=== PATIENT | male | born 1955 | race Caucasian/White ===

== ENCOUNTER → 2024-07-29 | Outpatient (CLI) | payer MEDICARE, BC, SELFPAY ==
--- NOTE | 2024-07-29 06:33 | ECHOCS_ITS ---
Reason For Study Reason For Study: CORONARY ARTERY DISEASE Procedure This was a 2D Doppler, Color Flow transthoracic echocardiogram. Contrast injection was performed. The study was technically difficult. Exam performed in department. Left Ventricle Normal LV size. Mild concentric left ventricular hypertrophy. The left ventricular ejection fraction is 55 %. Stage 1 diastolic dysfunction. Right Ventricle Normal right ventricle. Atria There is mild biatrial dilatation. Mitral Valve Mild (1+) mitral valve insufficiency. Tricuspid Valve Trivial tricuspid valve insufficiency. Normal pulmonary artery pressure. Aortic Valve Mild diffuse aortic valve thickening. Pulmonic Valve The pulmonic valve is not well visualized. Great Vessels Normal-sized aortic root. Pericardium/Pleural No pericardial effusion. Medication 22 gauge I.V. with prn adaptor inserted into right arm. Diluted definity 2ml given slow IV push to enhance endocardial definition. MMode/2D Measurements & Calculations LVIDd: 4.6 cm IVSd: 1.2 cm LVOT diam: 2.0 cm LVIDs: 3.3 cm LVPWd: 1.1 cm RVDd: 4.3 cm FS: 29.0 % LVOT area: 3.1 cm2 LA dimension: 4.5 cm asc Aorta Diam: 3.6 cm LAV(MOD- bp): 60.3 ml LAV(MOD- bp) Indexed: 28.0 ml/m2 LAV(MOD- sp2): 60.7 ml LAV(MOD- sp4): 55.4 ml SV(MOD- sp4): 71.6 ml LVAd ap4: 37.0 cm2 LVAd ap2: 37.0 cm2 LVLd ap4: 8.5 cm LVLd ap2: 9.3 cm SI(MOD- sp4): 33.3 ml/m2 EDV(MOD-sp4): 129.2 ml EDV(MOD-sp2): 118.1 ml EDV(sp4-el): 137.4 ml EDV(sp2-el): 125.2 ml LVAs ap4: 23.9 cm2 LVAs ap2: 21.6 cm2 LVLs ap4: 8.0 cm LVLs ap2: 8.1 cm ESV(MOD-sp4): 57.6 ml ESV(MOD-sp2): 46.1 ml ESV(sp4-el): 60.4 ml ESV(sp2-el): 48.7 ml EF(MOD-sp4): 55.4 % EF(MOD-sp2): 61.0 % EF(sp4-el): 56.0 % SV(MOD-sp2): 72.0 ml SV(sp4-el): 77.0 ml Ao sinus diam: 3.4 cm SI(MOD-sp2): 33.4 ml/m2 Ao ST Junction: 2.8 cm LA dimension(2D): 4.2 cm LA A4 area: 20.4 cm2 RA A4 area: 17.5 cm2 TAPSE: 1.5 cm Time Measurements MV dec time: 0.22 sec Doppler Measurements & Calculations MV E max sotero: 87.4 cm/sec Ao V2 max: 99.3 cm/sec LV V1 max: 86.0 cm/sec Ao max P.9 mmHg LV V1 max P.0 mmHg Ao V2 mean: 69.5 cm/sec LV V1 mean P.6 mmHg Ao mean P.3 mmHg LV V1 mean: 59.3 cm/sec Ao V2 VTI: 24.4 cm LV V1 VTI: 21.4 cm AV (velocity ratio): 0.88 MELI(I,D): 2.7 cm2 MELI(V,D): 2.7 cm2 SV(LVOT): 66.5 ml PA V2 max: 70.5 cm/sec TR max sotero: 260.5 cm/sec TR max P.1 mmHg ECHO/Echo Complete W/ Contrast Interpretation Summary Mild concentric left ventricular hypertrophy. The left ventricular ejection fraction is 55 %. Stage 1 diastolic dysfunction. There is mild biatrial dilatation. Mild (1+) mitral valve insufficiency. Ordering Physician: Nya Tran Referring Physician: MD Marco A Richar Performed By: Gracie Brown [facility]
--- NOTE | 2024-07-29 12:27 | STRESSREP ---
Stress Test Report Date: 07/29/2024 Procedure: Pharmacologic stress nuclear imaging study Indications: Atrial fibrillation Consent: Per the patient Procedure: The patient underwent pharmacologic (Regadenoson 0.4mg ) evaluation with a peak heart rate of 76 beats per minute (50%predicted maximal heart rate) and a peak blood pressure of 154/66 mmHg. The baseline ECG demonstrated atrial fibrillation. The peak pharmacologic ECG demonstrated no ischemic changes. There was no complaint of chest discomfort during pharmacologic infusion or recovery. The patient was injected with 15.0 millicuries of technetium 99m Cardiolite and subsequently rest SPECT Cardiolite nuclear imaging was obtained in the horizontal long, vertical long, and short axis views. The patient underwent pharmacologic (Regadenoson) evaluation. The patient was injected with 44.8 millicuries of technetium 99m Cardiolite and subsequently stress SPECT Cardiolite nuclear imaging was obtained in the horizontal long, vertical long, and short axis views. A gated Cardiolite study at peak stress was obtained. The examination was stopped secondary to completion of protocol. Rest and stress SPECT Cardiolite nuclear imaging status post realignment, normalization, and attenuation correction demonstrate no fixed or reversible perfusion defects. There is end systolic thickening and brightening. The gated Cardiolite study demonstrates myocardial thickening and inward wall motion. The reported LVEF is 65%. Impression: 1. Pharmacologic (Regadenoson) evaluation 2. Peak pharmacologic ECG with no ischemic changes. 3. Baseline atrial fibrillation. 5. Rest and stress SPECT Cardiolite nuclear imaging demonstrate relative uniform tracer uptake and myocardial perfusion appearing within normal limits. 6. The gated Cardiolite study reports an LVEF of 65%. This note was generated with [employer] software. It may contain incorrect words, spelling, and punctuation that were not noted in checking the note before signing.
== END | disposition home or self-care (01) ==
PROVIDERS: PCP Family Medicine; Referring Provider Internal Medicine Cardiovascular Disease; Visit Provider Internal Medicine Cardiovascular Disease
DX: I25.119 Atherosclerotic heart disease of native coronary artery with unspecified angina pectoris (principal); I48.91 Unspecified atrial fibrillation; I10 Essential (primary) hypertension; R06.83 Snoring
CPT/HCPCS: 78452; 93017; 93306; A9500; Q9957; A4216; C8929; J2785

== ENCOUNTER 2025-04-29 20:00 | Outpatient (CLI) | payer MEDICARE, BC, SELFPAY ==
--- OUTSIDE RECORDS SUMMARY | 2025-04-29 20:27 | XMS RPT_ITS | CCD ---
Author Organization [facility] Care Team Providers Care Senior Integration Architect Name Role Phone Kerri Strickland MD Primary Care Provider PRISCILA MISTRY Attending Unava ilable KERRI STRICKLAND Primary Care Unavailable Kerri Strickland MD Primary Care Provider Kerri Striclkand MD Primary Care Provider Kerri Strickland MD Primary Care Provider [address] MACHINE OPERATOR.Adina LOCKHART Unavailable Jovany RO[address] MACHINE OPERATOR.Hugo LOCKHART Unavailable BRAYDEN OJSEPH Attending Unavailable BRAYDEN JOSEPH Admitting Unavailable KERRI STRICKLAND Primary Care Unavailable [address] MACHINE OPERATOR.Adina LOCKHART Unavailable Unavail able [address] MACHINE OPERATOR.Adina LOCKHART Unavailable KERRI STRICKLAND Referring Unavailable ELDERKERRI PEREIRA Primary Care Unavailable SOPHIA REBOLLEDO Attending Unavailable DIEGO, KERRI Crespo Primary Care Unavailable BRAYDEN JOSEPH Referring Unavailable ELDERBROCK, KERRI Crespo Referring Unavailable ELDERBROCK, KERRI Cherie Primary Care Unavailable ELDERBROCKKERRI Attending Unavailable ELDERBROCK, KERRI Crespo Primary Care Unavailable ELDERBROCK, KERRI Crespo Referring Unavailable ELDERBROCK, KERRI Crespo Primary Care Unavailable BRAYDEN JOSEPH Attending Unavailable KERRI STRICKLAND Referring Unavailable ELDERBROCK, KERRI Crespo Primary Care Unavailable KYLER MELO Referring Unavailable ELDERBROCK, KERRI D Primary Care Unavailable ELDERBROCK, KERRI Cherie Primary Care Unavailable ELDERBROCK, KERRI Crespo Referring Unavailable ELDERBROCK, KERRI Cherie Primary Care Unavailable ELDERBROCK, KERRI Cherie Primary Care Unavailable BRAYDEN JOSEPH Referring Unavailable ELDERBROCK, KERRI Crespo Attending Unavailable ELDERBROCK, KERRI Cherie Primary Care Unavailable ELDERBROELLI, KERRI Crespo Primary Care Unavailable BRAYDEN JOSEPH Referring Unavailable BRAYDEN JOSEPH Attending Unavailable KERRI STRICKLAND Attending Unavailable KERRI STRICKLAND Primary Care Unavailable Marc, Nya Attending Unavailable Kerri Strickland Referring Unavailable Kerri Strickland Primary Care Unavailable Marc, Nya Attending Unavailable Marc, Nya Referring Unavailable Kerri Strickland Primary Care Unavailable Marc, Nya Consulting Unavailable Marc, Nya Attending Unavailable Marc, Nya Referring Unavailable Kerri Strickland Primary Care Unavailable Sen Guy Attending Unavailable Kerri Strickland Referring Unavailable Hugo Manzo NP Primary Care Unavailable Allergies Allergy Classification Reported Allergen(s) Allergy Type Date of Onset Reaction(s) Facility (1 source) HAY FEVER AND ALLERGY RELIEF; Translations: [HAY FEVER AND ALLERGY RELIEF] Propensity to adverse reactions to drug (disorder) 2 [facility] Medications Current Medications Medication Drug Class(es) Dates Sig (Normalized) Sig (Original) apixaban 5 mg oral tablet (6 sources) Factor Xa Inhibitor Start: 07-27-2024 take 1 tablet by mouth twice daily apixaban (ELIQUIS) 5 mg tab(s) Take 5 mg by mouth two times a day. 07/27/2024 Active atorvastatin 80 mg oral tablet (20 sources) HMG-CoA Reductase Inhibitor Start: 08-02-2022 End: 08-16-2024 take 1 tablet by mouth once daily atorvastatin (LIPITOR) 80 mg tablet Indications: Hyperlipidemia, unspecified hyperlipidemia type Take 1 tablet by mouth once daily. 90 tablet 3 08/16/2024 Active Start: 04-18-2021 take 1 tablet by andrea th once daily atorvastatin (LIPITOR) 80 mg tablet Take 1 tablet by mouth once daily. 90 tablet 3 04/18/2021 Active Comment on above: Take 1 tablet by andrea th once daily. hydroCHLOROthiazide 12.5 mg / lisinopril 20 mg oral tablet (20 sources) Thiazide Diuretic, Angiotensin Converting Enzyme Inhibitor Start: 08-02-19 End: 08-27-19 25 take 1 tablet by mouth once daily in the morning lisinopril-hydro CHLOROthiazide (ZESTORETIC) 20-12.5 mg per tablet Indications: Type 2 diabetes mellitus without complication, without long-term current use of insulin (HCC) , HTN (hypertension), benign Take 1 tablet by mouth every morning. 90 tablet 3 08/16/2024 Active Start: 01-25-2022 take 1 tablet by andrea th once daily in the morning lisinopril-hydroCHLOROthiazide (PRINZIDE,ZESTORETIC) 20-12.5 mg per tablet Take 1 tablet by mouth every morning. 90 tablet 3 01/25/2022 Active Comment on above: Take 1 tablet by andrea th every morning. 24 hr isosorbide mononitrate 30 mg extended release oral tablet (20 sources) Nitrate Vasodilator Start: 3 End: take 1 tablet by mouth once daily isosorbide mononitrate ER (IMDUR) 30 mg 24 hr tablet Indications: HTN (hypertension), benign Take 1 tablet by mouth once daily. 90 tablet 3 09/06/2024 Active Start: 04-18-2021 take 1 tablet by andrea th once daily isosorbide mononitrate ER (IMDUR) 30 mg 24 hr tablet Take 1 tablet by mouth once daily. 90 tablet 3 04/18/2021 Active Comment on above: Take 1 tablet by andrea th once daily. loratadine 10 mg oral tablet (20 sources) Start: 08-02-2022 End: 07-31-2023 take 1 tablet by mouth once daily loratadine (CLARITIN) 10 mg tablet Take 1 tablet by mouth once daily. 90 tablet 3 07/31/2023 Active Start: 10-19-2021 take 1 tablet by andrea th once daily loratadine (CLARITIN) 10 mg tablet Take 1 tablet by mouth once daily. 90 tablet 3 10/19/2021 Active Comment on above: Take 1 tablet by andrea th once daily. meloxicam 15 mg oral tablet (20 sources) Nonsteroidal Anti-inflammatory Drug Start: 08-02-19 End: 06-11-20 take 1 tablet by mouth once daily at mealtime meloxicam (MOBIC) 15 mg tablet Indications: Foot pain, right Take 1 tablet by mouth once daily. With food. 90 tablet 3 06/11/2024 Active Comment on above: Take 1 tablet by andrea th once daily. With food. 24 hr metFORMIN hydrochloride 500 mg extended release oral tablet (20 sources) Biguanide Start: 08-02-19 End: 08-17-19 take 3 tablets by mouth once daily at breakfast metFORMIN ER (GLUCOPHAGE XR) 500 mg 24 hr tablet Indications: Type 2 diabetes mellitus without complication, without long-term current use of insulin (HCC) Take 3 tablets by mouth daily with breakfast. 270 tablet 3 08/16/2024 Active Start: 04-29-2022 take 2 tablets by mo uth once daily at breakfast metFORMIN ER (GLUCOPHAGE XR) 500 mg 24 hr tablet Take 2 tablets by mouth daily with breakfast. 180 tablet 4 04/29/2022 Active Start: 04-18-2021 take 2 tablets by mo uth once daily at breakfast metFORMIN ER (GLUCOPHAGE XR) 500 mg 24 hr tablet Take 2 tablets by mouth daily with breakfast. 180 tablet 3 04/18/2021 Active Comment on above: Take 2 tablets by mo uth daily with breakfast. Take 3 tablets by mo uth daily with breakfast. metoprolol tartrate 25 mg oral tablet (20 sources) beta-Adrenergic Sherman Start: 08-02-2022 End: 06-11-2025 take 1 tablet by mouth twice daily metoprolol tartrate, short acting, (LOPRESSOR) 25 mg tablet Indications: HTN (hypertension), benign Take 1 tablet by mouth two times a day. 180 tablet 3 06/11/2024 06/11/2025 Active Start: 04-29-2022 take 1 tablet by andrea twice daily metoprolol tartrate, short acting, (LOPRESSOR) 25 mg tablet Indications: HTN (hypertension), benign Take 1 tablet by mouth twice daily. 180 tablet 4 04/29/2022 Active Start: 04-18-2021 take 1 tablet by andrea th twice daily metoprolol tartrate, short acting, (LOPRESSOR) 25 mg tablet Indications: HTN (hypertension), benign Take 1 tablet by mouth twice daily. 180 tablet 3 04/18/2021 Active Comment on above: Take 1 tablet by andrea th twice daily. Take 1 tablet by andrea th two times a day. multivitamin tablet (16 sources) Start: 05-07-20 take 1 tablet by mouth once daily multivitamin tablet Take 1 tablet by mouth once daily. 05/07/2024 Active tadalafil 10 mg oral tablet (20 sources) Phosphodiesterase 5 Inhibitor Start: 02-13-20 take 1 tablet by mouth once daily as needed Tadalafil (CIALIS) 10 mg tablet Indications: Erectile dysfunction, unspecified erectile dysfunction type Take 1 tablet by mouth once daily as needed. Take 1-2 hours before sexual activity. 6 tablet 5 02/13/2024 Active Completed/Discontinued Medications Medication Drug Class(es) Dates Sig (Normalized) Sig (Original) aspirin 81 mg chewable tablet (20 sources) Platelet Aggregation Inhibitor, Nonsteroidal Anti-inflammatory Drug Start: 05-26-2018 End: 08-20-2024 take 1 tablet by mouth once daily aspirin 81 mg chewable tablet Take 1 tablet by mouth once daily. 05/26/2018 08/20/2024 Discontinued (Discontinued by another Health Care Provider) Comment on above: Take 1 tablet by andrea once daily. colchicine 0.6 mg oral tablet (12 sources) Start: 07-09-2023 End: 06-18-2024 colchicine 0.6 mg tablet TAKE 2 TABLETS BY MOUTH ONCE NOW AND THEN 1 TABLET ONCE IN 1 HOUR... (REFER TO PRESCRIPTION NOTES). 07/09/2023 06/18/2024 Discontinued docosahexanoic acid/epa (FISH OIL ORAL) (11 sources) End: 02-03-2023 docosahexanoic acid/epa (FISH OIL ORAL) Take by mouth once daily. 02/03/2023 Discontinued End: 02-03-2023 docosahexanoic acid/epa (FIS H OIL ORAL) Take by mouth once daily. 0 02/03/2023 Discontinued docosahexanoic a talon/epa (FISH OIL ORAL) Take by mouth once daily. 0 Active Comment on above: Take by mouth once d aily. hydroCHLOROthiazide 12.5 mg oral capsule (3 sources) Thiazide Diuretic Start : 10-19 End: 01-25 take 1 capsule by mouth once daily hydroCHLOROthiazide (HYDRODIURIL, ESIDRIX) 12.5 mg capsule Take 1 capsule by mouth once daily. 90 capsule 11 10/19/2021 01/25/2022 Discontinued Comment on above: Take 1 capsule by mo [facility] once daily. lisinopril 20 mg oral tablet (3 sources) Angiotensin Converting Enzyme Inhibitor Start : 07-24 End: 01-25 take 1 tablet by mouth once daily lisinopril (PRINIVIL) 20 mg tablet Indications: HTN (hypertension), benign Take 1 tablet by mouth once daily. 90 tablet 3 07/24/2021 01/25/2022 Discontinued Comment on above: Take 1 tablet by andrea th once daily. polyethylene glycol 3350 709045 mg / potassium chloride 2970 mg / sodium bicarbonate 6740 mg / sodium chloride 5860 mg / sodium sulfate 76650 mg powder for oral solution (1 source) Osmotic Laxative Start : 08-20 End: 08-20 peg 3350-Electrolytes (GOLYTELY) 236-22.74-6.74 -5.86 gram suspension Take 4,000 mL by mouth one time only for 1 dose. 1 Each 0 08/20/2022 08/20/2022 Comment on above: Take 4,000 mL by andrea th one time only for 1 dose. triamcinolone acetonide 0.25 mg/ml topical cream (11 sources) Corticosteroid Start : 09-19 End: 02-03 triamcinolone (KENALOG) 0.025 % cream Indications: Sore on scalp Apply to affected area twice daily. 30 g 1 09/20/2019 02/03/2023 Discontinued Comment on above: Apply to affected ar ea twice daily. Vitamin B Complex (20 sources) Start : 05-26 End: 06-18 take 1 tablet by mouth once daily vitamin b complex (B COMPLETE) tab Take 1 tablet by mouth once daily. 05/26/2018 06/18/2024 Discontinued Start: 05-26-2018 take 1 tablet by andrea th once daily vitamin b complex (B COMPLETE) tab Take 1 tablet by mouth once daily. 05/26/2018 Active Start: 05-26-2018 take 1 tablet by andrea th once daily vitamin b complex (B COMPLETE) tab Take 1 tablet by mouth once daily. 0 05/26/2018 Active Comment on above: Take 1 tablet by andrea th once daily. Problems Active Problems Problem Classification Problem Date Documented Da te Episodic/Chronic Cancer of prostate (6 sources) History of malignant neoplasm of prostate; Translations: [Personal history of malignant neoplasm of prostate] Onset: 08-31-2024 08-31-2024 Episodic Cardiac dysrhythmias (18 sources) Atrial fibrillation; Translations: [Unspecified atrial fibrillation] Onset: 06-18-2024 06-21-2024 Chronic Cardiac dysrhythmias (1 source) Bradycardia, unspecified; Translations: [Bradycardia, unspecified] Onset: 04-18-2025 Episodic Cataract (20 sources) Bilateral pseudophakia; Translations: [Presence of intraocular lens] Onset: 08-25-2017 08-25-2017 Chronic Coronary atherosclerosis and other heart disease (17 sources) Coronary arteriosclerosis; Translations: [Atherosclerotic heart disease of [place] coronary artery with unspecified angina pectoris] Onset: 06-21-2024 06-21-2024 Chronic Diabetes mellitus without complication (20 sources) Type 2 diabetes mellitus without complication; Translations: [Type 2 diabetes mellitus without complications] Onset: 05-07-2016 Chronic Disorders of lipid metabolism (20 sources) Hyperlipidemia; Translations: [Hyperlipidemia, unspecified] Onset: 05-07-2016 Chronic Essential hypertension (20 sources) Benign hypertension; Translations: [Essential (primary) hypertension] Onset: 05-07-2016 Chronic Gout and other crystal arthropathies (3 sources) Gouty arthritis of toe; Translations: [Gout, unspecified] Onset: 03-05-2025 02-13-2024 Chronic Hyperplasia of prostate (20 sources) Benign prostatic hyperplasia; Translations: [Benign prostatic hyperplasia without lower urinary tract symptoms] Onset: 06-05-2016 06-05-2016 Chronic Immunizations and screening for infectious disease (1 source) Vaccination needed; Translations: [Encounter for immunization] 02-03-2023 Episodic Joint disorders and dislocations; trauma-related (8 sources) Derangement of left knee; Translations: [Unspecified internal derangement of left knee] Onset: 05-31-2024 05-07-2024 Chronic Joint disorders and dislocations; trauma-related (2 sources) Other tear of medial meniscus, current injury, left knee, subsequent encounter; Translations: [Tear of medial meniscus of knee] Onset: 09-15-2024 10-25-2024 Episodic Open wounds of extremities (2 sources) Laceration without foreign body of left hand, initial encounter; Translations: [Laceration without foreign body of left hand, initial encounter] Onset: 04-04-2022 Episodic Osteoarthritis (2 sources) Arthritis of left knee; Translations: [Unilateral primary osteoarthritis, left knee] 08-20-2024 Chronic Other aftercare (1 source) Removal of sutures done; Translations: [Encounter for removal of sutures] Episodic Other connective tissue disease (4 sources) Pain in right foot; Translations: [Pain in right foot] Episodic Other connective tissue disease (1 source) Plantar fasciitis; Translations: [Plantar fascial fibromatosis] Episodic Other connective tissue disease (1 source) Pain in right foot; Translations: [Foot pain, right] Onset: 03-05-2025 Episodic Other eye disorders (20 sources) Bilateral vitreous floaters; Translations: [Other vitreous opacities, bilateral] Onset: 08-25-2017 08-25-2017 Chronic Other male genital disorders (2 sources) Male erectile dysfunction, unspecified; Translations: [Impotence of organic origin] 02-13-2024 Chronic Other nutritional; endocrine; and metabolic disorders (6 sources) Body mass index 30+ - obesity; Translations: [Body mass index (BMI) 34.0-34.9, adult] Onset: 08-31-2024 08-31-2024 Chronic Other skin disorders (1 source) Dystrophia unguium; Translations: [Nail dystrophy] Episodic Residual codes; unclassified (1 source) Hypersomnia, unspecified; Translations: [Hypersomnia, unspecified] Onset: 04-18-2025 Chronic Residual codes; unclassified (1 source) Tobacco user; Translations: [Tobacco use] 02-13-2024 Episodic Screening and history of mental health and substance abuse codes (8 sources) Patient encounter status; Translations: [Encounter for screening for depression] Onset: 08-31-2024 02-13-2024 Episodic Unclassified (1 source) Chronic atrial fibrillation, unspecified; Translations: [Chronic atrial fibrillation (HCC)] Onset: 03-05-2025 Unclassified (1 source) Consult Onset: 08-26-2024 Past or Other Problems Problem Classification Problem Date Documented Da te Episodic/Chronic Cancer of prostate (20 sources) Malignant tumor of prostate; Translations: [Malignant neoplasm of prostate] Onset: 05-07-2016 Resolved: 02-03-2023 05-07-2016 Chronic Other aftercare (1 source) senior care (current) use of insulin; Translations: [senior care (current) use of insulin] Onset: 08-12-2024 Episodic Other lower respiratory disease (2 sources) Snoring; Translations: [Snoring] Onset: 08-12-2024 Episodic Other male genital disorders (20 sources) Disorder of male genital organ; Translations: [Disorder of male genital organs, unspecified] Onset: 06-05-2016 06-05-2016 Episodic Other non-traumatic joint disorders (8 sources) Pain in left knee; Translations: [Pain in joint, lower leg] Onset: 05-31-2024 03-22-2024 Episodic Residual codes; unclassified (1 source) Tobacco use; Translations: [Tobacco use] Onset: 08-12-2024 Episodic Results Test Name Value Interpretation Reference Range Facility ALBUMIN/CREATININE RATIO, UR INEon 03-05-2025 Albumin DL <= 20 mg/L (U) [Mass/Vol] 22.3 mg/L Normal [facility] Comment on above: Order Comment: Speci men Type: URINE SPECIMENOrdering Facility: [facility] Address: [address] [place] [address] Performed By: #### U ACR ####[facility] LABCLIA [id number] [place] [address] [place] Albumin/Creatinine (U) [Mass ratio] 22 mg/g Normal <30 [facility] Comment on above: Order Comment: Speci men Type: URINE SPECIMENOrdering Facility: [facility] Address: [address] [place] [address] Result Comment: Adul t Male and Female Nephrotic Criteria: <30 mg/g is considered normal to mildly increased 30-300 mg/g is considered moderately increased >300 mg/g is considered severely increased KDIGO. (2013). KDIGO 2012 Clinical Practice Guideline for the Evaluation and Management of Chronic Kidney Disease. Official Journal of the International Society of Nephrology, 3(1), 1-150. Performed By: #### U ACR ####[facility]CLIA [id number] [place] [address] [place] Creatinine (U) [Mass/Vol] 101.4 mg/dL Normal 20.0-300.0 [facility] Comment on above: Order Comment: Speci men Type: URINE SPECIMENOrdering Facility: [facility] Address: [address] [place] [address] Performed By: #### U ACR ####[facility] LABCLIA [id number] [place] [address] [place] CBC panel Auto (Bld)on 03-05 Erythrocyte distribution width (RBC) [Ratio] 13.5 % Normal 11.5-15.0 [facility] Comment on above: Order Comment: Speci men Type: BLOOD SPECIMENOrdering Facility: [facility] Address: [address] [place] [address] Performed By: #### 5 8410-2 ####[facility] LABIA [id number] [place] [address] [place] Hematocrit (Bld) [Volume fraction] 43.3 % Normal 39.0-51.0 [facility] Comment on above: Order Comment: Speci men Type: BLOOD SPECIMENOrdering Facility: [facility] Address: [address] [place] [address] Performed By: #### 5 8410-2 ####[facility] LABIA [id number] [address] [place] Hemoglobin (Bld) [Mass/Vol] 14.0 g/dL Normal 13.0-17.0 [facility] Comment on above: Order Comment: Speci men Type: BLOOD SPECIMENOrdering Facility: [facility] Address: [address] [place] [address] Performed By: #### 5 8410-2 ####[facility] LABIA [id number] [place] [id number] [place] MCH (RBC) [Entitic mass] 30.7 pg Normal 26.0-34.0 [facility] Comment on above: Order Comment: Speci men Type: BLOOD SPECIMENOrdering Facility: [facility] Address: [address] [place] [address] Performed By: #### 5 8410-2 ####[facility] LABIA [id number] [address] [address] [place] MCHC (RBC) [Mass/Vol] 32.3 g/dL Normal 30.5-36.0 [facility] Comment on above: Order Comment: Speci men Type: BLOOD SPECIMENOrdering Facility: [facility] Address: [address] [place] [address] Performed By: #### 5 8410-2 ####[facility] LABCLIA [id number] [place] [address] [place] MCV (RBC) [Entitic vol] 95.0 fL Normal 80.0-100.0 [facility] Comment on above: Order Comment: Speci men Type: BLOOD SPECIMENOrdering Facility: [facility] Address: [address] [place] [address] Performed By: #### 5 8410-2 ####[facility] LABCLIA [id number] [place] [address] [place] Nucleated RBC (Bld) [#/Vol] 10*3/uL Normal <0.01 [facility] Comment on above: Order Comment: Speci men Type: BLOOD SPECIMENOrdering Facility: [facility] Address: [address] [place] [address] Performed By: #### 5 8410-2 ####[facility] LABCLIA [id number] [place] [address] [place] Platelet mean volume (Bld) [Entitic vol] 13.5 fL High 9.0-12.7 [facility] Comment on above: Order Comment: Speci men Type: BLOOD SPECIMENOrdering Facility: [facility] Address: [address] [place] [address] Performed By: #### 5 8410-2 ####[facility] LABCLIA [id number] [place] [id number] [place] Platelets (Bld) [#/Vol] 160 10*3/uL Normal 150-400 [facility] Comment on above: Order Comment: Speci men Type: BLOOD SPECIMENOrdering Facility: [facility] Address: [address] [place] [address] Performed By: #### 5 8410-2 ####[facility] LABIA [id number] [place] [address] [place] RBC (Bld) [#/Vol] 4.56 10*6/uL Normal 4.20-6.00 [facility] Comment on above: Order Comment: Speci men Type: BLOOD SPECIMENOrdering Facility: [facility] Address: [address] [place] [address] Performed By: #### 5 8410-2 ####[facility] LABIA [id number] [place] [address] [place] WBC (Bld) [#/Vol] 8.78 10*3/uL Normal 3.70-11.00 [facility] Comment on above: Order Comment: Speci men Type: BLOOD SPECIMENOrdering Facility: [facility] Address: [address] [place] [address] Performed By: #### 5 8410-2 ####[facility] LABIA [id number] [place] [address] [place] CNOVon 03-05-2025 CNOV Office Visit (FAMPWS ) JONATHAN DUNCAN ([id number]) 1955 M Date Time Provider Department 03/05/25 11:00 AM KERRI STRICKLAND FAMPWS During your visit today, we recorded the following information about you: Pulse Blood pressure Weight 61/minute 148/80 102 kg Kerri Strickland MD 03/05/2025 11:33 AM Signed Chief Complaint Follow up HPI Jonathan Duncan is a 69 year old male who presents here today for 6 month follow up. No bowel, Gi, or urinary issues. Denies nocturia. Follows with urology, Hemant Hunter for BPH. ED: Uses Cialis as needed. Lipid: Trying to watch his diet, by reducing portion sizes, watching what he eats, and eating more fruits. Denies any formal exercise but tries to stay busy. Taking Lipitor 80 mg daily. Tolerating well. HTN: Taking Lopressor 25 mg 1 pill BID, Imdur 30 mg daily, Lisinopril-HCTZ 20-12.5 mg daily. Denies checking his BP at home. Denies any chest pain, sob, or dizziness DM: Denies checking his sugars at home, states he can tell when sugars become too low or high. Taking Metformin 500 mg 3 pills once daily. Denies any low sugars or neuropathy sx. A-fib: taking Eliquis 5 mg 1 tab po bid. Follows with [facility]. Arthritis: Uses Mobic 15 mg once daily for left knee arthritis. Follows with Sameera Wakefield. Hx of gout, has had 3 attacks in the last 6 months in toe.. Past medical history, appointments, medications, allergies reviewed. Previous Medical History PAST MEDICAL HISTORY Diagnosis Date Diabetes mellitus type 2, controlled, without complications (HCC) Hyperlipidemia Hypertension Prostate cancer (HCC) Snoring Previous Surgical History PAST SURGICAL HISTORY Procedure Laterality Date ARTHRS KNE SURG W/MENISCECTOMY MED/LAT W/SHVG Left 09/15/2024 Left knee arthroscopic medial menisectomy, medial distal femoral chondroplasty COLONOSCOPY 09/27/2022 repeat in 5 years, history of polyps. COLONOSCOPY FLX DX W/COLLJ SPEC WHEN PFRMD 05/15/2017 Colonoscopy EYE SURGERY HX PAST SURGICAL HISTORY OF 2014 Prostate cancer removed PAST SURGICAL HISTORY OF Right 2006 Cataract surgery PAST SURGICAL HISTORY OF 2004 Colonoscopy PAST SURGICAL HISTORY OF 2006 Hemorrhoidectomy PAST SURGICAL HISTORY OF 2011 Toe surgery, due to almost cutting toe off with chainshaw PAST SURGICAL HISTORY OF 2009 Colonoscopy Family History FAMILY HISTORY Problem Relation Age of Onset Heart Mother Heart Father Age of 69, massive [place] Diabetes Father Heart Sister Heart Brother Diabetes Paternal Aunt Colon Cancer Paternal Uncle Patient Allergies ALLERGIES No Known Allergies Current Medications Current Outpatient Medications on File Prior to Visit Medication Sig isosorbide mononitrate ER (IMDUR) 30 mg 24 hr tablet Take 1 tablet by mouth once daily. apixaban (ELIQUIS) 5 mg tab(s) Take 5 mg by mouth two times a day. metFORMIN ER (GLUCOPHAGE XR) 500 mg 24 hr tablet Take 3 tablets by mouth daily with breakfast. atorvastatin (LIPITOR) 80 mg tablet Take 1 tablet by mouth once daily. lisinopril-hydroCHLORO thiazide (ZESTORETIC) 20-12.5 mg per tablet Take 1 tablet by mouth every morning. meloxicam (MOBIC) 15 mg tablet Take 1 tablet by mouth once daily. With food. metoprolol tartrate, short acting, (LOPRESSOR) 25 mg tablet Take 1 tablet by mouth two times a day. multivitamin tablet Take 1 tablet by mouth once daily. Tadalafil (CIALIS) 10 mg tablet Take 1 tablet by mouth once daily as needed. Take 1-2 hours before sexual activity. loratadine (CLARITIN) 10 mg tablet Take 1 tablet by mouth once daily. Lancets lancets Test blood sugar(s) 1 times daily. Dx: Type 1 DM - Controlled E10.9 Insulin: No blood sugar diagnostic (BLOOD GLUCOSE TEST) test strip Test blood sugar(s) 1 times daily. Dx: Type 1 DM - Controlled E10.9 Insulin: No No current facility-administered medications on file prior to visit. Social History SOCIAL HISTORY[1] EXAM: There were no vitals taken for this visit. General Appearance: Well appearing, alert, in no acute distress, well-hydrated, well nourished.. Lungs: Lungs clear to auscultation. No wheezing, rhonchi, rales.. Heart: RRR without murmur, gallop, or rubs. No ectopy. Health Maintenance List RSV Vaccine(1 - Risk 60-74 years 1-dose series) Never done Diabetic Foot Exam due on 04/18/2022 Medicare Annual Wellness Visit due on 02/12/2025 HbA1C due on 02/20/2025 Urine Albumin:Creatinine Ratio due on 02/12/2025 Depression Screening due on 02/12/2025 Anxiety Screening due on 02/12/2025 Influenza Vaccine(1) due on 02/14/2025 Dilated Retinal Exam due on 08/19/2025 LDL Cholesterol due on 08/20/2025 Annual PCP Team Chronic Disease Visit due on 08/20/2025 DTaP,Tdap,Td Vaccine(2 - Td or Tdap) due on 09/26/2025 Colorectal Cancer Screening due on 09/28/2027 Abdominal Aortic Aneurysm Screening Completed Advanc (more content not included)... Normal [facility] Comprehensive metabolic 2000 panelon 03-05-2025 Albumin [Mass/Vol] 3.9 g/dL Normal 3.9-4.9 [facility] Comment on above: Order Comment: Speci men Type: BLOOD SPECIMENOrdering Facility: [facility] Address: [address] [place] [address] Performed By: #### 3 084-1, 78812-9, 65558-4 ####[facility] LABIA [id number] [place] [address] [place] ALP [Catalytic activity/Vol] 115 U/L High 38-113 [facility] Comment on above: Order Comment: Speci men Type: BLOOD SPECIMENOrdering Facility: [facility] Address: [address] [place] [address] Performed By: #### 3 084-1, 34188-5, 39984-0 ####[facility] LABIA [id number] [place] [address] [place] ALT [Catalytic activity/Vol] 24 U/L Normal 10-54 [facility] Comment on above: Order Comment: Speci men Type: BLOOD SPECIMENOrdering Facility: [facility] Address: [address] [place] [address] Performed By: #### 3 084-1, 08859-4, 68199-5 ####[facility] LABIA [id number] [address] [address] [place] Anion gap [Moles/Vol] 11 mmol/L Normal 8-15 [facility] Comment on above: Order Comment: Speci men Type: BLOOD SPECIMENOrdering Facility: [facility] Address: [address] [place] [address] Performed By: #### 3 084-1, 68548-6, 30659-5 ####[facility] LABCLIA [id number] [address] [address] [place] AST [Catalytic activity/Vol] 25 U/L Normal 14-40 [facility] Comment on above: Order Comment: Speci men Type: BLOOD SPECIMENOrdering Facility: [facility] Address: [address] [place] [address] Performed By: #### 3 084-1, 10942-1, 19892-7 ####[facility] LABCLIA [id number] [address] [address] [place] Bilirubin [Mass/Vol] 0.5 mg/dL Normal 0.2-1.3 [facility] Comment on above: Order Comment: Speci men Type: BLOOD SPECIMENOrdering Facility: [facility] Address: [address] [place] [address] Performed By: #### 3 084-1, 69392-5, 97922-6 ####[facility] LABIA [id number] [address] [address] [place] Calcium [Mass/Vol] 9.4 mg/dL Normal 8.5-10.2 [facility] Comment on above: Order Comment: Speci men Type: BLOOD SPECIMENOrdering Facility: [facility] Address: [address] [place], [place] [address] Performed By: #### 3 084-1, 66837-0, 18463-1 ####[facility] LABIA [id number] [address] [address] [place] Chloride [Moles/Vol] 102 mmol/L Normal 98-107 [facility] Comment on above: Order Comment: Speci men Type: BLOOD SPECIMENOrdering Facility: [facility] Address: [address] [place], [place] [address] Performed By: #### 3 084-1, 59725-0, 61842-6 ####[facility] LABCLIA [id number] [place] [address] [place] CO2 [Moles/Vol] 26 mmol/L Normal 22-30 [facility] Comment on above: Order Comment: Speci men Type: BLOOD SPECIMENOrdering Facility: [facility] Address: [address] [place] [address] Performed By: #### 3 084-1, 08968-3, 08038-0 ####[facility] LABCLIA [id number] [place] [address] [place] Creatinine [Mass/Vol] 0.79 mg/dL Normal 0.73-1.22 [facility] Comment on above: Order Comment: Speci men Type: BLOOD SPECIMENOrdering Facility: [facility] Address: [address] [place] [address] Performed By: #### 3 084-1, 13857-5, ####[facility] [id number] [place] [address] [place] eGFRcr SerPlBld CKD-EPI 2020 95 mL/min/1.73m??? Normal >=60 [facility] Comment on above: Order Comment: Speci men Type: BLOOD SPECIMENOrdering Facility: [facility] Address: [address] [place] [address] Result Comment: Zainab mated Glomerular Filtration Rate (eGFR) is calculated using the 2020 CKD-EPI creatinine equation. This equation utilizes serum creatinine, sex, and age as parameters. The creatinine assay has traceable calibration to isotope dilution-mass spectrometry. Refer to KDIGO guidelines for clinical interpretation. In patients with unstable renal function, e.g. those with acute kidney injury, the eGFR may not accurately reflect actual GFR. Performed By: #### 3 084-1, 14081-4, 58228-8 ####[facility] LABCLIA [id number] [place] [id number] [place] Glucose [Mass/Vol] 131 mg/dL High 74-99 [facility] Comment on above: Order Comment: Speci men Type: BLOOD SPECIMENOrdering Facility: [facility] Address: [address] [place] [address] Result Comment: The [place] Diabetes Association (ADA) provides guidance for cutoff values for fasting glucose and random glucose. The ADA defines fasting as no caloric intake for at least 8 hours. Fasting plasma glucose results between 100 to 125 mg/dL indicate increased risk for diabetes (prediabetes). Fasting plasma glucose results greater than or equal to 126 mg/dL meet the criteria for diagnosis of diabetes. In the absence of unequivocal hyperglycemia, results should be confirmed by repeat testing. In a patient with classic symptoms of hyperglycemia or hyperglycemic crisis, random plasma glucose results greater than or equal to 200 mg/dL meet the criteria for diagnosis of diabetes. Reference: Standards of Medical Care in Diabetes 2016, [place] Diabetes Association. Diabetes Care. 2016.39(Suppl 1). Performed By: #### 3 084-1, 73378-6, 02789-6 ####[facility] LABCLIA [id number] [place] [address] [place] Potassium [Moles/Vol] 4.1 mmol/L Normal 3.7-5.1 [facility] Comment on above: Order Comment: Prestoni men Type: BLOOD SPECIMENOrdering Facility: [facility] Address: [address] [place] [address] Performed By: #### 3 084-1, 16274-9, 42391-7 ####[facility] LABCLIA [id number] [place] [address] [place] Protein [Mass/Vol] 6.6 g/dL Normal 6.3-8.0 [facility] Comment on above: Order Comment: Speci men Type: BLOOD SPECIMENOrdering Facility: [facility] Address: [address] [place] [address] Performed By: #### 3 084-1, 59852-8, 08272-2 ####[facility] LABCLIA [id number] [facility] [address] [address] [place] Sodium [Moles/Vol] 139 mmol/L Normal 136-144 [facility] Comment on above: Order Comment: Tiffanie men Type: BLOOD SPECIMENOrdering Facility: [facility] Address: [address] [place] [address] Performed By: #### 3 084-1, 80201-4, 14698-6 ####[facility] LABCLIA [id number] [place] [address] [place] Urea nitrogen [Mass/Vol] 16 mg/dL Normal 9-24 [facility] Comment on above: Order Comment: Tiffanie men Type: BLOOD SPECIMENOrdering Facility: [facility] Address: [address] [place] [address] Performed By: #### 3 084-1, 73133-7, ####[facility] LABCLIA [id number] [place] [address] [place] HbA1c (Bld)on 03-05-2025 Average glucose Estimated from glycated hemoglobin (Bld) [Mass/Vol] 154 mg/dL Normal [facility] Comment on above: Order Comment: Tiffanie men Type: BLOOD SPECIMENOrdering Facility: [facility] Address: [address] [place] [address] Result Comment: eAG: (Estimated average glucose) is a calculated value from HgbA1c and is reimbursement representative of the average blood glucose level in the last 2-3 month period. Performed By: #### 5 5454-3 ####[facility] LABIA [id number] [place] [address] [place] HbA1c (Bld) [Mass fraction] 7.0 % High 4.3-5.6 [facility] Comment on above: Order Comment: Tiffanie ismael Type: BLOOD SPECIMENOrdering Facility: [facility] Address: [address] [place] [address] Result Comment: Amer [place] Diabetes Association guidelines indicate that patients with HgbA1c in the range 5.7-6.4% are at increased risk for development of diabetes, and intervention by lifestyle modification may be beneficial. HgbA1c greater or equal to 6.5% is considered diagnostic of diabetes. Performed By: #### 5 5454-3 ####[facility] LABCLIA [id number] [place] [address] [place] [facility] [place] Lipid 1996 panelon 5 Cholesterol [Mass/Vol] 107 mg/dL Normal <200 [facility] Comment on above: Order Comment: Prestoni men Type: BLOOD SPECIMENOrdering Facility: [facility] Address: [address] [place] [address] Result Comment: <200 mg/dL, Desirable 200-239 mg/dL, Borderline high >239 mg/dL, High Performed By: #### 3 084-1, 06412-6, 69201-9 ####[facility] LABCLIA [id number] [address] [place] Cholesterol in HDL [Mass/Vol] 29 mg/dL Low >39 [facility] Comment on above: Order Comment: Tiffanie guevara Type: BLOOD SPECIMENOrdering Facility: [facility] Address: [address] [place] [address] Result Comment: 40-5 9 mg/dL, Acceptable >59 mg/dL, High: Negative risk factor for coronary heart disease <40 mg/dL, Low: Positive risk factor for coronary heart disease Performed By: #### 3 084-1, 76784-4, 79456-9 ####[facility] LABCLIA [id number] [place] [address] [facility] [place] Cholesterol in LDL [Mass/Vol] 65 mg/dL Normal <100 [facility] Comment on above: Order Comment: Tiffanie [facility] Type: BLOOD SPECIMENOrdering Facility: [facility] Address: [address] [place] [address] Result Comment: <100 mg/dL, Optimal 100-129 mg/dL, Near optimal/above optimal 130-159 mg/dL, Borderline high 160-189 mg/dL, High >189 mg/dL, Very high Secondary prevention optimal LDL Cholesterol levels are recommended to be <70 mg/dL LDL cholesterol is calculated using the Edouard-NIH equation. Performed By: #### 3 084-1, 68202-4, 32271-8 ####[facility] LABCLIA [id number] [address] [address] [place] Cholesterol in LDL/Cholesterol in HDL [Mass ratio] 2.24 {ratio} Normal <2.54 [facility] Comment on above: Order Comment: Speci men Type: BLOOD SPECIMENOrdering Facility: [facility] Address: [address] [place] [address] Result Comment: Refe rence: 1. National Cholesterol Education Program ATP III Guideline At-A-Glance Quick Desk Reference: National Heart, Lung, and Blood [place]. National Institutes of Health. 2001: NIH Publication No. 01-3305. 2. An International Atherosclerosis Society position paper: global recommendations for the management of dyslipidemia: executive summary, Atherosclerosis. 2014: 232(2):410-413. Performed By: #### 3 084-1, 35225-7, 30306-0 ####[facility] LABIA [id number] [place] [address] [place] Cholesterol in VLDL [Mass/Vol] 9 mg/dL Normal <30 [facility] Comment on above: Order Comment: Tiffanie guevara Type: BLOOD SPECIMENOrdering Facility: [facility] Address: [address] [place] [address] Performed By: #### 3 084-1, 79126-5, 24185-2 ####[facility] LABIA [id number] [address] [address] [place] Cholesterol non HDL [Mass/Vol] 78 mg/dL Normal <130 [facility] Comment on above: Order Comment: Prestoni men Type: BLOOD SPECIMENOrdering Facility: [facility] Address: [address] [place] [address] Result Comment: <130 mg/dL, Optimal 130-159 mg/dL, Near optimal/above optimal 160-189 mg/dL, Borderline high 190-219 mg/dL, High >219 mg/dL, Very high Secondary prevention optimal non HDL Cholesterol levels are recommended to be <100 mg/dL Performed By: #### 3 084-1, 23748-4, 89158-0 ####[facility] LABCLIA [id number] [address] [place] [address] [place] Cholesterol.total/Ch olesterol in HDL [Mass ratio] 3.69 {ratio} Normal <5.10 [facility] Comment on above: Order Comment: Speci men Type: BLOOD SPECIMENOrdering Facility: [facility] Address: [address] [place] [address] Performed By: #### 3 084-1, 04374-9, 36428-4 ####[facility] LABIA [id number] [address] OF [facility] FASTING TIME 12 hrs Normal [facility] Comment on above: Order Comment: Speci men Type: BLOOD SPECIMENOrdering Facility: [facility] Address: [address] [place] [address] Performed By: #### 3 084-1, 30828-0, 15503-2 ####[facility] LABIA [id number] [address] [place] Triglyceride [Mass/Vol] 58 mg/dL Normal <150 [facility] Comment on above: Order Comment: Speci men Type: BLOOD SPECIMENOrdering Facility: [facility] Address: [address] [place] [address] Result Comment: <150 mg/dL, Normal 150-199 mg/dL, Borderline high 200-499 mg/dL, High >499 mg/dL, Very high Performed By: #### 3 084-1, 63488-9, 27386-5 ####[facility] LABCLIA [id number] [address] [address] [place] Urate SerPl-mCncon 5 Urate [Mass/Vol] 6.0 mg/dL Normal 4.0-8.1 [facility] Comment on above: Order Comment: Speci men Type: BLOOD SPECIMENOrdering Facility: [facility] Address: [address] [place] [address] Performed By: #### 3 084-1, 16726-3, 10871-2 ####[facility] LABCLIA [id number] TALA YODER [id number] [place] [address] OF [facility] CNOVon 10-25-2024 CNOV Office Visit (ORTHWS ) JONATHAN DUNCAN ([id number]) 1955 M Date Time Provider Department 10/25/24 12:45 PM BRAYDEN JOSEPH During your visit today, we recorded the following information about you: Brayden Joseph MD 10/25/2024 10:29 PM Signed Brayden Joseph MD Department of Orthopaedics Orthopaedics [address] [facility] [address] Dept: [phone] Dept October 25, 2024 CHIEF COMPLAINT: Post Op of the Left Knee (5 weeks 5 days post op Left knee arthroscopic medial menisectomy, medial distal femoral chondroplasty). HPI Patient here for post op visit left knee arthroscopy. Patient states he is continuing to have pain with weight bearing. States he had a sharp pain in his knee when he stepping up on the curb walking into the building and almost fell to the ground. Taking Mobic for the pain and only helps take the edge off. Patient works at [employer] and would like to return to work on November 15. ASSESSMENT: S83.242D Other tear of medial meniscus of left knee as current injury, subsequent encounter (primary encounter diagnosis) M17.12 Primary osteoarthritis of left knee PLAN: He's doing very well. He mentioned tweaking the knee in the parking lot. We'll have to just see if that settles down. Exam: Healed incisions. No effusion. Full ROM. Supporting Information Below: Medications: Current Outpatient Medications Medication Sig isosorbide mononitrate ER (IMDUR) 30 mg 24 hr tablet Take 1 tablet by mouth once daily. apixaban (ELIQUIS) 5 mg tab(s) Take 5 mg by mouth two times a day. metFORMIN ER (GLUCOPHAGE XR) 500 mg 24 hr tablet Take 3 tablets by mouth daily with breakfast. atorvastatin (LIPITOR) 80 mg tablet Take 1 tablet by mouth once daily. lisinopril-hydroCHLORO thiazide (ZESTORETIC) 20-12.5 mg per tablet Take 1 tablet by mouth every morning. meloxicam (MOBIC) 15 mg tablet Take 1 tablet by mouth once daily. With food. metoprolol tartrate, short acting, (LOPRESSOR) 25 mg tablet Take 1 tablet by mouth two times a day. multivitamin tablet Take 1 tablet by mouth once daily. Tadalafil (CIALIS) 10 mg tablet Take 1 tablet by mouth once daily as needed. Take 1-2 hours before sexual activity. loratadine (CLARITIN) 10 mg tablet Take 1 tablet by mouth once daily. Lancets lancets Test blood sugar(s) 1 times daily. Dx: Type 1 DM - Controlled E10.9 Insulin: No blood sugar diagnostic (BLOOD GLUCOSE TEST) test strip Test blood sugar(s) 1 times daily. Dx: Type 1 DM - Controlled E10.9 Insulin: No No current facility-administered medications for this visit. Allergies: Patient has no known allergies. Recording using StrongView software for draft documentation of the visit was discussed with the patient/authorized reimbursement representative; all questions welcomed and answered. Patient/authorized reimbursement representative agreed to proceed Brayden Joseph MD Referring Provider: BRAYDEN JOSEPH [[id number]] Allergies As of Date: 10/25/2024 (No Known Allergies) Date Reviewed: 10/25/2024 Reviewed by: Tracy Mata MA - Fully Assessed Reason for Visit: Post Op [174] Cmt: 5 weeks 5 days post op Left knee arthroscopic medial menisectomy, medial distal femoral chondroplasty Primary Visit Diagnosis:Other tear of medial meniscus of left knee as current injury, subsequent encounter [F56.129E] Other Visit Diagnosis:Primary osteoarthritis of left knee [M17.12] Prescriptions as of 10/25/2024 - isosorbide mononitrate ER (IMDUR) 30 mg 24 hr tablet Take 1 tablet by mouth once daily. - apixaban (ELIQUIS) 5 mg tab(s) Take 5 mg by mouth two times a day. - metFORMIN ER (GLUCOPHAGE XR) 500 mg 24 hr tablet Take 3 tablets by mouth daily with breakfast. - atorvastatin (LIPITOR) 80 mg tablet Take 1 tablet by mouth once daily. - lisinopril-hydroCHLORO thiazide (ZESTORETIC) 20-12.5 mg per tablet Take 1 tablet by mouth every morning. - meloxicam (MOBIC) 15 mg tablet Take 1 tablet by mouth once daily. With food. - metoprolol tartrate, short acting, (LOPRESSOR) 25 mg tablet Take 1 tablet by mouth two times a day. - multivitamin tablet Take 1 tablet by mouth once daily. - Tadalafil (CIALIS) 10 mg tablet Take 1 tablet by mouth once daily as needed. Take 1-2 hours before sexual activity. - loratadine (CLARITIN) 10 mg tablet Take 1 tablet by mouth once daily. - Lancets lancets Test blood sugar(s) 1 times daily. Dx: Type 1 DM - Controlled E10.9 Insulin: No - blood sugar diagnostic (BLOOD GLUCOSE TEST) test strip Test blood sugar(s) 1 times daily. Dx: Type 1 DM - Controlled E10.9 Insulin: No Meds Comments as of 02/13/2024: Takes OTC Fish Oil daily. Takes Iron daily. Glucosamine Chondroitin Problem List As Of Date 10/25/2024 Noted Resolved Type 2 diabetes mellitus without complication, *05/07/2016 HTN (hypertension), benign [I10] 05/07/2016 Prostate cancer (HCC) [C61] (more content not included)... Normal [facility] CNOVon 09-27-2024 CNOV Office Visit (MARANDA ) JONATHAN DUNCAN ([id number]) 1955 M Date Time Provider Department 09/27/24 2:30 PM SOPHIA REBOLLEDO During your visit today, we recorded the following information about you: Tracy MataALLEN 09/27/2024 2:59 PM Signed Patient presents with: Left Knee - Post Op: 1 week 5 days post op Left knee arthroscopic medial menisectomy, medial distal femoral chondroplasty AMB ROOMING INTAKE FLOWSHEET DATA Risk Screening Do you have concerns about personal safety or safety in the home?: No Pain Pain Level: 3 Pain Location: Knee-Left Description: Sharp Duration Amount of Time: (Post op) Duration Units: Weeks Frequency: Intermittent Intervention/Comfort measure: Medication Comments: Pain is from surgery, getting less as days go by Patient states he has been having pain at the medial incision site. No redness at incision sites. Patient has been taking Bradley as needed for the pain and is asking for a refill. Sophia Rebolledo PA-C 09/27/2024 2:59 PM Signed Sophia Rebolledo PA-C Department of Orthopaedics Orthopaedics [address] [place] [address] Dept: [phone] Dept September 27, 2024 CHIEF COMPLAINT: Post Op of the Left Knee (1 week 5 days post op Left knee arthroscopic medial menisectomy, medial distal femoral chondroplasty). ASSESSMENT: M23.92 Internal derangement of left knee (primary encounter diagnosis) SUMMARY/PLAN: Patient presents 1 week and 5 days status post left knee arthroscopy with medial meniscectomy. He is doing well but notes some 3 out of 10 aching pain when he is weightbearing. Pain is mostly medial. He did not resume his meloxicam following surgery. We discussed getting back on the meloxicam, I did get him into an Jordon wrap for support and to help with pain and discomfort. He notes that his knee already feels better with the Jordon wrap. Will see him back next month as planned. Exam: Incision sites are all well-healed, there is some mild appropriate edema of the knee, no joint effusion, no ecchymosis is noted. Flexion of the knee to 110 degrees with a slight extension lag. Imaging: Deferred today. Mr. Jonathan Duncan was advised as to contrast therapies and/or to take analgesics/anti-inflam matories as needed and all contraindications were reviewed. Supporting Information Below: Medications: Current Outpatient Medications Medication Sig isosorbide mononitrate ER (IMDUR) 30 mg 24 hr tablet Take 1 tablet by mouth once daily. apixaban (ELIQUIS) 5 mg tab(s) Take 5 mg by mouth two times a day. metFORMIN ER (GLUCOPHAGE XR) 500 mg 24 hr tablet Take 3 tablets by mouth daily with breakfast. atorvastatin (LIPITOR) 80 mg tablet Take 1 tablet by mouth once daily. lisinopril-hydroCHLORO thiazide (ZESTORETIC) 20-12.5 mg per tablet Take 1 tablet by mouth every morning. meloxicam (MOBIC) 15 mg tablet Take 1 tablet by mouth once daily. With food. metoprolol tartrate, short acting, (LOPRESSOR) 25 mg tablet Take 1 tablet by mouth two times a day. multivitamin tablet Take 1 tablet by mouth once daily. Tadalafil (CIALIS) 10 mg tablet Take 1 tablet by mouth once daily as needed. Take 1-2 hours before sexual activity. loratadine (CLARITIN) 10 mg tablet Take 1 tablet by mouth once daily. Lancets lancets Test blood sugar(s) 1 times daily. Dx: Type 1 DM - Controlled E10.9 Insulin: No blood sugar diagnostic (BLOOD GLUCOSE TEST) test strip Test blood sugar(s) 1 times daily. Dx: Type 1 DM - Controlled E10.9 Insulin: No No current facility-administered medications for this visit. Allergies: Patient has no known allergies. This note was partially generated using [employer] voice recognition system, and there may be some incorrect words, spellings, and punctuation that were not noted in checking the note before saving. Sophia Rebolledo PA-C Referring Provider: BRAYDEN JOSEPH [[id number]] Allergies As of Date: 09/27/2024 (No Known Allergies) Date Reviewed: 09/27/2024 Reviewed by: Tracy Mata MA - Fully Assessed Reason for Visit: Post Op [174] Cmt: 1 week 5 days post op Left knee arthroscopic medial menisectomy, medial distal femoral chondroplasty Primary Visit Diagnosis:Internal derangement of left knee [M23.92] Prescriptions as of 09/27/2024 - isosorbide mononitrate ER (IMDUR) 30 mg 24 hr tablet Take 1 tablet by mouth once daily. - apixaban (ELIQUIS) 5 mg tab(s) Take 5 mg by mouth two times a day. - metFORMIN ER (GLUCOPHAGE XR) 500 mg 24 hr tablet Take 3 tablets by mouth daily with breakfast. - atorvastatin (LIPITOR) 80 mg tablet Take 1 tablet by mouth once daily. - lisinopril-hydroCHLORO thiazide (ZESTORETIC) 20-12.5 mg per tablet Take 1 tablet by mouth every morning. - meloxicam (MOBIC) 15 mg tablet Take 1 tablet by mouth once daily. With food. - metoprolol tartrate, short acting, (LOPRESSOR) 25 mg tablet (more content not included)... Normal [facility] ANES POSTPROC EVALon 025 ANES POSTPROC EVAL HNO ID: [id number] Author: OZZIE DEAL DO Service: Anesthesiology Author Type: Anesthesiologist Type: Anesthesia Postprocedure Evaluation Filed: 09/15/2024 13:55 Note Text: POST ANESTHESIA EVALUATION NOTE : 1955 Procedure Summary Date: 09/15/24 Room / Location: [place] [address] / [facility] Anesthesia Start: 731 Anesthesia Stop: 857 Procedure: ARTHROSCOPY KNEE MENISCECTOMY MEDIAL OR LATERAL (Left: Knee) Diagnosis: Derangement of knee, left Left knee pain, unspecified chronicity (Derangement of knee, left [M23.92]) (Left knee pain, unspecified chronicity [M25.562]) Surgeons: Brayden Joseph MD Responsible Provider: Ozzie Deal DO Anesthesia Type: general ASA Status: 3 Anesthesia Type: general Airway Type: LMA Last Vitals Vitals Value Taken Time BP 172/76 09/15/24 0957 Temp 36.3 ?C (97.3 ?F) 09/15/24 0858 Pulse 60 09/15/24 0957 Resp 18 09/15/24 0957 SpO2 97 % 09/15/24 0957 Post Anesthesia Patient Status Patient Evaluation: PACU. PACU/ICU Patient Condition: stable. Anticipated Disposition: phase 2 then home. Neurological Status: aware and responsive. Pulmonary Status: breathing comfortably on room air Airway Control: returned to baseline unsupported. Cardiovascular Status: stable. Pain Management: clinically adequate - multimodal analgesia pain management approach Postoperative Hydration: acceptable. Intraoperative Events: no significant anesthesia events Post Operative Nausea/Vomiting Status: no significant post operative nausea or vomiting Recommendation: continue current plan of care and further care per PACU/ICU/floor team. Anesthesia Observations No notable events were associated with this procedure. Documented by Leticia Szymanski APRN.BEAD WRAPPER 09/15/2024 8:58 AM EDT SIGNATURE: Ozzie Deal DO PATIENT NAME: Jonathan Duncan DATE: September 15, 2024 TIME: 1:55 PM CSN: [id number] [facility] ANES PRE-OPon 09-15-2024 ANES PRE-OP HNO ID: [id number] Author: OZZIE DEAL DO Service: Anesthesiology Author Type: Anesthesiologist Type: Anesthesia Preprocedure Evaluation Filed: 09/15/2024 07:08 Note Text: ANESTHESIOLOGY DAY OF SURGERY NOTE : 1955 Procedure Information Date/Time: 09/15/24729 Procedure: ARTHROSCOPY KNEE MENISCECTOMY MEDIAL OR LATERAL (Left: Knee) [facility]: [facility] Surgeons: Brayden Joseph MD Estimated body mass index is 34.21 kg/m? as calculated from the following: Height as of 08/26/24: 172.7 cm (5' 8). Weight as of 08/26/24: 102.1 kg (225 lb). 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 Tracheostomy tube not present Mallampati: II. TM distance: >3 FB. Neck ROM: full ROM without neurological symptoms. Mouth opening: adequate. Short neck: no. Thick neck: no DENTAL Dental findings: edentulous. II - ANESTHESIA PLAN ASA Score: 3 Anesthetic Plan: general Airway type: LMA NPO Status: adequate Beta Sherman Monitoring Plan Monitoring plan: standard ASA. Post Procedure Analgesic Plan Postoperative analgesic plan: parenteral or oral opioids, multimodal analgesia and per surgical service. Informed Consent Anesthetic risks, benefits, alternatives, personnel and consent discussed: yes. Patient / Responsible Libertarian agrees to proceed: yes Patient / Surrogate agrees to blood products: Yes DNR status not reviewed with patient and/or family prior to surgery. Significant changes in the patient condition since the History and Physical, not otherwise documented in primary service progress note: no. Potential Anesthesia issues that may suggest increased risk of complications or contraindication to planned procedure: none. Discussed the possibility of lip / dental damage: yes Vitals Value Taken Time BP 174/82 09/15/24 0646 Pulse 60 09/15/2445 Resp 20 09/15/2445 Temp 36.2 ?C (97.2 ?F) 09/15/24644 SpO2 98 % 09/15/24644 Facility-Administered Medications as of 09/15/2024 Medication Dose Route Frequency lidocaine (PF) 10 mg/mL (1 %) 1-2 mg injection (XYLOCAINE) 0.1-0.2 mL INTRADERMAL PRN lactated ringers iv infusion 5-30 mL/hr INTRAVENOUS CONTINUOUS NaCl 0.9% iv flush bag 20 mL INTRAVENOUS PRN ceFAZolin iv piggyback 2 g in D5W (iso-osmotic) 100 mL (ANCEF) 2 g INTRAVENOUS Pre-Op Once [COMPLETED] acetaminophen 1,000 mg tab(s) (TYLENOL) 1,000 mg ORAL Pre-Op Once [COMPLETED] promethazine 12.5 mg tab(s) (PHENERGAN) 12.5 mg ORAL Pre-Op Once lactated ringers iv infusion 30 mL/hr INTRAVENOUS CONTINUOUS Outpatient Medications as of 09/15/2024 Medication Sig metFORMIN ER (GLUCOPHAGE XR) 500 mg 24 hr tablet Take 3 tablets by mouth daily with breakfast. atorvastatin (LIPITOR) 80 mg tablet Take 1 tablet by mouth once daily. lisinopril-hydroCHLORO thiazide (ZESTORETIC) 20-12.5 mg per tablet Take 1 tablet by mouth every morning. metoprolol tartrate, short acting, (LOPRESSOR) 25 mg tablet Take 1 tablet by mouth two times a day. multivitamin tablet Take 1 tablet by mouth once daily. loratadine (CLARITIN) 10 mg tablet Take 1 tablet by mouth once daily. apixaban (ELIQUIS) 5 mg tab(s) Take 5 mg by mouth two times a day. meloxicam (MOBIC) 15 mg tablet Take 1 tablet by mouth once daily. With food. Tadalafil (CIALIS) 10 mg tablet Take 1 tablet by mouth once daily as needed. Take 1-2 hours before sexual activity. Lancets lancets Test blood sugar(s) 1 times daily. Dx: Type 1 DM - Controlled E10.9 Insulin: No blood sugar diagnostic (BLOOD GLUCOSE TEST) test strip Test blood sugar(s) 1 times daily. Dx: Type 1 DM - Controlled E10.9 Insulin: No I have interviewed and examined the patient. I have reviewed the medical record and/or the pre-anesthesia evaluation, pertinent labs, and test results. This contains updated information obtained within 48 hours of Surgery/Procedure. SIGNATURE: Ozzie Deal DO PATIENT NAME: Jonathan Duncan DATE: September 15, 2024 TIME: 7:06 AM CSN: [id number] [facility] OPERATIVE NOon 09-15-2024 OPERATIVE NO HNO ID: [id number] Author: BRAYDEN JOSEPH MD Service: Orthopaedic Surgery Author Type: Physician Type: Operative Report Filed: 09/15/2024 09:06 Note Text: OPERATIVE/PROCEDURE REPORT LOG ID: [id number] Surgery/Procedure Date: 09/15/2024 Incision/Procedure Start Time: 8:07 AM Incision Close/Procedure End Time: 8:45 AM Surgeon(s)/Procedurali st(s) and Engagement Specialist(s): Surgeons and Role: * Brayden Joseph MD - Primary Physician Engagement Specialist: Sophia Rebolledo PA-C Procedure(s): left knee, arthroscopic, medial meniscectomy, medial distal femoral chondroplasty. Anesthesia: General with Intraarticular analgesia. OPERATIVE INDICATIONS: This is a pleasant 69 year old year-old gentleman, who had an injury to the knee causing mechanical symptoms, recurrent swelling and pain. Patient attempted conservative management with activity modification, medications, and an MRI reported a meniscus tear medially with some mild OA. I discussed with him multiple options including the risks, benefits, alternatives, and potential complications involving surgery and he wished to pursue surgical intervention. Procedure Details: On 09/15/2024, the patient was clearly identified in the preoperative area and marked accordingly on the left knee by myself. He received 2g of Ancef in the IV within 1 hour incision or tourniquet. Patient was taken to the operative suite and placed in the supine position. Anesthesia assumed care of the head and neck for the remainder of the case and began a general anesthetic. All other bony landmarks were appropriately padded in standard fashion. The well lower extremity was placed in a semi-lithotomy position, again with neurovascular bundles appropriately padded. The surgical lower extremity had a well-padded upper thigh tourniquet placed with Webril padding and set at 250 mmHg, but not yet inflated. After a betadine swab, the patient was provided a intra-articular injection with 20 mL of 0.5% ropivacaine plain and 2 mg of morphine sulfate at the superior lateral knee joint. Patient was then placed in a well-padded arthroscopic leg hall. Patient was sterilely prepped and draped in standard fashion. Appropriate time-out was conducted and all in the room were in agreement, signed consent form was on the chart and images were available for viewing. The lower extremity was then exsanguinated with an Esmarch bandage and the tourniquet was applied at 250 mmHg. Next, the portal incisions were injected with 1% lidocaine with 1:100,000 epinephrine and 0.5% ropivacaine for total of 10 mL. A stab incision was then made with an #11 blade at the inferolateral, parapatellar area and I entered into the joint atraumatically with 1 pass with blunt trocar and camera. A stab incision was made at the superomedial joint for placement of an outflow cannulae. Arthroscopic diagnostic exam was completed that showed Grade I chondrosis on the undersurface of the both medial and lateral patellar facets as well as in the trochlea. I came down in the medial and lateral gutters, which were free of any debris. I entered into the medial joint line and under spinal needle identification, made my standard working portal at the inferomedial, parapatellar tendon location. I entered in with a hooked probe and explored the joint. The medial distal femoralcondyle was showing some mild, Grade II chondrosis. The medial tibial plateau surface appeared with Pristine cartilage. The ACL and PCL were found to be intact and rather espino. The lateral joint line showed Pristine cartilage of the lateral distal femoral condyle. The lateral tibial plateau surface appeared with Pristine cartilage. I next identified a tear of the medial meniscus; characterized as medial, chronic , complex, and posterior from the root to about 2cm towards the mid body. I worked my way with both arthroscopic biter tools as well as the 4.5mm resector shaver and made a stable rim in the meniscus, without any fragments or flaps noted. Again, the entire meniscus was taken to a stable base without any further concerns. I did an appropriate chondroplasty of the medial compartment to smoothen out any areas of fibrillation and smaller flaps which appeared unstable. I then explored the three compartments one last time for any loose debris and suction irrigated. The arthroscopic fluid was suctioned out through the outflow cannula and the arthroscopic portals were closed with 4-0 Biosyn suture in buried fashion. Steri-Strips were applied to all 3 incision sites. Xeroform gauze, sterile 4 x 4 gauze, ABD and a thigh-high HASMUKH hose was applied for final bandage. Tourniquet was taken down. There were no complications during the procedure. The patient was safely awoken and transferred to the Postanesthetic Care Unit in stable condition. Pre-Op/Pre-Procedure Diagnosis: left knee, medial meniscus tear, medial chondrosis. Post-Op/Post-Procedure Diagnosis: (more content not included)... Normal [facility] HISTORY PHYSICALon HISTORY PHYSICAL HNO ID: [id number] Author: ASPEN KLEIN APRN.FOCUSED FACTORY MANAGER Service: ? Author Type: Nurse Practitioner Type: H&P Filed: 08/31/2024 06:55 Note Text: [facility] HISTORY AND PHYSICAL EXAMINATION SERVICE DATE: 08/26/2024 SERVICE TIME: 6:53 AM PRIMARY CARE PHYSICIAN: Kerri Strickland MD Assessment Patient has the following medical conditions which may affect palomo-operative course: Coronary artery disease involving [place] coronary artery of [place] heart with angina pectoris (HCC) Assessment: non-obstructing, established with cardiology recently 2/2 new onset afib, received cardiac optimization below HTN (hypertension), benign Assessment: controlled on rx Last 14 BP Last 14 Encounter BP Readings: Date: BP: 08/26/2024 136/68 08/20/2024 130/86 06/18/2024 150/82 05/07/2024 148/90 03/22/2024 140/82 02/13/2024 122/74 08/11/2023 126/74 02/03/2023 124/78 09/27/2022 133/73 08/20/2022 138/88 08/02/2022 138/88 04/15/2022 124/72 01/25/2022 138/80 10/19/2021 148/84 Hyperlipidemia Assessment: c/w statin New onset a-fib (HCC) Assessment: rate controlled, on rx, started on Eliquis, received cardiac optimization scanned into Verified Identity Pass, received AC instructions as well. Pt recently underwent a normal stress test and echo 55% EF Type 2 diabetes mellitus without complication, without long-term current use of insulin (HCC) Assessment: controlled on oral agent Hemoglobin A1C (%) Date Value 08/20/2024 7.4 04/13/2021 7.2 Benign non-nodular prostatic hyperplasia without lower urinary tract symptoms Assessment: controlled on rx BMI 34.0-34.9,adult Assessment: Body mass index is 34.21 kg/m?. History of prostate cancer Assessment: s/p prostatectomy Former smoker Assessment: vague hx given, denies asthma or COPD ANESTHESIA FINDINGS: Intubation History: No history of difficult intubation Significant Anesthesia Considerations: none Airway History: No history of difficult airway Cummins Activity Status Index: METS: Climb a flight of stairs or walk up a hill (5.50 METs) DASI Score: 5.5 Patient denies any chest pain or undue shortness of breath with the above physical activity. Clinical Frailty Scale: 3. Well, with treated comorbid disease STOP-Bang Score: Snores loudly Has or is being treated for high blood pressure Patient over 50 years old Has a large neck Male patient Denies feeling tired, fatigued, or sleepy during the daytime Has not been observed to stop breathing or choking/gasping during sleep BMI less than or equal to 35 kg/m2 STOP-Bang Score: 5 [id number] Score: Age: 65-74 Sex: male CHF history: No Hypertension history: Yes Stroke/TIA/thromboembo lism history: No Vascular disease history: No Diabetes history: Yes [id number] Score: 3 ARISCAT Score: Age: 51-80 Preoperative SpO2: >=96% Respiratory infection in the last month: No Preoperative anemia: No Surgical incision: peripheral Duration of surgery: <2 hrs Emergency procedure: No ARISCAT Score: 3 I - PHYSICAL EVALUATION AIRWAYTracheostomy tube not present Mallampati: III. TM distance: >3 FB. Neck ROM: full ROM without neurological symptoms. Mouth opening: adequate. Short neck: no. Thick neck: yes Sutherland present: yes Lip Bite Test: I Microretrognathia/Micr onagthia/Recessed Chin: No II - ANESTHESIA PLAN Anesthetic Plan: other Beta Sherman Monitoring Plan Post Procedure Analgesic Plan Prepared for Surgery: optimally prepared for surgery, pending [see comment]. New afib on EKG, scheduled with [facility], TE to surgeon's office CONSULTS: The following consults have been initiated at this time: cardiology. Planned Anesthetic: other The Following Tests/Procedures Have Been Initiated: No orders of the defined types were placed in this encounter. REASON FOR VISIT: Jonathan Duncan is a 69 year old male who is scheduled for Procedure(s): ARTHROSCOPY KNEE MENISCECTOMY MEDIAL OR LATERAL (Left) at the request of Dr. Kerri Strickland for consultation. My final recommendation will be communicated back to the requesting physician by way of shared medical record or letter. Subjective The patient has the following: COVID-19 Immunization Status Upcoming Covid-19 Vaccine () Postponed until 08/20/2025 08/20/2024 Postponed until 08/20/2025 by Jazmyn Lui MA (Declined at this time) 02/13/2024 Postponed until 02/12/2025 by Jazmyn Lui MA (Declined at this time) 06/11/2021 Imm Admin: COVID-19 original vaccine, full dose, monovalent (MODERNA) Only the first 3 history entries have been loaded, but more history exists. CHIEF COMPLAINT: Pre-op exam HPI: Jonathan Duncan is a 69 year old seen for PAC due to scheduled above surgery because of OA left knee. 05/31/2024, Dr. Brayden Joseph HPI Patient here today for left knee pain since March. States he was bent over to put meat in (more content not included)... Normal [facility] CNCOon 08-23-2024 CNCO Letter Text Normal [facility] CNOVon 08-20-2024 CNOV Office Visit (FAMPWS ) JONATHAN DUNCAN ([id number]) 1955 M Date Time Provider Department 08/20/24 9:40 AM KERRI STRICKLAND During your visit today, we recorded the following information about you: Pulse Respiration Blood pressure Weight 64/minute 18/minute 130/86 102.2 kg Kerri Strickland MD 08/20/2024 11:45 AM Signed Chief Complaint Patient presents with: F/U 6 Month HPI Jonathan Duncan is a 69 year old male who presents here today for 6 month follow up. Pt here today for his routine follow up, here with . Labs ordered, not completed but is fasting today. Former Smoker, current chewer. No bowel, Gi, or urinary issues. Denies nocturia. Uses Cialis 10 mg as needed for ED, but not using medication. Follows with Urology, Hemant Hunter for BPH. DM: Taking Metformin 500 mg 3 pills once daily. Denies checking his sugars at home, states he can tell when sugars become too low or high. Reports he gets a headache when sugars become too low. Denies frequent lows, rare. Denies any neuropathy symptoms. Had eye exam completed yesterday. Allergies: Uses Claritin 10 mg daily. HTN: Denies checking his BP at home. Denies any chest pain, sob, or dizziness. Taking Lopressor 25 mg 1 pill BID, Imdur 30 mg daily, Lisinopril-HCTZ 20-12.5 mg daily. Afib - Newly dx afib. Pt reports that he knew something was going on due to having issues with lightheadedness and feeling fatigued, this has improved since starting medication. This was found when pt was having work up done to have knee surgery. Recently started on Eliquis 5 mg 1 tab po bid. Follows with [facility]. Insulation Worker Apprentice suggested doing a thyroid test, but pt states he was coming into Primary Care and would have done. Lipid: Trying to watch his diet, by reducing portion sizes, watching what he eats, and eating more fruits. Denies any formal exercise, but works every day (40 hours/per week) and keeps himself busy. Taking Lipitor 80 mg daily. ASA 81 mg once daily was d/c by Insulation Worker Apprentice. Tolerating well. Arthritis: Uses Mobic 15 mg once daily for left knee arthritis. Was scheduled to have knee surgery for torn meniscus and clean up due to arthritis. Had to postpone surgery due to newly dx afib. Hoping to get this cleared here soon to do procedure. Hx of gout once. No recurrent issues and on on medications. HM - Adv Dir/Living Will scanned into chart. Declines Covid vaccine. Past medical history, appointments, medications, allergies reviewed. Previous Medical History PAST MEDICAL HISTORY Diagnosis Date Diabetes mellitus type 2, controlled, without complications (HCC) Hyperlipidemia Hypertension Prostate cancer (HCC) Snoring Previous Surgical History PAST SURGICAL HISTORY Procedure Laterality Date COLONOSCOPY 09/27/2022 repeat in 5 years, history of polyps. COLONOSCOPY FLX DX W/COLLJ SPEC WHEN PFRMD 05/15/2017 Colonoscopy EYE SURGERY HX PAST SURGICAL HISTORY OF 2013 Prostate cancer removed PAST SURGICAL HISTORY OF Right 2006 Cataract surgery PAST SURGICAL HISTORY OF 2004 Colonoscopy PAST SURGICAL HISTORY OF 2005 Hemorrhoidectomy PAST SURGICAL HISTORY OF 2011 Toe surgery, due to almost cutting toe off with chainshaw PAST SURGICAL HISTORY OF 2009 Colonoscopy Family History FAMILY HISTORY Problem Relation Age of Onset Heart Mother Heart Father Age of 69, massive [place] Diabetes Father Heart Sister Heart Brother Diabetes Paternal Aunt Colon Cancer Paternal Uncle Patient Allergies ALLERGIES No Known Allergies Current Medications Current Outpatient Medications on File Prior to Visit Medication Sig meloxicam (MOBIC) 15 mg tablet Take 1 tablet by mouth once daily. With food. metoprolol tartrate, short acting, (LOPRESSOR) 25 mg tablet Take 1 tablet by mouth two times a day. multivitamin tablet Take 1 tablet by mouth once daily. Tadalafil (CIALIS) 10 mg tablet Take 1 tablet by mouth once daily as needed. Take 1-2 hours before sexual activity. lisinopril-hydroCHLORO thiazide (ZESTORETIC) 20-12.5 mg per tablet Take 1 tablet by mouth every morning. loratadine (CLARITIN) 10 mg tablet Take 1 tablet by mouth once daily. atorvastatin (LIPITOR) 80 mg tablet Take 1 tablet by mouth once daily. isosorbide mononitrate ER (IMDUR) 30 mg 24 hr tablet Take 1 tablet by mouth once daily. metFORMIN ER (GLUCOPHAGE XR) 500 mg 24 hr tablet Take 3 tablets by mouth daily with breakfast. Lancets lancets Test blood sugar(s) 1 times daily. Dx: Type 1 DM - Controlled E10.9 Insulin: No blood sugar diagnostic (BLOOD GLUCOSE TEST) test strip Test blood sugar(s) 1 times daily. Dx: Type 1 DM - Controlled E10.9 Insulin: No aspirin 81 mg chewable tablet Take 1 tablet by mouth once daily. No current facility-administered medications on file prior to visit. Social History Social History Tobacco Use Smoking status: (more content not included)... Normal [facility] Comprehensive metabolic 2000 panelon 08-20-2024 Albumin [Mass/Vol] 4.2 g/dL Normal 3.9-4.9 [facility] Comment on above: Order Comment: Speci men Type: BLOOD SPECIMENOrdering Facility: [facility] Address: [address] [place] [address] Performed By: #### 3 016-3, 53160-9 ####[facility]ATORYCLIA [id number] [address] OF [place]#### [id number] ####[facility]ORATORYCLIA [id number] [place] [id number] [place] [address] STATES OF [facility] ALP [Catalytic activity/Vol] 108 U/L Normal 38-113 [facility] Comment on above: Order Comment: Speci men Type: BLOOD SPECIMENOrdering Facility: [facility] Address: [address] [place] [address] Performed By: #### 3 016-3, 38349-9 ####[facility]ORYCLIA [id number] [address] OF [place]#### [address]-2 ####[facility]ATORYCLIA [id number] [address] OF [facility] [id number] [place] [address] [place] ALT With P-5'-P [Catalytic activity/Vol] 26 U/L Normal 10-54 [facility] Comment on above: Order Comment: Speci men Type: BLOOD SPECIMENOrdering Facility: [facility] Address: [address] [place] [address] Performed By: #### 3 016-3, 58327-8 ####[facility] LABORATORYCLIA [id number] [address] STATES OF [place]#### 67892-5 ####[facility] LABORATORYCLIA [id number] [address] STATES OF [facility] [id number] [place] [address] [place] Anion gap [Moles/Vol] 10 mmol/L Normal 8-15 [facility] Comment on above: Order Comment: Speci men Type: BLOOD SPECIMENOrdering Facility: [facility] Address: [address] [place] [address] Performed By: #### 3 016-3, 00403-3 ####[facility] LABORATORYCLIA [id number] [address] [place]#### 66589-1 ####[facility] LABORATORYCLIA [id number] [address] STATES OF [facility] [id number] [address] STATES [place] AST With P-5'-P [Catalytic activity/Vol] 24 U/L Normal 14-40 [facility] Comment on above: Order Comment: Speci men Type: BLOOD SPECIMENOrdering Facility: [facility] Address: [address] [place] [address] Performed By: #### 3 016-3, 94866-5 ####[facility] LABORATORYCLIA [id number] [address] [place]#### 98600-7 ####[facility] LABORATORYCLIA [id number] [address] [id number] [place] [address] [place] Bilirubin [Mass/Vol] 0.5 mg/dL Normal 0.2-1.3 [facility] Comment on above: Order Comment: Speci men Type: BLOOD SPECIMENOrdering Facility: [facility] Address: [address] [place] [address] Performed By: #### 3 016-3, 72153-5 ####[facility] LABORATORYCLIA [id number] [address] STATES [place]#### 03508-4 ####[facility] LABORATORYCLIA [id number] [address] [id number] [place] [address] [place] Calcium [Mass/Vol] 9.8 mg/dL Normal 8.5-10.2 [facility] Comment on above: Order Comment: Speci men Type: BLOOD SPECIMENOrdering Facility: [facility] Address: [address] [place] [address] Performed By: #### 3 016-3, 56499-1 ####[facility] LABORATORYCLIA [id number] [address] STATES [place]#### 49743-6 ####[facility] LABORATORYCLIA [id number] [address] STATES [facility] [id number] [place] [address] [place] Chloride [Moles/Vol] 100 mmol/L Normal 98-107 [facility] Comment on above: Order Comment: Speci men Type: BLOOD SPECIMENOrdering Facility: [facility] Address: [address] [place] [address] Performed By: #### 3 016-3, ####[facility] LABORATORYCLIA [id number] [address]#### 25454-3 ####[facility] LABORATORYCLIA [id number] [address] [id number] [place] [address] [place] CO2 [Moles/Vol] 27 mmol/L Normal 22-30 [facility] Comment on above: Order Comment: Speci men Type: BLOOD SPECIMENOrdering Facility: [facility] Address: [address] [place] [address] Performed By: #### 3 016-, ####[facility] LABORATORYCLIA [id number] [address]#### 33380-8 ####[facility] LABORATORYCLIA [id number] [address] [id number] [place] [address] [place] Creatinine [Mass/Vol] 0.80 mg/dL Normal 0.73-1.22 [facility] Comment on above: Order Comment: Speci men Type: BLOOD SPECIMENOrdering Facility: [facility] Address: [address] [place] [address] Performed By: #### 3 016-3, 48019-7 ####[facility] LABORATORYCLIA [id number] [address]#### 14677-5 ####[facility] LABORATORYCLIA [id number] [address] [id number] [address] [place] Creatinine and Glomerular filtration rate.predicted panel (S/P/Bld) 95 mL/min/1.73m??? Normal >=60 [facility] Comment on above: Order Comment: Tiffanie guevara Type: BLOOD SPECIMENOrdering Facility: [facility] Address: [address] [place] [address] Result Comment: Zainab mated Glomerular Filtration Rate (eGFR) is calculated using the 2020 CKD-EPI creatinine equation. This equation utilizes serum creatinine, sex, and age as parameters. The creatinine assay has traceable calibration to isotope dilution-mass spectrometry. Refer to KDIGO guidelines for clinical interpretation. In patients with unstable renal function, e.g. those with acute kidney injury, the eGFR may not accurately reflect actual GFR. Performed By: #### 3 016-3, 39640-8 ####[employer] LABORATORYCLIA [id number] [address]#### 80047-3 ####wise.ioST. [facility] LABORATORYCLIA [id number] [address] [id number] [address] OF [facility] Glucose [Mass/Vol] 161 mg/dL High 74-99 [facility] Comment on above: Order Comment: Tiffanie guevara Type: BLOOD SPECIMENOrdering Facility: [facility] Address: [address] [place] [address] Result Comment: The [place] Diabetes Association (ADA) provides guidance for cutoff values for fasting glucose and random glucose. The ADA defines fasting as no caloric intake for at least 8 hours. Fasting plasma glucose results between 100 to 125 mg/dL indicate increased risk for diabetes (prediabetes). Fasting plasma glucose results greater than or equal to 126 mg/dL meet the criteria for diagnosis of diabetes. In the absence of unequivocal hyperglycemia, results should be confirmed by repeat testing. In a patient with classic symptoms of hyperglycemia or hyperglycemic crisis, random plasma glucose results greater than or equal to 200 mg/dL meet the criteria for diagnosis of diabetes. Reference: Standards of Medical Care in Diabetes 2016, [place] Diabetes Association. Diabetes Care. 2016.39(Suppl 1). Performed By: #### 3 016-3, 40301-1 ####[facility] LABORATORYCLIA [id number] [place] [address] [place]#### 63843-9 ####[facility] LABORATORYCLIA [id number] [place], [place] [address] [place] [address] STATES [address] [facility] ULISESVERMONT STATE HOSPITALWHILIA [id number] [place] [address] [place] Potassium [Moles/Vol] 4.3 mmol/L Normal 3.7-5.1 [facility] Comment on above: Order Comment: Speci men Type: BLOOD SPECIMENOrdering Facility: [facility] Address: [address] [place] [address] Performed By: #### 3 016-3, 03843-3 ####[facility] LABORATORYCLIA [id number] [place] [address] [place]#### 72538-4 ####[facility] LABORATORYCLIA [id number] [address] STATES OF [facility] [id number] [place] [address] [place] Protein [Mass/Vol] 6.7 g/dL Normal 6.3-8.0 [facility] Comment on above: Order Comment: Speci men Type: BLOOD SPECIMENOrdering Facility: [facility] Address: [address] [place] [address] Performed By: #### 3 016-3, 85099-0 ####[facility] LABORATORYCLIA [id number] [place] [address] [place]#### 11953-8 ####[facility] LABORATORYCLIA [id number] [address] STATES OF [facility] [id number] [place] [address] [place] Sodium [Moles/Vol] 137 mmol/L Normal 136-144 [facility] Comment on above: Order Comment: Speci men Type: BLOOD SPECIMENOrdering Facility: [facility] Address: [address] [place] [address] Performed By: #### 3 016-3, 88158-0 ####[facility] LABORATORYCLIA [id number] [address] OF [place]#### 63350-2 ####[facility] LABORATORYCLIA [id number] [address] [id number] [place] [address] [place] Urea nitrogen [Mass/Vol] 17 mg/dL Normal 9-24 [facility] Comment on above: Order Comment: Speci men Type: BLOOD SPECIMENOrdering Facility: [facility] Address: [address] [place] [address] Performed By: #### 3 016-3, 41441-4 ####[facility] LABORATORYCLIA [id number] [address] [place]#### 99377-0 ####[facility] LABORATORYCLIA [id number] [address] [id number] [place] [address] [place] HbA1c (Bld)on 08-20-2024 Average glucose Estimated from glycated hemoglobin (Bld) [Mass/Vol] 166 mg/dL Normal [facility] Comment on above: Order Comment: Speci men Type: BLOOD SPECIMENOrdering Facility: [facility] Address: [address] [place] [address] Result Comment: eAG: (Estimated average glucose) is a calculated value from HgbA1c and is reimbursement representative of the average blood glucose level in the last 2-3 month period. Performed By: #### 5 5454-3 ####[facility] LABCLIA [id number] [place] [address] [place] HbA1c (Bld) [Mass fraction] 7.4 % High 4.3-5.6 [facility] Comment on above: Order Comment: Tiffanie guevara Type: BLOOD SPECIMENOrdering Facility: [facility] Address: [address] [place] [address] Result Comment: Amer [place] Diabetes Association guidelines indicate that patients with HgbA1c in the range 5.7-6.4% are at increased risk for development of diabetes, and intervention by lifestyle modification may be beneficial. HgbA1c greater or equal to 6.5% is considered diagnostic of diabetes. Performed By: #### 5 5454-3 ####[facility] LABCLIA [id number] [address] OF [place] Lipid 1996 panelon 5 Cholesterol [Mass/Vol] 117 mg/dL Normal <200 [facility] Comment on above: Order Comment: Tiffanie guevara Type: BLOOD SPECIMENOrdering Facility: [facility] Address: [address] [place] [address] Result Comment: <200 mg/dL, Desirable 200-239 mg/dL, Borderline high >239 mg/dL, High Performed By: #### 3 016-3, 57796-3 ####[facility] LABORATORYCLIA [id number] [address] OF [facility]#### 17145-8 ####[facility] LABORATORYCLIA [id number] [address] STATES OF [facility] [id number] [address] STATES OF [facility] Cholesterol in HDL [Mass/Vol] 33 mg/dL Low >39 [facility] Comment on above: Order Comment: Tiffanie ismael Type: BLOOD SPECIMENOrdering Facility: [facility] Address: [address] [place] [address] Result Comment: 40-5 9 mg/dL, Acceptable >59 mg/dL, High: Negative risk factor for coronary heart disease <40 mg/dL, Low: Positive risk factor for coronary heart disease Performed By: #### 3 016-3, 20048-4 ####[facility] LABORATORYCLIA [id number] [address]#### 09785-6 ####[facility] LABORATORYCLIA [id number] [address]ETNCMOUNTAIN PO[facility] [id number] [address] Cholesterol in LDL [Mass/Vol] 68 mg/dL Normal <100 [facility] Comment on above: Order Comment: Speci men Type: BLOOD SPECIMENOrdering Facility: [facility] Address: [address] [place] [address] Result Comment: <100 mg/dL, Optimal 100-129 mg/dL, Near optimal/above optimal 130-159 mg/dL, Borderline high 160-189 mg/dL, High >189 mg/dL, Very high Secondary prevention optimal LDL Cholesterol levels are recommended to be < 70 mg/dL Performed By: #### 3 016-3, 58908-0 ####[facility] LABORATORYCLIA [id number] [address]#### 45320-2 ####[facility] LABORATORYCLIA [id number] [address] [id number] [address] Cholesterol in LDL/Cholesterol in HDL [Mass ratio] 2.06 {ratio} Normal <2.54 [facility] Comment on above: Order Comment: Speci men Type: BLOOD SPECIMENOrdering Facility: [facility] Address: [address] [place] [address] Result Comment: Refsybil martinezce: 1. National Cholesterol Education Program ATP III Guideline At-A-Glance Quick Desk Reference: National Heart, Lung, and Blood [place]. National Institutes of Health. 2001: NIH Publication No. 01-3305. 2. An International Atherosclerosis Society position paper: global recommendations for the management of dyslipidemia: executive summary, Atherosclerosis. 2014: 232(2):410-413. Performed By: #### 3 016-3, 17238-2 ####[facility] LABORATORYCLIA [id number] [place], [place] [address] [place] [address] [place]#### 76624-6 ####[facility] LABORATORYCLIA [id number] [address] [id number] [address] [place] Cholesterol in VLDL [Mass/Vol] 16 mg/dL Normal <30 [facility] Comment on above: Order Comment: Speci men Type: BLOOD SPECIMENOrdering Facility: [facility] Address: [address] [place] [address] Performed By: #### 3 016-3, 77554-2 ####[facility] LABORATORYCLIA [id number] [address] OF [place]#### 38958-4 ####[facility] LABORATORYCLIA [id number] [address] [id number] [place] [address] [place] Cholesterol non HDL [Mass/Vol] 84 mg/dL Normal <130 [facility] Comment on above: Order Comment: Speci men Type: BLOOD SPECIMENOrdering Facility: [facility] Address: [address] [place] [address] Result Comment: <130 mg/dL, Optimal 130-159 mg/dL, Near optimal/above optimal 160-189 mg/dL, Borderline high 190-219 mg/dL, High >219 mg/dL, Very high Secondary prevention optimal non HDL Cholesterol levels are recommended to be <100 mg/dL Performed By: #### 3 016-3, ####[facility] LABORATORYCLIA [id number] [address] [place]#### 70357-5 ####[facility] LABORATORYCLIA [id number] [address] STATES OF [facility]IDA[facility]IL[facility] [id number] [address] Cholesterol.total/Ch olesterol in HDL [Mass ratio] 3.55 {ratio} Normal <5.10 [facility] Comment on above: Order Comment: Speci men Type: BLOOD SPECIMENOrdering Facility: [facility] Address: [address] [place] [address] Performed By: #### 3 016-3, 82216-4 ####[facility] LABORATORYCLIA [id number] [address]#### 53510-9 ####[facility] LABORATORYCLIA [id number] [address] [id number] [place] [address] FASTING TIME 15 hrs Normal [facility] Comment on above: Order Comment: Speci men Type: BLOOD SPECIMENOrdering Facility: [facility] Address: [address] [place] [address] Performed By: #### 3 016-3, 13030-3 ####[facility] LABORATORYCLIA [id number] [address] OF [facility]#### 19691-7 ####[facility] LABORATORYCLIA [id number] [address] [id number] [address] Triglyceride [Mass/Vol] 79 mg/dL Normal <150 [facility] Comment on above: Order Comment: Speci men Type: BLOOD SPECIMENOrdering Facility: [facility] Address: [address] [place] [address] Result Comment: <150 mg/dL, Normal 150-199 mg/dL, Borderline high 200-499 mg/dL, High >499 mg/dL, Very high Performed By: #### 3 016-3, 14919-1 ####[facility] LABORATORYCLIA [id number] [address]#### 90328-6 ####[facility]ITALCL[facility] [id number] [address] [id number] [address] TSH SerPl-aCncon 08-20-2024 TSH Qn 2.090 m[IU]/L Normal 0.270-4.200 [facility] Comment on above: Order Comment: Speci men Type: BLOOD SPECIMENOrdering Facility: [facility] Address: [address] [place] [address] Performed By: #### 3 016-3, 37494-6 ####[facility] COASTCLIA [id number] [address]#### 01443-2 ####[facility]PITALCLIA [id number] [address] [id number] [address] Dawn 08-05-2024 [facility] Telephone (KOREYWSTR) JONATHAN DUNCAN ([id number]) 1955 M Date Time Provider Department 08/05/24 KERRI STRICKLANDTR During your visit today, we recorded the following information about you: Sarah Modi, LEVI 08/05/2024 3:43 PM Signed Patient 's is calling office back stating that he seen his certified welder and has been cleared for surgery. Phoned office and spoke with nurse. Patient was last seen by on 07/14/24, then ahd ECHO , stress test completed. EKG done on 06/18/24. They did not get a clearance from . They did complete the testing. is needing paperwork saying what type of surgery, when surgery is to get a clearance. FAx number # [phone]. Please review and advise further. PATIENT will be awaiting call back. LEVI Diego Amy M, MA 08/13/2024 4:01 PM Signed Surgical clearance form faxed to Dr. Tran's office. Patient will be contacted to reschedule once cardiology clearance is received. Josie Nicole MA 08/23/2024 11:26 AM Signed Received fax back from Dr. Tran's office. The patient has been cleared for surgery. Copy of their office notes scanned into scanned documents. I called and spoke with the patients spouse. He will be scheduled on 09/15/2024. Surgical request completed. Post op appointments have been scheduled and mailed to the patient. Josie Nicole MA 08/23/2024 11:26 AM Signed Surgery has been scheduled as requested. Allergies As of Date: 08/05/2024 (No Known Allergies) Date Reviewed: 06/21/2024 Reviewed by: Aspen Klein APRN.FOCUSED FACTORY MANAGER - Fully Assessed Reason for Visit: Surgery Cancelled [4163] Cmt: wants to reschedule surgery- patient has been cleared by certified welder Primary Visit Diagnosis:Derangement of knee, left [M23.92] Other Visit Diagnosis:Left knee pain, unspecified chronicity [M25.562] Order(s):SURGICAL REQUEST - ELECTIVE (01/2020) [1212503] Order #: [id number]: 1 Prescriptions as of 08/23/2024 - apixaban (ELIQUIS) 5 mg tab(s) Take 5 mg by mouth two times a day. - metFORMIN ER (GLUCOPHAGE XR) 500 mg 24 hr tablet Take 3 tablets by mouth daily with breakfast. - atorvastatin (LIPITOR) 80 mg tablet Take 1 tablet by mouth once daily. - lisinopril-hydroCHLORO thiazide (ZESTORETIC) 20-12.5 mg per tablet Take 1 tablet by mouth every morning. - lisinopril-hydroCHLORO thiazide (ZESTORETIC) 20-12.5 mg per tablet Take 1 tablet by mouth every morning. - meloxicam (MOBIC) 15 mg tablet Take 1 tablet by mouth once daily. With food. - metoprolol tartrate, short acting, (LOPRESSOR) 25 mg tablet Take 1 tablet by mouth two times a day. - multivitamin tablet Take 1 tablet by mouth once daily. - Tadalafil (CIALIS) 10 mg tablet Take 1 tablet by mouth once daily as needed. Take 1-2 hours before sexual activity. - loratadine (CLARITIN) 10 mg tablet Take 1 tablet by mouth once daily. - isosorbide mononitrate ER (IMDUR) 30 mg 24 hr tablet Take 1 tablet by mouth once daily. - Lancets lancets Test blood sugar(s) 1 times daily. Dx: Type 1 DM - Controlled E10.9 Insulin: No - blood sugar diagnostic (BLOOD GLUCOSE TEST) test strip Test blood sugar(s) 1 times daily. Dx: Type 1 DM - Controlled E10.9 Insulin: No Meds Comments as of 02/13/2024: Takes OTC Fish Oil daily. Takes Iron daily. Glucosamine Chondroitin Problem List As Of Date 08/05/2024 Noted Resolved Type 2 diabetes mellitus without complication, *05/07/2016 HTN (hypertension), benign [I10] 05/07/2016 Prostate cancer (HCC) [C61] 05/07/2016 02/03/2023 Hyperlipidemia [E78.5] 05/07/2016 Benign non-nodular prostatic hyperplasia withou*06/05/2016 Genital disorder, male [N50.9] 06/05/2016 Malignant neoplasm of prostate (HCC) [C61] 06/05/2017 02/03/2023 Type 2 diabetes mellitus without retinopathy (H*08/25/2017 Vitreous floaters of both eyes [H43.393] 08/25/2017 Pseudophakia of both eyes [Z96.1] 08/25/2017 Coronary artery disease involving [place] briceño*06/21/2024 New onset a-fib (HCC) [I48.91] 06/21/2024 Encounter Status:Closed by JOSIE NICOLE on 08/23/24 Normal [facility] Echo Complete W/ Contraston 07-29-2024 Echo Complete W/ Contrast [facility] [address] [facility] [place] [address] Echo Complete W/ Contrast 07/29/24 0825 MR#: [id number] Acct: [id number] Name: JONATHAN DUNCAN Rep #: [id number] : 1955 69 From: Nya Tran MD Attending Dr: Dr. Nya Tran MD Status: REG CLI Ordering Dr: Nya Tran MD Date: 07/29/24 Location: [facility] Sex: M C Admitted: Reason For Study Reason For Study: CORONARY ARTERY DISEASE Procedure This was a 2D Doppler, Color Flow transthoracic echocardiogram. Contrast injection was performed. The study was technically difficult. Exam performed in department. Left Ventricle Normal LV size. Mild concentric left ventricular hypertrophy. The left ventricular ejection fraction is 55 %. Stage 1 diastolic dysfunction. Right Ventricle Normal right ventricle. Atria There is mild biatrial dilatation. Mitral Valve Mild (1+) mitral valve insufficiency. Tricuspid Valve Trivial tricuspid valve insufficiency. Normal pulmonary artery pressure. Aortic Valve Mild diffuse aortic valve thickening. Pulmonic Valve The pulmonic valve is not well visualized. Great Vessels Normal-sized aortic root. Pericardium/Pleural No pericardial effusion. Medication 22 gauge I.V. with prn adaptor inserted into right arm. Diluted definity 2ml given slow IV push to enhance endocardial definition. MMode/2D Measurements Calculations LVIDd: 4.6 cm IVSd: 1.2 cm LVOT diam: 2.0 cm LVIDs: 3.3 cm LVPWd: 1.1 cm RVDd: 4.3 cm FS: 29.0 % LVOT area: 3.1 cm2 LA dimension: 4.5 cm asc Aorta Diam: 3.6 cm LAV(MOD-bp): 60.3 ml LAV(MOD-bp) Indexed: 28.0 ml/m2 LAV(MOD-sp2): 60.7 ml LAV(MOD-sp4): 55.4 ml SV(MOD-sp4): 71.6 ml LVAd ap4: 37.0 cm2 LVAd ap2: 37.0 cm2 LVLd ap4: 8.5 cm LVLd ap2: 9.3 cm SI(MOD-sp4): 33.3 ml/m2 EDV(MOD-sp4): 129.2 ml EDV(MOD-sp2): 118.1 ml EDV(sp4-el): 137.4 ml EDV(sp2-el): 125.2 ml LVAs ap4: 23.9 cm2 LVAs ap2: 21.6 cm2 LVLs ap4: 8.0 cm LVLs ap2: 8.1 cm ESV(MOD-sp4): 57.6 ml ESV(MOD-sp2): 46.1 ml ESV(sp4-el): 60.4 ml ESV(sp2-el): 48.7 ml EF(MOD-sp4): 55.4 % EF(MOD-sp2): 61.0 % EF(sp4-el): 56.0 % SV(MOD-sp2): 72.0 ml SV(sp4-el): 77.0 ml Ao sinus diam: 3.4 cm SI(MOD-sp2): 33.4 ml/m2 Ao ST Junction: 2.8 cm LA dimension(2D): 4.2 cm LA A4 area: 20.4 cm2 RA A4 area: 17.5 cm2 TAPSE: 1.5 cm Time Measurements MV dec time: 0.22 sec Doppler Measurements Calculations MV E max sotero: 87.4 cm/sec Ao V2 max: 99.3 cm/sec LV V1 max: 86.0 cm/sec Ao max P.9 mmHg LV V1 max P.0 mmHg Ao V2 mean: 69.5 cm/sec LV V1 mean P.6 mmHg Ao mean P.3 mmHg LV V1 mean: 59.3 cm/sec Ao V2 VTI: 24.4 cm LV V1 VTI: 21.4 cm AV (velocity ratio): 0.88 MELI(I,D): 2.7 cm2 MELI(V,D): 2.7 cm2 SV(LVOT): 66.5 ml PA V2 max: 70.5 cm/sec TR max sotero: 260.5 cm/sec TR max P.1 mmHg ECHO/Echo Complete W/ Contrast Interpretation Summary Mild concentric left ventricular hypertrophy. The left ventricular ejection fraction is 55 %. Stage 1 diastolic dysfunction. There is mild biatrial dilatation. Mild (1+) mitral valve insufficiency. Ordering Physician: Nya Tran Referring Physician: MD Kerri Strickland Performed By: Gracie Brown [facility] 07/29/24 1406 Date Nya Tran MD CC: Dr. Nya Tran MD; Dr. Kerri Strickland MD Date Dictated: 07/29/24824 Date Transcribed: 07/29/241405 Trolley Coach Driver: Signed Normal [facility] Stress Reporton 07-29-2024 Stress Report [facility] [address] [place] [address] MR#: [id number] Acct: [id number] Name: JONATHAN DUNCAN Rep #: [id number] : 1955 69 From: Nya Tran MD Primary Care: Dr. Kerri Strickland MD Status: REG CLI Referring Dr: Nya Tran MD Sex: M C Stress Test Report Date: 07/29/2024 Procedure: Pharmacologic stress nuclear imaging study Indications: Atrial fibrillation Consent: Per the patient Procedure: The patient underwent pharmacologic (Regadenoson 0.4mg ) evaluation with a peak heart rate of 76 beats per minute (50%predicted maximal heart rate) and a peak blood pressure of 154/66 mmHg. The baseline ECG demonstrated atrial fibrillation. The peak pharmacologic ECG demonstrated no ischemic changes. There was no complaint of chest discomfort during pharmacologic infusion or recovery. The patient was injected with 15.0 millicuries of technetium 99m Cardiolite and subsequently rest SPECT Cardiolite nuclear imaging was obtained in the horizontal long, vertical long, and short axis views. The patient underwent pharmacologic (Regadenoson) evaluation. The patient was injected with 44.8 millicuries of technetium 99m Cardiolite and subsequently stress SPECT Cardiolite nuclear imaging was obtained in the horizontal long, vertical long, and short axis views. A gated Cardiolite study at peak stress was obtained. The examination was stopped secondary to completion of protocol. Rest and stress SPECT Cardiolite nuclear imaging status post realignment, normalization, and attenuation correction demonstrate no fixed or reversible perfusion defects. There is end systolic thickening and brightening. The gated Cardiolite study demonstrates myocardial thickening and inward wall motion. The reported LVEF is 65%. Impression: 1. Pharmacologic (Regadenoson) evaluation 2. Peak pharmacologic ECG with no ischemic changes. 3. Baseline atrial fibrillation. 5. Rest and stress SPECT Cardiolite nuclear imaging demonstrate relative uniform tracer uptake and myocardial perfusion appearing within normal limits. 6. The gated Cardiolite study reports an LVEF of 65%. This note was generated with Ixchelsisation software. It may contain incorrect words, spelling, and punctuation that were not noted in checking the note before signing. 07/29/241228 Date Nya Tran MD CC: Dr. Nya Tran MD; Dr. Kerri Strickland MD Date Dictated: 07/29/241226 Date Transcribed: 07/29/241226 Trolley Coach Driver: PEREZ Signed Normal [facility] 12 Lead EKG performed by [facility] on 07-14-2024 12 Lead EKG performed by [facility] [address] [place] [address] 12 Lead EKG performed by [facility] 07/14/24 0811 MR#: [id number] Acct: [id number] Name: Jonathan Duncan Rep #: [id number] : 1955 69 From: Nya Tran MD Attending Dr: Dr. Nya Tran MD Status: DEP AMB Ordering Dr: Nya Tran MD Date: 07/14/24 [place] [facility] [place] Sex: M UTD Admitted: BMS/12 Lead EKG performed by [facility] ECG Report Interpretation ----Atrial fibrillation -irregular conduction -Old anterior infarct. ABNORMAL Electronically signed on 07/15/2024 at 11:[address] Nya Tran [employer] Software Version 8610 07/15/24 1142 Date Nya Tran MD CC: Dr. Kerri Strickland MD Date Dictated: 07/14/24810 Date Transcribed: 07/14/24810 Trolley Coach Driver: PEREZ Signed Normal [facility] Cardiology Visit Reporton Cardiology Visit Report [facility] [address] [place], [place] [address] OFFICE VISIT Date of Service: 07/14/24 MR#: [id number] Acct: [id number] Name: Jonathan Duncan Rep #: [id number] : 1955 Provider: Dr. Nya Tran MD Age/Sex: 69/M [place] [facility] [place] Status: Signed HPI HPI History of Present Illness Details: This gentleman has past medical history significant for hypertension, diabetes mellitus and dyslipidemia. Also history of arthritis. He was in the process of getting scheduled for knee surgery. As part of his workup, an ECG was done. As it showed atrial fibrillation, the surgery was postponed and he has been referred to us for evaluation of his cardiac risk for the proposed procedure. Patient denies any previous history of heart disease. Denies any palpitations. No chest pains or shortness of breath either at rest or with exertion. No orthopnea. No PND. No ankle edema. No history of CVA or TIA. Denies any bleeding disorders. Intake Vital Signs 07/09/24 15:13 07/14/24 08:12 Height 5 ft 7.5 in 5 ft 7.5 in Weight: 227 lb 225 lb BMI 35.0 34.7 BP 146/92 H Blood Pressure Location Lt brachial Position Sitting Respiration 18 Pulse 61 Pulse Source NIBP Comment 140/80 (standing) Intake Visit Reasons: ABN EKG/Cardiac Clearance Technical Support Specialist Required: No Accompanied by: Is patient in pain?: No Allergies No Known Allergies Allergy (Unverified 07/14/24 10:14) Medications ???Medication ???Instructions ???Recorded ???Confirmed ???Type atorvastatin 80 mg tablet 80 mg PO QHS 07/09/24 07/14/24 His tory isosorbide mononitrate 30 mg 30 mg PO QDAY 07/09/24 07/14/24 Hi story tablet,extended release 24 hr lisinopril 20 1 tab PO QDAY 07/09/24 07/14/24 Hi story mg-hydrochlorothiazide 12.5 mg tablet loratadine 10 mg capsule (Allergy 10 mg PO QDAY 07/09/24 07/14/24 H istory Relief (loratadine)) meloxicam 15 mg tablet 15 mg PO QDAY 07/09/24 07/14/24 Hi story metformin 500 mg tablet,extended 1,500 mg PO QDAY 07/09/24 07/14/24 History release 24hr (osmotic) metoprolol tartrate 25 mg tablet 25 mg PO BID 07/09/24 07/14/24 His tory multivitamin 1 tab PO QDAY 07/09/24 07/14/24 Hi story apixaban 5 mg tablet (Eliquis) 5 mg PO BID #30 tabs 07/14/2406/17 Rx Have you fallen in the past year?: No [facility] Medical History (Updated 07/15/24 @ 10:[address] Nya Tran MD) New onset a-fib Tobacco use Erectile dysfunction Acute gout involving toe of left foot Gout Prostate cancer Snoring Vitreous floaters of both eyes Type 2 diabetes mellitus without complication, with long-term current use of insulin Pseudophakia of both eyes Hyperlipidemia HTN (hypertension), benign Genital disorder, male Surgical History History of toe surgery History of hemorrhoidectomy History of cataract surgery History of colonoscopy Family History Mother Heart disease Father Heart disease Myocardial infarction Diabetes Sister Heart disease Brother Heart disease Aunt Diabetes Uncle Colon cancer Social History leisure activities: exercise sexually active: Yes Smoking Status: Former smoker Smokeless tobacco user: chewing tobacco Electronic Cigarette Use: not used quit status: not considering quitting alcohol intake: current alcohol intake frequency: 0-2 drinks per day Alcohol type: beer substance use type: does not use well-balanced diet: daily or most days frequency: 5-6 times per week duration: 30-45 minutes/day ROS Const Const: Negative for fatigue, weakness, headache(s) or weight gain ENT ENT: Negative for headache(s), dizziness, Nosebleed/epistaxis or balance problems Cardio Chest Pain: Yes (very rare lateral rib pain; not true chest pain per pt; brief) Palpitations: No Edema: None Muscle aches with walking: None Resp Respiratory: Negative for SOB with activity, SOB at rest or SOB orthopnea SOB lying down GI GI: Negative nausea, vomiting or heartburn Musc Musc: Negative for muscle aches/ myalgia, muscle weakness, joint pain or balance problems Neuro Neuro: Positive for lightheadedness (with position changes); Negative for dizziness, near syncope, syncope, headache(s) or weakness Endo Endo: Negative for fatigue Cardiology Exam Const Appearance: comfortable and no acute distress Nutritional Appearance: well nourished Neck Neck: no JVD Carotids: Negative bruit Chest Auscultation: Bilateral: Clear to Auscultation Cardio Rhythm: irregularly irregular Heart sounds: S1 normal and S2 normal Neuro General: patient alert, patient awake and patient oriented x3 (more content not included)... [facility] Telephone ([employer]) JONATHAN DUNCAN ([id number]) 1955 M Date Time Provider Department 06/18/24 ASPEN KLEIN During your visit today, we recorded the following information about you: Breonna Bess LPN 06/18/2024 4:08 PM Signed Faxed EKG, problem list and medlist to [facility] for upcoming appt 07/14/24 at 10:am. Patient aware and agreeable of appt. LEVI Trammell Jillian S, APRN.FOCUSED FACTORY MANAGER 06/19/2024 5:39 PM Signed Notifying surgeon's office pt's surgery will need to be rescheduled til after he has had cardiac optimization, for new onset afib found during [facility] appt. Josie Nicole MA 06/21/2024 8:31 AM Addendum Case message sent to cancel surgery. Post op appointments have been cancelled. I called and spoke with the patients spouse and told her to contact the office back to reschedule once he has cardiology clearance. She verbalized understanding. Breonna Bess LPN 08/06/2024 9:35 AM Signed Received office visit and cardiac testing. Scanned into Press through Onbase scanning. Breonna Bess LPN Allergies As of Date: 06/18/2024 (No Known Allergies) Date Reviewed: 06/18/2024 Reviewed by: Aspen Klein APRN.FOCUSED FACTORY MANAGER - Fully Assessed Reason for Visit: Surgery Cancelled [4163] Prescriptions as of 08/06/2024 - meloxicam (MOBIC) 15 mg tablet Take 1 tablet by mouth once daily. With food. - metoprolol tartrate, short acting, (LOPRESSOR) 25 mg tablet Take 1 tablet by mouth two times a day. - multivitamin tablet Take 1 tablet by mouth once daily. - Tadalafil (CIALIS) 10 mg tablet Take 1 tablet by mouth once daily as needed. Take 1-2 hours before sexual activity. - lisinopril-hydroCHLORO thiazide (ZESTORETIC) 20-12.5 mg per tablet Take 1 tablet by mouth every morning. - loratadine (CLARITIN) 10 mg tablet Take 1 tablet by mouth once daily. - atorvastatin (LIPITOR) 80 mg tablet Take 1 tablet by mouth once daily. - isosorbide mononitrate ER (IMDUR) 30 mg 24 hr tablet Take 1 tablet by mouth once daily. - metFORMIN ER (GLUCOPHAGE XR) 500 mg 24 hr tablet Take 3 tablets by mouth daily with breakfast. - Lancets lancets Test blood sugar(s) 1 times daily. Dx: Type 1 DM - Controlled E10.9 Insulin: No - blood sugar diagnostic (BLOOD GLUCOSE TEST) test strip Test blood sugar(s) 1 times daily. Dx: Type 1 DM - Controlled E10.9 Insulin: No - aspirin 81 mg chewable tablet Take 1 tablet by mouth once daily. Meds Comments as of 02/13/2024: Takes OTC Fish Oil daily. Takes Iron daily. Glucosamine Chondroitin Problem List As Of Date 06/18/2024 Noted Resolved Type 2 diabetes mellitus without complication, *05/07/2016 HTN (hypertension), benign [I10] 05/07/2016 Prostate cancer (HCC) [C61] 05/07/2016 02/03/2023 Hyperlipidemia [E78.5] 05/07/2016 Benign non-nodular prostatic hyperplasia withou*06/05/2016 Genital disorder, male [N50.9] 06/05/2016 Malignant neoplasm of prostate (HCC) [C61] 06/05/2017 02/03/2023 Type 2 diabetes mellitus without retinopathy (H*08/25/2017 Vitreous floaters of both eyes [H43.393] 08/25/2017 Pseudophakia of both eyes [Z96.1] 08/25/2017 Encounter Status:Closed by JOSIE NICOLE on 06/21/24 Normal [facility] UIP21va 06-18-2024 ECG01 Ventricular Rate : 8 4 BPM Atrial Rate : 85 BPM QRS Duration : 94 ms Q-T Interval : 370 ms QTC Calculation(Bazett) : 437 ms Calculated R Rincon : 44 degrees Calculated T Rincon : 19 degrees ATRIAL FIBRILLATION ABNORMAL ECG Confirmed by MD MULLINS GREGORY () on 06/21/2024 4:39:59 PM NAME : JONATHAN DUNCAN PID : [id number] : 1955 Gender : Male Race : ORD : Procedure Date : Jun 18 2024 16:57:49 Edit Date : Jun 21 2024 16:40:03 Diagnosis: ATRIAL FIBRILLATION ABNORMAL ECG Confirmed by MD MULLINS GREGORY () on 06/21/2024 4:39:59 PM Test Reason : Location : 636 : [facility] Overread By : MD MULLINS GREGORY Edited By : MD MULLINS GREGORY Referred By : BRAYDEN JOSEPH Acquired by : Tasha johnston [facility] HISTORY PHYSICALon HISTORY PHYSICAL HNO ID: [id number] Author: ASPEN KLEIN APRN.FOCUSED FACTORY MANAGER Service: ? Author Type: Nurse Practitioner Type: H&P Filed: 06/21/2024 11:53 Note Text: [facility] HISTORY AND PHYSICAL EXAMINATION SERVICE DATE: 06/18/2024 SERVICE TIME: 11:52 AM PRIMARY CARE PHYSICIAN: Kerri Strickland MD Assessment Patient has the following medical conditions which may affect palomo-operative course: HTN (hypertension), benign Assessment: controlled on rx Last 14 BP Last 14 Encounter BP Readings: Date: BP: 06/18/2024 150/82 05/07/2024 148/90 03/22/2024 140/82 02/13/2024 122/74 08/11/2023 126/74 02/03/2023 124/78 09/27/2022 133/73 08/20/2022 138/88 08/02/2022 138/88 04/15/2022 124/72 01/25/2022 138/80 10/19/2021 148/84 07/24/2021 148/82 04/18/2021 160/90 Hyperlipidemia Assessment: c/w statin Type 2 diabetes mellitus without complication, without long-term current use of insulin (HCC) Assessment: controlled on oral agent Hemoglobin A1C (%) Date Value 02/13/2024 7.6 04/13/2021 7.2 Benign non-nodular prostatic hyperplasia without lower urinary tract symptoms Assessment: controlled on rx Coronary artery disease involving [place] coronary artery of [place] heart with angina pectoris (HCC) Assessment: pending cardiac optimization due to abnormal EKG,non-obstructing per 2014 heart cath SUMMARY: Normal LV systolic function with moderate 1-vessel distal coronary disease. New onset a-fib (HCC) Assessment: found on pre-op EKG today, asymptomatic, currently taking daily ASA, cardiac optimization appt made with [facility] for patient. Informed pt to remain on ASA therapy until cardiology appt Cummins Activity Status Index: METS: Climb a flight of stairs or walk up a hill (5.50 METs) DASI Score: 5.5 Patient denies any chest pain or undue shortness of breath with the above physical activity. Clinical Frailty Scale: 3. Well, with treated comorbid disease STOP-Bang Score: Snores loudly Has or is being treated for high blood pressure Patient over 50 years old Has a large neck Male patient Denies feeling tired, fatigued, or sleepy during the daytime Has not been observed to stop breathing or choking/gasping during sleep BMI less than or equal to 35 kg/m2 STOP-Bang Score: 5 [id number] Score: Age: 65-74 Sex: male CHF history: No Hypertension history: Yes Stroke/TIA/thromboembo lism history: No Vascular disease history: No Diabetes history: Yes [id number] Score: 3 ARISCAT Score: Age: 51-80 Preoperative SpO2: >=96% Respiratory infection in the last month: No Preoperative anemia: No Surgical incision: peripheral Duration of surgery: <2 hrs Emergency procedure: No ARISCAT Score: 3 ANESTHESIA FINDINGS: Intubation History: No history of difficult intubation Significant Anesthesia Considerations: none Airway History: No history of difficult airway I - PHYSICAL EVALUATION AIRWAY Patient intubated: No. Tracheostomy tube not present Mallampati: III. TM distance: >3 FB. Neck ROM: full ROM without neurological symptoms. Mouth opening: adequate. Short neck: no. Thick neck: yes Sutherland present: yes Lip Bite Test: I Microretrognathia/Micr onagthia/Recessed Chin: No DENTAL Dental findings: teeth intact. II - ANESTHESIA PLAN Anesthetic Plan: other Beta Sherman Monitoring Plan Post Procedure Analgesic Plan Prepared for Surgery: optimally prepared for surgery, pending [see comment]. New afib on EKG, scheduled with JOE, TE to surgeon's office CONSULTS: The following consults have been initiated at this time: cardiology. Planned Anesthetic: other anesthesia choice The Following Tests/Procedures Have Been Initiated: Orders Placed This Encounter CONSULT TO CARDIOLOGY Standing Status: Future Standing Expiration Date: 06/18/2025 Order Specific Question: Does consulting provider have [facility] Epic access? Answer: Yes ECG COMPLETE Standing Status: Future Standing Expiration Date: 06/18/2025 ECG COMPLETE Order Comments: Ordered by an unspecified provider REASON FOR VISIT: Jonathan Duncan is a 69 year old male who is scheduled for Procedure(s): ARTHROSCOPY KNEE MENISCECTOMY MEDIAL OR LATERAL (Left) at the request of Dr. Brayden Joseph for consultation. My final recommendation will be communicated back to the requesting physician by way of shared medical record or letter. Subjective The patient has the following: COVID-19 Immunization Status Overdue - Covid-19 Vaccine () Overdue since 02/15/2024 02/13/2024 Postponed until 02/12/2025 by Jazmyn Lui MA (Declined at this time) 06/11/2021 Imm Admin: COVID-19 original vaccine, full dose, monovalent (MODERNA) 10/21/2020 Imm Admin: COVID-19 original vaccine, full dose, monovalent (MODERNA) Only the first 3 history entries have been loaded, but more history exists. CHIEF COMPLAINT: Pre-op exam HPI: (more content not included)... Normal [facility] CNPEsther 06-01-2024 CNPN Telephone (MARANDA) JONATHAN DUNCAN ([id number]) 1955 Date Time Provider Department 06/01/24 BRAYDEN JOSEPH During your visit today, we recorded the following information about you: Tracy Mata MA 06/01/2024 1:51 PM Signed Patient scheduled for Left knee arthroscopic medial menisectomy and chondroplasty on 06/30/24. Surgical request completed. Post op appointments scheduled and mailed to the patient. Tracy Mata MA 06/02/2024 3:21 PM Signed Surgery scheduled as requested. Allergies As of Date: 06/01/2024 (No Known Allergies) Date Reviewed: 05/31/2024 Reviewed by: Josie Nicole MA - Fully Assessed Reason for Visit: Schedule Surgery [1330] Primary Visit Diagnosis:Internal derangement of left knee [M23.92] Other Visit Diagnosis:Left knee pain, unspecified chronicity [M25.562] Order(s):SURGICAL REQUEST - ELECTIVE (01/2020) [[id number]] Order #: [id number]: 1 Prescriptions as of 06/02/2024 - multivitamin tablet Take 1 tablet by mouth once daily. - Tadalafil (CIALIS) 10 mg tablet Take 1 tablet by mouth once daily as needed. Take 1-2 hours before sexual activity. - meloxicam (MOBIC) 15 mg tablet Take 1 tablet by mouth once daily. With food. - colchicine 0.6 mg tablet TAKE 2 TABLETS BY MOUTH ONCE NOW AND THEN 1 TABLET ONCE IN 1 HOUR... (REFER TO PRESCRIPTION NOTES). - lisinopril-hydroCHLORO thiazide (ZESTORETIC) 20-12.5 mg per tablet Take 1 tablet by mouth every morning. - metoprolol tartrate, short acting, (LOPRESSOR) 25 mg tablet Take 1 tablet by mouth two times a day. - loratadine (CLARITIN) 10 mg tablet Take 1 tablet by mouth once daily. - atorvastatin (LIPITOR) 80 mg tablet Take 1 tablet by mouth once daily. - isosorbide mononitrate ER (IMDUR) 30 mg 24 hr tablet Take 1 tablet by mouth once daily. - metFORMIN ER (GLUCOPHAGE XR) 500 mg 24 hr tablet Take 3 tablets by mouth daily with breakfast. - Lancets lancets Test blood sugar(s) 1 times daily. Dx: Type 1 DM - Controlled E10.9 Insulin: No - blood sugar diagnostic (BLOOD GLUCOSE TEST) test strip Test blood sugar(s) 1 times daily. Dx: Type 1 DM - Controlled E10.9 Insulin: No - aspirin 81 mg chewable tablet Take 1 tablet by mouth once daily. - vitamin b complex (B COMPLETE) tab Take 1 tablet by mouth once daily. Meds Comments as of 02/13/2024: Takes OTC Fish Oil daily. Takes Iron daily. Glucosamine Chondroitin Problem List As Of Date 06/01/2024 Noted Resolved Type 2 diabetes mellitus without complication, *05/07/2016 HTN (hypertension), benign [I10] 05/07/2016 Prostate cancer (HCC) [C61] 05/07/2016 02/03/2023 Hyperlipidemia [E78.5] 05/07/2016 Benign non-nodular prostatic hyperplasia withou*06/05/2016 Genital disorder, male [N50.9] 06/05/2016 Malignant neoplasm of prostate (HCC) [C61] 06/05/2017 02/03/2023 Type 2 diabetes mellitus without retinopathy (H*08/25/2017 Vitreous floaters of both eyes [H43.393] 08/25/2017 Pseudophakia of both eyes [Z96.1] 08/25/2017 Letter Text Encounter Status:Closed by TRACY MATA on 06/02/24 [facility] CNOVon 05-31-2024 CNOV Office Visit (TAMWS ) JONATHAN DUNCAN ([id number]) 1955 M Date Time Provider Department 05/31/24 12:45 PM BRAYDEN JOSEPH During your visit today, we recorded the following information about you: Brayden Joseph MD 06/22/2024 9:16 AM Signed Brayden Joseph MD Department of Orthopaedics Orthopaedics [address] [place] [id number] Dept: [phone] Dept May 31, 2024 CHIEF COMPLAINT: New and Pain of the Left Knee HPI Patient here today for left knee pain since March. States he was bent over to put meat in the freezer and felt a pop in the left knee. heard the pop in the next room. 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 X-ray completed 03/22/2024, MRI completed 05/18/2024. ASSESSMENT: M25.562 Acute pain of left knee M23.92 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 PLAN: We had a lengthy discussion about his MRI findings and current clinical situation with the knee. The risks, benefits, alternatives and potential complications involving both operative and nonoperative treatment were reviewed. He certainly has asymptomatic meniscus tear on top of some mild arthritic changes in the knee. Arthroscopic intervention is very appropriate in this situation. Due to some of his degenerative changes, he may not get 100% improvement, however the meniscus involvement appears to be a greater component then some of his cartilage loss. We have made the decision to move forward with a major orthopaedic surgery today, and this represents the moderate form of medical decision-making complexity. The patient's diagnosis of Acute pain of left knee 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 represents an acute pathology/diagnosis/in jury that represents a current or possible direct threat to bodily function. We will get him scheduled at his convenience. FOLLOW UP INSTRUCTIONS: As above OBJECTIVE: Mr. Jonathan Duncan is a pleasant 69 year old in no apparent distress. Gen:There were no vitals taken for this visit. nl development, non obese, no deformities ENT: Normocephalic, normal hearing, moist mucosa CV: Pulses:DP/PT= 2+ and symmetric, capillary refill < 2 secs, no peripheral edema/varicosities Skin: no rash, bruising or lesions. Good turgor. Psych: cooperative and appropriate, alert and oriented x 3, good mood and affect. Musculoskeletal: Patient walks with mild antalgia on the left. Mild effusion is present. No patellofemoral crepitance. Tender to palpation along the posterior medial portion of the knee medial joint line. On tender over the distal femoral condyles. Painful Thesally's and Poonam's, without a mechanical component. Neurovascular exam in the extremities intact. IMAGING: IMPRESSION: MEDIAL MENISCAL TEAR. MILD-MODERATE OSTEOARTHRITIS, MOST PRONOUNCED IN THE MEDIAL COMPARTMENT. Trolley Coach Driver: CHANTELL Transcribe Date/Time: May 18 2024 1:05P Dictated by : CHANDA STRATTON DO This examination was interpreted and the report reviewed and electronically signed by: HARJINDER RODRÍGUEZ MD on May 18 2024 1:34PM EST Results-Findings * * *Final Report* * * DATE OF EXAM: May 18 2024 12:55PM WR 0212 - MRI KNEE WO IVCON LT / PROCEDURE REASON: multiple diagnoses * * * * Physician Interpretation * * * * EXAMINATION: MRI LEFT KNEE WITHOUT CONTRAST CLINICAL HISTORY: Worsening left knee pain for last 2 months, worse with weightbearing, twisting and bending. TECHNIQUE: Routine non-contrast MRI of the knee MQ: [id number] COMPARISON: Radiographs 03/22/2024 RESULT: MENISCI: Medial Meniscus: Complex tear in the posterior horn and body with displaced flap in the meniscotibial gutter and reactive edema and marrow signal in the adjacent tibia (12/29). Lateral Meniscus: Degenerative changes without a tear LIGAMENTS: ACL: Intact PCL: Intact MCL: Intact periligamentous edema favored to be reactive to the above-described meniscal tear, though low-grade sprain could appear similar. LCL Complex: Intact CARTILAGE: Medial Femoral Condyle: Moderate sized are a(s) of predominantly high grade (greater than 50% thickness) cartilage loss and or fissuring with smaller area(s) of full thickness cartilage loss and or fissuring Medial Tibial Plateau: Moderate sized area(s) of low grade (less than 50% thickness) partial thickness cartilage loss and or fissuring Lateral Femoral Condyle: Small area(s) of full thickness cartilage loss and or fissuring posteriorly Lateral Tibial Plateau: Normal Patella: Single high grade (greater than 50% thickness) cartilage fissure Trochlea: Small area(s) of full thickness cartilage loss and or fissuring TENDONS: The distal quadriceps and patellar tendons are intact. The popliteus tendon is intact. BONES AND MARROW: No evidence of fracture or bone marrow replacing process. R (more content not included)... Normal [facility] DUNC[facility] ([id number]) 1955 M Date Time Provider Department 05/18/24 KERRI STRICKLAND [facility] During your visit today, we recorded the following information about you: Kerri Strickland MD 05/18/2024 2:05 PM Signed Please notify patient that his knee MRI does show a torn meniscus,so keep the aapt that he has with Dr Joseph., MD Sal May Jacqueline, LPN 05/18/2024 2:20 PM Signed Patient notified. Verbalized understanding. Allergies As of Date: 05/18/2024 (No Known Allergies) Date Reviewed: 05/07/2024 Reviewed by: Joana Curry MA - Fully Assessed Prescriptions as of 05/18/2024 - multivitamin tablet Take 1 tablet by mouth once daily. - Tadalafil (CIALIS) 10 mg tablet Take 1 tablet by mouth once daily as needed. Take 1-2 hours before sexual activity. - meloxicam (MOBIC) 15 mg tablet Take 1 tablet by mouth once daily. With food. - colchicine 0.6 mg tablet TAKE 2 TABLETS BY MOUTH ONCE NOW AND THEN 1 TABLET ONCE IN 1 HOUR... (REFER TO PRESCRIPTION NOTES). - lisinopril-hydroCHLORO thiazide (ZESTORETIC) 20-12.5 mg per tablet Take 1 tablet by mouth every morning. - metoprolol tartrate, short acting, (LOPRESSOR) 25 mg tablet Take 1 tablet by mouth two times a day. - loratadine (CLARITIN) 10 mg tablet Take 1 tablet by mouth once daily. - atorvastatin (LIPITOR) 80 mg tablet Take 1 tablet by mouth once daily. - isosorbide mononitrate ER (IMDUR) 30 mg 24 hr tablet Take 1 tablet by mouth once daily. - metFORMIN ER (GLUCOPHAGE XR) 500 mg 24 hr tablet Take 3 tablets by mouth daily with breakfast. - Lancets lancets Test blood sugar(s) 1 times daily. Dx: Type 1 DM - Controlled E10.9 Insulin: No - blood sugar diagnostic (BLOOD GLUCOSE TEST) test strip Test blood sugar(s) 1 times daily. Dx: Type 1 DM - Controlled E10.9 Insulin: No - aspirin 81 mg chewable tablet Take 1 tablet by mouth once daily. - vitamin b complex (B COMPLETE) tab Take 1 tablet by mouth once daily. Meds Comments as of 02/13/2024: Takes OTC Fish Oil daily. Takes Iron daily. Glucosamine Chondroitin Problem List As Of Date 05/18/2024 Noted Resolved Type 2 diabetes mellitus without complication, *05/07/2016 HTN (hypertension), benign [I10] 05/07/2016 Prostate cancer (HCC) [C61] 05/07/2016 02/03/2023 Hyperlipidemia [E78.5] 05/07/2016 Benign non-nodular prostatic hyperplasia withou*06/05/2016 Genital disorder, male [N50.9] 06/05/2016 Malignant neoplasm of prostate (HCC) [C61] 06/05/2017 02/03/2023 Type 2 diabetes mellitus without retinopathy (H*08/25/2017 Vitreous floaters of both eyes [H43.393] 08/25/2017 Pseudophakia of both eyes [Z96.1] 08/25/2017 Encounter Status:Closed by JILL GOOD on 05/18/24 [facility] MR Knee - left WO contraston 05-18-2024 IMPRESSION: MEDIAL MENISCAL TEAR. MILD-MODERATE OSTEOARTHRITIS, MOST PRONOUNCED IN THE MEDIAL COMPARTMENT. Trolley Coach Driver: CHANTELL Transcribe Date/Time: May 18 2024 1:05P Dictated by : CHANDA STRATTON DO This examination was interpreted and the report reviewed and electronically signed by: HARJINDER RODRÍGUEZ MD on May 18 2024 1:34PM [facility] [[email or web address]] DIVISION OF RADIOLOGY * * *Final Report* * * DATE OF EXAM: May 18 2024 12:55PM [facility] 0212 - MRI KNEE WO IVCON LT / PROCEDURE REASON: multiple diagnoses * * * * Physician Interpretation * * * * EXAMINATION: MRI LEFT KNEE WITHOUT CONTRAST CLINICAL HISTORY: Worsening left knee pain for last 2 months, worse with weightbearing, twisting and bending. TECHNIQUE: Routine non-contrast MRI of the knee MQ: MRK_2B COMPARISON: Radiographs 03/22/2024 RESULT: MENISCI: Medial Meniscus: Complex tear in the posterior horn and body with displaced flap in the meniscotibial gutter and reactive edema and marrow signal in the adjacent tibia (12/29). Lateral Meniscus: Degenerative changes without a tear LIGAMENTS: ACL: Intact PCL: Intact MCL: Intact periligamentous edema favored to be reactive to the above-described meniscal tear, though low-grade sprain could appear similar. LCL Complex: Intact CARTILAGE: Medial Femoral Condyle: Moderate sized are a(s) of predominantly high grade (greater than 50% thickness) cartilage loss and or fissuring with smaller area(s) of full thickness cartilage loss and or fissuring Medial Tibial Plateau: Moderate sized area(s) of low grade (less than 50% thickness) partial thickness cartilage loss and or fissuring Lateral Femoral Condyle: Small area(s) of full thickness cartilage loss and or fissuring posteriorly Lateral Tibial Plateau: Normal Patella: Single high grade (greater than 50% thickness) cartilage fissure Trochlea: Small area(s) of full thickness cartilage loss and or fissuring TENDONS: The distal quadriceps and patellar tendons are intact. The popliteus tendon is intact. BONES AND MARROW: No evidence of fracture or bone marrow replacing process. Reactive subchondral cystic change/edema subjacent to areas of full-thickness cartilage loss. MUSCLES: Muscle bulk and signal intensity are normal. JOINT FLUID AND SYNOVIUM: Moderate joint effusion. Mild synovitis. Small Gotti's cyst with adjacent ill-defined stranding, likely from prior rupture. OTHER: Anterior knee subcutaneous edema. Localizer images: No additional findings. DIVISION OF RADIOLOGY Provider, [facility] - 05/18/2024 * * *Final Report* * * DATE OF EXAM: May 18 2024 12:55PM [facility] 0212 - MRI KNEE WO IVCON LT / PROCEDURE REASON: multiple diagnoses * * * * Physician Interpretation * * * * EXAMINATION: MRI LEFT KNEE WITHOUT CONTRAST CLINICAL HISTORY: Worsening left knee pain for last 2 months, worse with weightbearing, twisting and bending. TECHNIQUE: Routine non-contrast MRI of the knee MQ: MRK_2B COMPARISON: Radiographs 03/22/2024 RESULT: MENISCI: Medial Meniscus: Complex tear in the posterior horn and body with displaced flap in the meniscotibial gutter and reactive edema and marrow signal in the adjacent tibia (12/29). Lateral Meniscus: Degenerative changes without a tear LIGAMENTS: ACL: Intact PCL: Intact MCL: Intact periligamentous edema favored to be reactive to the above-described meniscal tear, though low-grade sprain could appear similar. LCL Complex: Intact CARTILAGE: Medial Femoral Condyle: Moderate sized are a(s) of predominantly high grade (greater than 50% thickness) cartilage loss and or fissuring with smaller area(s) of full thickness cartilage loss and or fissuring Medial Tibial Plateau: Moderate sized area(s) of low grade (less than 50% thickness) partial thickness cartilage loss and or fissuring Lateral Femoral Condyle: Small area(s) of full thickness cartilage loss and or fissuring posteriorly Lateral Tibial Plateau: Normal Patella: Single high grade (greater than 50% thickness) cartilage fissure Trochlea: Small area(s) of full thickness cartilage loss and or fissuring TENDONS: The distal quadriceps and patellar tendons are intact. The popliteus tendon is intact. BONES AND MARROW: No evidence of fracture or bone marrow replacing process. Reactive subchondral cystic change/edema subjacent to areas of full-thickness cartilage loss. MUSCLES: Muscle bulk and signal intensity are normal. JOINT FLUID AND SYNOVIUM: Moderate joint effusion. Mild synovitis. Small Gotti's cyst with adjacent ill-defined stranding, likely from prior rupture. OTHER: Anterior knee subcutaneous edema. Localizer images: No additional findings. IMPRESSION IMPRESSION: MEDIAL MENISCAL TEAR. MILD-MODERATE OSTEOARTHRITIS, MOST PRONOUNCED IN THE MEDIAL COMPARTMENT. Trolley Coach Driver: CHANTELL Transcribe Date/Time: May 18 2024 1:05P Dictated by : CHANDA STRATTON DO This examination was interpreted and the report reviewed and electronically signed by: HARJINDER RODRÍGUEZ MD on May 18 2024 1:34PM EST [facility] Radiology Study observation (narrative) [facility] MR Knee - left WO contrastOr dered By: [facility] Provider on 05-18-2024 [facility] MRI KNEE WO IVCON LTon 05-18 MRI KNEE WO IVCON LT * * *Final Report* * * DATE OF EXAM: May 18 2024 12:55PM [facility] 0212 - MRI KNEE WO IVCON LT / PROCEDURE REASON: multiple diagnoses * * * * Physician Interpretation * * * * EXAMINATION: MRI LEFT KNEE WITHOUT CONTRAST CLINICAL HISTORY: Worsening left knee pain for last 2 months, worse with weightbearing, twisting and bending. TECHNIQUE: Routine non-contrast MRI of the knee MQ: MRK_2B COMPARISON: Radiographs 03/22/2024 RESULT: MENISCI: Medial Meniscus: Complex tear in the posterior horn and body with displaced flap in the meniscotibial gutter and reactive edema and marrow signal in the adjacent tibia (12/29). Lateral Meniscus: Degenerative changes without a tear LIGAMENTS: ACL: Intact PCL: Intact MCL: Intact periligamentous edema favored to be reactive to the above-described meniscal tear, though low-grade sprain could appear similar. LCL Complex: Intact CARTILAGE: Medial Femoral Condyle: Moderate sized are a(s) of predominantly high grade (greater than 50% thickness) cartilage loss and or fissuring with smaller area(s) of full thickness cartilage loss and or fissuring Medial Tibial Plateau: Moderate sized area(s) of low grade (less than 50% thickness) partial thickness cartilage loss and or fissuring Lateral Femoral Condyle: Small area(s) of full thickness cartilage loss and or fissuring posteriorly Lateral Tibial Plateau: Normal Patella: Single high grade (greater than 50% thickness) cartilage fissure Trochlea: Small area(s) of full thickness cartilage loss and or fissuring TENDONS: The distal quadriceps and patellar tendons are intact. The popliteus tendon is intact. BONES AND MARROW: No evidence of fracture or bone marrow replacing process. Reactive subchondral cystic change/edema subjacent to areas of full-thickness cartilage loss. MUSCLES: Muscle bulk and signal intensity are normal. JOINT FLUID AND SYNOVIUM: Moderate joint effusion. Mild synovitis. Small Gotti's cyst with adjacent ill-defined stranding, likely from prior rupture. OTHER: Anterior knee subcutaneous edema. Localizer images: No additional findings. IMPRESSION: MEDIAL MENISCAL TEAR. MILD-MODERATE OSTEOARTHRITIS, MOST PRONOUNCED IN THE MEDIAL COMPARTMENT. 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 Coach Driver: PSCB Transcribe Date/Time: May 18 2024 1:05P Dictated by : CHANDA STRATTON, This examination was interpreted and the report reviewed and electronically signed by: HARJINDER RODRÍGUEZ MD on May 18 2024 1:34PM EST [id number] Normal [facility] CNOVon 05-07-2024 CNOV Office Visit (FAMPWS ) JONATHAN DUNCAN ([id number]) 1955 M Date Time Provider Department 05/07/24 4:20 PM [facility] During your visit today, we recorded the following information about you: Pulse Respiration Blood pressure Weight 84/minute 18/minute 148/90 104.4 kg Kerri Strickland MD 05/07/2024 4:34 PM Signed Chief Complaint Patient presents with: Knee Pain: Left HPI Jonathan Duncan is a 69 year old male who presents here today for left knee pain. Pt here today with c/o continued left knee pain. Pt seen and evaluated in on 03/22/24. Pt reported at that visit of left knee pain and popping x 4 days. This started after his left knee popped when bending over. Pain located on the medial side of his knee, no radiation. Pain described as sharp with bearing weight and aching with twisting. Does improve with using Biofreeze. Pt had XR completed which was negative. Pt advised to continue supportive care for possible medial meniscus tear, use Ibuprofen as needed. Has Rx for Mobic 15 mg daily for his arthritis which hasn't been helping the knee pain. Advised to f/u with PCP or Ortho if pain not improving. Has not tried any heat or ice. Pt feels that the pain is getting worse. Pt does a lot of bending at his job. Has not tried using any braces. The knee will lock up at times and he feels like it could give out. Past medical history, appointments, medications, allergies reviewed. Previous Medical History PAST MEDICAL HISTORY Diagnosis Date Diabetes mellitus type 2, controlled, without complications (HCC) Hyperlipidemia Hypertension Prostate cancer (HCC) Snoring Previous Surgical History PAST SURGICAL HISTORY Procedure Laterality Date COLONOSCOPY 09/27/2022 repeat in 5 years, history of polyps. COLONOSCOPY FLX DX W/COLLJ SPEC WHEN PFRMD 05/15/2017 Colonoscopy EYE SURGERY HX PAST SURGICAL HISTORY OF 2013 Prostate cancer removed PAST SURGICAL HISTORY OF Right 2006 Cataract surgery PAST SURGICAL HISTORY OF 2005 Colonoscopy PAST SURGICAL HISTORY OF 2006 Hemorrhoidectomy PAST SURGICAL HISTORY OF 2011 Toe surgery, due to almost cutting toe off with chainshaw PAST SURGICAL HISTORY OF 2009 Colonoscopy Family History FAMILY HISTORY Problem Relation Age of Onset Heart Mother Heart Father Age of 69, massive [place] Diabetes Father Heart Sister Heart Brother Diabetes Paternal Aunt Colon Cancer Paternal Uncle Patient Allergies ALLERGIES No Known Allergies Current Medications Current Outpatient Medications on File Prior to Visit Medication Sig Tadalafil (CIALIS) 10 mg tablet Take 1 tablet by mouth once daily as needed. Take 1-2 hours before sexual activity. meloxicam (MOBIC) 15 mg tablet Take 1 tablet by mouth once daily. With food. colchicine 0.6 mg tablet TAKE 2 TABLETS BY MOUTH ONCE NOW AND THEN 1 TABLET ONCE IN 1 HOUR... (REFER TO PRESCRIPTION NOTES). lisinopril-hydroCHLORO thiazide (ZESTORETIC) 20-12.5 mg per tablet Take 1 tablet by mouth every morning. metoprolol tartrate, short acting, (LOPRESSOR) 25 mg tablet Take 1 tablet by mouth two times a day. loratadine (CLARITIN) 10 mg tablet Take 1 tablet by mouth once daily. atorvastatin (LIPITOR) 80 mg tablet Take 1 tablet by mouth once daily. isosorbide mononitrate ER (IMDUR) 30 mg 24 hr tablet Take 1 tablet by mouth once daily. metFORMIN ER (GLUCOPHAGE XR) 500 mg 24 hr tablet Take 3 tablets by mouth daily with breakfast. Lancets lancets Test blood sugar(s) 1 times daily. Dx: Type 1 DM - Controlled E10.9 Insulin: No blood sugar diagnostic (BLOOD GLUCOSE TEST) test strip Test blood sugar(s) 1 times daily. Dx: Type 1 DM - Controlled E10.9 Insulin: No aspirin 81 mg chewable tablet Take 1 tablet by mouth once daily. vitamin b complex (B COMPLETE) tab Take 1 tablet by mouth once daily. No current facility-administered medications on file prior to visit. Social History Social History Tobacco Use Smoking status: Former Types: Cigarettes Smokeless tobacco: Current Types: Chew Vaping Use Vaping status: Never Used Substance Use Topics Alcohol use: Yes Comment: 2 beers per day Drug use: No EXAM: BP 148/90 Pulse 84 Resp 18 Wt 104.4 kg (230 lb 2.6 oz) BMI 35.52 kg/m? General Appearance: Well appearing, alert, in no acute distress, well-hydrated, well nourished. and Overweight. Extremities: left knee; moderate to large effusion, localized tenderness over medial joint line, positive Poonam test, on instability detected. Health Maintenance List Shingrix Vaccine(1 of 2) Never done BP Controlled (<130/80) due on 12/30/2020 Diabetic Foot Exam due on 04/18/2022 Advance Directive Discussion due on 06/16/2023 Influenza Vaccine(1) due on 02/15/2024 Covid-19 Vaccine() due on 02/15/2024 HbA1C due on 08/13/2024 Dilated Retinal Exam due on 09/25/2024 (more content not included)... [facility] CNOVon 03-22-2024 CNOV Office Visit (UCTR ) JONATHAN DUNCAN ([id number]) 1955 M Date Time Provider Department 03/22/24 5:15 PM KYLER MELO [facility] During your visit today, we recorded the following information about you: Temperature Pulse Respiration Blood pressure 97.6 degrees 68/minute 16/minute 140/82 Weight 104.9 kg Kyler Melo MD 03/22/2024 7:05 PM Addendum Patient presents with: Knee Pain: left knee pain, popping x 4 days HPI: Left knee pain: Duration: left knee popped loudly when bending over 3 days ago. Location: medial left knee Character: sharp with weight, aches with twist Radiation: No. Aggravating: standing and walking Relieving: biofreeze Pain relievers: Associated: swelling Pertinent negatives: Denies numbness, bruising, giving out, crepitus MEDICATIONS: Tadalafil (CIALIS) 10 mg tablet Take 1 tablet by mouth once daily as needed. Take 1-2 hours before sexual activity. meloxicam (MOBIC) 15 mg tablet Take 1 tablet by mouth once daily. With food. colchicine 0.6 mg tablet TAKE 2 TABLETS BY MOUTH ONCE NOW AND THEN 1 TABLET ONCE IN 1 HOUR... (REFER TO PRESCRIPTION NOTES). lisinopril-hydroCHLORO thiazide (ZESTORETIC) 20-12.5 mg per tablet Take 1 tablet by mouth every morning. metoprolol tartrate, short acting, (LOPRESSOR) 25 mg tablet Take 1 tablet by mouth two times a day. loratadine (CLARITIN) 10 mg tablet Take 1 tablet by mouth once daily. atorvastatin (LIPITOR) 80 mg tablet Take 1 tablet by mouth once daily. isosorbide mononitrate ER (IMDUR) 30 mg 24 hr tablet Take 1 tablet by mouth once daily. metFORMIN ER (GLUCOPHAGE XR) 500 mg 24 hr tablet Take 3 tablets by mouth daily with breakfast. Lancets lancets Test blood sugar(s) 1 times daily. Dx: Type 1 DM - Controlled E10.9 Insulin: No blood sugar diagnostic (BLOOD GLUCOSE TEST) test strip Test blood sugar(s) 1 times daily. Dx: Type 1 DM - Controlled E10.9 Insulin: No aspirin 81 mg chewable tablet Take 1 tablet by mouth once daily. vitamin b complex (B COMPLETE) tab Take 1 tablet by mouth once daily. ALLERGIES: ALLERGIES No Known Allergies VITALS: BP 140/82 Pulse 68 Temp 36.4 ?C (97.6 ?F) Resp 16 Wt 104.9 kg (231 lb 4.2 oz) SpO2 97% BMI 35.69 kg/m? PHYSICAL EXAM: GEN: pleasant, alert, no acute distress KNEE: left compared to right. No erythema, effusion, or deformity. FROM without pain. No crepitus. Medial-anterior proximal tibial joint line tenderness. Stable to varus and valgus strain. Negative anterior drawer test. Negative posterior drawer test. Able to bear weight Latest Ref Rng 02/13/2024 eGFR >=60 mL/min/1.73m? 93 ASSESSMENT/PLAN: 1. Acute pain of left knee - ICD9: 719.46, ICD10: M25.562 - XR KNEE GENERAL 4V AP BOTH/PA BOTH/LAT/MERC LEFT - mild medial compartment narrowing. No fractures or lytic lesions. Radiology interpretation is pending. The patient will be notified if there is a significant finding in the report not discussed at the time of the visit. Continue supportive care for possible medial meniscus tear with biofreeze. Use as needed ibuprofen. Follow up with PCP or orthopedics if not improving. Kylre Melo MD Allergies As of Date: 03/22/2024 (No Known Allergies) Date Reviewed: 03/22/2024 Reviewed by: Janay Davalos MA - Fully Assessed Reason for Visit: Knee Pain [132] Cmt: left knee pain, popping x 4 days Primary Visit Diagnosis:Acute pain of left knee [M25.562] Order(s):XR KNEE GENERAL 4V AP BOTH/PA BOTH/LAT/MERC LEFT [[id number]] Order #: [id number] FUTURE Prescriptions as of 03/22/2024 - Tadalafil (CIALIS) 10 mg tablet Take 1 tablet by mouth once daily as needed. Take 1-2 hours before sexual activity. - meloxicam (MOBIC) 15 mg tablet Take 1 tablet by mouth once daily. With food. - colchicine 0.6 mg tablet TAKE 2 TABLETS BY MOUTH ONCE NOW AND THEN 1 TABLET ONCE IN 1 HOUR... (REFER TO PRESCRIPTION NOTES). - lisinopril-hydroCHLORO thiazide (ZESTORETIC) 20-12.5 mg per tablet Take 1 tablet by mouth every morning. - metoprolol tartrate, short acting, (LOPRESSOR) 25 mg tablet Take 1 tablet by mouth two times a day. - loratadine (CLARITIN) 10 mg tablet Take 1 tablet by mouth once daily. - atorvastatin (LIPITOR) 80 mg tablet Take 1 tablet by mouth once daily. - isosorbide mononitrate ER (IMDUR) 30 mg 24 hr tablet Take 1 tablet by mouth once daily. - metFORMIN ER (GLUCOPHAGE XR) 500 mg 24 hr tablet Take 3 tablets by mouth daily with breakfast. - Lancets lancets Test blood sugar(s) 1 times daily. Dx: Type 1 DM - Controlled E10.9 Insulin: No - blood sugar diagnostic (BLOOD GLUCOSE TEST) test strip Test blood sugar(s) 1 times daily. Dx: Type 1 DM - Controlled E10.9 Insulin: No - aspirin 81 mg chewable tablet Take 1 tablet by mouth once daily. - vitamin b complex (B COMPLETE) tab Take 1 tablet by mouth once daily. Meds Comments as of 02/13/2024: (more content not included)... [facility] XR KNEE 4V AP/PA BOTH+LAT/ME R LTon 03-22-2024 XR KNEE 4V AP/PA BOTH+LAT/PINKY LT * * *Final Report* * * DATE OF EXAM: Mar 22 2024 6:18PM WOX [id number] - XR KNEE 4V AP/PA BOTH+LAT/PINKY LT / PROCEDURE REASON: Acute pain of left knee * * * * Physician Interpretation * * * * LEFT KNEE X-RAY SERIES CLINICAL HISTORY: Acute pain. 4 days ago left knee popped and gave out, pain on medial side TECHNIQUE: Bilateral AP, intercondylar and sunrise views and a left lateral view COMPARISON: None available. RESULT: No fracture or malalignment. Joint spaces and articular surfaces are preserved. No joint effusion. IMPRESSION: Negative left knee. Trolley Coach Driver: PSCB Transcribe Date/Time: Mar 22 2024 6:47P Dictated by : NOBLE MAXWELL MD This examination was interpreted and the report reviewed and electronically signed by: NOBLE MAXWELL MD on Mar 22 2024 6:49PM EST [id number] [facility] XR Knee - left 4 Viewson IMPRESSION: Negative left knee. Trolley Coach Driver: PSCB Transcribe Date/Time: Mar 22 2024 6:47P Dictated by : NOBLE MAXWELL MD This examination was interpreted and the report reviewed and electronically signed by: NOBLE MAXWELL MD on Mar 22 2024 6:49PM EST DIVISION OF RADIOLOGY * * *Final Report* * * DATE OF EXAM: Mar 22 2024 6:18PM WOX [id number] - XR KNEE 4V AP/PA BOTH+LAT/PINKY LT / PROCEDURE REASON: Acute pain of left knee * * * * Physician Interpretation * * * * LEFT KNEE X-RAY SERIES CLINICAL HISTORY: Acute pain. 4 days ago left knee popped and gave out, pain on medial side TECHNIQUE: Bilateral AP, intercondylar and sunrise views and a left lateral view COMPARISON: None available. RESULT: No fracture or malalignment. Joint spaces and articular surfaces are preserved. No joint effusion. DIVISION OF RADIOLOGY Provider, [facility] - 03/22/2024 * * *Final Report* * * DATE OF EXAM: Mar 22 2024 6:18PM WOX [id number] - XR KNEE 4V AP/PA BOTH+LAT/PINKY LT / PROCEDURE REASON: Acute pain of left knee * * * * Physician Interpretation * * * * LEFT KNEE X-RAY SERIES CLINICAL HISTORY: Acute pain. 4 days ago left knee popped and gave out, pain on medial side TECHNIQUE: Bilateral AP, intercondylar and sunrise views and a left lateral view COMPARISON: None available. RESULT: No fracture or malalignment. Joint spaces and articular surfaces are preserved. No joint effusion. IMPRESSION IMPRESSION: Negative left knee. Trolley Coach Driver: PSCB Transcribe Date/Time: Mar 22 2024 6:47P Dictated by : NOBLE MAXWELL MD This examination was interpreted and the report reviewed and electronically signed by: NOBLE MAXWELL MD on Mar 22 2024 6:49PM EST [facility] Radiology Study observation (narrative) [facility] XR Knee - left 4 ViewsOrdere d By: [facility] Provider on 03-22-2024 [facility] XR Foot - right AP and Later al and obliqueon 08-07-2022 IMPRESSION: Calcaneal spurs. Otherwise, unremarkable radiograph Trolley Coach Driver: [facility] Transcribe Date/Time: Aug 07 2022 4:14P Dictated by : KERRI SAM MD This examination was interpreted and the report reviewed and electronically signed by: KERRI SAM MD on Aug 07 2022 4:16PM [facility] [[email or web address]] DIVISION OF RADIOLOGY * * *Final Report* * * DATE OF EXAM: Aug 02 2022 4:09PM WOX [id number] - XR FOOT 3V AP/LAT/OBL RT / PROCEDURE REASON: Foot pain, right * * * * Physician Interpretation * * * * Right foot HISTORY: 67 years old Clinical information: Foot pain, right Right mid and forefoot plantar pain x several months without injury TECHNIQUE: Images: XR FOOT 3V AP/LAT/OBL RT Comparison: None. RESULT: Findings: No evidence of fracture or bony destruction. Joint spaces are maintained. There are calcaneal enthesophytes at the origin of the plantar fascia and insertion of the Achilles tendon. DIVISION OF RADIOLOGY Provider, [facility] - 08/07/2022 * * *Final Report* * * DATE OF EXAM: Aug 02 2022 4:09PM WOX [id number] - XR FOOT 3V AP/LAT/OBL RT / PROCEDURE REASON: Foot pain, right * * * * Physician Interpretation * * * * Right foot HISTORY: 67 years old Clinical information: Foot pain, right Right mid and forefoot plantar pain x several months without injury TECHNIQUE: Images: XR FOOT 3V AP/LAT/OBL RT Comparison: None. RESULT: Findings: No evidence of fracture or bony destruction. Joint spaces are maintained. There are calcaneal enthesophytes at the origin of the plantar fascia and insertion of the Achilles tendon. IMPRESSION IMPRESSION: Calcaneal spurs. Otherwise, unremarkable radiograph Trolley Coach Driver: [employer] Transcribe Date/Time: Aug 07 2022 4:14P Dictated by : KERRI SAM MD This examination was interpreted and the report reviewed and electronically signed by: KERRI SAM MD on Aug 07 2022 4:16PM EST [facility] XR Foot - right AP and Later al and obliqueOrdered By: [facility] Provider on 08-07-2022 [facility] XR Foot - right AP and Later al and obliqueon 08-02-2022 Radiology Study observation (narrative) [facility] Vital Signs Date Time Vital Sign Value Performing Clinician Faci poonam 08-26-2024 12:41-0400 Body height 172.7 cm Pacc 1 Work Phone: [facility] 08-26-2024 12:41-0400 Body mass index (BMI) [Ratio] 34.21 kg/m2 Pacc 1 Work Phone: [facility] 08-26-2024 12:41-0400 Body temperature 98.71 [degF] Pacc 1 Work Phone: [facility] 08-26-2024 12:41-0400 Body weight 102.06 kg Pacc 1 Work Phone: [facility] 08-26-2024 12:41-0400 Diastolic blood pressure 68 mm[Hg] Pacc 1 Work Phone: [facility] 08-26-2024 12:41-0400 Heart rate 76 /min Pacc 1 Work Phone: [facility] 08-26-2024 12:41-0400 Respiratory rate 16 /min Pacc 1 Work Phone: [facility] 08-26-2024 12:41-0400 SaO2% (BldA) [Mass fraction] 97 % Pacc 1 Work Phone: [facility] 08-26-2024 12:41-0400 Systolic blood pressure 136 mm[Hg] Pacc 1 Work Phone: [facility] 08-20-2024 09:39-0500 Diastolic blood pressure 86 mm[Hg] Kerri Strickland MD Work Phone: [facility] 08-20-2024 09:39-0500 Systolic blood pressure 130 mm[Hg] Kerri Strickland MD Work Phone: [facility] 08-20-2024 09:24-0500 Body mass index (BMI) [Ratio] 34.26 kg/m2 Kerri Strickland MD Work Phone: [facility] 08-20-2024 09:24-0500 Body weight 102.2 kg Kerri Strickland MD Work Phone: [facility] 08-20-2024 09:24-0500 Heart rate 64 /min Kerri Strickland MD Work Phone: [facility] 08-20-2024 09:24-0500 Respiratory rate 18 /min Kerri Strickland MD Work Phone: [facility] 06-18-2024 15:32-0500 Diastolic blood pressure 82 mm[Hg] Pacc 1 Work Phone: [facility] 06-18-2024 15:32-0500 Systolic blood pressure 150 mm[Hg] Pacc 1 Work Phone: [facility] 06-18-2024 15:01-0500 Body height 172.7 cm Pacc 1 Work Phone: [facility] 06-18-2024 15:01-0500 Body mass index (BMI) [Ratio] 34.36 kg/m2 Pacc 1 Work Phone: [facility] 06-18-2024 15:01-0500 Body temperature 98.01 [degF] Pacc 1 Work Phone: [facility] 06-18-2024 15:01-0500 Body weight 102.51 kg Pacc 1 Work Phone: [facility] 06-18-2024 15:01-0500 Heart rate 98 /min Pacc 1 Work Phone: [facility] 06-18-2024 15:01-0500 Respiratory rate 16 /min Pacc 1 Work Phone: [facility] 06-18-2024 15:01-0500 SaO2% (BldA) [Mass fraction] 97 % Pacc 1 Work Phone: [facility] 05-07-2024 16:13-0500 Body mass index (BMI) [Ratio] 35.52 kg/m2 Kerri Strickland MD Work Phone: [facility] 05-07-2024 16:13-0500 Body weight 104.4 kg Kerri Strickland MD Work Phone: [facility] 05-07-2024 16:13-0500 Diastolic blood pressure 90 mm[Hg] Kerri Strickland MD Work Phone: [facility] 05-07-2024 16:13-0500 Heart rate 84 /min Kerri Strickland MD Work Phone: [facility] 05-07-2024 16:13-0500 Respiratory rate 18 /min Kerri Strickland MD Work Phone: [facility] 05-07-2024 16:13-0500 Systolic blood pressure 148 mm[Hg] Kerri Strickland MD Work Phone: [facility] 03-22-2024 17:26-0400 Body mass index (BMI) [Ratio] 35.69 kg/m2 Kyler Melo MD Work Phone: [facility] 03-22-2024 17:26-0400 Body temperature 97.59 [degF] Kyler Melo MD Work Phone: [facility] 03-22-2024 17:26-0400 Body weight 104.9 kg Kyler Melo MD Work Phone: [facility] 03-22-2024 17:26-0400 Diastolic blood pressure 82 mm[Hg] Kyler Melo MD Work Phone: [facility] 03-22-2024 17:26-0400 Heart rate 68 /min Kyler Melo MD Work Phone: [facility] 03-22-2024 17:26-0400 Respiratory rate 16 /min Kyler Melo MD Work Phone: [facility] 03-22-2024 17:26-0400 SaO2% (BldA) [Mass fraction] 97 % Kyler Melo MD Work Phone: [facility] 03-22-2024 17:26-0400 Systolic blood pressure 140 mm[Hg] Kyler Melo MD Work Phone: [facility] 02-13-2024 09:54-0400 Body height 171.5 cm Kerri Strickland MD Work Phone: [facility] 02-13-2024 09:54-0400 Body mass index (BMI) [Ratio] 35.18 kg/m2 Kerri Strickland MD Work Phone: [facility] 02-13-2024 09:54-0400 Body weight 103.4 kg Kerri Strickland MD Work Phone: [facility] 02-13-2024 09:54-0400 Diastolic blood pressure 74 mm[Hg] Kerri Strickland MD Work Phone: [facility] 02-13-2024 09:54-0400 Heart rate 58 /min Kerri Strickland MD Work Phone: [facility] 02-13-2024 09:54-0400 Respiratory rate 18 /min Kerri Strickland MD Work Phone: [facility] 02-13-2024 09:54-0400 Systolic blood pressure 122 mm[Hg] Kerri Strickland MD Work Phone: [facility] 02-03-2023 18:23-0400 Body weight 100.15 kg Kerri Strickland MD Work Phone: [facility] 02-03-2023 18:23-0400 Diastolic blood pressure 78 mm[Hg] Kerri Strickland MD Work Phone: [facility] 02-03-2023 18:23-0400 Heart rate 78 /min Kerri Strickland MD Work Phone: [facility] 02-03-2023 18:23-0400 Respiratory rate 16 /min Kerri Strickland MD Work Phone: [facility] 02-03-2023 18:23-0400 Systolic blood pressure 124 mm[Hg] Kerri Strickland MD Work Phone: [facility] 04-15-2022 14:51-0400 Diastolic blood pressure 72 mm[Hg] Adina [address] MACHINE OPERATOR.FOCUSED FACTORY MANAGER Work Phone: [facility] 04-15-2022 14:51-0400 Heart rate 87 /min Adina T[address] MACHINE OPERATOR.FOCUSED FACTORY MANAGER Work Phone: [facility] 04-15-2022 14:51-0400 Respiratory rate 16 /min Adina T[address] MACHINE OPERATOR.FOCUSED FACTORY MANAGER Work Phone: [facility] 04-15-2022 14:51-0400 SaO2% (BldA) [Mass fraction] 97 % Adina T[address]hof [address] MACHINE OPERATOR.FOCUSED FACTORY MANAGER Work Phone: [facility] 04-15-2022 14:51-0400 Systolic blood pressure 124 mm[Hg] Adina Tannhof [address] MACHINE OPERATOR.FOCUSED FACTORY MANAGER Work Phone: [facility] 01-25-2022 15:28-0400 Body weight 97.98 kg Kerri Strickland MD Work Phone: [facility] 01-25-2022 15:28-0400 Diastolic blood pressure 80 mm[Hg] Kerri Strickland MD Work Phone: [facility] 01-25-2022 15:28-0400 Heart rate 70 /min Kerri Strickland MD Work Phone: [facility] 01-25-2022 15:28-0400 Respiratory rate 14 /min Kerri Strickland MD Work Phone: [facility] 01-25-2022 15:28-0400 Systolic blood pressure 138 mm[Hg] Kerri Strickland MD Work Phone: [facility] 10-19-2021 15:14-0400 Diastolic blood pressure 84 mm[Hg] Kerri Strickland MD Work Phone: [facility] 10-19-2021 15:140400 Systolic blood pressure 148 mm[Hg] Kerri Strickland MD Work Phone: [facility] 10-19-2021 [id number] Body weight 99.97 kg Kerri Strickland MD Work Phone: [facility] 10-19-2021 [id number] Heart rate 68 /min Kerri Strickland MD Work Phone: [facility] 10-19-2021 [id number] Respiratory rate 16 /min Kerri Strickland MD Work Phone: [facility] Encounters Encounter Date Encounter Type Care Provider Facility Start: 04-18-2025 End: 04-18-2025 ambulatory Sen Guy Facility:[facility] Start: 03-05-2025 End: 03-05-2025 ambulatory KERRI STRICKLAND Facility:[facility] Start: 10-25-2024 End: 10-25-2024 Patient encounter procedure Brayden Joseph MD Work Phone: Orthopaedics Comment on above: Other tear of medial meniscus of left knee as current injury, subsequent encounter (Primary Dx); Primary osteoarthritis of left knee Start: 10-25-2024 End: 10-25-2024 ambulatory KERRI STRICKLAND Facility:[facility] Start: 09-27-2024 End: 09-27-2024 ambulatory SOPHIA REBOLLEDO Facility:[facility] Start: 09-27-2024 End: 09-27-2024 Patient encounter procedure Sophia Rebolledo PA-C Work Phone: Orthopaedics Comment on above: Internal derangement of left knee (Primary Dx) Start: 09-15-2024 End: 09-15-2024 ambulatory BRAYDEN JOSEPH Facility:[facility] Start: 09-06-2024 End: 09-06-2024 Refill Kerri Strickland MD Work Phone: [place] Comment on above: Refill Request Start: 08-26-2024 End: 08-26-2024 Admission to [facility] Pacc [place] 1 Work Phone: Pre Anesthesia Start: 08-26-2024 End: 08-26-2024 Anesthesia consultation [place] [id number] Work Phone: Pre Anesthesia Comment on above: Pre-operative examin ation (Primary Dx); Coronary artery disease involving [place] coronary artery of [place] heart with angina pectoris (HCC); HTN (hypertension), benign; Hyperlipidemia, unspecified hyperlipidemia type; New onset a-fib (HCC); Type 2 diabetes mellitus without complication, without long-term current use of insulin (HCC); Benign non-nodular prostatic hyperplasia without lower urinary tract symptoms; BMI 34.0-34.9,adult; History of prostate cancer; Former smoker Start: 08-26-2024 End: 08-26-2024 Preprocedural examination done [place] [id number] Work Phone: [facility] Start: 08-26-2024 End: 08-26-2024 ambulatory KERRI STRICKLAND Facility:[facility] Start: 08-21-2024 End: 10-21-2024 Follow-up encounter Kerri Strickland MD Work Phone: [facility] Start: 08-20-2024 End: 08-20-2024 ambulatory KERRI STRICKLAND Facility:[facility] Start: 08-20-2024 End: 08-20-2024 Patient encounter procedure Kerri Strickland MD Work Phone: 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; Arthritis of left knee; Erectile dysfunction, unspecified erectile dysfunction type Start: 08-16-2024 End: 08-16-2024 Refill Kerri Strickland MD Work Phone: [address] [place] [address] Comment on above: Refill Request Start: 08-12-2024 Encounter for preprocedural cardiovascular examination Nya Marc [facility] Start: 08-05-2024 End: 08-23-2024 Telephone encounter Kerri Strickland MD Work Phone: Endocrinology Comment on above: Surgery Cancelled (w ants to reschedule surgery- patient has been cleared by certified welder ) Start: 07-29-2024 ambulatory Nya Marc Facility:[facility] Start: 07-29-2024 End: 07-29-2024 ambulatory Nya Marc Facility:[facility] Start: 07-14-2024 End: 07-14-2024 ambulatory Nya Marc Facility:[facility] Start: 06-18-2024 End: 06-18-2024 [place]mission to [place] [id number] Work Phone: Pre Anesthesia Start: 06-18-2024 End: 06-18-2024 Anesthesia consultation [place] [id number] Work Phone: Pre Anesthesia Comment on above: Pre-operative examin ation (Primary Dx); Atrial fibrillation, unspecified type (HCC); HTN (hypertension), benign; Hyperlipidemia, unspecified hyperlipidemia type; Type 2 diabetes mellitus without complication, without long-term current use of insulin (HCC); Benign non-nodular prostatic hyperplasia without lower urinary tract symptoms; Coronary artery disease involving [place] coronary artery of [place] heart with angina pectoris (HCC); New onset a-fib (HCC) Start: 06-18-2024 End: 06-18-2024 Preprocedural examination done [place] [id number] Work Phone: [facility] Work Phone: Start: 06-18-2024 End: 06-18-2024 ambulatory KERRI STRICKLAND Facility:[facility] Start: 06-18-2024 Encounter for other preprocedural examination KERRI STRICKLAND [facility] Start: 06-18-2024 End: 06-21-2024 Telephone encounter Aspen Klein APRN.CNP Work Phone: Pre Anesthesia Comment on above: Surgery Cancelled Start: 06-11-2024 End: 06-11-2024 Refill Kerri Strickland MD Work Phone: [facility] Comment on above: Refill Request Start: 06-01-2024 End: 06-02-2024 Telephone encounter Brayden Joseph MD Work Phone: Orthopaedics Comment on above: Schedule Surgery Start: 05-31-2024 End: 05-31-2024 ambulatory KERRI GARNICAEL PASO Facility:[facility] Start: 05-31-2024 End: 05-31-2024 Patient encounter procedure Brayden Joseph MD Work Phone: Orthopaedics Comment on above: Acute pain of left k nee; 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 Start: 05-18-2024 End: 05-18-2024 Telephone encounter Kerri Strickland MD Work Phone: [facility] [place] Start: 05-18-2024 End: 05-18-2024 [facility] Start: 05-18-2024 End: 05-18-2024 Subsequent hospital visit by physician Mri Radio [facility] (I-Stat/1.5t) Work Phone: Radiology Comment on above: Acute pain of left k nee [M25.562] Start: 05-07-2024 End: 05-07-2024 ambulatory KERRI Crespo [facility] Facility:[facility] Start: 05-07-2024 End: 05-07-2024 Patient encounter procedure Kerri Strickland MD Work Phone: [facility] Comment on above: Acute pain of left k nee (Primary Dx); 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 Start: 03-22-2024 End: 03-22-2024 Subsequent hospital visit by physician Xr [facility] [place] Work Phone: Radiology Comment on above: Acute pain of left k nee [M25.562] Start: 03-22-2024 End: 03-22-2024 Office outpatient visit 15 minutes Kyler Melo MD Work Phone: [facility] Comment on above: Acute pain of left k nee (Primary Dx) Start: 03-22-2024 End: 10-07-2024 ambulatory Kerri Strickland MD Work Phone: [facility] [place] Comment on above: Knee Injury Start: 02-13-2024 End: 02-13-2024 Patient encounter procedure Kerri Strickland MD Work Phone: [facility] [place] Comment on above: Encounter for Medica re annual wellness exam (Primary Dx); HTN (hypertension), benign; Hyperlipidemia, unspecified hyperlipidemia type; Type 2 diabetes mellitus without complication, without long-term current use of insulin (HCC); Benign non-nodular prostatic hyperplasia without lower urinary tract symptoms; Acute gout involving toe of left foot, unspecified cause; Erectile dysfunction, unspecified erectile dysfunction type; Tobacco use current; Screening for depression; Encounter for screening examination for other mental health and behavioral disorders Start: 11-21-2023 Refill Kerri prabhakar MD Work Phone: [facility] Comment on above: Refill Request Start: 07-31-2023 Refill Kerri prabhakar MD Work Phone: [facility] [place] Comment on above: Refill Request Start: 02-03-2023 End: 02-03-2023 Patient encounter procedure Kerri Strickland MD Work Phone: [facility] [place] Comment on above: HTN (hypertension), benign (Primary Dx); Need for vaccination; Type 2 diabetes mellitus without complication, without long-term current use of insulin (HCC) Start: 08-20-2022 End: 08-21-2022 Patient encounter procedure Bobby Egan Work Phone: Podiatry Comment on above: Plantar fasciitis (P rimary Dx); Foot pain, right; Nail dystrophy Start: 08-08-2022 Telephone encounter Kerri winston MD Work Phone: [facility] [place] Comment on above: Results Start: 08-02-2022 End: 08-02-2022 Subsequent hospital visit by physician David [facility] [place] Work Phone: Radiology Comment on above: Foot pain, right [M7 9.671] Start: 05-02-2022 Refill Kerri prabhakar MD Work Phone: [facility] [place] Comment on above: Refill Request Start: 04-15-2022 End: 04-15-2022 Patient encounter procedure Adina Pennington ROAD MACHINE OPERATOR.FOCUSED FACTORY MANAGER Work Phone: [facility] [place] Comment on above: Visit for suture rem oval (Primary Dx) Start: 04-04-2022 End: 04-04-2022 Emergency department patient visit PRISCILA GAGNON [facility] Start: 02-08-2022 Telephone encounter Kerri winston MD Work Phone: [facility] [place] Comment on above: Results Start: 01-25-2022 End: 01-25-2022 Patient encounter procedure Kerri Strickland MD Work Phone: [facility] [place] Comment on above: HTN (hypertension), benign (Primary Dx); Hyperlipidemia, unspecified hyperlipidemia type; Type 2 diabetes mellitus without complication, without long-term current use of insulin (HCC); Malignant neoplasm of prostate (HCC) Start: 10-22-2021 Telephone encounter Hugo Alondra [address] MACHINE OPERATOR.FOCUSED FACTORY MANAGER Work Phone: [facility] [place] Comment on above: Results Start: 10-19-2021 End: 10-19-2021 Patient encounter procedure Kerri Strickland MD Work Phone: [facility] [place] Comment on above: Type 2 diabetes gissell itus without complication, without long- term current use of insulin (HCC) (Primary Dx); HTN (hypertension), benign; Hyperlipidemia, unspecified hyperlipidemia type Procedures Date Procedure Procedure Detail Performing Clinician Start: 06-18-2024 Ecg routine ecg w/le ast 12 lds i&r only [facility] Provider Start: 05-18-2024 Mri any jt lower ext rem w/o contrast matrl Kerri Strickland MD Work Phone: Start: 03-22-2024 Radiologic exam knee complete 4/more views Kyler Melo MD Work Phone: Start: 02-13-2024 Adult depression scr eening assessment Kerri Strickland MD Work Phone: Start: 09-27-2022 Colonoscopy Kerri pereira MD Work Phone: Start: 08-02-2022 Radex foot complete minimum 3 views Kerri Strickland MD Work Phone: Start: 04-18-2021 Adult depression scr eening assessment Kerri Strickland MD Work Phone: Start: 05-15-2017 Colonoscopy Kerri pereira MD Work Phone: Plan of Treatment Date Care Activity Detail Author Start: 2029 RSV Vaccine (1 - 1-d ose 75+ series) RSV Vaccine (1 - 1-dose 75+ series) [facility] Start: 09-28-2027 Colonoscopy COLONOSCOPY [facility] Start: 09-28-2027 COLORECTAL CANCER SCREENING COLORECTAL CANCER SCREENING [facility] Start: 09-28-2027 Screening for malign ant neoplasm of colon [facility] Start: 09-26-2025 Urine microalbumin profile [facility] Start: 08-20-2025 Annual PCP Team Communication Equipment Repairer clyde Disease Visit Annual PCP Team Chronic Disease Visit [facility] Start: 08-20-2025 Covid-19 Vaccine ( season) Covid-19 Vaccine () [facility] Comment on above: Postponed from 02/14 (Declined at this time) Start: 08-20-2025 Hepatitis B surface antibody level LDL Cholesterol [facility] Start: 08-19-2025 Glaucoma screening Dilated Retinal E xam [facility] Start: 05-07-2025 Annual PCP Team Communication Equipment Repairer clyde Disease Visit Annual PCP Team Chronic Disease Visit [facility] Start: 03-04-2025 End: 03-04-2025 Patient encounter procedure 03/04/2025 9:40 AM EDT Office Visit [facility] [place] [address] [place] [id number] Kerri Strickland MD [address] [place] [id number] 6 mo f/u [facility] [place] Comment on above: 6 mo f/u Start: 02-20-2025 End: 05-22-2025 CBC W Auto Differential panel - Blood COMPLETE BLOOD COUNT AND DIFFERENTIAL Lab Routine HTN (hypertension), benign Expected: 02/20/2025 (Approximate), Expires: 05/22/2025 [facility] Comment on above: Expected: 02/20/2025 (Approximate), Expires: 05/22/2025 Start: 02-20-2025 End: 05-22-2025 Comprehensive metabolic 2000 panel - Serum or Plasma COMPREHENSIVE METABOLIC PANEL Lab Routine Type 2 diabetes mellitus without complication, without long-term current use of insulin (HCC) HTN (hypertension), benign Hyperlipidemia, unspecified hyperlipidemia type Expected: 02/20/2025 (Approximate), Expires: 05/22/2025 [facility] Comment on above: Expected: 02/20/2025 (Approximate), Expires: 05/22/2025 Start: 02-20-2025 End: 05-22-2025 Hemoglobin A1c in Blood HEMOGLOBIN A1C Lab Routine Type 2 diabetes mellitus without complication, without long-term current use of insulin (HCC) Expected: 02/20/2025 (Approximate), Expires: 05/22/2025 [facility] Comment on above: Expected: 02/20/2025 (Approximate), Expires: 05/22/2025 Start: 02-20-2025 Hemoglobin A1c measurement HbA1C [facility] Start: 02-20-2025 End: 05-22-2025 Lipid 1996 panel - Serum or Plasma LIPID PANEL BASIC Lab Routine Type 2 diabetes mellitus without complication, without long-term current use of insulin (HCC) HTN (hypertension), benign Hyperlipidemia, unspecified hyperlipidemia type Expected: 02/20/2025 (Approximate), Expires: 05/22/2025 [facility] Comment on above: Expected: 02/20/2025 (Approximate), Expires: 05/22/2025 Start: 02-20-2025 End: 05-22-2025 Microalbumin/Creatinine [Mass Ratio] in Urine ALBUMIN/CREATININE RATIO, URINE Lab Routine Type 2 diabetes mellitus without complication, without long-term current use of insulin (HCC) Expected: 02/20/2025 (Approximate), Expires: 05/22/2025 [facility] Comment on above: Expected: 02/20/2025 (Approximate), Expires: 05/22/2025 Start: 02-12-2025 Annual PCP Team Communication Equipment Repairer clyde Disease Visit Annual PCP Team Chronic Disease Visit [facility] Start: 02-12-2025 Anxiety Screening Anxiety Screening [facility] Start: 02-12-2025 BP Controlled (<130/80) BP Controlle d (<130/80) [facility] Start: 02-12-2025 Covid-19 Vaccine () Covid-19 Vaccine () [facility] Comment on above: Postponed from 02/14 (Declined at this time) Start: 02-12-2025 Depression Screening Depression Scre ening [facility] Start: 02-12-2025 Hepatitis B screening Urine Al bumin:Creatinine Ratio [facility] Start: 02-12-2025 Hepatitis B surface antibody level LDL Cholesterol [facility] Start: 10-25-2024 End: 10-25-2024 Patient encounter procedure 10/25/2024 12:45 PM EDT Office Visit Orthopaedics [address] [place] [address] Brayden Joseph MD [address] [place] [address] Post op left knee arthroscopic medial menisectomy Orthopaedics Comment on above: Post op left knee ar throscopic medial menisectomy Start: 09-27-2024 End: 09-27-2024 Patient encounter procedure 09/27/2024 2:30 PM EDT Office Visit Orthopaedics [address] [place] [address] Sophia Rebolledo PA-C [address] [place] [address] Post op left knee arthroscopic medial menisectomy Orthopaedics Comment on above: Post op left knee ar throscopic medial menisectomy Start: 09-25-2024 Glaucoma screening Dilated Retinal E xam [facility] Start: 09-15-2024 End: 09-15-2024 Admission to same day surgery center 09/15/2024 7:30 AM EDT - 09/15/2024 8:56 AM EDT [facility] [address] [place] [address] Brayden Joseph MD [address] [place] [address] ARTHROSCOPY KNEE MENISCECTOMY MEDIAL OR LATERAL [facility] Comment on above: ARTHROSCOPY KNEE MEN ISCECTOMY MEDIAL OR LATERAL Start: 09-15-2024 End: 09-15-2024 Arthrs kne surg w/meniscectomy med/lat w/shvg ARTHROSCOPY KNEE MENISCECTOMY MEDIAL OR LATERAL Derangement of knee, left Left knee pain, unspecified chronicity 09/15/2024 7:30 AM EDT ME OR Start: 09-15-2024 Subsequent hospital visit by physician 09/15/2024 7:30 AM EDT Hospital Encounter [facility] [address] [place] [id number] Brayden Joseph MD [address] [place] [address] Derangement of knee, left [M23.92], Left knee pain, unspecified chronicity [M25.562] [facility] Comment on above: Derangement of knee, left [M23.92], Left knee pain, unspecified chronicity [M25.562] Start: 08-20-2024 End: 11-19-2024 Thyrotropin [Units/volume] in Serum or Plasma [facility] Work Phone: Comment on above: Expected: 08/20/2024 , Expires: 11/19/2024 Start: 08-20-2024 End: 08-20-2024 Patient encounter procedure 08/20/2024 9:40 AM EST Office Visit [facility] [address] [place], [place] [id number] Kerri Strickland MD [address] [place] [address] 6 mo f/u [facility] Comment on above: 6 mo f/u Start: 08-13-2024 End: 11-12-2024 Comprehensive metabolic 2000 panel - Serum or Plasma COMPREHENSIVE METABOLIC PANEL Lab Routine HTN (hypertension), benign Hyperlipidemia, unspecified hyperlipidemia type Type 2 diabetes mellitus without complication, without long-term current use of insulin (HCC) Expected: 08/13/2024 (Approximate), Expires: 11/12/2024 [facility] Work Phone: Comment on above: Expected: 08/13/2024 (Approximate), Expires: 11/12/2024 Start: 08-13-2024 End: 11-12-2024 Hemoglobin A1c in Blood HEMOGLOBIN A1C Lab Routine Type 2 diabetes mellitus without complication, without long-term current use of insulin (HCC) Expected: 08/13/2024 (Approximate), Expires: 11/12/2024 [facility] Comment on above: Expected: 08/13/2024 (Approximate), Expires: 11/12/2024 Start: 08-13-2024 Hemoglobin A1c measurement HbA1C [facility] Start: 08-13-2024 End: 11-12-2024 Lipid 1996 panel - Serum or Plasma LIPID PANEL BASIC Lab Routine HTN (hypertension), benign Hyperlipidemia, unspecified hyperlipidemia type Type 2 diabetes mellitus without complication, without long-term current use of insulin (HCC) Expected: 08/13/2024 (Approximate), Expires: 11/12/2024 [facility] Comment on above: Expected: 08/13/2024 (Approximate), Expires: 11/12/2024 Start: 08-11-2024 Annual PCP Team Communication Equipment Repairer clyde Disease Visit Annual PCP Team Chronic Disease Visit [facility] Start: 08-11-2024 BP Controlled (<130/80) BP Controlle d (<130/80) [facility] Start: 08-09-2024 End: 08-09-2024 Patient encounter procedure 08/09/2024 2:45 PM EST Office Visit Orthopaedics [address] [place] [address] Brayden Joseph MD [address] [place] [address] Post op Left knee arthroscopy Orthopaedics Comment on above: Post op Left knee ar throscopy Start: 07-12-2024 End: 07-12-2024 Patient encounter procedure 07/12/2024 2:30 PM EST Office Visit Orthopaedics [address] [place] [id number] Sophia Rebolledo PA-C [address] [place] [address] Post op Left knee arthroscopy Orthopaedics Comment on above: Post op Left knee ar throscopy Start: 07-03-2024 Shingrix Vaccine (2 of 2) Shingrix Vaccine (2 of 2) [facility] Start: 06-30-2024 End: 06-30-2024 Admission to same day surgery center 06/30/2024 11:21 AM EST - 06/30/2024 12:56 PM EST Surgery [facility] [address] [place] [address] Brayden Joseph MD [address] [facility] [place] [address] ARTHROSCOPY KNEE MENISCECTOMY MEDIAL OR LATERAL [facility] Comment on above: ARTHROSCOPY KNEE MEN ISCECTOMY MEDIAL OR LATERAL Start: 06-30-2024 End: 06-30-2024 Arthrs kne surg w/meniscectomy med/lat w/shvg ARTHROSCOPY KNEE MENISCECTOMY MEDIAL OR LATERAL Internal derangement of left knee Left knee pain, unspecified chronicity 06/30/2024 11:21 AM EST ME OR Start: 06-30-2024 Subsequent hospital visit by physician 06/30/2024 11:21 AM EST Hospital Encounter [facility] [address] [place] [address] Brayden Joseph MD [address] [place] [address] Internal derangement of left knee [M23.92], Left knee pain, unspecified chronicity [M25.562] [facility] Comment on above: Internal derangement of left knee [M23.92], Left knee pain, unspecified chronicity [M25.562] Start: 06-18-2024 End: 06-18-2024 Anesthesia consultation 06/18/2024 3:20 PM EST PAT Pre Anesthesia [address] [facility] [place] [address] 1, [facility] [place] [address] [place] [address] ARTHROSCOPY KNEE MENISCECTOMY MEDIAL OR LATERAL [5519] - Knee - Left Pre Anesthesia Comment on above: ARTHROSCOPY KNEE MEN ISCECTOMY MEDIAL OR LATERAL [5519] - Knee - Left Start: 06-16-2024 Advance Directive Discussion Advance Directive Discussion [facility] Start: 06-04-2024 PROSTATE CANCER SCREENING DISCUSSION PROSTATE CANCER SCREENING DISCUSSION [facility] Start: 05-31-2024 End: 05-31-2024 Patient encounter procedure 05/31/2024 12:45 PM EST Office Visit Orthopaedics [address] [place] [address] Brayden Joseph MD [address] [place] [address] Acute pain of left knee [M25.562]; 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 [M23.92] Orthopaedics Comment on above: Acute pain of left k nee [M25.562]; 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 [M23.92] Start: 05-18-2024 End: 05-18-2024 Patient encounter procedure 05/18/2024 12:00 PM EST Appointment Radiology [address] [place] [address] Acute pain of left knee [M25.562]; 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 [M23.92] Radiology Comment on above: Acute pain of left k nee [M25.562]; 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 [M23.92] Start: 02-23-2024 Hepatitis B surface antibody level LDL Cholesterol [facility] Start: 02-15-2024 Covid-19 Vaccine ( season) Covid-19 Vaccine ( season) [facility] Start: 02-15-2024 Influenza vaccination [facility] Start: 02-10-2024 End: 02-10-2024 Patient encounter procedure 02/10/2024 10:40 AM EDT Office Visit [facility] [place] [address] [place] [address] Kerri Strickland MD [address] [place] [address] 6 month follow up [facility] [place] Comment on above: 6 month follow up Start: 02-04-2024 ANNUAL PCP TEAM SALES PERSON CLYDE DISEASE VISIT ANNUAL PCP TEAM CHRONIC DISEASE VISIT [facility] Start: 02-04-2024 BP CONTROLLED (<130/80) BP CONTROLLE D (<130/80) [facility] Start: 01-31-2024 Hemoglobin A1c measurement HbA1C [facility] Start: 08-31-2023 Glaucoma screening Dilated Retinal E xam [facility] Start: 08-31-2023 Hepatitis C antibody , confirmatory test DILATED RETINAL EXAM [facility] Start: 08-23-2023 Hemoglobin A1c measurement HbA1C [facility] Start: 08-03-2023 Hepatitis B screening URINE AL BUMIN:CREATININE RATIO [facility] Start: 08-03-2023 Hepatitis B surface antibody level LDL CHOLESTEROL [facility] Start: 08-02-2023 ANNUAL PCP TEAM SALES PERSON CLYDE DISEASE VISIT ANNUAL PCP TEAM CHRONIC DISEASE VISIT [facility] Start: 06-16-2023 Advance Directive Discussion Advance Directive Discussion [facility] Start: 06-16-2023 Behavioral Health Screening Behavioral Health Screening [facility] Start: 06-16-2023 Depression Assessment Depression Ass essment [facility] Start: 04-19-2023 ANNUAL PCP TEAM SALES PERSON CLYDE DISEASE VISIT ANNUAL PCP TEAM CHRONIC DISEASE VISIT [facility] Start: 04-15-2023 ANNUAL PCP TEAM SALES PERSON CLYDE DISEASE VISIT ANNUAL PCP TEAM CHRONIC DISEASE VISIT [facility] Start: 04-15-2023 BP CONTROLLED (<130/80) BP CONTROLLE D (<130/80) [facility] Start: 02-14-2023 Covid-19 Vaccine ( season) Covid-19 Vaccine ( season) [facility] Start: 02-14-2023 Influenza vaccination [facility] Start: 02-03-2023 End: 04-05-2023 CBC panel - Blood by Automated count CBC Lab Routine HTN (hypertension), benign Type 2 diabetes mellitus without complication, without long-term current use of insulin (HCC) Expected: 02/03/2023 (Approximate), Expires: 04/05/2023 [facility] Work Phone: Comment on above: Expected: 02/03/2023 (Approximate), Expires: 04/05/2023 Start: 02-03-2023 End: 04-05-2023 Comprehensive metabolic 2000 panel - Serum or Plasma COMP METABOLIC PANEL Lab Routine HTN (hypertension), benign Type 2 diabetes mellitus without complication, without long-term current use of insulin (HCC) Expected: 02/03/2023 (Approximate), Expires: 04/05/2023 [facility] Work Phone: Comment on above: Expected: 02/03/2023 (Approximate), Expires: 04/05/2023 Start: 02-03-2023 End: 04-05-2023 Hemoglobin A1c in Blood HGB A1C Lab Routine Type 2 diabetes mellitus without complication, without long-term current use of insulin (HCC) Expected: 02/03/2023 (Approximate), Expires: 04/05/2023 [facility] Work Phone: Comment on above: Expected: 02/03/2023 (Approximate), Expires: 04/05/2023 Start: 02-03-2023 End: 04-05-2023 Lipid 1996 panel - Serum or Plasma LIPID PANEL BASIC Lab Routine Type 2 diabetes mellitus without complication, without long-term current use of insulin (HCC) Expected: 02/03/2023 (Approximate), Expires: 04/05/2023 [facility] Work Phone: Comment on above: Expected: 02/03/2023 (Approximate), Expires: 04/05/2023 Start: 01-31-2023 Hemoglobin A1c/Hemoglobin.total in Blood HBA1C [facility] Start: 01-25-2023 ANNUAL PCP TEAM SALES PERSON CLYDE DISEASE VISIT ANNUAL PCP TEAM CHRONIC DISEASE VISIT [facility] Start: 10-19-2022 ANNUAL PCP TEAM SALES PERSON CLYDE DISEASE VISIT ANNUAL PCP TEAM CHRONIC DISEASE VISIT [facility] Start: 10-19-2022 Hepatitis B surface antibody level LDL CHOLESTEROL [facility] Start: 07-28-2022 Hemoglobin A1c/Hemoglobin.total in Blood HBA1C [facility] Start: 05-15-2022 Colonoscopy COLONOSCOPY [facility] Start: 05-15-2022 COLORECTAL CANCER SCREENING COLORECTAL CANCER SCREENING [facility] Start: 04-21-2022 Hemoglobin A1c/Hemoglobin.total in Blood HBA1C [facility] Start: 04-18-2022 3 comp foot exam completed DIABETIC FOOT EXAM [facility] Start: 04-18-2022 Adult depression screening assessment DEPRESSION SCREENING [facility] Start: 04-18-2022 Diabetic foot examination Diabetic Foot Exam [facility] Start: 04-13-2022 Hepatitis B screening URINE AL BUMIN:CREATININE RATIO [facility] Start: 04-13-2022 Hepatitis B surface antibody level LDL CHOLESTEROL [facility] Start: 02-14-2022 Influenza vaccination INFLUENZA (#1) [facility] Start: 01-25-2022 End: 03-27-2022 Basic metabolic 2000 panel - Serum or Plasma [facility] Work Phone: Comment on above: Expected: 01/25/2022 , Expires: 03/27/2022 Start: 01-25-2022 End: 03-27-2022 Hemoglobin A1c in Blood [facility] Work Phone: Comment on above: Expected: 01/25/2022 , Expires: 03/27/2022 Start: 01-22-2022 End: 03-24-2022 Comprehensive metabolic 2000 panel - Serum or Plasma COMP METABOLIC PANEL Lab Routine Type 2 diabetes mellitus without complication, without long-term current use of insulin (HCC) Expected: 01/22/2022 (Approximate), Expires: 03/24/2022 [facility] Work Phone: Comment on above: Expected: 01/22/2022 (Approximate), Expires: 03/24/2022 Start: 01-22-2022 End: 03-24-2022 Hemoglobin A1c/Hemoglobin.total in Blood HGB A1C Lab Routine Type 2 diabetes mellitus without complication, without long-term current use of insulin (HCC) Expected: 01/22/2022 (Approximate), Expires: 03/24/2022 [facility] Work Phone: Comment on above: Expected: 01/22/2022 (Approximate), Expires: 03/24/2022 Start: 10-19-2021 End: 12-19-2021 CBC panel - Blood by Automated count [facility] Work Phone: Comment on above: Expected: 10/19/2021 , Expires: 12/19/2021 Start: 10-19-2021 End: 12-19-2021 Comprehensive metabolic 2000 panel - Serum or Plasma [facility] Work Phone: Comment on above: Expected: 10/19/2021 (Approximate), Expires: 12/19/2021 Start: 10-19-2021 End: 12-19-2021 Hemoglobin A1c/Hemoglobin.total in Blood [facility] Work Phone: Comment on above: Expected: 10/19/2021 (Approximate), Expires: 12/19/2021 Start: 10-19-2021 End: 12-19-2021 LIPID PANEL, NONFASTING [facility] Work Phone: Comment on above: Expected: 10/19/2021 (Approximate), Expires: 12/19/2021 Start: 10-12-2021 Hemoglobin A1c/Hemoglobin.total in Blood HBA1C [facility] Start: 10-10-2021 COVID-19 VACCINE (4 - Booster for Moderna series) COVID-19 VACCINE (4 - Booster for Moderna series) [facility] Start: 08-19-2021 Hepatitis C antibody , confirmatory test DILATED RETINAL EXAM [facility] Start: 08-06-2021 COVID-19 VACCINE (4 - Booster for Moderna series) COVID-19 VACCINE (4 - Booster for Moderna series) [facility] Start: 08-06-2021 COVID-19 VACCINE (4 - Moderna series) COVID-19 VACCINE (4 - Moderna series) [facility] Start: 06-16-2021 DEPRESSION ASSESSMENT DEPRESSION ASS ESSMENT [facility] Start: 12-30-2020 BP CONTROLLED (<130/80) BP CONTROLLE D (<130/80) [facility] Start: 06-02-2020 PNEUMOCOCCAL: 65+ (2 - PPSV23 if available, else PCV20) PNEUMOCOCCAL: 65+ (2 - PPSV23 if available, else PCV20) [facility] Start: 06-02-2020 PNEUMOCOCCAL: 65+ (2 - PPSV23 or PCV20) PNEUMOCOCCAL: 65+ (2 - PPSV23 or PCV20) [facility] Start: 07-28-2019 PNEUMOCOCCAL: 65+ (2 - PPSV23 if available, else PCV20) PNEUMOCOCCAL: 65+ (2 - PPSV23 if available, else PCV20) [facility] Start: 2019 PNEUMOVAX AGE 65 AND OVER WITH 5YR LOOKBACK (#1) PNEUMOVAX AGE 65 AND OVER WITH 5YR LOOKBACK (#1) [facility] Start: 2014 RSV Vaccine (1 - 1-d ose 60+ series) RSV Vaccine (1 - 1-dose 60+ series) [facility] Start: 2014 RSV Vaccine (1 - Ris k 60-74 years 1-dose series) RSV Vaccine (1 - Risk 60-74 years 1-dose series) [facility] Start: 2004 SHINGRIX VACCINE (1 of 2) SHINGRIX VACCINE (1 of 2) [facility] Start: 1999 COLOGUARD (FIT-DNA) COLOGUARD (FIT-D NA) [facility] Start: [address] COLONOGRAPHY [facility] Start: 1999 FECAL OCCULT BLOOD FECAL OCCULT BLOO D [facility] Start: 1999 Screening for malign ant neoplasm of colon [facility] Start: 1999 SIGMOIDOSCOPY SIGMOIDOSCOPY [facility] End: 06-18-2025 ECG COMPLETE ECG COMPLETE ECG Routine Pre-operative examination 1 Occurrences starting 06/18/2024 until 06/18/2025 [facility] Work Phone: Comment on above: 1 Occurrences starti ng 06/18/2024 until 06/18/2025 ECG COMPLETE ECG COMPLETE ECG 06/18/2024 4:57 PM EST [facility] End: 06-06-2025 MR Knee - left WO contrast MRI KNEE WO IVCON LEFT Radiology Routine Acute pain of left knee 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 1 Occurrences starting 05/07/2024 until 06/06/2025 [facility] Work Phone: Comment on above: 1 Occurrences starti ng 05/07/2024 until 06/06/2025 [facility] Immunizations Immunization Date Immunization Notes Care Provider Terence chauhan 07-17-2024 zoster vaccine recombinant Kerri Strickland MD Work Phone: [facility] 05-08-2024 influenza (HD-IIV4) vaccine, age 65+ yr, high dose, quadrivalent, PF (FLUZONE HIGH-DOSE) Kerri Strickland MD Work Phone: [facility] 02-03-2023 pneumococcal polysaccharide vaccine, 23 valent Kerri Strickland MD Work Phone: [facility] 04-19-2022 influenza, high-dose , quadrivalent vaccine (FLUZONE HIGH DOSE QUADRIVALENT) Kerri Strickland MD Work Phone: [facility] 04-19-2022 influenza virus vacc ine, unspecified formulation Kerri Strickland MD Work Phone: [facility] 04-18-2021 influenza, high-dose , quadrivalent vaccine (FLUZONE HIGH DOSE QUADRIVALENT) Kerri Strickland MD Work Phone: [facility] 09-23-2020 COVID-19 vaccine, fu ll dose (MODERNA) Kerri Strickland MD Work Phone: [facility] 06-02-2019 influenza, high dose seasonal, preservative-free Kerri Strickland MD Work Phone: [facility] 06-02-2019 pneumococcal conjuga te vaccine, 13 valent Kerri Strickland MD Work Phone: [facility] 05-26-2018 influenza, injectabl e, quadrivalent, contains preservative Kerri Strickland MD Work Phone: [facility] 04-04-2016 influenza, injectabl e, quadrivalent, contains preservative Kerri Strickland MD Work Phone: [facility] Payers Date Payer Category Payer Unknown [id number] 2024 Self-pay 2022 Worker's Compensation [id number] 2019 Medicare MEDICARE MEDICAR E A AND B [id number] 2019-Present [phone] [place] [address] Medicare [id number] 2019 Medicare [id number] 2019 Medicare [id number] 2016 [employer] Blue [employer] BLUE CARD PPO OOS [id number] 2016 Unknown [employer] BLUE CARD PPO OOS [id number] 2016-Present [phone] [address] [place] [address] PPO [id number] 2016 Unknown [id number] 2016 Unknown [id number] 1955 Unknown [id number] Unknown [id number] Unknown [id number] Unknown [id number] Unknown [id number] Social History Date Type Detail Facility Start: 04-04-2016 End: 09-27-2022 Tobacco smoking status NHIS Ex-smoker [facility] History of tobacco use Chews Tobacco [facility] Work Phone: Start: 10-19-2021 End: 10-25-2024 Alcohol intake Current drinker of alcohol (finding) [facility] Start: 1955 Sex Assigned At Not on file [facility] Start: 10-09-2021 End: 04-19-2022 Exposure to SARS-CoV-2 (event) Not sure [facility] History of tobacco use Current smoker [facility] Start: 04-04-2016 End: 09-27-2022 Tobacco use and exposure User of smokeless tobacco [facility] History of tobacco use Cigarette Smoker [facility] Start: 02-03-2023 End: 02-13-2024 History of Social function [facility] Work Phone: Start: 02-03-2023 End: 02-13-2024 Tobacco use panel [facility] Work Phone: Adult Depression Screening Assessment 0 [facility] Work Phone: Start: 09-27-2022 Alcohol Comment 2 beers per day [facility] How often to you hav e a drink containing alcohol? 4 or more times a week [facility] How many standard drinks containing alcohol do you have on a typical day? 1 or 2 [facility] How often do you hav e 6 or more drinks on 1 occasion? Never [facility] Medical Equipment Procedure Code Equipment Code Equipment Origin al Text Equipment Identifier Dates Test blood sugar(s) 1 times daily. Dx: Type 1 DM - Controlled E10.9 Insulin: No [id number], [id number] Start: 02-03-2023 Comment on above: Test blood sugar(s) 1 times daily. Dx: Type 1 DM - Controlled E10.9 Insulin: No Clinical Notes 06-05-2017 to 03-05-2025 Brayden Joseph MD - 10/25/2024 12:49 PM Sophia Lemons PA-C - 09/27/2024 2:58 PM Tracy Serrato MA - 09/27/2024 2:20 PM EDTTelephone Yanira - Cami Espinosa - 09/06/2024 2:36 PM EDT Note Date & Type Note Facility 03-05-2025 Note HNO ID: [id number] Author: KERRI STRICKLAND MD Service: ? Author Type: Physician Type: Progress Notes Filed: 03/05/2025 11:33 Note Text: Chief Complaint Follow up HPI Jonathan Duncan is a 69 year old male who presents here today for 6 month follow up. No bowel, Gi, or urinary issues. Denies nocturia. Follows with urology, Hemant Hunter for BPH. ED: Uses Cialis as needed. Lipid: Trying to watch his diet, by reducing portion sizes, watching what he eats, and eating more fruits. Denies any formal exercise but tries to stay busy. Taking Lipitor 80 mg daily. Tolerating well. HTN: Taking Lopressor 25 mg 1 pill BID, Imdur 30 mg daily, Lisinopril-HCTZ 20-12.5 mg daily. Denies checking his BP at home. Denies any chest pain, sob, or dizziness DM: Denies checking his sugars at home, states he can tell when sugars become too low or high. Taking Metformin 500 mg 3 pills once daily. Denies any low sugars or neuropathy sx. A-fib: taking Eliquis 5 mg 1 tab po bid. Follows with [facility]. Arthritis: Uses Mobic 15 mg once daily for left knee arthritis. Follows with Sameera [facility]. Hx of gout, has had 3 attacks in the last 6 months in toe.. Past medical history, appointments, medications, allergies reviewed. Previous Medical History PAST MEDICAL HISTORY Diagnosis Date Diabetes mellitus type 2, controlled, without complications (HCC) Hyperlipidemia Hypertension Prostate cancer (HCC) Snoring Previous Surgical History PAST SURGICAL HISTORY Procedure Laterality Date ARTHRS KNE SURG W/MENISCECTOMY MED/LAT W/SHVG Left 09/15/2024 Left knee arthroscopic medial menisectomy, medial distal femoral chondroplasty COLONOSCOPY 09/27/2022 repeat in 5 years, history of polyps. COLONOSCOPY FLX DX W/COLLJ SPEC WHEN PFRMD 05/15/2017 Colonoscopy EYE SURGERY HX PAST SURGICAL HISTORY OF 2013 Prostate cancer removed PAST SURGICAL HISTORY OF Right 2006 Cataract surgery PAST SURGICAL HISTORY OF 2004 Colonoscopy PAST SURGICAL HISTORY OF 2005 Hemorrhoidectomy PAST SURGICAL HISTORY OF 2011 Toe surgery, due to almost cutting toe off with chainshaw PAST SURGICAL HISTORY OF 2009 Colonoscopy Family History FAMILY HISTORY Problem Relation Age of Onset Heart Mother Heart Father Age of 69, massive [place] Diabetes Father Heart Sister Heart Brother Diabetes Paternal Aunt Colon Cancer Paternal Uncle Patient Allergies ALLERGIES No Known Allergies Current Medications Current Outpatient Medications on File Prior to Visit Medication Sig isosorbide mononitrate ER (IMDUR) 30 mg 24 hr tablet Take 1 tablet by mouth once daily. apixaban (ELIQUIS) 5 mg tab(s) Take 5 mg by mouth two times a day. metFORMIN ER (GLUCOPHAGE XR) 500 mg 24 hr tablet Take 3 tablets by mouth daily with breakfast. atorvastatin (LIPITOR) 80 mg tablet Take 1 tablet by mouth once daily. lisinopril-hydroCHLOROthiazide (ZESTORETIC) 20-12.5 mg per tablet Take 1 tablet by mouth every morning. meloxicam (MOBIC) 15 mg tablet Take 1 tablet by mouth once daily. With food. metoprolol tartrate, short acting, (LOPRESSOR) 25 mg tablet Take 1 tablet by mouth two times a day. multivitamin tablet Take 1 tablet by mouth once daily. Tadalafil (CIALIS) 10 mg tablet Take 1 tablet by mouth once daily as needed. Take 1-2 hours before sexual activity. loratadine (CLARITIN) 10 mg tablet Take 1 tablet by mouth once daily. Lancets lancets Test blood sugar(s) 1 times daily. Dx: Type 1 DM - Controlled E10.9 Insulin: No blood sugar diagnostic (BLOOD GLUCOSE TEST) test strip Test blood sugar(s) 1 times daily. Dx: Type 1 DM - Controlled E10.9 Insulin: No No current facility-administered medications on file prior to visit. Social History SOCIAL HISTORY[1] EXAM: There were no vitals taken for this visit. General Appearance: Well appearing, alert, in no acute distress, well-hydrated, well nourished.. Lungs: Lungs clear to auscultation. No wheezing, rhonchi, rales.. Heart: RRR without murmur, gallop, or rubs. No ectopy. Health Maintenance List RSV Vaccine(1 - Risk 60-74 years 1-dose series) Never done Diabetic Foot Exam due on 04/18/2022 Medicare Annual Wellness Visit due on 02/12/2025 HbA1C due on 02/20/2025 Urine Albumin:Creatinine Ratio due on 02/12/2025 Depression Screening due on 02/12/2025 Anxiety Screening due on 02/12/2025 Influenza Vaccine(1) due on 02/14/2025 Dilated Retinal Exam due on 08/19/2025 LDL Cholesterol due on 08/20/2025 Annual PCP Team Chronic Disease Visit due on 08/20/2025 DTaP,Tdap,Td Vaccine(2 - Td or Tdap) due on 09/26/2025 Colorectal Cancer Screening due on 09/28/2027 Abdominal Aortic Aneurysm Screening Completed Advance Directive Discussion Completed Hepatitis C Screening Completed Shingrix Vaccine Completed Pneumococcal Vaccine: 50+ Completed Data reviewed Labs ordered Recording using StrongView software for draft documentation of the visit was discuss (more content not included)... [facility] 10-25-2024 Note HNO ID: [id number] Author: BRAYDEN JOSEPH MD Service: ? Author Type: Physician Type: Progress Notes Filed: 10/25/2024 22:29 Note Text: Brayden Joseph MD Department of Orthopaedics Orthopaedics [address] [facility] [address] Dept: [phone] Dept October 25, 2024 CHIEF COMPLAINT: Post Op of the Left Knee (5 weeks 5 days post op Left knee arthroscopic medial menisectomy, medial distal femoral chondroplasty). HPI Patient here for post op visit left knee arthroscopy. Patient states he is continuing to have pain with weight bearing. States he had a sharp pain in his knee when he stepping up on the curb walking into the building and almost fell to the ground. Taking Mobic for the pain and only helps take the edge off. Patient works at [employer] and would like to return to work on November 15. ASSESSMENT: S83.242D Other tear of medial meniscus of left knee as current injury, subsequent encounter (primary encounter diagnosis) M17.12 Primary osteoarthritis of left knee PLAN: He's doing very well. He mentioned tweaking the knee in the parking lot. We'll have to just see if that settles down. Exam: Healed incisions. No effusion. Full ROM. Supporting Information Below: Medications: Current Outpatient Medications Medication Sig isosorbide mononitrate ER (IMDUR) 30 mg 24 hr tablet Take 1 tablet by mouth once daily. apixaban (ELIQUIS) 5 mg tab(s) Take 5 mg by mouth two times a day. metFORMIN ER (GLUCOPHAGE XR) 500 mg 24 hr tablet Take 3 tablets by mouth daily with breakfast. atorvastatin (LIPITOR) 80 mg tablet Take 1 tablet by mouth once daily. lisinopril-hydroCHLOROthiazide (ZESTORETIC) 20-12.5 mg per tablet Take 1 tablet by mouth every morning. meloxicam (MOBIC) 15 mg tablet Take 1 tablet by mouth once daily. With food. metoprolol tartrate, short acting, (LOPRESSOR) 25 mg tablet Take 1 tablet by mouth two times a day. multivitamin tablet Take 1 tablet by mouth once daily. Tadalafil (CIALIS) 10 mg tablet Take 1 tablet by mouth once daily as needed. Take 1-2 hours before sexual activity. loratadine (CLARITIN) 10 mg tablet Take 1 tablet by mouth once daily. Lancets lancets Test blood sugar(s) 1 times daily. Dx: Type 1 DM - Controlled E10.9 Insulin: No blood sugar diagnostic (BLOOD GLUCOSE TEST) test strip Test blood sugar(s) 1 times daily. Dx: Type 1 DM - Controlled E10.9 Insulin: No No current facility-administered medications for this visit. Allergies: Patient has no known allergies. Recording using StrongView software for draft documentation of the visit was discussed with the patient/authorized reimbursement representative; all questions welcomed and answered. Patient/authorized reimbursement representative agreed to proceed Brayden Joseph MD [facility] 10-25-2024 History of Presen t illness Narrative Brayden Joseph MD Department of Orthopaedics Orthopaedics [facility] [address] [facility] [address] Dept: [phone] Dept October 25, 2024 CHIEF COMPLAINT: Post Op of the Left Knee (5 weeks 5 days post op Left knee arthroscopic medial menisectomy, medial distal femoral chondroplasty). HPI Patient here for post op visit left knee arthroscopy. Patient states he is continuing to have pain with weight bearing. States he had a sharp pain in his knee when he stepping up on the curb walking into the building and almost fell to the ground. Taking Mobic for the pain and only helps take the edge off. Patient works at [employer] and would like to return to work on November 15. ASSESSMENT: S83.242D Other tear of medial meniscus of left knee as current injury, subsequent encounter (primary encounter diagnosis) M17.12 Primary osteoarthritis of left knee PLAN: He's doing very well. He mentioned tweaking the knee in the parking lot. We'll have to just see if that settles down. Exam: Healed incisions. No effusion. Full ROM. Supporting Information Below: Medications: Current Outpatient Medications Medication Sig isosorbide mononitrate ER (IMDUR) 30 mg 24 hr tablet Take 1 tablet by mouth once daily. apixaban (ELIQUIS) 5 mg tab(s) Take 5 mg by mouth two times a day. metFORMIN ER (GLUCOPHAGE XR) 500 mg 24 hr tablet Take 3 tablets by mouth daily with breakfast. atorvastatin (LIPITOR) 80 mg tablet Take 1 tablet by mouth once daily. lisinopril-hydroCHLOROthiazide (ZESTORETIC) 20-12.5 mg per tablet Take 1 tablet by mouth every morning. meloxicam (MOBIC) 15 mg tablet Take 1 tablet by mouth once daily. With food. metoprolol tartrate, short acting, (LOPRESSOR) 25 mg tablet Take 1 tablet by mouth two times a day. multivitamin tablet Take 1 tablet by mouth once daily. Tadalafil (CIALIS) 10 mg tablet Take 1 tablet by mouth once daily as needed. Take 1-2 hours before sexual activity. loratadine (CLARITIN) 10 mg tablet Take 1 tablet by mouth once daily. Lancets lancets Test blood sugar(s) 1 times daily. Dx: Type 1 DM - Controlled E10.9 Insulin: No blood sugar diagnostic (BLOOD GLUCOSE TEST) test strip Test blood sugar(s) 1 times daily. Dx: Type 1 DM - Controlled E10.9 Insulin: No No current facility-administered medications for this visit. Allergies: Patient has no known allergies. Recording using StrongView software for draft documentation of the visit was discussed with the patient/authorized reimbursement representative; all questions welcomed and answered. Patient/authorized reimbursement representative agreed to proceed Brayden Joseph MD documented in this encounter [facility] 09-27-2024 Note HNO ID: [id number] Author: SOPHIA REBOLLEDO PA-C Service: ? Author Type: Physician Engagement Specialist Type: Progress Notes Filed: 09/27/2024 14:59 Note Text: Sophia Rebolledo PA-C Department of Orthopaedics Orthopaedics [address] [place] [address] Dept: [phone] Dept September 27, 2024 CHIEF COMPLAINT: Post Op of the Left Knee (1 week 5 days post op Left knee arthroscopic medial menisectomy, medial distal femoral chondroplasty). ASSESSMENT: M23.92 Internal derangement of left knee (primary encounter diagnosis) SUMMARY/PLAN: Patient presents 1 week and 5 days status post left knee arthroscopy with medial meniscectomy. He is doing well but notes some 3 out of 10 aching pain when he is weightbearing. Pain is mostly medial. He did not resume his meloxicam following surgery. We discussed getting back on the meloxicam, I did get him into an Jordon wrap for support and to help with pain and discomfort. He notes that his knee already feels better with the Jordon wrap. Will see him back next month as planned. Exam: Incision sites are all well-healed, there is some mild appropriate edema of the knee, no joint effusion, no ecchymosis is noted. Flexion of the knee to 110 degrees with a slight extension lag. Imaging: Deferred today. Mr. Jonathan Duncan was advised as to contrast therapies and/or to take analgesics/anti-inflammatories as needed and all contraindications were reviewed. Supporting Information Below: Medications: Current Outpatient Medications Medication Sig isosorbide mononitrate ER (IMDUR) 30 mg 24 hr tablet Take 1 tablet by mouth once daily. apixaban (ELIQUIS) 5 mg tab(s) Take 5 mg by mouth two times a day. metFORMIN ER (GLUCOPHAGE XR) 500 mg 24 hr tablet Take 3 tablets by mouth daily with breakfast. atorvastatin (LIPITOR) 80 mg tablet Take 1 tablet by mouth once daily. lisinopril-hydroCHLOROthiazide (ZESTORETIC) 20-12.5 mg per tablet Take 1 tablet by mouth every morning. meloxicam (MOBIC) 15 mg tablet Take 1 tablet by mouth once daily. With food. metoprolol tartrate, short acting, (LOPRESSOR) 25 mg tablet Take 1 tablet by mouth two times a day. multivitamin tablet Take 1 tablet by mouth once daily. Tadalafil (CIALIS) 10 mg tablet Take 1 tablet by mouth once daily as needed. Take 1-2 hours before sexual activity. loratadine (CLARITIN) 10 mg tablet Take 1 tablet by mouth once daily. Lancets lancets Test blood sugar(s) 1 times daily. Dx: Type 1 DM - Controlled E10.9 Insulin: No blood sugar diagnostic (BLOOD GLUCOSE TEST) test strip Test blood sugar(s) 1 times daily. Dx: Type 1 DM - Controlled E10.9 Insulin: No No current facility-administered medications for this visit. Allergies: Patient has no known allergies. This note was partially generated using [employer] voice recognition system, and there may be some incorrect words, spellings, and punctuation that were not noted in checking the note before saving. Sophia Rebolledo PA-C [facility] 09-27-2024 History of Presen t illness Narrative Sophia Rebolledo PA-C Department of Orthopaedics Orthopaedics [address] [facility] [address] Dept: [phone] Dept September 27, 2024 CHIEF COMPLAINT: Post Op of the Left Knee (1 week 5 days post op Left knee arthroscopic medial menisectomy, medial distal femoral chondroplasty). ASSESSMENT: M23.92 Internal derangement of left knee (primary encounter diagnosis) SUMMARY/PLAN: Patient presents 1 week and 5 days status post left knee arthroscopy with medial meniscectomy. He is doing well but notes some 3 out of 10 aching pain when he is weightbearing. Pain is mostly medial. He did not resume his meloxicam following surgery. We discussed getting back on the meloxicam, I did get him into an Jordon wrap for support and to help with pain and discomfort. He notes that his knee already feels better with the Jordon wrap. Will see him back next month as planned. Exam: Incision sites are all well-healed, there is some mild appropriate edema of the knee, no joint effusion, no ecchymosis is noted. Flexion of the knee to 110 degrees with a slight extension lag. Imaging: Deferred today. Mr. Jonathan Duncan was advised as to contrast therapies and/or to take analgesics/anti-inflammatories as needed and all contraindications were reviewed. Supporting Information Below: Medications: Current Outpatient Medications Medication Sig isosorbide mononitrate ER (IMDUR) 30 mg 24 hr tablet Take 1 tablet by mouth once daily. apixaban (ELIQUIS) 5 mg tab(s) Take 5 mg by mouth two times a day. metFORMIN ER (GLUCOPHAGE XR) 500 mg 24 hr tablet Take 3 tablets by mouth daily with breakfast. atorvastatin (LIPITOR) 80 mg tablet Take 1 tablet by mouth once daily. lisinopril-hydroCHLOROthiazide (ZESTORETIC) 20-12.5 mg per tablet Take 1 tablet by mouth every morning. meloxicam (MOBIC) 15 mg tablet Take 1 tablet by mouth once daily. With food. metoprolol tartrate, short acting, (LOPRESSOR) 25 mg tablet Take 1 tablet by mouth two times a day. multivitamin tablet Take 1 tablet by mouth once daily. Tadalafil (CIALIS) 10 mg tablet Take 1 tablet by mouth once daily as needed. Take 1-2 hours before sexual activity. loratadine (CLARITIN) 10 mg tablet Take 1 tablet by mouth once daily. Lancets lancets Test blood sugar(s) 1 times daily. Dx: Type 1 DM - Controlled E10.9 Insulin: No blood sugar diagnostic (BLOOD GLUCOSE TEST) test strip Test blood sugar(s) 1 times daily. Dx: Type 1 DM - Controlled E10.9 Insulin: No No current facility-administered medications for this visit. Allergies: Patient has no known allergies. This note was partially generated using [employer] voice recognition system, and there may be some incorrect words, spellings, and punctuation that were not noted in checking the note before saving. Sophia Rebolledo PA-C Patient presents with: Left Knee - Post Op: 1 week 5 days post op Left knee arthroscopic medial menisectomy, medial distal femoral chondroplasty AMB ROOMING INTAKE FLOWSHEET DATA Risk Screening Do you have concerns about personal safety or safety in the home?: No Pain Pain Level: 3 Pain Location: Knee-Left Description: Sharp Duration Amount of Time: (Post op) Duration Units: Weeks Frequency: Intermittent Intervention/Comfort measure: Medication Comments: Pain is from surgery, getting less as days go by Patient states he has been having pain at the medial incision site. No redness at incision sites. Patient has been taking Bradley as needed for the pain and is asking for a refill. documented in this encounter [facility] 09-27-2024 Note HNO ID: [id number] Author: TRACY MATA MA Service: ? Author Type: Academic Support Assistant Type: Progress Notes Filed: 09/27/2024 14:59 Note Text: Patient presents with: Left Knee - Post Op: 1 week 5 days post op Left knee arthroscopic medial menisectomy, medial distal femoral chondroplasty AMB ROOMING INTAKE FLOWSHEET DATA Risk Screening Do you have concerns about personal safety or safety in the home?: No Pain Pain Level: 3 Pain Location: Knee-Left Description: Sharp Duration Amount of Time: (Post op) Duration Units: Weeks Frequency: Intermittent Intervention/Comfort measure: Medication Comments: Pain is from surgery, getting less as days go by Patient states he has been having pain at the medial incision site. No redness at incision sites. Patient has been taking Bradley as needed for the pain and is asking for a refill. 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 BEAD WRAPPER: Leticia Szymanski APRN.BEAD WRAPPER Performed by: BEAD WRAPPER Indications and Patient Condition Indications for airway management: anesthesia Preoxygenated: yes anesthesia circuit Patient position: sniffing Method: asleep Cricoid Pressure: No Final Airway Details Final airway type: supraglottic airway Number of attempts at approach: 1 Final Supraglottic Airway: i-gel Size 5 Seal Adequate: yes Failed airway: no Unrecognized esophageal intubation: no Airway not difficult SIGNATURE: Leticia Szymanski APRN.BEAD WRAPPER PATIENT NAME: Jonathan Duncan DATE: September 15, 2024 TIME: 8:04 AM CSN: [id number] [facility] 09-06-2024 Telephone encounter Note Prescription Refill Information The patient has been identified by name and date of : Yes Caregiver verified no other encounters exist for this prescription request: Yes Caregiver confirmed with patient/requestor that no other refills are due, in the near future, with this provider at this time: Yes The last office visit in the department: 08/20/24 Does the patient have a future office visit with this provider/department: Yes Requested Prescriptions Pending Prescriptions Disp Refills isosorbide mononitrate ER (IMDUR) 30 mg 24 hr tablet 90 tablet 3 Sig: Take 1 tablet by mouth once daily. Cami Espinosa September 06, 2024 2:37 PM [facility] 09-06-2024 Miscellaneous Notes Prescription Refill Information The patient has been identified by name and date of : Yes Caregiver verified no other encounters exist for this prescription request: Yes Caregiver confirmed with patient/requestor that no other refills are due, in the near future, with this provider at this time: Yes The last office visit in the department: 08/20/24 Does the patient have a future office visit with this provider/department: Yes Requested Prescriptions Pending Prescriptions Disp Refills isosorbide mononitrate ER (IMDUR) 30 mg 24 hr tablet 90 tablet 3 Sig: Take 1 tablet by mouth once daily. Cami September 06, 2024 2:37 PM documented in this encounter [facility] 08-26-2024 Instructions Aspen Klein APRN.RICHY - 08/26/2024 1:02 PM EDT Images from the original note were not included. [facility] PATIENT PREOPERATIVE INSTRUCTIONS Kerri Strickland MD has scheduled you for your procedure at this surgery center: [facility]: [phone] -- [address] [facility] [address]. Please read below carefully for your personalized instructions. Dietary Restrictions: - No solid food after midnight. - You may have 12 ounces of clear liquids (water, clear juices such as apple juice or gatorade, carbonated beverages, clear tea, black coffee, jello) until 2 hours before scheduled arrival at facility. No red/purple coloring and no creamer/sugar Medications: Unless instructed differently below, stay on all of your medications until your surgery. If you start any new medications after today's visit, please contact your surgeon. Pre-Surgery Med Instructions Medication Instructions apixaban (ELIQUIS) 5 mg tab(s) Stop 3 days before surgery metFORMIN ER (GLUCOPHAGE XR) 500 mg 24 hr tablet Do not take the day of surgery atorvastatin (LIPITOR) 80 mg tablet Take the day of surgery with a small sip of water lisinopril-hydroCHLOROthiazide (ZESTORETIC) 20-12.5 mg per tablet Take the day of surgery with a small sip of water meloxicam (MOBIC) 15 mg tablet Stop 7 days before surgery metoprolol tartrate, short acting, (LOPRESSOR) 25 mg tablet Take the day of surgery with a small sip of water multivitamin tablet Stop 7 days before surgery Tadalafil (CIALIS) 10 mg tablet Stop 2 days before surgery loratadine (CLARITIN) 10 mg tablet Take the day of surgery with a small sip of water isosorbide mononitrate ER (IMDUR) 30 mg 24 hr tablet Take the day of surgery with a small sip of water Lancets lancets blood sugar diagnostic (BLOOD GLUCOSE TEST) test strip If you take any medications for erectile dysfunction-Cialis (Tadalafil), Levitra, Staxyn (Vardenafil) Viagra (Sildenenafil please do not take these for 48 hours before surgery. If you start any new medications after today's visit, please contact the surgeon's office. If you are currently using a [id number] injectable or oral medication for diabetes or weight loss such as Dulaglutide (Trulicity), Exenatide (Byetta, Bydureon), Liraglutide (Victoza, Saxenda), Semaglutide (Ozempic, Wegovy, Rybelsus), or Tirzepatide (Mounjaro), the medicine should be stopped at least 7 days before surgery. These medicines can cause food to remain in your stomach for a very long time and increase the risks from surgery and anesthesia. Not stopping the medication for a long enough time may result in your surgery being rescheduled. Blood Thinning Medications: - Stop NSAIDS (Ibuprofen, Advil, Aleve, Motrin, Celebrex, Mobic, etc.) 7 days before surgery, as directed by your surgeon. - Stop Aspirin 7 days before surgery, as directed by your surgeon. - Stop ALL herbal and dietary supplements 7 days before surgery. - You may take Tylenol (Acetaminophen) or any of your pain medications that do not contain aspirin or NSAIDS as needed. Important Reminders: - Candy, mints, and tobacco products are NOT permitted the morning of surgery. - Hearing aids, dentures and glasses may be worn the morning of surgery. - NO jewelry, body piercings, makeup, hairpins or contacts are to be worn the day of surgery. If you develop symptoms such as a fever, cold, or flu, or have other changes to your health within TWO DAYS of scheduled surgery or the morning of surgery, please contact the surgery center above. Personal Belongings: -Please have photo ID and insurance cards. -If you do not have a copy of advance directives on file with us, please bring a copy with you on the day of surgery. - Leave ALL valuables and money at home or with family members. - Please bring high-quality footwear, such as sneakers, to the hospital for ambulating post-surgery. For Outpatient Procedures: - YOU MUST HAVE A RESPONSIBLE HVAC FIELD SERVICE TECHNICIAN TAKE YOU HOME. A RENT AND MISCELLANEOUS REMITTANCE CLERK OR CHIEF UNIT FORESTER CANNOT BE MADE A RESPONSIBLE HVAC FIELD SERVICE TECHNICIAN. - We recommend that a responsible person stays with you overnight to take care of you. - You cannot stay in a hotel alone after outpatient surgery. You will not be permitted to have your surgery, if you do not have someone to take care of you. Arrival Time for Surgery: - The Surgery Center or hospital where you are having surgery will call the afternoon before surgery (or Friday for Friday surgery) with a scheduled arrival time. - If you have not heard by 4 pm, please contact the surgery center above. Please be aware that emergency situations arise, which may delay or change your surgical time. If this happens, we will notify you as soon as possible and regret any inconvenience. If you already have an Advance Directive, please fax a copy to [phone] or email to for it to be added to your chart. If you do not have an Advance Directive, you can find the appropriate form and more information at [email or web address]. We recommend that you complete the Advance Directive form found on the website and bring it with you the day of your surgery. It can be witnessed and scanned into your chart that day. Aspen Klein APRN.CNP documented in this encounter [facility] 08-26-2024 History and physical note Images from the original note were not included. [facility] HISTORY AND PHYSICAL EXAMINATION SERVICE DATE: 08/26/2024 SERVICE TIME: 6:53 AM PRIMARY CARE PHYSICIAN: Kerri Strickland MD Assessment Patient has the following medical conditions which may affect palomo-operative course: Coronary artery disease involving [place] coronary artery of [place] heart with angina pectoris (HCC) Assessment: non-obstructing, established with cardiology recently 2/2 new onset afib, received cardiac optimization below HTN (hypertension), benign Assessment: controlled on rx Last 14 BP Last 14 Encounter BP Readings: Date: BP: 08/26/2024 136/68 08/20/2024 130/86 06/18/2024 150/82 05/07/2024 148/90 03/22/2024 140/82 02/13/2024 122/74 08/11/2023 126/74 02/03/2023 124/78 09/27/2022 133/73 08/20/2022 138/88 08/02/2022 138/88 04/15/2022 124/72 01/25/2022 138/80 10/19/2021 148/84 Hyperlipidemia Assessment: c/w statin New onset a-fib (HCC) Assessment: rate controlled, on rx, started on Eliquis, received cardiac optimization scanned into Verified Identity Pass, received AC instructions as well. Pt recently underwent a normal stress test and echo 55% EF Type 2 diabetes mellitus without complication, without long-term current use of insulin (HCC) Assessment: controlled on oral agent\ Hemoglobin A1C (%) Date Value 08/20/2024 7.4 04/13/2021 7.2 Benign non-nodular prostatic hyperplasia without lower urinary tract symptoms Assessment: controlled on rx BMI 34.0-34.9,adult Assessment: Body mass index is 34.21 kg/m . History of prostate cancer Assessment: s/p prostatectomy Former smoker Assessment: vague hx given, denies asthma or COPD ANESTHESIA FINDINGS: Intubation History: No history of difficult intubation Significant Anesthesia Considerations: none Airway History: No history of difficult airway Cummins Activity Status Index: METS: Climb a flight of stairs or walk up a hill (5.50 METs) DASI Score: 5.5 Patient denies any chest pain or undue shortness of breath with the above physical activity. Clinical Frailty Scale: 3. Well, with treated comorbid disease STOP-Bang Score: Snores loudly Has or is being treated for high blood pressure Patient over 50 years old Has a large neck Male patient Denies feeling tired, fatigued, or sleepy during the daytime Has not been observed to stop breathing or choking/gasping during sleep BMI less than or equal to 35 kg/m^2 STOP-Bang Score: 5 [id number] Score: Age: 65-74 Sex: male CHF history: No Hypertension history: Yes Stroke/TIA/thromboembolism history: No Vascular disease history: No Diabetes history: Yes [id number] Score: 3 ARISCAT Score: Age: 51-80 Preoperative SpO2: >=96% Respiratory infection in the last month: No Preoperative anemia: No Surgical incision: peripheral Duration of surgery: <2 hrs Emergency procedure: No ARISCAT Score: 3 I - PHYSICAL EVALUATION AIRWAYTracheostomy tube not present Mallampati: III. TM distance: >3 FB. Neck ROM: full ROM without neurological symptoms. Mouth opening: adequate. Short neck: no. Thick neck: yes Sutherland present: yes Lip Bite Test: I Microretrognathia/Micronagthia/R ecessed Chin: No II - ANESTHESIA PLAN Anesthetic Plan: other Beta Sherman Monitoring Plan Post Procedure Analgesic Plan Prepared for Surgery: optimally prepared for surgery, pending [see comment]. New afib on EKG, scheduled with [facility], TE to surgeon's office CONSULTS: The following consults have been initiated at this time: cardiology. Planned Anesthetic: other The Following Tests/Procedures Have Been Initiated: No orders of the defined types were placed in this encounter. REASON FOR VISIT: Jonathan Duncan is a 69 year old male who is scheduled for Procedure(s): ARTHROSCOPY KNEE MENISCECTOMY MEDIAL OR LATERAL (Left) at the request of Dr. Kerri Strickland for consultation. My final recommendation will be communicated back to the requesting physician by way of shared medical record or letter. Subjective The patient has the following: COVID-19 Immunization Status Upcoming Covid-19 Vaccine () Postponed until 08/20/2025 08/20/2024 Postponed until 08/20/2025 by Jazmyn Lui MA (Declined at this time) 02/13/2024 Postponed until 02/12/2025 by Jazmyn Lui MA (Declined at this time) 06/11/2021 Imm Admin: COVID-19 original vaccine, full dose, monovalent (MODERNA) Only the first 3 history entries have been loaded, but more history exists. CHIEF COMPLAINT: Pre-op exam HPI: Jonathan Duncan is a 69 year old seen for PAC due to scheduled above surgery because of OA left knee. 05/31/2024, Dr. Brayden Joseph HPI Patient here today for left knee pain since March. States he was bent over to put meat in the freezer and felt a pop in the left knee. heard the pop in the next room. 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 X-ray completed 03/22/2024, MRI completed 05/18/2024. REVIEW OF SYSTEMS: General: No weight loss, malaise or fevers. Neurological: No history of TIA's, stroke, MAIL SORTING SUPERVISOR tumor, impaired sensorium, hemiplegia, paraplegia or quadraplegia. No neurological symptoms or problems. Respiratory: +former smoker Negative for: asthma, COPD, current cough, pneumonia within 6 weeks, tobacco use and URI < 2 weeks. Cardiovascular: Positive for: anticoagulation therapy (Eliquis), atrial fibrillation (new dx), CAD, hyperlipidemia, hypertension and murmur/valvular heart disease Patient's last office visit The following tests and/or procedures were not performed: cardiac stents. Negative for: abdominal aortic aneurysm, AICD/PPM, angina, arrhythmia, chest pain, CHF, congenital heart defect, DVT/PE, recent [place], PTCA, PVD, open heart surgery and valve surgery. GI: No history of GI symptoms or problems. No history of esophageal varices, recent ascites, or ETOH greater than 2 drinks per day. : No history of dysuria, frequency or incontinence, stones or chronic kidney disease. No difficulty urinating, nocturia > 1 time per night or hematuria. Endocrine: Positive for: diabetes mellitus. Patient's diabetes mellitus is controlled by oral agents. Negative for: hypothyroidism. Hematology: Positive for: bruises/bleeds easily and chronic anti-coagulation/platelet meds. Patient is on anti-coagulation/platelet medication(s): DOAC. Negative for: anemia, thrombocytopenia and transfusion of at least 4 units within 72 hours prior to surgery. Oncology: +prostate CA s/p prostatectomy Psych: No history of psychiatric symptoms or problems. Musculoskeletal: See HPI. Positive for: joint pain (right knee). Skin: Negative for lesions, rash and itching. Implanted Devices: No implanted devices. PAST MEDICAL HISTORY Diagnosis Date Diabetes mellitus type 2, controlled, without complications (HCC) Hyperlipidemia Hypertension Prostate cancer (HCC) Snoring PAST SURGICAL HISTORY Procedure Laterality Date COLONOSCOPY 09/27/2022 repeat in 5 years, history of polyps. COLONOSCOPY FLX DX W/COLLJ SPEC WHEN PFRMD 05/15/2017 Colonoscopy EYE SURGERY HX PAST SURGICAL HISTORY OF 2013 Prostate cancer removed PAST SURGICAL HISTORY OF Right 2006 Cataract surgery PAST SURGICAL HISTORY OF 2004 Colonoscopy PAST SURGICAL HISTORY OF 2006 Hemorrhoidectomy PAST SURGICAL HISTORY OF 2011 Toe surgery, due to almost cutting toe off with chainshaw PAST SURGICAL HISTORY OF 2009 Colonoscopy FAMILY HISTORY Problem Relation Age of Onset Heart Mother Heart Father Age of 69, massive [place] Diabetes Father Heart Sister Heart Brother Diabetes Paternal Aunt Colon Cancer Paternal Uncle Social History Tobacco Use Smoking status: Former Types: Cigarettes Smokeless tobacco: Current Types: Chew Vaping Use Vaping status: Never Used Substance Use Topics Alcohol use: Yes Comment: 2 beers per day Drug use: No Prior to Admission medications as of 08/26/24 1306 Medication Sig Last Dose Taking apixaban (ELIQUIS) 5 mg tab(s) Take 5 mg by mouth two times a day. Yes metFORMIN ER (GLUCOPHAGE XR) 500 mg 24 hr tablet Take 3 tablets by mouth daily with breakfast. Yes atorvastatin (LIPITOR) 80 mg tablet Take 1 tablet by mouth once daily. Yes lisinopril-hydroCHLOROthiazide (ZESTORETIC) 20-12.5 mg per tablet Take 1 tablet by mouth every morning. Yes meloxicam (MOBIC) 15 mg tablet Take 1 tablet by mouth once daily. With food. Yes metoprolol tartrate, short acting, (LOPRESSOR) 25 mg tablet Take 1 tablet by mouth two times a day. Yes multivitamin tablet Take 1 tablet by mouth once daily. Yes Tadalafil (CIALIS) 10 mg tablet Take 1 tablet by mouth once daily as needed. Take 1-2 hours before sexual activity. Yes loratadine (CLARITIN) 10 mg tablet Take 1 tablet by mouth once daily. Yes isosorbide mononitrate ER (IMDUR) 30 mg 24 hr tablet Take 1 tablet by mouth once daily. Yes Lancets lancets Test blood sugar(s) 1 times daily. Dx: Type 1 DM - Controlled E10.9 Insulin: No Yes blood sugar diagnostic (BLOOD GLUCOSE TEST) test strip Test blood sugar(s) 1 times daily. Dx: Type 1 DM - Controlled E10.9 Insulin: No Yes Medication Comments documented by Jazmyn Lui MA on 02/13/2024 at 0943. Takes OTC Fish Oil daily. Takes Iron daily. Glucosamine Chondroitin ALLERGIES No Known Allergies Objective PHYSICAL EXAM: General: alert and oriented (x3), healthy appearance and obese. Pertinent negatives noted - not distressed. Skin: normal color, no rash or lesions. HEENT: EOM intact and pupils equal round. Pertinent negatives noted - no carotid bruit. Cardiovascular: regular rate and rhythm, normal S1 and S2, no rub, murmurs, or gallop. Respiratory: normal breath sounds, no wheezes or crackles. No chest wall deformity or tenderness. Abdomen: soft. Pertinent negatives noted - not tender. Extremities: no deformity, no edema or tenderness, no joint swelling or clubbing. Neurological: normal cognition and motor skills. Gait normal. No weakness or sensory deficit. PAIN ASSESSMENT: VITALS: BP 136/68 Pulse 76 Temp (Src) 98.7 (Temporal) Resp 16 Ht 5' 8 (1.73m) Wt 225 lb (102.1kg) SpO2 97% BMI 34.22 kg/(m^2). Diagnostic tests reviewed for today's visit: Lab Value Units Date High Low HB No results within date range. HCT No results within date range. WBC No results within date range. PLT No results within date range. NA 137 mmol/L 08/20/2024 144 136 K 4.3 mmol/L 08/20/2024 5.1 3.7 GLUC 161 mg/dL 08/20/2024 99 74 BUN 17 mg/dL 08/20/2024 24 9 CREAT 0.80 mg/dL 08/20/2024 1.22 0.73 PTSEC No results within date range. INR No results within date range. APTT No results within date range. ALT 26 U/L 08/20/2024 54 10 AST 24 U/L 08/20/2024 40 14 TBILI 0.5 mg/dL 08/20/2024 1.3 0.2 TSH 2.090 mIU/L 08/20/2024 4.200 0.270 Lab Value Units Date High Low HCGQT No results within date range. UHCG No results within date range. HCG, BODY* No results within date range. Lab Value Units Date High Low ABORHD No results within date range. ABSCREEN No results within date range. Hemoglobin A1C (%) Date Value 08/20/2024 7.4 02/13/2024 7.6 08/02/2023 7.5 02/22/2023 7.6 08/03/2022 7.0 04/13/2021 7.2 12/31/2019 6.7 06/02/2019 6.3 11/24/2018 6.3 05/26/2018 6.2 Recent Results (from the past 8760 hours) ECG COMPLETE Collection Time: 06/18/24 4:57 PM Result Value Ventricular Rate 84 Atrial Rate 85 QRS Duration 94 QT Interval 370 QTC Calculation (Bazett) 437 Calculated R Rincon 44 Calculated T Rincon 19 Impression ATRIAL FIBRILLATION ABNORMAL ECG Confirmed by MD MULLINS GREGORY () on 06/21/2024 4:39:59 PM No results found for this or any previous visit (from the past 99183 hours). Instructions Given to Patient: Instructions located in the after visit summary. Patient given verbal and written preop instructions and voices comprehension and compliance. SIGNATURE: Aspen Klein APRN.FOCUSED FACTORY MANAGER PATIENT NAME: Jonathan Duncan DATE: August 26, 2024 TIME: 12:59 PM PAGER/CONTACT #: [facility] 08-26-2024 History and physical note Images from the original note were not included. [facility] HISTORY AND PHYSICAL EXAMINATION SERVICE DATE: 08/26/2024 SERVICE TIME: 6:53 AM PRIMARY CARE PHYSICIAN: Kerri Strickland MD Assessment Patient has the following medical conditions which may affect palomo-operative course: Coronary artery disease involving [place] coronary artery of [place] heart with angina pectoris (HCC) Assessment: non-obstructing, established with cardiology recently 2/2 new onset afib, received cardiac optimization below HTN (hypertension), benign Assessment: controlled on rx Last 14 BP Last 14 Encounter BP Readings: Date: BP: 08/26/2024 136/68 08/20/2024 130/86 06/18/2024 150/82 05/07/2024 148/90 03/22/2024 140/82 02/13/2024 122/74 08/11/2023 126/74 02/03/2023 124/78 09/27/2022 133/73 08/20/2022 138/88 08/02/2022 138/88 04/15/2022 124/72 01/25/2022 138/80 10/19/2021 148/84 Hyperlipidemia Assessment: c/w statin New onset a-fib (HCC) Assessment: rate controlled, on rx, started on Eliquis, received cardiac optimization scanned into Verified Identity Pass, received AC instructions as well. Pt recently underwent a normal stress test and echo 55% EF Type 2 diabetes mellitus without complication, without long-term current use of insulin (HCC) Assessment: controlled on oral agent\ Hemoglobin A1C (%) Date Value 08/20/2024 7.4 04/13/2021 7.2 Benign non-nodular prostatic hyperplasia without lower urinary tract symptoms Assessment: controlled on rx BMI 34.0-34.9,adult Assessment: Body mass index is 34.21 kg/m . History of prostate cancer Assessment: s/p prostatectomy Former smoker Assessment: vague hx given, denies asthma or COPD ANESTHESIA FINDINGS: Intubation History: No history of difficult intubation Significant Anesthesia Considerations: none Airway History: No history of difficult airway Cummins Activity Status Index: METS: Climb a flight of stairs or walk up a hill (5.50 METs) DASI Score: 5.5 Patient denies any chest pain or undue shortness of breath with the above physical activity. Clinical Frailty Scale: 3. Well, with treated comorbid disease STOP-Bang Score: Snores loudly Has or is being treated for high blood pressure Patient over 50 years old Has a large neck Male patient Denies feeling tired, fatigued, or sleepy during the daytime Has not been observed to stop breathing or choking/gasping during sleep BMI less than or equal to 35 kg/m^2 STOP-Bang Score: 5 [id number] Score: Age: 65-74 Sex: male CHF history: No Hypertension history: Yes Stroke/TIA/thromboembolism history: No Vascular disease history: No Diabetes history: Yes [id number] Score: 3 ARISCAT Score: Age: 51-80 Preoperative SpO2: >=96% Respiratory infection in the last month: No Preoperative anemia: No Surgical incision: peripheral Duration of surgery: <2 hrs Emergency procedure: No ARISCAT Score: 3 I - PHYSICAL EVALUATION AIRWAYTracheostomy tube not present Mallampati: III. TM distance: >3 FB. Neck ROM: full ROM without neurological symptoms. Mouth opening: adequate. Short neck: no. Thick neck: yes Sutherland present: yes Lip Bite Test: I Microretrognathia/Micronagthia/R ecessed Chin: No II - ANESTHESIA PLAN Anesthetic Plan: other Beta Sherman Monitoring Plan Post Procedure Analgesic Plan Prepared for Surgery: optimally prepared for surgery, pending [see comment]. New afib on EKG, scheduled with SHIKHA DIAZ to surgeon's office CONSULTS: The following consults have been initiated at this time: cardiology. Planned Anesthetic: other The Following Tests/Procedures Have Been Initiated: No orders of the defined types were placed in this encounter. REASON FOR VISIT: Jonathan Duncan is a 69 year old male who is scheduled for Procedure(s): ARTHROSCOPY KNEE MENISCECTOMY MEDIAL OR LATERAL (Left) at the request of Dr. Kerri Strickland for consultation. My final recommendation will be communicated back to the requesting physician by way of shared medical record or letter. Subjective The patient has the following: COVID-19 Immunization Status Upcoming Covid-19 Vaccine () Postponed until 08/20/2025 08/20/2024 Postponed until 08/20/2025 by Jazmyn Lui MA (Declined at this time) 02/13/2024 Postponed until 02/12/2025 by Jazmyn Lui MA (Declined at this time) 06/11/2021 Imm Admin: COVID-19 original vaccine, full dose, monovalent (MODERNA) Only the first 3 history entries have been loaded, but more history exists. CHIEF COMPLAINT: Pre-op exam HPI: Jonathan Duncan is a 69 year old seen for PAC due to scheduled above surgery because of OA left knee. 05/31/2024, Dr. Brayden Joseph HPI Patient here today for left knee pain since March. States he was bent over to put meat in the freezer and felt a pop in the left knee. heard the pop in the next room. 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 X-ray completed 03/22/2024, MRI completed 05/18/2024. REVIEW OF SYSTEMS: General: No weight loss, malaise or fevers. Neurological: No history of TIA's, stroke, MAIL SORTING SUPERVISOR tumor, impaired sensorium, hemiplegia, paraplegia or quadraplegia. No neurological symptoms or problems. Respiratory: +former smoker Negative for: asthma, COPD, current cough, pneumonia within 6 weeks, tobacco use and URI < 2 weeks. Cardiovascular: Positive for: anticoagulation therapy (Eliquis), atrial fibrillation (new dx), CAD, hyperlipidemia, hypertension and murmur/valvular heart disease Patient's last office visit The following tests and/or procedures were not performed: cardiac stents. Negative for: abdominal aortic aneurysm, AICD/PPM, angina, arrhythmia, chest pain, CHF, congenital heart defect, DVT/PE, recent [place], PTCA, PVD, open heart surgery and valve surgery. GI: No history of GI symptoms or problems. No history of esophageal varices, recent ascites, or ETOH greater than 2 drinks per day. : No history of dysuria, frequency or incontinence, stones or chronic kidney disease. No difficulty urinating, nocturia > 1 time per night or hematuria. Endocrine: Positive for: diabetes mellitus. Patient's diabetes mellitus is controlled by oral agents. Negative for: hypothyroidism. Hematology: Positive for: bruises/bleeds easily and chronic anti-coagulation/platelet meds. Patient is on anti-coagulation/platelet medication(s): DOAC. Negative for: anemia, thrombocytopenia and transfusion of at least 4 units within 72 hours prior to surgery. Oncology: +prostate CA s/p prostatectomy Psych: No history of psychiatric symptoms or problems. Musculoskeletal: See HPI. Positive for: joint pain (right knee). Skin: Negative for lesions, rash and itching. Implanted Devices: No implanted devices. PAST MEDICAL HISTORY Diagnosis Date Diabetes mellitus type 2, controlled, without complications (HCC) Hyperlipidemia Hypertension Prostate cancer (HCC) Snoring PAST SURGICAL HISTORY Procedure Laterality Date COLONOSCOPY 09/27/2022 repeat in 5 years, history of polyps. COLONOSCOPY FLX DX W/COLLJ SPEC WHEN PFRMD 05/15/2017 Colonoscopy EYE SURGERY HX PAST SURGICAL HISTORY OF 2013 Prostate cancer removed PAST SURGICAL HISTORY OF Right 2006 Cataract surgery PAST SURGICAL HISTORY OF 2004 Colonoscopy PAST SURGICAL HISTORY OF 2005 Hemorrhoidectomy PAST SURGICAL HISTORY OF 2011 Toe surgery, due to almost cutting toe off with chainshaw PAST SURGICAL HISTORY OF 2009 Colonoscopy FAMILY HISTORY Problem Relation Age of Onset Heart Mother Heart Father Age of 69, massive [place] Diabetes Father Heart Sister Heart Brother Diabetes Paternal Aunt Colon Cancer Paternal Uncle Social History Tobacco Use Smoking status: Former Types: Cigarettes Smokeless tobacco: Current Types: Chew Vaping Use Vaping status: Never Used Substance Use Topics Alcohol use: Yes Comment: 2 beers per day Drug use: No Prior to Admission medications as of 08/26/24 1306 Medication Sig Last Dose Taking apixaban (ELIQUIS) 5 mg tab(s) Take 5 mg by mouth two times a day. Yes metFORMIN ER (GLUCOPHAGE XR) 500 mg 24 hr tablet Take 3 tablets by mouth daily with breakfast. Yes atorvastatin (LIPITOR) 80 mg tablet Take 1 tablet by mouth once daily. Yes lisinopril-hydroCHLOROthiazide (ZESTORETIC) 20-12.5 mg per tablet Take 1 tablet by mouth every morning. Yes meloxicam (MOBIC) 15 mg tablet Take 1 tablet by mouth once daily. With food. Yes metoprolol tartrate, short acting, (LOPRESSOR) 25 mg tablet Take 1 tablet by mouth two times a day. Yes multivitamin tablet Take 1 tablet by mouth once daily. Yes Tadalafil (CIALIS) 10 mg tablet Take 1 tablet by mouth once daily as needed. Take 1-2 hours before sexual activity. Yes loratadine (CLARITIN) 10 mg tablet Take 1 tablet by mouth once daily. Yes isosorbide mononitrate ER (IMDUR) 30 mg 24 hr tablet Take 1 tablet by mouth once daily. Yes Lancets lancets Test blood sugar(s) 1 times daily. Dx: Type 1 DM - Controlled E10.9 Insulin: No Yes blood sugar diagnostic (BLOOD GLUCOSE TEST) test strip Test blood sugar(s) 1 times daily. Dx: Type 1 DM - Controlled E10.9 Insulin: No Yes Medication Comments documented by Jazmyn Lui MA on 02/13/2024 at 0943. Takes OTC Fish Oil daily. Takes Iron daily. Glucosamine Chondroitin ALLERGIES No Known Allergies Objective PHYSICAL EXAM: General: alert and oriented (x3), healthy appearance and obese. Pertinent negatives noted - not distressed. Skin: normal color, no rash or lesions. HEENT: EOM intact and pupils equal round. Pertinent negatives noted - no carotid bruit. Cardiovascular: regular rate and rhythm, normal S1 and S2, no rub, murmurs, or gallop. Respiratory: normal breath sounds, no wheezes or crackles. No chest wall deformity or tenderness. Abdomen: soft. Pertinent negatives noted - not tender. Extremities: no deformity, no edema or tenderness, no joint swelling or clubbing. Neurological: normal cognition and motor skills. Gait normal. No weakness or sensory deficit. PAIN ASSESSMENT: VITALS: BP 136/68 Pulse 76 Temp (Src) 98.7 (Temporal) Resp 16 Ht 5' 8 (1.73m) Wt 225 lb (102.1kg) SpO2 97% BMI 34.22 kg/(m^2). Diagnostic tests reviewed for today's visit: Lab Value Units Date High Low HB No results within date range. HCT No results within date range. WBC No results within date range. PLT No results within date range. NA 137 mmol/L 08/20/2024 144 136 K 4.3 mmol/L 08/20/2024 5.1 3.7 GLUC 161 mg/dL 08/20/2024 99 74 BUN 17 mg/dL 08/20/2024 24 9 CREAT 0.80 mg/dL 08/20/2024 1.22 0.73 PTSEC No results within date range. INR No results within date range. APTT No results within date range. ALT 26 U/L 08/20/2024 54 10 AST 24 U/L 08/20/2024 40 14 TBILI 0.5 mg/dL 08/20/2024 1.3 0.2 TSH 2.090 mIU/L 08/20/2024 4.200 0.270 Lab Value Units Date High Low HCGQT No results within date range. UHCG No results within date range. HCG, BODY* No results within date range. Lab Value Units Date High Low ABORHD No results within date range. ABSCREEN No results within date range. Hemoglobin A1C (%) Date Value 08/20/2024 7.4 02/13/2024 7.6 08/02/2023 7.5 02/22/2023 7.6 08/03/2022 7.0 04/13/2021 7.2 12/31/2019 6.7 06/02/2019 6.3 11/24/2018 6.3 05/26/2018 6.2 Recent Results (from the past 8760 hours) ECG COMPLETE Collection Time: 06/18/24 4:57 PM Result Value Ventricular Rate 84 Atrial Rate 85 QRS Duration 94 QT Interval 370 QTC Calculation (Bazett) 437 Calculated R Rincon 44 Calculated T Rincon 19 Impression ATRIAL FIBRILLATION ABNORMAL ECG Confirmed by MD MULLINS GREGORY () on 06/21/2024 4:39:59 PM No results found for this or any previous visit (from the past 77918 hours). Instructions Given to Patient: Instructions located in the after visit summary. Patient given verbal and written preop instructions and voices comprehension and compliance. SIGNATURE: Aspen Klein APRN.CNP PATIENT NAME: Jonathan Duncan DATE: August 26, 2024 TIME: 12:59 PM PAGER/CONTACT #: documented in this encounter [facility] 08-23-2024 Telephone encounter Note Surgery has been scheduled as requested. [facility] 08-23-2024 Miscellaneous Notes Surgery has been scheduled as requested. Received fax back from Dr. Tran's office. The patient has been cleared for surgery. Copy of their office notes scanned into scanned documents. I called and spoke with the patients spouse. He will be scheduled on 09/15/2024. Surgical request completed. Post op appointments have been scheduled and mailed to the patient. Surgical clearance form faxed to Dr. Tran's office. Patient will be contacted to reschedule once cardiology clearance is received. Patient 's is calling office back stating that he seen his certified welder and has been cleared for surgery. Phoned office and spoke with nurse. Patient was last seen by on 07/14/24, then ahd ECHO , stress test completed. EKG done on 06/18/24. They did not get a clearance from . They did complete the testing. is needing paperwork saying what type of surgery, when surgery is to get a clearance. FAx number # [phone]. Please review and advise further. PATIENT will be awaiting call back. Sarah Modi LPN documented in this encounter [facility] 08-23-2024 Telephone encounter Note Received fax back from Dr. Tran's office. The patient has been cleared for surgery. Copy of their office notes scanned into scanned documents. I called and spoke with the patients spouse. He will be scheduled on 09/15/2024. Surgical request completed. Post op appointments have been scheduled and mailed to the patient. [facility] 08-20-2024 History of Presen t illness Narrative Chief Complaint Patient presents with: F/U 6 Month HPI Jonathan Duncan is a 69 year old male who presents here today for 6 month follow up. Pt here today for his routine follow up, here with . Labs ordered, not completed but is fasting today. Former Smoker, current chewer. No bowel, Gi, or urinary issues. Denies nocturia. Uses Cialis 10 mg as needed for ED, but not using medication. Follows with Urology, Hemant Hunter for BPH. DM: Taking Metformin 500 mg 3 pills once daily. Denies checking his sugars at home, states he can tell when sugars become too low or high. Reports he gets a headache when sugars become too low. Denies frequent lows, rare. Denies any neuropathy symptoms. Had eye exam completed yesterday. Allergies: Uses Claritin 10 mg daily. HTN: Denies checking his BP at home. Denies any chest pain, sob, or dizziness. Taking Lopressor 25 mg 1 pill BID, Imdur 30 mg daily, Lisinopril-HCTZ 20-12.5 mg daily. Afib - Newly dx afib. Pt reports that he knew something was going on due to having issues with lightheadedness and feeling fatigued, this has improved since starting medication. This was found when pt was having work up done to have knee surgery. Recently started on Eliquis 5 mg 1 tab po bid. Follows with [facility]. Insulation Worker Apprentice suggested doing a thyroid test, but pt states he was coming into Primary Care and would have done. Lipid: Trying to watch his diet, by reducing portion sizes, watching what he eats, and eating more fruits. Denies any formal exercise, but works every day (40 hours/per week) and keeps himself busy. Taking Lipitor 80 mg daily. ASA 81 mg once daily was d/c by Insulation Worker Apprentice. Tolerating well. Arthritis: Uses Mobic 15 mg once daily for left knee arthritis. Was scheduled to have knee surgery for torn meniscus and clean up due to arthritis. Had to postpone surgery due to newly dx afib. Hoping to get this cleared here soon to do procedure. Hx of gout once. No recurrent issues and on on medications. HM - Adv Dir/Living Will scanned into chart. Declines Covid vaccine. Past medical history, appointments, medications, allergies reviewed. Previous Medical History PAST MEDICAL HISTORY Diagnosis Date Diabetes mellitus type 2, controlled, without complications (HCC) Hyperlipidemia Hypertension Prostate cancer (HCC) Snoring Previous Surgical History PAST SURGICAL HISTORY Procedure Laterality Date COLONOSCOPY 09/27/2022 repeat in 5 years, history of polyps. COLONOSCOPY FLX DX W/COLLJ SPEC WHEN PFRMD 05/15/2017 Colonoscopy EYE SURGERY HX PAST SURGICAL HISTORY OF 2014 Prostate cancer removed PAST SURGICAL HISTORY OF Right 2006 Cataract surgery PAST SURGICAL HISTORY OF 2004 Colonoscopy PAST SURGICAL HISTORY OF 2005 Hemorrhoidectomy PAST SURGICAL HISTORY OF 2011 Toe surgery, due to almost cutting toe off with chainshaw PAST SURGICAL HISTORY OF 2009 Colonoscopy Family History FAMILY HISTORY Problem Relation Age of Onset Heart Mother Heart Father Age of 69, massive [place] Diabetes Father Heart Sister Heart Brother Diabetes Paternal Aunt Colon Cancer Paternal Uncle Patient Allergies ALLERGIES No Known Allergies Current Medications Current Outpatient Medications on File Prior to Visit Medication Sig meloxicam (MOBIC) 15 mg tablet Take 1 tablet by mouth once daily. With food. metoprolol tartrate, short acting, (LOPRESSOR) 25 mg tablet Take 1 tablet by mouth two times a day. multivitamin tablet Take 1 tablet by mouth once daily. Tadalafil (CIALIS) 10 mg tablet Take 1 tablet by mouth once daily as needed. Take 1-2 hours before sexual activity. lisinopril-hydroCHLOROthiazide (ZESTORETIC) 20-12.5 mg per tablet Take 1 tablet by mouth every morning. loratadine (CLARITIN) 10 mg tablet Take 1 tablet by mouth once daily. atorvastatin (LIPITOR) 80 mg tablet Take 1 tablet by mouth once daily. isosorbide mononitrate ER (IMDUR) 30 mg 24 hr tablet Take 1 tablet by mouth once daily. metFORMIN ER (GLUCOPHAGE XR) 500 mg 24 hr tablet Take 3 tablets by mouth daily with breakfast. Lancets lancets Test blood sugar(s) 1 times daily. Dx: Type 1 DM - Controlled E10.9 Insulin: No blood sugar diagnostic (BLOOD GLUCOSE TEST) test strip Test blood sugar(s) 1 times daily. Dx: Type 1 DM - Controlled E10.9 Insulin: No aspirin 81 mg chewable tablet Take 1 tablet by mouth once daily. No current facility-administered medications on file prior to visit. Social History Social History Tobacco Use Smoking status: Former Types: Cigarettes Smokeless tobacco: Current Types: Chew Vaping Use Vaping status: Never Used Substance Use Topics Alcohol use: Yes Comment: 2 beers per day Drug use: No EXAM: BP 130/86 Pulse 64 Resp 18 Wt 102.2 kg (225 lb 5 oz) BMI 34.26 kg/m General Appearance: Well appearing, alert, in no acute distress, well-hydrated, well nourished. and Obese. Lungs: Lungs clear to auscultation. No wheezing, rhonchi, rales.. Heart: RRR without murmur, gallop, or rubs. No ectopy. Extremities: No swelling in b/l lower legs. Edema only in L knee Health Maintenance List BP Controlled (<130/80) due on 12/30/2020 Diabetic Foot Exam due on 04/18/2022 Covid-19 Vaccine() due on 02/15/2024 Advance Directive Discussion due on 06/16/2024 HbA1C due on 08/13/2024 Urine Albumin:Creatinine Ratio due on 02/12/2025 LDL Cholesterol due on 02/12/2025 Depression Screening due on 02/12/2025 Anxiety Screening due on 02/12/2025 Annual PCP Team Chronic Disease Visit due on 05/07/2025 Dilated Retinal Exam due on 08/19/2025 DTaP,Tdap,Td Vaccine(2 - Td or Tdap) due on 09/26/2025 Colorectal Cancer Screening due on 09/28/2027 RSV Vaccine(1 - 1-dose 75+ series) due on 2029 Abdominal Aortic Aneurysm Screening Completed Influenza Vaccine Completed Hepatitis C Screening Completed Shingrix Vaccine Completed Pneumococcal Vaccine: 50+ Completed Data reviewed Epic - outside records ASSESSMENT/PLAN: 1. Type 2 diabetes mellitus without complication, without long-term current use of insulin (HCC) - ICD9: 250.00, ICD10: E11.9 (primary diagnosis) - check labs today - Continue current medications - Counseled on healthy diet and regular exercise 2. HTN (hypertension), benign - ICD9: 401.1, ICD10: I10 - Controlled - Continue current medications - Recommend home blood pressure monitoring, to bring results to next visit - Encouraged sodium restriction, DASH or Mediterranean diet - Recommend regular aerobic exercise 3. New onset a-fib (HCC) - ICD9: 427.31, ICD10: I48.91 - Continue current medication regimen. - Follow up with Cardiology 4. Hyperlipidemia, unspecified hyperlipidemia type - ICD9: 272.4, ICD10: E78.5 - check labs today - Continue current medications - Counseled on healthy diet and regular exercise 5. Gout, unspecified cause, unspecified chronicity, unspecified site - ICD9: 274.9, ICD10: M10.9 - Stable 6. Benign non-nodular prostatic hyperplasia without lower urinary tract symptoms - ICD9: 600.90, ICD10: N40.0 - Stable - Continue current medication regimen. 7. 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 - ICD9: 717.9, ICD10: M23.92 - cont f/u with Specialist - Continue current medication regimen. 8. Arthritis of left knee - ICD9: 716.96, ICD10: M17.12 - Continue current medication regimen. - Follow with Ortho 9. Erectile dysfunction, unspecified erectile dysfunction type - ICD9: 607.84, ICD10: N52.9 - Stable Use medication prn Will get labs today; notify of results 6 mo f/u with labs prior to visit. I agree with the Chief Complaint, ROS, and Past Histories independently gathered by the clinical academic support assistant and the remaining scribed note accurately describes my personal service to the patient. Medical Decision Making: Problems: Moderate: 2+ stable chronic illnesses Data: Unique test(s) ordered: 3+ Risk: Moderate: Drug management Medical Decision Making Level: 4 - Moderate Kerri Strickland MD The documentation for this note was completed by Jazmyn Lui MA acting as scribe for Kerri Strickland MD. August 20, 2024 9:45 AM. Jazmyn Lui MA documented in this encounter [facility] 08-20-2024 Note HNO ID: [id number] Author: KERRI STRICKLAND MD Service: ? Author Type: Physician Type: Progress Notes Filed: 08/20/2024 11:45 Note Text: Chief Complaint Patient presents with: F/U 6 Month HPI Jonathan Duncan is a 69 year old male who presents here today for 6 month follow up. Pt here today for his routine follow up, here with . Labs ordered, not completed but is fasting today. Former Smoker, current chewer. No bowel, Gi, or urinary issues. Denies nocturia. Uses Cialis 10 mg as needed for ED, but not using medication. Follows with Urology, Hemant Hunter for BPH. DM: Taking Metformin 500 mg 3 pills once daily. Denies checking his sugars at home, states he can tell when sugars become too low or high. Reports he gets a headache when sugars become too low. Denies frequent lows, rare. Denies any neuropathy symptoms. Had eye exam completed yesterday. Allergies: Uses Claritin 10 mg daily. HTN: Denies checking his BP at home. Denies any chest pain, sob, or dizziness. Taking Lopressor 25 mg 1 pill BID, Imdur 30 mg daily, Lisinopril-HCTZ 20-12.5 mg daily. Afib - Newly dx afib. Pt reports that he knew something was going on due to having issues with lightheadedness and feeling fatigued, this has improved since starting medication. This was found when pt was having work up done to have knee surgery. Recently started on Eliquis 5 mg 1 tab po bid. Follows with [facility]. Insulation Worker Apprentice suggested doing a thyroid test, but pt states he was coming into Primary Care and would have done. Lipid: Trying to watch his diet, by reducing portion sizes, watching what he eats, and eating more fruits. Denies any formal exercise, but works every day (40 hours/per week) and keeps himself busy. Taking Lipitor 80 mg daily. ASA 81 mg once daily was d/c by Insulation Worker Apprentice. Tolerating well. Arthritis: Uses Mobic 15 mg once daily for left knee arthritis. Was scheduled to have knee surgery for torn meniscus and clean up due to arthritis. Had to postpone surgery due to newly dx afib. Hoping to get this cleared here soon to do procedure. Hx of gout once. No recurrent issues and on on medications. HM - Adv Dir/Living Will scanned into chart. Declines Covid vaccine. Past medical history, appointments, medications, allergies reviewed. Previous Medical History PAST MEDICAL HISTORY Diagnosis Date Diabetes mellitus type 2, controlled, without complications (HCC) Hyperlipidemia Hypertension Prostate cancer (HCC) Snoring Previous Surgical History PAST SURGICAL HISTORY Procedure Laterality Date COLONOSCOPY 09/27/2022 repeat in 5 years, history of polyps. COLONOSCOPY FLX DX W/COLLJ SPEC WHEN PFRMD 05/15/2017 Colonoscopy EYE SURGERY HX PAST SURGICAL HISTORY OF 2014 Prostate cancer removed PAST SURGICAL HISTORY OF Right 2006 Cataract surgery PAST SURGICAL HISTORY OF 2004 Colonoscopy PAST SURGICAL HISTORY OF 2005 Hemorrhoidectomy PAST SURGICAL HISTORY OF 2011 Toe surgery, due to almost cutting toe off with chainshaw PAST SURGICAL HISTORY OF 2009 Colonoscopy Family History FAMILY HISTORY Problem Relation Age of Onset Heart Mother Heart Father Age of 69, massive [place] Diabetes Father Heart Sister Heart Brother Diabetes Paternal Aunt Colon Cancer Paternal Uncle Patient Allergies ALLERGIES No Known Allergies Current Medications Current Outpatient Medications on File Prior to Visit Medication Sig meloxicam (MOBIC) 15 mg tablet Take 1 tablet by mouth once daily. With food. metoprolol tartrate, short acting, (LOPRESSOR) 25 mg tablet Take 1 tablet by mouth two times a day. multivitamin tablet Take 1 tablet by mouth once daily. Tadalafil (CIALIS) 10 mg tablet Take 1 tablet by mouth once daily as needed. Take 1-2 hours before sexual activity. lisinopril-hydroCHLOROthiazide (ZESTORETIC) 20-12.5 mg per tablet Take 1 tablet by mouth every morning. loratadine (CLARITIN) 10 mg tablet Take 1 tablet by mouth once daily. atorvastatin (LIPITOR) 80 mg tablet Take 1 tablet by mouth once daily. isosorbide mononitrate ER (IMDUR) 30 mg 24 hr tablet Take 1 tablet by mouth once daily. metFORMIN ER (GLUCOPHAGE XR) 500 mg 24 hr tablet Take 3 tablets by mouth daily with breakfast. Lancets lancets Test blood sugar(s) 1 times daily. Dx: Type 1 DM - Controlled E10.9 Insulin: No blood sugar diagnostic (BLOOD GLUCOSE TEST) test strip Test blood sugar(s) 1 times daily. Dx: Type 1 DM - Controlled E10.9 Insulin: No aspirin 81 mg chewable tablet Take 1 tablet by mouth once daily. No current facility-administered medications on file prior to visit. Social History Social History Tobacco Use Smoking status: Former Types: Cigarettes Smokeless tobacco: Current Types: Chew Vaping Use Vaping status: Never Used Substance Use Topics Alcohol use: Yes Comment: 2 beers per day Drug use: No EXAM: BP 130/86 Pulse 64 Resp 18 Wt 102.2 kg (225 lb 5 oz) BMI 34. (more content not included)... [facility] 08-16-2024 Telephone encounter Note Prescription Refill Information The patient has been identified by name and date of : Yes Caregiver verified no other encounters exist for this prescription request: Yes Caregiver confirmed with patient/requestor that no other refills are due, in the near future, with this provider at this time: Yes The last office visit in the department: Does the patient have a future office visit with this provider/department: Yes Patient only has 6 pills left of Lisinopril and requesting a start term go to [facility] Requested Prescriptions Pending Prescriptions Disp Refills metFORMIN ER (GLUCOPHAGE XR) 500 mg 24 hr tablet 270 tablet 3 Sig: Take 3 tablets by mouth daily with breakfast. atorvastatin (LIPITOR) 80 mg tablet 90 tablet 3 Sig: Take 1 tablet by mouth once daily. lisinopril-hydroCHLOROthiazide (ZESTORETIC) 20-12.5 mg per tablet 90 tablet 3 Sig: Take 1 tablet by mouth every morning. Mariam Gastelum August 16, 2024 10:00 AM [facility] 08-16-2024 Miscellaneous Notes Prescription Refill Information The patient has been identified by name and date of : Yes Caregiver verified no other encounters exist for this prescription request: Yes Caregiver confirmed with patient/requestor that no other refills are due, in the near future, with this provider at this time: Yes The last office visit in the department: Does the patient have a future office visit with this provider/department: Yes Patient only has 6 pills left of Lisinopril and requesting a start term go to [facility] Requested Prescriptions Pending Prescriptions Disp Refills metFORMIN ER (GLUCOPHAGE XR) 500 mg 24 hr tablet 270 tablet 3 Sig: Take 3 tablets by mouth daily with breakfast. atorvastatin (LIPITOR) 80 mg tablet 90 tablet 3 Sig: Take 1 tablet by mouth once daily. lisinopril-hydroCHLOROthiazide (ZESTORETIC) 20-12.5 mg per tablet 90 tablet 3 Sig: Take 1 tablet by mouth every morning. Mariam Gastelum August 16, 2024 10:00 AM documented in this encounter [facility] 08-13-2024 Telephone encounter Note Surgical clearance form faxed to Dr. Tran's office. Patient will be contacted to reschedule once cardiology clearance is received. [facility] 08-05-2024 Telephone encounter Note Patient 's is calling office back stating that he seen his certified welder and has been cleared for surgery. Phoned office and spoke with nurse. Patient was last seen by on 07/14/24, then ahd ECHO , stress test completed. EKG done on 06/18/24. They did not get a clearance from . They did complete the testing. is needing paperwork saying what type of surgery, when surgery is to get a clearance. FAx number # [phone]. Please review and advise further. PATIENT will be awaiting call back. Sarah Modi LPN [facility] 06-21-2024 Telephone encounter Note Case message sent to cancel surgery. Post op appointments have been cancelled. I called and spoke with the patients spouse and told her to contact the office back to reschedule once he has cardiology clearance. She verbalized understanding. [facility] 06-21-2024 Miscellaneous Notes Case message sent to cancel surgery. Post op appointments have been cancelled. I called and spoke with the patients spouse and told her to contact the office back to reschedule once he has cardiology clearance. She verbalized understanding. Notifying surgeon's office pt's surgery will need to be rescheduled til after he has had cardiac optimization, for new onset afib found during [facility] appt. Faxed EKG, problem list and medlist to [facility] for upcoming appt 07/14/24 at 10:am. Patient aware and agreeable of appt. Breonna Bess LPN documented in this encounter [facility] 06-19-2024 Telephone encounter Note Notifying surgeon's office pt's surgery will need to be rescheduled til after he has had cardiac optimization, for new onset afib found during [facility] appt. [facility] 06-18-2024 Telephone encounter Note Faxed EKG, problem list and medlist to [facility] for upcoming appt 07/14/24 at 10:am. Patient aware and agreeable of appt. Breonna Bess LPN [facility] 06-18-2024 Instructions Aspen Klein APRN.FOCUSED FACTORY MANAGER - 06/18/2024 3:14 PM EST Images from the original note were not included. [facility] PATIENT PREOPERATIVE INSTRUCTIONS Brayden Joseph MD has scheduled you for your procedure at this surgery center: [facility]: [phone] -- [address] [address]. Please read below carefully for your personalized instructions. Dietary Restrictions: - No solid food after midnight. - You may have 12 ounces of clear liquids (water, clear juices such as apple juice or gatorade, carbonated beverages, clear tea, black coffee, jello) until 2 hours before scheduled arrival at facility. Medications: Unless instructed differently below, stay on all of your medications until your surgery. If you start any new medications after today's visit, please contact your surgeon. Pre-Surgery Med Instructions Medication Instructions meloxicam (MOBIC) 15 mg tablet Stop 7 days before surgery metoprolol tartrate, short acting, (LOPRESSOR) 25 mg tablet Take the day of surgery with a small sip of water multivitamin tablet Stop 7 days before surgery Tadalafil (CIALIS) 10 mg tablet Stop 2 days before surgery lisinopril-hydroCHLOROthiazide (ZESTORETIC) 20-12.5 mg per tablet Take the day of surgery with a small sip of water loratadine (CLARITIN) 10 mg tablet Take the day of surgery with a small sip of water atorvastatin (LIPITOR) 80 mg tablet Take the day of surgery with a small sip of water isosorbide mononitrate ER (IMDUR) 30 mg 24 hr tablet Take the day of surgery with a small sip of water metFORMIN ER (GLUCOPHAGE XR) 500 mg 24 hr tablet Do not take the day of surgery Lancets lancets blood sugar diagnostic (BLOOD GLUCOSE TEST) test strip aspirin 81 mg chewable tablet Stop 7 days before surgery If you take any medications for erectile dysfunction-Cialis (Tadalafil), Levitra, Staxyn (Vardenafil) Viagra (Sildenenafil please do not take these for 48 hours before surgery. If you start any new medications after today's visit, please contact the surgeon's office. If you are currently using a [id number]-xyb-grxx injectable or oral medication for diabetes or weight loss such as Dulaglutide (Trulicity), Exenatide (Byetta, Bydureon), Liraglutide (Victoza, Saxenda), Semaglutide (Ozempic, Wegovy, Rybelsus), or Tirzepatide (Mounjaro), the medicine should be stopped at least 7 days before surgery. These medicines can cause food to remain in your stomach for a very long time and increase the risks from surgery and anesthesia. Not stopping the medication for a long enough time may result in your surgery being rescheduled. Blood Thinning Medications: - Stop NSAIDS (Ibuprofen, Advil, Aleve, Motrin, Celebrex, Mobic, etc.) 7 days before surgery, as directed by your surgeon. - Stop Aspirin 7 days before surgery, as directed by your surgeon. - Stop ALL herbal and dietary supplements 7 days before surgery. - You may take Tylenol (Acetaminophen) or any of your pain medications that do not contain aspirin or NSAIDS as needed. Important Reminders: - Candy, mints, and tobacco products are NOT permitted the morning of surgery. - Hearing aids, dentures and glasses may be worn the morning of surgery. - NO jewelry, body piercings, makeup, hairpins or contacts are to be worn the day of surgery. If you develop symptoms such as a fever, cold, or flu, or have other changes to your health within TWO DAYS of scheduled surgery or the morning of surgery, please contact the surgery center above. Personal Belongings: -Please have photo ID and insurance cards. -If you do not have a copy of advance directives on file with us, please bring a copy with you on the day of surgery. - Leave ALL valuables and money at home or with family members. - Please bring high-quality footwear, such as sneakers, to the hospital for ambulating post-surgery. For Outpatient Procedures: - YOU MUST HAVE A RESPONSIBLE HVAC FIELD SERVICE TECHNICIAN TAKE YOU HOME. A RENT AND MISCELLANEOUS REMITTANCE CLERK OR CHIEF UNIT FORESTER CANNOT BE MADE A RESPONSIBLE HVAC FIELD SERVICE TECHNICIAN. - We recommend that a responsible person stays with you overnight to take care of you. - You cannot stay in a hotel alone after outpatient surgery. You will not be permitted to have your surgery, if you do not have someone to take care of you. Arrival Time for Surgery: - The Surgery Center or hospital where you are having surgery will call the afternoon before surgery (or Friday for Friday surgery) with a scheduled arrival time. - If you have not heard by 4 pm, please contact the surgery center above. Please be aware that emergency situations arise, which may delay or change your surgical time. If this happens, we will notify you as soon as possible and regret any inconvenience. If you already have an Advance Directive, please fax a copy to [phone] or email to for it to be added to your chart. If you do not have an Advance Directive, you can find the appropriate form and more information at [email or web address]. We recommend that you complete the Advance Directive form found on the website and bring it with you the day of your surgery. It can be witnessed and scanned into your chart that day. Aspen Klein APRN.RICHY documented in this encounter [facility] 06-18-2024 History and physical note Images from the original note were not included. [facility] HISTORY AND PHYSICAL EXAMINATION SERVICE DATE: 06/18/2024 SERVICE TIME: 11:52 AM PRIMARY CARE PHYSICIAN: Kerri Strickland MD Assessment Patient has the following medical conditions which may affect palomo-operative course: HTN (hypertension), benign Assessment: controlled on rx Last 14 BP Last 14 Encounter BP Readings: Date: BP: 06/18/2024 150/82 05/07/2024 148/90 03/22/2024 140/82 02/13/2024 122/74 08/11/2023 126/74 02/03/2023 124/78 09/27/2022 133/73 08/20/2022 138/88 08/02/2022 138/88 04/15/2022 124/72 01/25/2022 138/80 10/19/2021 148/84 07/24/2021 148/82 04/18/2021 160/90 Hyperlipidemia Assessment: c/w statin Type 2 diabetes mellitus without complication, without long-term current use of insulin (HCC) Assessment: controlled on oral agent\ Hemoglobin A1C (%) Date Value 02/13/2024 7.6 04/13/2021 7.2 Benign non-nodular prostatic hyperplasia without lower urinary tract symptoms Assessment: controlled on rx Coronary artery disease involving [place] coronary artery of [place] heart with angina pectoris (HCC) Assessment: pending cardiac optimization due to abnormal EKG,non-obstructing per 2014 heart cath SUMMARY: Normal LV systolic function with moderate 1-vessel distal coronary disease. New onset a-fib (HCC) Assessment: found on pre-op EKG today, asymptomatic, currently taking daily ASA, cardiac optimization appt made with [facility] for patient. Informed pt to remain on ASA therapy until cardiology appt [place] Activity Status Index: METS: Climb a flight of stairs or walk up a hill (5.50 METs) DASI Score: 5.5 Patient denies any chest pain or undue shortness of breath with the above physical activity. Clinical Frailty Scale: 3. Well, with treated comorbid disease STOP-Bang Score: Snores loudly Has or is being treated for high blood pressure Patient over 50 years old Has a large neck Male patient Denies feeling tired, fatigued, or sleepy during the daytime Has not been observed to stop breathing or choking/gasping during sleep BMI less than or equal to 35 kg/m^2 STOP-Bang Score: 5 [id number] Score: Age: 65-74 Sex: male CHF history: No Hypertension history: Yes Stroke/TIA/thromboembolism history: No Vascular disease history: No Diabetes history: Yes [id number] Score: 3 ARISCAT Score: Age: 51-80 Preoperative SpO2: >=96% Respiratory infection in the last month: No Preoperative anemia: No Surgical incision: peripheral Duration of surgery: <2 hrs Emergency procedure: No ARISCAT Score: 3 ANESTHESIA FINDINGS: Intubation History: No history of difficult intubation Significant Anesthesia Considerations: none Airway History: No history of difficult airway I - PHYSICAL EVALUATION AIRWAY Patient intubated: No. Tracheostomy tube not present Mallampati: III. TM distance: >3 FB. Neck ROM: full ROM without neurological symptoms. Mouth opening: adequate. Short neck: no. Thick neck: yes [place] present: yes Lip Bite Test: I Microretrognathia/Micronagthia/R ecessed Chin: No DENTAL Dental findings: teeth intact. II - ANESTHESIA PLAN Anesthetic Plan: other Beta Sherman Monitoring Plan Post Procedure Analgesic Plan Prepared for Surgery: optimally prepared for surgery, pending [see comment]. New afib on EKG, scheduled with JOE TE to surgeon's office CONSULTS: The following consults have been initiated at this time: cardiology. Planned Anesthetic: other anesthesia choice The Following Tests/Procedures Have Been Initiated: Orders Placed This Encounter CONSULT TO CARDIOLOGY Standing Status: Future Standing Expiration Date: 06/18/2025 Order Specific Question: Does consulting provider have [facility] Epic access? Answer: Yes ECG COMPLETE Standing Status: Future Standing Expiration Date: 06/18/2025 ECG COMPLETE Order Comments: Ordered by an unspecified provider REASON FOR VISIT: Jonathan Duncan is a 69 year old male who is scheduled for Procedure(s): ARTHROSCOPY KNEE MENISCECTOMY MEDIAL OR LATERAL (Left) at the request of Dr. Brayden Joseph for consultation. My final recommendation will be communicated back to the requesting physician by way of shared medical record or letter. Subjective The patient has the following: COVID-19 Immunization Status Overdue - Covid-19 Vaccine () Overdue since 02/15/2024 02/13/2024 Postponed until 02/12/2025 by Jazmyn Lui MA (Declined at this time) 06/11/2021 Imm Admin: COVID-19 original vaccine, full dose, monovalent (MODERNA) 10/21/2020 Imm Admin: COVID-19 original vaccine, full dose, monovalent (MODERNA) Only the first 3 history entries have been loaded, but more history exists. CHIEF COMPLAINT: Pre-op exam HPI: Jonathan Duncan is a 69 year old seen for PAC due to scheduled above surgery because of OA left knee. 05/31/2024, Dr. Brayden Joseph HPI Patient here today for left knee pain since March. States he was bent over to put meat in the freezer and felt a pop in the left knee. heard the pop in the next room. 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 X-ray completed 03/22/2024, MRI completed 05/18/2024. REVIEW OF SYSTEMS: General: No weight loss, malaise or fevers. Neurological: No history of TIA's, stroke, MAIL S[employer]ING SUPERVISOR tumor, impaired sensorium, hemiplegia, paraplegia or quadraplegia. No neurological symptoms or problems. Respiratory: +former smoker Positive for: current cough (x3 weeks). Negative for: asthma, COPD, pneumonia within 6 weeks, tobacco use, URI < 2 weeks and obstructive sleep apnea. Cardiovascular: Positive for: anticoagulation therapy (ASA), CAD, hyperlipidemia, hypertension and murmur/valvular heart disease Patient's last office visit The following tests and/or procedures were not performed: cardiac stents. Negative for: abdominal aortic aneurysm, AICD/PPM, angina, arrhythmia, atrial fibrillation, chest pain, CHF, congenital heart defect, DVT/PE, recent [place], PTCA, PVD, open heart surgery and valve surgery. GI: No history of GI symptoms or problems. No history of esophageal varices, recent ascites, or ETOH greater than 2 drinks per day. : No history of dysuria, frequency or incontinence, stones or chronic kidney disease. No difficulty urinating, nocturia > 1 time per night or hematuria. Endocrine: Positive for: diabetes mellitus. Patient's diabetes mellitus is controlled by oral agents. Negative for: hypothyroidism. Hematology: Positive for: chronic anti-coagulation/platelet meds. Patient is on anti-coagulation/platelet medication(s): Aspirin. Negative for: anemia, bruises/bleeds easily, thrombocytopenia and transfusion of at least 4 units within 72 hours prior to surgery. Oncology: +prostate CA s/p prostatectomy Psych: No history of psychiatric symptoms or problems. Musculoskeletal: See HPI. Positive for: joint pain (right knee). Skin: Negative for lesions, rash and itching. Implanted Devices: No implanted devices. PAST MEDICAL HISTORY Diagnosis Date Diabetes mellitus type 2, controlled, without complications (HCC) Hyperlipidemia Hypertension Prostate cancer (HCC) Snoring PAST SURGICAL HISTORY Procedure Laterality Date COLONOSCOPY 09/27/2022 repeat in 5 years, history of polyps. COLONOSCOPY FLX DX W/COLLJ SPEC WHEN PFRMD 05/15/2017 Colonoscopy EYE SURGERY HX PAST SURGICAL HISTORY OF 2013 Prostate cancer removed PAST SURGICAL HISTORY OF Right 2006 Cataract surgery PAST SURGICAL HISTORY OF 2005 Colonoscopy PAST SURGICAL HISTORY OF 2006 Hemorrhoidectomy PAST SURGICAL HISTORY OF 2011 Toe surgery, due to almost cutting toe off with chainshaw PAST SURGICAL HISTORY OF 2009 Colonoscopy FAMILY HISTORY Problem Relation Age of Onset Heart Mother Heart Father Age of 69, massive [place] Diabetes Father Heart Sister Heart Brother Diabetes Paternal Aunt Colon Cancer Paternal Uncle Social History Tobacco Use Smoking status: Former Types: Cigarettes Smokeless tobacco: Current Types: Chew Vaping Use Vaping status: Never Used Substance Use Topics Alcohol use: Yes Comment: 2 beers per day Drug use: No Prior to Admission medications as of 06/21/24 1144 Medication Sig Last Dose Taking meloxicam (MOBIC) 15 mg tablet Take 1 tablet by mouth once daily. With food. Taking Yes metoprolol tartrate, short acting, (LOPRESSOR) 25 mg tablet Take 1 tablet by mouth two times a day. Taking Yes multivitamin tablet Take 1 tablet by mouth once daily. Taking Yes Tadalafil (CIALIS) 10 mg tablet Take 1 tablet by mouth once daily as needed. Take 1-2 hours before sexual activity. Taking Yes lisinopril-hydroCHLOROthiazide (ZESTORETIC) 20-12.5 mg per tablet Take 1 tablet by mouth every morning. Taking Yes loratadine (CLARITIN) 10 mg tablet Take 1 tablet by mouth once daily. Taking Yes atorvastatin (LIPITOR) 80 mg tablet Take 1 tablet by mouth once daily. Taking Yes isosorbide mononitrate ER (IMDUR) 30 mg 24 hr tablet Take 1 tablet by mouth once daily. Taking Yes metFORMIN ER (GLUCOPHAGE XR) 500 mg 24 hr tablet Take 3 tablets by mouth daily with breakfast. Taking Yes Lancets lancets Test blood sugar(s) 1 times daily. Dx: Type 1 DM - Controlled E10.9 Insulin: No Taking Yes blood sugar diagnostic (BLOOD GLUCOSE TEST) test strip Test blood sugar(s) 1 times daily. Dx: Type 1 DM - Controlled E10.9 Insulin: No Taking Yes aspirin 81 mg chewable tablet Take 1 tablet by mouth once daily. Taking Yes Medication Comments documented by Jazmyn Lui MA on 02/13/2024 at 0943. Takes OTC Fish Oil daily. Takes Iron daily. Glucosamine Chondroitin ALLERGIES No Known Allergies Objective PHYSICAL EXAM: General: alert and oriented (x3), healthy appearance and obese. Pertinent negatives noted - not distressed. Skin: normal color, no rash or lesions. HEENT: EOM intact and pupils equal round. Pertinent negatives noted - no carotid bruit. Cardiovascular: Pulse characterized as irregular. Respiratory: normal breath sounds, no wheezes or crackles. No chest wall deformity or tenderness. Abdomen: soft. Pertinent negatives noted - not tender. Extremities: no deformity, no edema or tenderness, no joint swelling or clubbing. Neurological: normal cognition and motor skills. Gait normal. No weakness or sensory deficit. PAIN ASSESSMENT: Pain Pain Level: 6 Pain Location: Knee-Left Description: Sore Duration Units: Months Frequency: Intermittent Intervention/Comfort measure: Medication VITALS: BP 150/82 Pulse 98 Temp (Src) 98 (Temporal) Resp 16 Ht 5' 8 (1.73m) Wt 226 lb (102.5kg) SpO2 97% BMI 34.37 kg/(m^2). Diagnostic tests reviewed for today's visit: Lab Value Units Date High Low HB No results within date range. HCT No results within date range. WBC No results within date range. PLT No results within date range. NA 139 mmol/L 02/13/2024 144 136 K 4.2 mmol/L 02/13/2024 5.1 3.7 GLUC 148 mg/dL 02/13/2024 99 74 BUN 19 mg/dL 02/13/2024 24 9 CREAT 0.87 mg/dL 02/13/2024 1.22 0.73 PTSEC No results within date range. INR No results within date range. APTT No results within date range. ALT 34 U/L 02/13/2024 54 10 AST 29 U/L 02/13/2024 40 14 TBILI 0.6 mg/dL 02/13/2024 1.3 0.2 TSH No results within date range. Lab Value Units Date High Low HCGQT No results within date range. UHCG No results within date range. HCG, BODY* No results within date range. Lab Value Units Date High Low ABORHD No results within date range. ABSCREEN No results within date range. Hemoglobin A1C (%) Date Value 02/13/2024 7.6 08/02/2023 7.5 02/22/2023 7.6 08/03/2022 7.0 01/25/2022 7.0 04/13/2021 7.2 12/31/2019 6.7 06/02/2019 6.3 11/24/2018 6.3 05/26/2018 6.2 Recent Results (from the past 8760 hour(s)) ECG COMPLETE Collection Time: 06/18/24 4:57 PM Result Value Ventricular Rate 84 Atrial Rate 85 QRS Duration 94 QT Interval 370 QTC Calculation (Bazett) 437 Calculated R Rincon 44 Calculated T Rincon 19 Impression ATRIAL FIBRILLATION ABNORMAL ECG No results found for this or any previous visit (from the past 71944 hour(s)). Instructions Given to Patient: Instructions located in the after visit summary. Patient given verbal and written preop instructions and voices comprehension and compliance. SIGNATURE: Aspen Klein APRN.CNP PATIENT NAME: Jonathan Duncan DATE: June 18, 2024 TIME: 3:12 PM PAGER/CONTACT #: [facility] 06-18-2024 History and physical note Images from the original note were not included. [facility] HISTORY AND PHYSICAL EXAMINATION SERVICE DATE: 06/18/2024 SERVICE TIME: 11:52 AM PRIMARY CARE PHYSICIAN: Kerri Strickland MD Assessment Patient has the following medical conditions which may affect palomo-operative course: HTN (hypertension), benign Assessment: controlled on rx Last 14 BP Last 14 Encounter BP Readings: Date: BP: 06/18/2024 150/82 05/07/2024 148/90 03/22/2024 140/82 02/13/2024 122/74 08/11/2023 126/74 02/03/2023 124/78 09/27/2022 133/73 08/20/2022 138/88 08/02/2022 138/88 04/15/2022 124/72 01/25/2022 138/80 10/19/2021 148/84 07/24/2021 148/82 04/18/2021 160/90 Hyperlipidemia Assessment: c/w statin Type 2 diabetes mellitus without complication, without long-term current use of insulin (HCC) Assessment: controlled on oral agent\ Hemoglobin A1C (%) Date Value 02/13/2024 7.6 04/13/2021 7.2 Benign non-nodular prostatic hyperplasia without lower urinary tract symptoms Assessment: controlled on rx Coronary artery disease involving [place] coronary artery of [place] heart with angina pectoris (HCC) Assessment: pending cardiac optimization due to abnormal EKG,non-obstructing per 2014 heart cath SUMMARY: Normal LV systolic function with moderate 1-vessel distal coronary disease. New onset a-fib (HCC) Assessment: found on pre-op EKG today, asymptomatic, currently taking daily ASA, cardiac optimization appt made with [facility] for patient. Informed pt to remain on ASA therapy until cardiology appt [place] Activity Status Index: METS: Climb a flight of stairs or walk up a hill (5.50 METs) DASI Score: 5.5 Patient denies any chest pain or undue shortness of breath with the above physical activity. Clinical Frailty Scale: 3. Well, with treated comorbid disease STOP-Bang Score: Snores loudly Has or is being treated for high blood pressure Patient over 50 years old Has a large neck Male patient Denies feeling tired, fatigued, or sleepy during the daytime Has not been observed to stop breathing or choking/gasping during sleep BMI less than or equal to 35 kg/m^2 STOP-Bang Score: 5 [id number] Score: Age: 65-74 Sex: male CHF history: No Hypertension history: Yes Stroke/TIA/thromboembolism history: No Vascular disease history: No Diabetes history: Yes [id number] Score: 3 ARISCAT Score: Age: 51-80 Preoperative SpO2: >=96% Respiratory infection in the last month: No Preoperative anemia: No Surgical incision: peripheral Duration of surgery: <2 hrs Emergency procedure: No ARISCAT Score: 3 ANESTHESIA FINDINGS: Intubation History: No history of difficult intubation Significant Anesthesia Considerations: none Airway History: No history of difficult airway I - PHYSICAL EVALUATION AIRWAY Patient intubated: No. Tracheostomy tube not present Mallampati: III. TM distance: >3 FB. Neck ROM: full ROM without neurological symptoms. Mouth opening: adequate. Short neck: no. Thick neck: yes [place] present: yes Lip Bite Test: I Microretrognathia/Micronagthia/R ecessed Chin: No DENTAL Dental findings: teeth intact. II - ANESTHESIA PLAN Anesthetic Plan: other Beta Sherman Monitoring Plan Post Procedure Analgesic Plan Prepared for Surgery: optimally prepared for surgery, pending [see comment]. New afib on EKG, scheduled with [facility], TE to surgeon's office CONSULTS: The following consults have been initiated at this time: cardiology. Planned Anesthetic: other anesthesia choice The Following Tests/Procedures Have Been Initiated: Orders Placed This Encounter CONSULT TO CARDIOLOGY Standing Status: Future Standing Expiration Date: 06/18/2025 Order Specific Question: Does consulting provider have [facility] Epic access? Answer: Yes ECG COMPLETE Standing Status: Future Standing Expiration Date: 06/18/2025 ECG COMPLETE Order Comments: Ordered by an unspecified provider REASON FOR VISIT: Jonathan Duncan is a 69 year old male who is scheduled for Procedure(s): ARTHROSCOPY KNEE MENISCECTOMY MEDIAL OR LATERAL (Left) at the request of Dr. Brayden Joseph for consultation. My final recommendation will be communicated back to the requesting physician by way of shared medical record or letter. Subjective The patient has the following: COVID-19 Immunization Status Overdue - Covid-19 Vaccine ( season) Overdue since 02/15/2024 02/13/2024 Postponed until 02/12/2025 by Jazmyn Lui MA (Declined at this time) 06/11/2021 Imm Admin: COVID-19 original vaccine, full dose, monovalent (MODERNA) 10/21/2020 Imm Admin: COVID-19 original vaccine, full dose, monovalent (MODERNA) Only the first 3 history entries have been loaded, but more history exists. CHIEF COMPLAINT: Pre-op exam HPI: Jonathan Duncan is a 69 year old seen for PAC due to scheduled above surgery because of OA left knee. 05/31/2024, Dr. Brayden Joseph HPI Patient here today for left knee pain since March. States he was bent over to put meat in the freezer and felt a pop in the left knee. heard the pop in the next room. 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 X-ray completed 03/22/2024, MRI completed 05/18/2024. REVIEW OF SYSTEMS: General: No weight loss, malaise or fevers. Neurological: No history of TIA's, stroke, [employer]IL S[employer] SU[employer] tumor, impaired sensorium, hemiplegia, paraplegia or quadraplegia. No neurological symptoms or problems. Respiratory: +former smoker Positive for: current cough (x3 weeks). Negative for: asthma, COPD, pneumonia within 6 weeks, tobacco use, URI < 2 weeks and obstructive sleep apnea. Cardiovascular: Positive for: anticoagulation therapy (ASA), CAD, hyperlipidemia, hypertension and murmur/valvular heart disease Patient's last office visit The following tests and/or procedures were not performed: cardiac stents. Negative for: abdominal aortic aneurysm, AICD/PPM, angina, arrhythmia, atrial fibrillation, chest pain, CHF, congenital heart defect, DVT/PE, recent [place], PTCA, PVD, open heart surgery and valve surgery. GI: No history of GI symptoms or problems. No history of esophageal varices, recent ascites, or ETOH greater than 2 drinks per day. : No history of dysuria, frequency or incontinence, stones or chronic kidney disease. No difficulty urinating, nocturia > 1 time per night or hematuria. Endocrine: Positive for: diabetes mellitus. Patient's diabetes mellitus is controlled by oral agents. Negative for: hypothyroidism. Hematology: Positive for: chronic anti-coagulation/platelet meds. Patient is on anti-coagulation/platelet medication(s): Aspirin. Negative for: anemia, bruises/bleeds easily, thrombocytopenia and transfusion of at least 4 units within 72 hours prior to surgery. Oncology: +prostate CA s/p prostatectomy Psych: No history of psychiatric symptoms or problems. Musculoskeletal: See HPI. Positive for: joint pain (right knee). Skin: Negative for lesions, rash and itching. Implanted Devices: No implanted devices. PAST MEDICAL HISTORY Diagnosis Date Diabetes mellitus type 2, controlled, without complications (HCC) Hyperlipidemia Hypertension Prostate cancer (HCC) Snoring PAST SURGICAL HISTORY Procedure Laterality Date COLONOSCOPY 09/27/2022 repeat in 5 years, history of polyps. COLONOSCOPY FLX DX W/COLLJ SPEC WHEN PFRMD 05/15/2017 Colonoscopy EYE SURGERY HX PAST SURGICAL HISTORY OF 2013 Prostate cancer removed PAST SURGICAL HISTORY OF Right 2006 Cataract surgery PAST SURGICAL HISTORY OF 2004 Colonoscopy PAST SURGICAL HISTORY OF 2005 Hemorrhoidectomy PAST SURGICAL HISTORY OF 2011 Toe surgery, due to almost cutting toe off with chainshaw PAST SURGICAL HISTORY OF 2009 Colonoscopy FAMILY HISTORY Problem Relation Age of Onset Heart Mother Heart Father Age of 69, massive [place] Diabetes Father Heart Sister Heart Brother Diabetes Paternal Aunt Colon Cancer Paternal Uncle Social History Tobacco Use Smoking status: Former Types: Cigarettes Smokeless tobacco: Current Types: Chew Vaping Use Vaping status: Never Used Substance Use Topics Alcohol use: Yes Comment: 2 beers per day Drug use: No Prior to Admission medications as of 06/21/24 1144 Medication Sig Last Dose Taking meloxicam (MOBIC) 15 mg tablet Take 1 tablet by mouth once daily. With food. Taking Yes metoprolol tartrate, short acting, (LOPRESSOR) 25 mg tablet Take 1 tablet by mouth two times a day. Taking Yes multivitamin tablet Take 1 tablet by mouth once daily. Taking Yes Tadalafil (CIALIS) 10 mg tablet Take 1 tablet by mouth once daily as needed. Take 1-2 hours before sexual activity. Taking Yes lisinopril-hydroCHLOROthiazide (ZESTORETIC) 20-12.5 mg per tablet Take 1 tablet by mouth every morning. Taking Yes loratadine (CLARITIN) 10 mg tablet Take 1 tablet by mouth once daily. Taking Yes atorvastatin (LIPITOR) 80 mg tablet Take 1 tablet by mouth once daily. Taking Yes isosorbide mononitrate ER (IMDUR) 30 mg 24 hr tablet Take 1 tablet by mouth once daily. Taking Yes metFORMIN ER (GLUCOPHAGE XR) 500 mg 24 hr tablet Take 3 tablets by mouth daily with breakfast. Taking Yes Lancets lancets Test blood sugar(s) 1 times daily. Dx: Type 1 DM - Controlled E10.9 Insulin: No Taking Yes blood sugar diagnostic (BLOOD GLUCOSE TEST) test strip Test blood sugar(s) 1 times daily. Dx: Type 1 DM - Controlled E10.9 Insulin: No Taking Yes aspirin 81 mg chewable tablet Take 1 tablet by mouth once daily. Taking Yes Medication Comments documented by Jazmyn Lui MA on 02/13/2024 at 0943. Takes OTC Fish Oil daily. Takes Iron daily. Glucosamine Chondroitin ALLERGIES No Known Allergies Objective PHYSICAL EXAM: General: alert and oriented (x3), healthy appearance and obese. Pertinent negatives noted - not distressed. Skin: normal color, no rash or lesions. HEENT: EOM intact and pupils equal round. Pertinent negatives noted - no carotid bruit. Cardiovascular: Pulse characterized as irregular. Respiratory: normal breath sounds, no wheezes or crackles. No chest wall deformity or tenderness. Abdomen: soft. Pertinent negatives noted - not tender. Extremities: no deformity, no edema or tenderness, no joint swelling or clubbing. Neurological: normal cognition and motor skills. Gait normal. No weakness or sensory deficit. PAIN ASSESSMENT: Pain Pain Level: 6 Pain Location: Knee-Left Description: Sore Duration Units: Months Frequency: Intermittent Intervention/Comfort measure: Medication VITALS: BP 150/82 Pulse 98 Temp (Src) 98 (Temporal) Resp 16 Ht 5' 8 (1.73m) Wt 226 lb (102.5kg) SpO2 97% BMI 34.37 kg/(m^2). Diagnostic tests reviewed for today's visit: Lab Value Units Date High Low HB No results within date range. HCT No results within date range. WBC No results within date range. PLT No results within date range. NA 139 mmol/L 02/13/2024 144 136 K 4.2 mmol/L 02/13/2024 5.1 3.7 GLUC 148 mg/dL 02/13/2024 99 74 BUN 19 mg/dL 02/13/2024 24 9 CREAT 0.87 mg/dL 02/13/2024 1.22 0.73 PTSEC No results within date range. INR No results within date range. APTT No results within date range. ALT 34 U/L 02/13/2024 54 10 AST 29 U/L 02/13/2024 40 14 TBILI 0.6 mg/dL 02/13/2024 1.3 0.2 TSH No results within date range. Lab Value Units Date High Low HCGQT No results within date range. UHCG No results within date range. HCG, BODY* No results within date range. Lab Value Units Date High Low ABORHD No results within date range. ABSCREEN No results within date range. Hemoglobin A1C (%) Date Value 02/13/2024 7.6 08/02/2023 7.5 02/22/2023 7.6 08/03/2022 7.0 01/25/2022 7.0 04/13/2021 7.2 12/31/2019 6.7 06/02/2019 6.3 11/24/2018 6.3 05/26/2018 6.2 Recent Results (from the past 8760 hour(s)) ECG COMPLETE Collection Time: 06/18/24 4:57 PM Result Value Ventricular Rate 84 Atrial Rate 85 QRS Duration 94 QT Interval 370 QTC Calculation (Bazett) 437 Calculated R Rincon 44 Calculated T Rincon 19 Impression ATRIAL FIBRILLATION ABNORMAL ECG No results found for this or any previous visit (from the past 32094 hour(s)). Instructions Given to Patient: Instructions located in the after visit summary. Patient given verbal and written preop instructions and voices comprehension and compliance. SIGNATURE: Aspen Klein APRN.CNP PATIENT NAME: Jonathan Duncan DATE: June 18, 2024 TIME: 3:12 PM PAGER/CONTACT #: documented in this encounter [facility] 06-11-2024 Telephone encounter Note OK to refill as ordered Kerri Strickland MD [facility] 06-11-2024 Miscellaneous Notes OK to refill as ordered Kerri Strickland MD Prescription Refill Information The patient has been identified by name and date of : Yes Caregiver verified no other encounters exist for this prescription request: Yes Caregiver confirmed with patient/requestor that no other refills are due, in the near future, with this provider at this time: Yes The last office visit in the department: 05/07/2024 Does the patient have a future office visit with this provider/department: Yes Requested Prescriptions Pending Prescriptions Disp Refills meloxicam (MOBIC) 15 mg tablet 90 tablet 2 Sig: Take 1 tablet by mouth once daily. With food. metoprolol tartrate, short acting, (LOPRESSOR) 25 mg tablet 180 tablet 3 Sig: Take 1 tablet by mouth two times a day. [facility] 11, 2024 2:56 PM documented in this encounter [facility] 06-11-2024 Telephone encounter Note Prescription Refill Information The patient has been identified by name and date of : Yes Caregiver verified no other encounters exist for this prescription request: Yes Caregiver confirmed with patient/requestor that no other refills are due, in the near future, with this provider at this time: Yes The last office visit in the department: 05/07/2024 Does the patient have a future office visit with this provider/department: Yes Requested Prescriptions Pending Prescriptions Disp Refills meloxicam (MOBIC) 15 mg tablet 90 tablet 2 Sig: Take 1 tablet by mouth once daily. With food. metoprolol tartrate, short acting, (LOPRESSOR) 25 mg tablet 180 tablet 3 Sig: Take 1 tablet by mouth two times a day. [facility] June 11, 2024 2:56 PM [facility] 06-02-2024 Telephone encounter Note Surgery scheduled as requested. [facility] 06-02-2024 Miscellaneous Notes Surgery scheduled as requested. Patient scheduled for Left knee arthroscopic medial menisectomy and chondroplasty on 06/30/24. Surgical request completed. Post op appointments scheduled and mailed to the patient. documented in this encounter [facility] 06-01-2024 Telephone encounter Note Patient scheduled for Left knee arthroscopic medial menisectomy and chondroplasty on 06/30/24. Surgical request completed. Post op appointments scheduled and mailed to the patient. [facility] 05-31-2024 Note HNO ID: [id number] Author: BRAYDEN JOSEPH MD Service: ? Author Type: Physician Type: Progress Notes Filed: 06/22/2024 09:16 Note Text: Brayden Joseph MD Department of Orthopaedics Orthopaedics [address] [facility] [address] Dept: [phone] Dept May 31, 2024 CHIEF COMPLAINT: New and Pain of the Left Knee HPI Patient here today for left knee pain since March. States he was bent over to put meat in the freezer and felt a pop in the left knee. heard the pop in the next room. 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 X-ray completed 03/22/2024, MRI completed 05/18/2024. ASSESSMENT: M25.562 Acute pain of left knee M23.92 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 PLAN: We had a lengthy discussion about his MRI findings and current clinical situation with the knee. The risks, benefits, alternatives and potential complications involving both operative and nonoperative treatment were reviewed. He certainly has asymptomatic meniscus tear on top of some mild arthritic changes in the knee. Arthroscopic intervention is very appropriate in this situation. Due to some of his degenerative changes, he may not get 100% improvement, however the meniscus involvement appears to be a greater component then some of his cartilage loss. We have made the decision to move forward with a major orthopaedic surgery today, and this represents the moderate form of medical decision-making complexity. The patient's diagnosis of Acute pain of left knee 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 represents an acute pathology/diagnosis/injury that represents a current or possible direct threat to bodily function. We will get him scheduled at his convenience. FOLLOW UP INSTRUCTIONS: As above OBJECTIVE: Mr. Jonathan Duncan is a pleasant 69 year old in no apparent distress. Gen:There were no vitals taken for this visit. nl development, non obese, no deformities ENT: Normocephalic, normal hearing, moist mucosa CV: Pulses:DP/PT= 2+ and symmetric, capillary refill < 2 secs, no peripheral edema/varicosities Skin: no rash, bruising or lesions. Good turgor. Psych: cooperative and appropriate, alert and oriented x 3, good mood and affect. Musculoskeletal: Patient walks with mild antalgia on the left. Mild effusion is present. No patellofemoral crepitance. Tender to palpation along the posterior medial portion of the knee medial joint line. On tender over the distal femoral condyles. Painful Thesally's and Poonam's, without a mechanical component. Neurovascular exam in the extremities intact. IMAGING: IMPRESSION: MEDIAL MENISCAL TEAR. MILD-MODERATE OSTEOARTHRITIS, MOST PRONOUNCED IN THE MEDIAL COMPARTMENT. Trolley Coach Driver: CHANTELL Transcribe Date/Time: May 18 2024 1:05P Dictated by : CHANDA STRATTON DO This examination was interpreted and the report reviewed and electronically signed by: HARJINDER RODRÍGUEZ MD on May 18 2024 1:34PM EST Results-Findings * * *Final Report* * * DATE OF EXAM: May 18 2024 12:55PM [facility] 0212 - MRI KNEE WO IVCON LT / PROCEDURE REASON: multiple diagnoses * * * * Physician Interpretation * * * * EXAMINATION: MRI LEFT KNEE WITHOUT CONTRAST CLINICAL HISTORY: Worsening left knee pain for last 2 months, worse with weightbearing, twisting and bending. TECHNIQUE: Routine non-contrast MRI of the knee MQ: MRK_2B COMPARISON: Radiographs 03/22/2024 RESULT: MENISCI: Medial Meniscus: Complex tear in the posterior horn and body with displaced flap in the meniscotibial gutter and reactive edema and marrow signal in the adjacent tibia (12/29). Lateral Meniscus: Degenerative changes without a tear LIGAMENTS: ACL: Intact PCL: Intact MCL: Intact periligamentous edema favored to be reactive to the above-described meniscal tear, though low-grade sprain could appear similar. LCL Complex: Intact CARTILAGE: Medial Femoral Condyle: Moderate sized are a(s) of predominantly high grade (greater than 50% thickness) cartilage loss and or fissuring with smaller area(s) of full thickness cartilage loss and or fissuring Medial Tibial Plateau: Moderate sized area(s) of low grade (less than 50% thickness) partial thickness cartilage loss and or fissuring Lateral Femoral Condyle: Small area(s) of full thickness cartilage loss and or fissuring posteriorly Lateral Tibial Plateau: Normal Patella: Single high grade (greater than 50% thickness) cartilage fissure Trochlea: Small area(s) of full thickness cartilage loss and or fissuring TENDONS: The distal quadriceps and patellar tendons are intact. The popliteus tendon is intact. BONES AND MARROW: No evidence of fracture or bone marrow replacing process. Reactive subchondral cystic change/edema subjacent to areas of full-thickness cartilage loss. MUSCLES: Muscle bulk and signal intensity are normal. JOINT FLUID AND SYNOVIUM: Moderate joint (more content not included)... [facility] 05-31-2024 History of Presen t illness Narrative Brayden Joseph MD Department of Orthopaedics Orthopaedics [address] [facility] [address] Dept: [phone] Dept May 31, 2024 CHIEF COMPLAINT: New and Pain of the Left Knee HPI Patient here today for left knee pain since March. States he was bent over to put meat in the freezer and felt a pop in the left knee. heard the pop in the next room. 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 X-ray completed 03/22/2024, MRI completed 05/18/2024. ASSESSMENT: M25.562 Acute pain of left knee M23.92 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 PLAN: We had a lengthy discussion about his MRI findings and current clinical situation with the knee. The risks, benefits, alternatives and potential complications involving both operative and nonoperative treatment were reviewed. He certainly has asymptomatic meniscus tear on top of some mild arthritic changes in the knee. Arthroscopic intervention is very appropriate in this situation. Due to some of his degenerative changes, he may not get 100% improvement, however the meniscus involvement appears to be a greater component then some of his cartilage loss. We have made the decision to move forward with a major orthopaedic surgery today, and this represents the moderate form of medical decision-making complexity. The patient's diagnosis of Acute pain of left knee 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 represents an acute pathology/diagnosis/injury that represents a current or possible direct threat to bodily function. We will get him scheduled at his convenience. FOLLOW UP INSTRUCTIONS: As above OBJECTIVE: Mr. Jonathan Duncan is a pleasant 69 year old in no apparent distress. Gen:There were no vitals taken for this visit. nl development, non obese, no deformities ENT: Normocephalic, normal hearing, moist mucosa CV: Pulses:DP/PT= 2+ and symmetric, capillary refill < 2 secs, no peripheral edema/varicosities Skin: no rash, bruising or lesions. Good turgor. Psych: cooperative and appropriate, alert and oriented x 3, good mood and affect. Musculoskeletal: Patient walks with mild antalgia on the left. Mild effusion is present. No patellofemoral crepitance. Tender to palpation along the posterior medial portion of the knee medial joint line. On tender over the distal femoral condyles. Painful Thesally's and Poonam's, without a mechanical component. Neurovascular exam in the extremities intact. IMAGING: IMPRESSION: MEDIAL MENISCAL TEAR. MILD-MODERATE OSTEOARTHRITIS, MOST PRONOUNCED IN THE MEDIAL COMPARTMENT. Trolley Coach Driver: CHANTELL Transcribe Date/Time: May 18 2024 1:05P Dictated by : CHANDA STRATTON DO This examination was interpreted and the report reviewed and electronically signed by: HARJINDER RODRÍGUEZ MD on May 18 2024 1:34PM EST Results-Findings * * *Final Report* * * DATE OF EXAM: May 18 2024 12:55PM [facility] 0212 - MRI KNEE WO IVCON LT / PROCEDURE REASON: multiple diagnoses * * * * Physician Interpretation * * * * EXAMINATION: MRI LEFT KNEE WITHOUT CONTRAST CLINICAL HISTORY: Worsening left knee pain for last 2 months, worse with weightbearing, twisting and bending. TECHNIQUE: Routine non-contrast MRI of the knee MQ: MRK_2B COMPARISON: Radiographs 03/22/2024 RESULT: MENISCI: Medial Meniscus: Complex tear in the posterior horn and body with displaced flap in the meniscotibial gutter and reactive edema and marrow signal in the adjacent tibia (12/29). Lateral Meniscus: Degenerative changes without a tear LIGAMENTS: ACL: Intact PCL: Intact MCL: Intact periligamentous edema favored to be reactive to the above-described meniscal tear, though low-grade sprain could appear similar. LCL Complex: Intact CARTILAGE: Medial Femoral Condyle: Moderate sized are a(s) of predominantly high grade (greater than 50% thickness) cartilage loss and or fissuring with smaller area(s) of full thickness cartilage loss and or fissuring Medial Tibial Plateau: Moderate sized area(s) of low grade (less than 50% thickness) partial thickness cartilage loss and or fissuring Lateral Femoral Condyle: Small area(s) of full thickness cartilage loss and or fissuring posteriorly Lateral Tibial Plateau: Normal Patella: Single high grade (greater than 50% thickness) cartilage fissure Trochlea: Small area(s) of full thickness cartilage loss and or fissuring TENDONS: The distal quadriceps and patellar tendons are intact. The popliteus tendon is intact. BONES AND MARROW: No evidence of fracture or bone marrow replacing process. Reactive subchondral cystic change/edema subjacent to areas of full-thickness cartilage loss. MUSCLES: Muscle bulk and signal intensity are normal. JOINT FLUID AND SYNOVIUM: Moderate joint effusion. Mild synovitis. Small Gotti's cyst with adjacent ill-defined stranding, likely from prior rupture. OTHER: Anterior knee subcutaneous edema. Localizer images: No additional findings. Supporting Subjective Information Below: Past Medical History: PAST MEDICAL HISTORY Diagnosis Date Diabetes mellitus type 2, controlled, without complications (HCC) Hyperlipidemia Hypertension Prostate cancer (HCC) Snoring Past Surgical History: PAST SURGICAL HISTORY Procedure Laterality Date COLONOSCOPY 09/27/2022 repeat in 5 years, history of polyps. COLONOSCOPY FLX DX W/COLLJ SPEC WHEN PFRMD 05/15/2017 Colonoscopy EYE SURGERY HX PAST SURGICAL HISTORY OF 2013 Prostate cancer removed PAST SURGICAL HISTORY OF Right 2006 Cataract surgery PAST SURGICAL HISTORY OF 2004 Colonoscopy PAST SURGICAL HISTORY OF 2006 Hemorrhoidectomy PAST SURGICAL HISTORY OF 2012 Toe surgery, due to almost cutting toe off with chainshaw PAST SURGICAL HISTORY OF 2009 Colonoscopy Family History: FAMILY HISTORY Problem Relation Age of Onset Heart Mother Heart Father Age of 69, massive [place] Diabetes Father Heart Sister Heart Brother Diabetes Paternal Aunt Colon Cancer Paternal Uncle Social History: Social History Tobacco Use Smoking status: Former Types: Cigarettes Smokeless tobacco: Current Types: Chew Vaping Use Vaping status: Never Used Substance Use Topics Alcohol use: Yes Comment: 2 beers per day Drug use: No Medications: Current Outpatient Medications Medication Sig multivitamin tablet Take 1 tablet by mouth once daily. Tadalafil (CIALIS) 10 mg tablet Take 1 tablet by mouth once daily as needed. Take 1-2 hours before sexual activity. meloxicam (MOBIC) 15 mg tablet Take 1 tablet by mouth once daily. With food. lisinopril-hydroCHLOROthiazide (ZESTORETIC) 20-12.5 mg per tablet Take 1 tablet by mouth every morning. metoprolol tartrate, short acting, (LOPRESSOR) 25 mg tablet Take 1 tablet by mouth two times a day. loratadine (CLARITIN) 10 mg tablet Take 1 tablet by mouth once daily. atorvastatin (LIPITOR) 80 mg tablet Take 1 tablet by mouth once daily. isosorbide mononitrate ER (IMDUR) 30 mg 24 hr tablet Take 1 tablet by mouth once daily. metFORMIN ER (GLUCOPHAGE XR) 500 mg 24 hr tablet Take 3 tablets by mouth daily with breakfast. aspirin 81 mg chewable tablet Take 1 tablet by mouth once daily. colchicine 0.6 mg tablet TAKE 2 TABLETS BY MOUTH ONCE NOW AND THEN 1 TABLET ONCE IN 1 HOUR... (REFER TO PRESCRIPTION NOTES). Lancets lancets Test blood sugar(s) 1 times daily. Dx: Type 1 DM - Controlled E10.9 Insulin: No blood sugar diagnostic (BLOOD GLUCOSE TEST) test strip Test blood sugar(s) 1 times daily. Dx: Type 1 DM - Controlled E10.9 Insulin: No vitamin b complex (B COMPLETE) tab Take 1 tablet by mouth once daily. (Patient not taking: Reported on 05/31/2024) No current facility-administered medications for this visit. Allergies: Patient has no known allergies. ROS: General (negative for fatigue, malaise, weight loss/gain) HEENT (negative for headache, earache, recent vision changes, sinus pain, sore throat) Respiratory (no recent shortness of breath, hemoptysis) CV (negative for chest tightness, palpitations) Musculoskeletal (see HPI) Psych (no depression, anxiety) REFERRING PHYSICIAN: Consultation requested by Dr. Strickland for an opinion regarding left knee pain. My final recommendations will be communicated back to the requesting physician by way of shared Medical record or letter to requesting physician via US mail. Kerri Strickland [address] [facility] [id number] Kerri Strickland MD [address] [facility] [address] Brayden Joseph MD documented in this encounter [facility] 05-18-2024 Telephone encounter Note Patient notified. Verbalized understanding. [facility] 05-18-2024 Miscellaneous Notes Patient notified. Verbalized understanding. Please notify patient that his knee MRI does show a torn meniscus,so keep the aapt that he has with Dr Joseph.Kerri MD documented in this encounter [facility] 05-18-2024 Telephone encounter Note Please notify patient that his knee MRI does show a torn meniscus,so keep the aapt that he has with Dr Joseph.Kerri MD [facility] 05-18-2024 History of Presen t illness Narrative Radiology Service Progress Note PATIENT NAME: Jonathan Duncan DATE OF SERVICE: May 18, 2024 TIME: 12:30 PM PATIENT IDENTITY VERIFICATION COMPLETED USING TWO (2) IDENTIFIERS: Name and Date of confirmed by patient verbally. FALL SCREENING: Has the patient had 2 falls in the last year or 1 fall with injury or currently using an Ambulatory Assistive Device (Walker, Cane, Wheelchair, Crutches, etc.)? No PATIENT GENDER DATA: Male PATIENT RELEVANT IMPLANT DATA REVIEWED: Yes PATIENT PRESENTS WITH AN IMPLANTABLE OR ATTACHED DEXIGRAPH OPERATOR: No RADIOLOGY DEPARTMENT: MR; Exam(s) Completed: Lower MSK: Knee, left PERIPHERAL IV DATA: Not applicable SIGNED BY: RT Damari(R) May 18, 2024 12:30 PM documented in this encounter [facility] 05-18-2024 Note HNO ID: [id number] Author: SANAM FERGUSON RT(R) Service: ? Author Type: Technologist Type: Progress Notes Filed: 05/18/2024 12:31 Note Text: Radiology Service Progress Note PATIENT NAME: Jonathan Duncan DATE OF SERVICE: May 18, 2024 TIME: 12:30 PM PATIENT IDENTITY VERIFICATION COMPLETED USING TWO (2) IDENTIFIERS: Name and Date of confirmed by patient verbally. FALL SCREENING: Has the patient had 2 falls in the last year or 1 fall with injury or currently using an Ambulatory Assistive Device (Walker, Cane, Wheelchair, Crutches, etc.)? No PATIENT GENDER DATA: Male PATIENT RELEVANT IMPLANT DATA REVIEWED: Yes PATIENT PRESENTS WITH AN IMPLANTABLE OR ATTACHED DEXIGRAPH OPERATOR: No RADIOLOGY DEPARTMENT: MR; Exam(s) Completed: Lower MSK: Knee, left PERIPHERAL IV DATA: Not applicable SIGNED BY: RT Damari(R) May 18, 2024 12:30 PM [facility] 05-07-2024 History of Presen t illness Narrative Chief Complaint Patient presents with: Knee Pain: Left HPI Jonathan Duncan is a 69 year old male who presents here today for left knee pain. Pt here today with c/o continued left knee pain. Pt seen and evaluated in on 03/22/24. Pt reported at that visit of left knee pain and popping x 4 days. This started after his left knee popped when bending over. Pain located on the medial side of his knee, no radiation. Pain described as sharp with bearing weight and aching with twisting. Does improve with using Biofreeze. Pt had XR completed which was negative. Pt advised to continue supportive care for possible medial meniscus tear, use Ibuprofen as needed. Has Rx for Mobic 15 mg daily for his arthritis which hasn't been helping the knee pain. Advised to f/u with PCP or Ortho if pain not improving. Has not tried any heat or ice. Pt feels that the pain is getting worse. Pt does a lot of bending at his job. Has not tried using any braces. The knee will lock up at times and he feels like it could give out. Past medical history, appointments, medications, allergies reviewed. Previous Medical History PAST MEDICAL HISTORY Diagnosis Date Diabetes mellitus type 2, controlled, without complications (HCC) Hyperlipidemia Hypertension Prostate cancer (HCC) Snoring Previous Surgical History PAST SURGICAL HISTORY Procedure Laterality Date COLONOSCOPY 09/27/2022 repeat in 5 years, history of polyps. COLONOSCOPY FLX DX W/COLLJ SPEC WHEN PFRMD 05/15/2017 Colonoscopy EYE SURGERY HX PAST SURGICAL HISTORY OF 2013 Prostate cancer removed PAST SURGICAL HISTORY OF Right 2006 Cataract surgery PAST SURGICAL HISTORY OF 2004 Colonoscopy PAST SURGICAL HISTORY OF 2005 Hemorrhoidectomy PAST SURGICAL HISTORY OF 2011 Toe surgery, due to almost cutting toe off with chainshaw PAST SURGICAL HISTORY OF 2009 Colonoscopy Family History FAMILY HISTORY Problem Relation Age of Onset Heart Mother Heart Father Age of 69, massive [place] Diabetes Father Heart Sister Heart Brother Diabetes Paternal Aunt Colon Cancer Paternal Uncle Patient Allergies ALLERGIES No Known Allergies Current Medications Current Outpatient Medications on File Prior to Visit Medication Sig Tadalafil (CIALIS) 10 mg tablet Take 1 tablet by mouth once daily as needed. Take 1-2 hours before sexual activity. meloxicam (MOBIC) 15 mg tablet Take 1 tablet by mouth once daily. With food. colchicine 0.6 mg tablet TAKE 2 TABLETS BY MOUTH ONCE NOW AND THEN 1 TABLET ONCE IN 1 HOUR... (REFER TO PRESCRIPTION NOTES). lisinopril-hydroCHLOROthiazide (ZESTORETIC) 20-12.5 mg per tablet Take 1 tablet by mouth every morning. metoprolol tartrate, short acting, (LOPRESSOR) 25 mg tablet Take 1 tablet by mouth two times a day. loratadine (CLARITIN) 10 mg tablet Take 1 tablet by mouth once daily. atorvastatin (LIPITOR) 80 mg tablet Take 1 tablet by mouth once daily. isosorbide mononitrate ER (IMDUR) 30 mg 24 hr tablet Take 1 tablet by mouth once daily. metFORMIN ER (GLUCOPHAGE XR) 500 mg 24 hr tablet Take 3 tablets by mouth daily with breakfast. Lancets lancets Test blood sugar(s) 1 times daily. Dx: Type 1 DM - Controlled E10.9 Insulin: No blood sugar diagnostic (BLOOD GLUCOSE TEST) test strip Test blood sugar(s) 1 times daily. Dx: Type 1 DM - Controlled E10.9 Insulin: No aspirin 81 mg chewable tablet Take 1 tablet by mouth once daily. vitamin b complex (B COMPLETE) tab Take 1 tablet by mouth once daily. No current facility-administered medications on file prior to visit. Social History Social History Tobacco Use Smoking status: Former Types: Cigarettes Smokeless tobacco: Current Types: Chew Vaping Use Vaping status: Never Used Substance Use Topics Alcohol use: Yes Comment: 2 beers per day Drug use: No EXAM: BP 148/90 Pulse 84 Resp 18 Wt 104.4 kg (230 lb 2.6 oz) BMI 35.52 kg/m General Appearance: Well appearing, alert, in no acute distress, well-hydrated, well nourished. and Overweight. Extremities: left knee; moderate to large effusion, localized tenderness over medial joint line, positive Poonam test, on instability detected. Health Maintenance List Shingrix Vaccine(1 of 2) Never done BP Controlled (<130/80) due on 12/30/2020 Diabetic Foot Exam due on 04/18/2022 Advance Directive Discussion due on 06/16/2023 Influenza Vaccine(1) due on 02/15/2024 Covid-19 Vaccine( season) due on 02/15/2024 HbA1C due on 08/13/2024 Dilated Retinal Exam due on 09/25/2024 Urine Albumin:Creatinine Ratio due on 02/12/2025 LDL Cholesterol due on 02/12/2025 Annual PCP Team Chronic Disease Visit due on 02/12/2025 Depression Screening due on 02/12/2025 Anxiety Screening due on 02/12/2025 DTaP,Tdap,Td Vaccine(2 - Td or Tdap) due on 09/26/2025 Colorectal Cancer Screening due on 09/28/2027 RSV Vaccine(1 - 1-dose 75+ series) due on 2029 Abdominal Aortic Aneurysm Screening Completed Hepatitis C Screening Completed Pneumococcal Vaccine: 65+ Completed Data reviewed none ASSESSMENT/PLAN: 1. Acute pain of left knee - ICD9: 719.46, ICD10: M25.562 With ongoing pain and effusion internal derangement suspected; likely meniscal tear. Consult Ortho Get MRI left knee May try ice and continue with Mobic Follow up as needed. I agree with the Chief Complaint, ROS, and Past Histories independently gathered by the clinical academic support assistant and the remaining scribed note accurately describes my personal service to the patient. Medical Decision Making: Problems: Low: Acute, uncomplicated illness or injury Data: Unique test(s) ordered: 1 Risk: Low: Low risk from testing/treatment Medical Decision Making Level: 3 - Low Kerri Strickland MD The documentation for this note was completed by Joana Curry MA acting as scribe for Kerri Strickland MD. May 07, 2024 4:18 PM. Joana Curry MA documented in this encounter [facility] 05-07-2024 Note HNO ID: [id number] Author: KERRI STRICKLAND MD Service: ? Author Type: Physician Type: Progress Notes Filed: 05/07/2024 16:34 Note Text: Chief Complaint Patient presents with: Knee Pain: Left HPI Jonathan Duncan is a 69 year old male who presents here today for left knee pain. Pt here today with c/o continued left knee pain. Pt seen and evaluated in on 03/22/24. Pt reported at that visit of left knee pain and popping x 4 days. This started after his left knee popped when bending over. Pain located on the medial side of his knee, no radiation. Pain described as sharp with bearing weight and aching with twisting. Does improve with using Biofreeze. Pt had XR completed which was negative. Pt advised to continue supportive care for possible medial meniscus tear, use Ibuprofen as needed. Has Rx for Mobic 15 mg daily for his arthritis which hasn't been helping the knee pain. Advised to f/u with PCP or Ortho if pain not improving. Has not tried any heat or ice. Pt feels that the pain is getting worse. Pt does a lot of bending at his job. Has not tried using any braces. The knee will lock up at times and he feels like it could give out. Past medical history, appointments, medications, allergies reviewed. Previous Medical History PAST MEDICAL HISTORY Diagnosis Date Diabetes mellitus type 2, controlled, without complications (HCC) Hyperlipidemia Hypertension Prostate cancer (HCC) Snoring Previous Surgical History PAST SURGICAL HISTORY Procedure Laterality Date COLONOSCOPY 09/27/2022 repeat in 5 years, history of polyps. COLONOSCOPY FLX DX W/COLLJ SPEC WHEN PFRMD 05/15/2017 Colonoscopy EYE SURGERY HX PAST SURGICAL HISTORY OF 2014 Prostate cancer removed PAST SURGICAL HISTORY OF Right 2006 Cataract surgery PAST SURGICAL HISTORY OF 2004 Colonoscopy PAST SURGICAL HISTORY OF 2006 Hemorrhoidectomy PAST SURGICAL HISTORY OF 2011 Toe surgery, due to almost cutting toe off with chainshaw PAST SURGICAL HISTORY OF 2009 Colonoscopy Family History FAMILY HISTORY Problem Relation Age of Onset Heart Mother Heart Father Age of 69, massive [place] Diabetes Father Heart Sister Heart Brother Diabetes Paternal Aunt Colon Cancer Paternal Uncle Patient Allergies ALLERGIES No Known Allergies Current Medications Current Outpatient Medications on File Prior to Visit Medication Sig Tadalafil (CIALIS) 10 mg tablet Take 1 tablet by mouth once daily as needed. Take 1-2 hours before sexual activity. meloxicam (MOBIC) 15 mg tablet Take 1 tablet by mouth once daily. With food. colchicine 0.6 mg tablet TAKE 2 TABLETS BY MOUTH ONCE NOW AND THEN 1 TABLET ONCE IN 1 HOUR... (REFER TO PRESCRIPTION NOTES). lisinopril-hydroCHLOROthiazide (ZESTORETIC) 20-12.5 mg per tablet Take 1 tablet by mouth every morning. metoprolol tartrate, short acting, (LOPRESSOR) 25 mg tablet Take 1 tablet by mouth two times a day. loratadine (CLARITIN) 10 mg tablet Take 1 tablet by mouth once daily. atorvastatin (LIPITOR) 80 mg tablet Take 1 tablet by mouth once daily. isosorbide mononitrate ER (IMDUR) 30 mg 24 hr tablet Take 1 tablet by mouth once daily. metFORMIN ER (GLUCOPHAGE XR) 500 mg 24 hr tablet Take 3 tablets by mouth daily with breakfast. Lancets lancets Test blood sugar(s) 1 times daily. Dx: Type 1 DM - Controlled E10.9 Insulin: No blood sugar diagnostic (BLOOD GLUCOSE TEST) test strip Test blood sugar(s) 1 times daily. Dx: Type 1 DM - Controlled E10.9 Insulin: No aspirin 81 mg chewable tablet Take 1 tablet by mouth once daily. vitamin b complex (B COMPLETE) tab Take 1 tablet by mouth once daily. No current facility-administered medications on file prior to visit. Social History Social History Tobacco Use Smoking status: Former Types: Cigarettes Smokeless tobacco: Current Types: Chew Vaping Use Vaping status: Never Used Substance Use Topics Alcohol use: Yes Comment: 2 beers per day Drug use: No EXAM: BP 148/90 Pulse 84 Resp 18 Wt 104.4 kg (230 lb 2.6 oz) BMI 35.52 kg/m? General Appearance: Well appearing, alert, in no acute distress, well-hydrated, well nourished. and Overweight. Extremities: left knee; moderate to large effusion, localized tenderness over medial joint line, positive Poonam test, on instability detected. Health Maintenance List Shingrix Vaccine(1 of 2) Never done BP Controlled (<130/80) due on 12/30/2020 Diabetic Foot Exam due on 04/18/2022 Advance Directive Discussion due on 06/16/2023 Influenza Vaccine(1) due on 02/15/2024 Covid-19 Vaccine( season) due on 02/15/2024 HbA1C due on 08/13/2024 Dilated Retinal Exam due on 09/25/2024 Urine Albumin:Creatinine Ratio due on 02/12/2025 LDL Cholesterol due on 02/12/2025 Annual PCP Team Chronic Disease Visit due on 02/12/2025 Depression Screening due on 02/12/2025 Anxiety Screening due on 02/12/2025 DTaP,Tdap,Td Vaccine(2 - Td or Tdap) due on (more content not included)... [facility] 03-22-2024 History of Presen t illness Narrative Radiology Service Progress Note PATIENT NAME: Jonathan Duncan DATE OF SERVICE: March 22, 2024 TIME: 6:04 PM PATIENT IDENTITY VERIFICATION COMPLETED USING TWO (2) IDENTIFIERS: Name and Date of confirmed by patient verbally. FALL SCREENING: Has the patient had 2 falls in the last year or 1 fall with injury or currently using an Ambulatory Assistive Device (Walker, Cane, Wheelchair, Crutches, etc.)? No PATIENT GENDER DATA: Male PATIENT RELEVANT IMPLANT DATA REVIEWED: Not Applicable PATIENT PRESENTS WITH AN IMPLANTABLE OR ATTACHED DEXIGRAPH OPERATOR: No RADIOLOGY DEPARTMENT: General X-ray: Exam(s) Completed: Lower Extremity X-Ray(s): Knee, AP / Lat / Tunne / Merchant Left and Wt. Bearing PERIPHERAL IV DATA: Not applicable SIGNED BY: RT Cuauhtemoc(Mago) March 22, 2024 6:04 PM documented in this encounter [facility] 03-22-2024 Note HNO ID: [id number] Author: SEBASTIÁN LITTLE RT(R) Service: Radiology Author Type: Technologist Type: Progress Notes Filed: 03/22/2024 18:18 Note Text: Radiology Service Progress Note PATIENT NAME: Jonathan Duncan DATE OF SERVICE: March 22, 2024 TIME: 6:04 PM PATIENT IDENTITY VERIFICATION COMPLETED USING TWO (2) IDENTIFIERS: Name and Date of confirmed by patient verbally. FALL SCREENING: Has the patient had 2 falls in the last year or 1 fall with injury or currently using an Ambulatory Assistive Device (Walker, Cane, Wheelchair, Crutches, etc.)? No PATIENT GENDER DATA: Male PATIENT RELEVANT IMPLANT DATA REVIEWED: Not Applicable PATIENT PRESENTS WITH AN IMPLANTABLE OR ATTACHED DEXIGRAPH OPERATOR: No RADIOLOGY DEPARTMENT: General X-ray: Exam(s) Completed: Lower Extremity X-Ray(s): Knee, AP / Lat / Tunne / Merchant Left and Wt. Bearing PERIPHERAL IV DATA: Not applicable SIGNED BY: RT Cuauhtemoc(Mago) March 22, 2024 6:04 PM [facility] 03-22-2024 Note HNO ID: [id number] Author: KYLER MELO MD Service: ? Author Type: Physician Type: Progress Notes Filed: 03/22/2024 19:05 Note Text: Patient presents with: Knee Pain: left knee pain, popping x 4 days HPI: Left knee pain: Duration: left knee popped loudly when bending over 3 days ago. Location: medial left knee Character: sharp with weight, aches with twist Radiation: No. Aggravating: standing and walking Relieving: biofreeze Pain relievers: Associated: swelling Pertinent negatives: Denies numbness, bruising, giving out, crepitus MEDICATIONS: Tadalafil (CIALIS) 10 mg tablet Take 1 tablet by mouth once daily as needed. Take 1-2 hours before sexual activity. meloxicam (MOBIC) 15 mg tablet Take 1 tablet by mouth once daily. With food. colchicine 0.6 mg tablet TAKE 2 TABLETS BY MOUTH ONCE NOW AND THEN 1 TABLET ONCE IN 1 HOUR... (REFER TO PRESCRIPTION NOTES). lisinopril-hydroCHLOROthiazide (ZESTORETIC) 20-12.5 mg per tablet Take 1 tablet by mouth every morning. metoprolol tartrate, short acting, (LOPRESSOR) 25 mg tablet Take 1 tablet by mouth two times a day. loratadine (CLARITIN) 10 mg tablet Take 1 tablet by mouth once daily. atorvastatin (LIPITOR) 80 mg tablet Take 1 tablet by mouth once daily. isosorbide mononitrate ER (IMDUR) 30 mg 24 hr tablet Take 1 tablet by mouth once daily. metFORMIN ER (GLUCOPHAGE XR) 500 mg 24 hr tablet Take 3 tablets by mouth daily with breakfast. Lancets lancets Test blood sugar(s) 1 times daily. Dx: Type 1 DM - Controlled E10.9 Insulin: No blood sugar diagnostic (BLOOD GLUCOSE TEST) test strip Test blood sugar(s) 1 times daily. Dx: Type 1 DM - Controlled E10.9 Insulin: No aspirin 81 mg chewable tablet Take 1 tablet by mouth once daily. vitamin b complex (B COMPLETE) tab Take 1 tablet by mouth once daily. ALLERGIES: ALLERGIES No Known Allergies VITALS: BP 140/82 Pulse 68 Temp 36.4 ?C (97.6 ?F) Resp 16 Wt 104.9 kg (231 lb 4.2 oz) SpO2 97% BMI 35.69 kg/m? PHYSICAL EXAM: GEN: pleasant, alert, no acute distress KNEE: left compared to right. No erythema, effusion, or deformity. FROM without pain. No crepitus. Medial-anterior proximal tibial joint line tenderness. Stable to varus and valgus strain. Negative anterior drawer test. Negative posterior drawer test. Able to bear weight Latest Ref Rng 02/13/2024 eGFR >=60 mL/min/1.73m? 93 ASSESSMENT/PLAN: 1. Acute pain of left knee - ICD9: 719.46, ICD10: M25.562 - XR KNEE GENERAL 4V AP BOTH/PA BOTH/LAT/MERC LEFT - mild medial compartment narrowing. No fractures or lytic lesions. Radiology interpretation is pending. The patient will be notified if there is a significant finding in the report not discussed at the time of the visit. Continue supportive care for possible medial meniscus tear with biofreeze. Use as needed ibuprofen. Follow up with PCP or orthopedics if not improving. Kyler Melo MD [facility] 03-22-2024 History of Presen t illness Narrative Patient presents with: Knee Pain: left knee pain, popping x 4 days HPI: Left knee pain: Duration: left knee popped loudly when bending over 3 days ago. Location: medial left knee Character: sharp with weight, aches with twist Radiation: No. Aggravating: standing and walking Relieving: biofreeze Pain relievers: Associated: swelling Pertinent negatives: Denies numbness, bruising, giving out, crepitus MEDICATIONS: Tadalafil (CIALIS) 10 mg tablet Take 1 tablet by mouth once daily as needed. Take 1-2 hours before sexual activity. meloxicam (MOBIC) 15 mg tablet Take 1 tablet by mouth once daily. With food. colchicine 0.6 mg tablet TAKE 2 TABLETS BY MOUTH ONCE NOW AND THEN 1 TABLET ONCE IN 1 HOUR... (REFER TO PRESCRIPTION NOTES). lisinopril-hydroCHLOROthiazide (ZESTORETIC) 20-12.5 mg per tablet Take 1 tablet by mouth every morning. metoprolol tartrate, short acting, (LOPRESSOR) 25 mg tablet Take 1 tablet by mouth two times a day. loratadine (CLARITIN) 10 mg tablet Take 1 tablet by mouth once daily. atorvastatin (LIPITOR) 80 mg tablet Take 1 tablet by mouth once daily. isosorbide mononitrate ER (IMDUR) 30 mg 24 hr tablet Take 1 tablet by mouth once daily. metFORMIN ER (GLUCOPHAGE XR) 500 mg 24 hr tablet Take 3 tablets by mouth daily with breakfast. Lancets lancets Test blood sugar(s) 1 times daily. Dx: Type 1 DM - Controlled E10.9 Insulin: No blood sugar diagnostic (BLOOD GLUCOSE TEST) test strip Test blood sugar(s) 1 times daily. Dx: Type 1 DM - Controlled E10.9 Insulin: No aspirin 81 mg chewable tablet Take 1 tablet by mouth once daily. vitamin b complex (B COMPLETE) tab Take 1 tablet by mouth once daily. ALLERGIES: ALLERGIES No Known Allergies VITALS: BP 140/82 Pulse 68 Temp 36.4 C (97.6 F) Resp 16 Wt 104.9 kg (231 lb 4.2 oz) SpO2 97% BMI 35.69 kg/m PHYSICAL EXAM: GEN: pleasant, alert, no acute distress KNEE: left compared to right. No erythema, effusion, or deformity. FROM without pain. No crepitus. Medial-anterior proximal tibial joint line tenderness. Stable to varus and valgus strain. Negative anterior drawer test. Negative posterior drawer test. Able to bear weight Latest Ref Rng 02/13/2024 eGFR >=60 mL/min/1.73m 93 ASSESSMENT/PLAN: 1. Acute pain of left knee - ICD9: 719.46, ICD10: M25.562 - XR KNEE GENERAL 4V AP BOTH/PA BOTH/LAT/MERC LEFT - mild medial compartment narrowing. No fractures or lytic lesions. Radiology interpretation is pending. The patient will be notified if there is a significant finding in the report not discussed at the time of the visit. Continue supportive care for possible medial meniscus tear with biofreeze. Use as needed ibuprofen. Follow up with PCP or orthopedics if not improving. Kyler Melo MD documented in this encounter [facility] 03-22-2024 Telephone encounter Note Triage Protocol Advised: See provider within 24 hours. agreeable to give message to patient. Reason for Disposition [1] High-risk adult (e.g., age > 60 years, osteoporosis, chronic steroid use) AND [2] limping Answer Assessment - Initial Assessment Questions Patient's calling asking for advise for patient. Patient not available to triage. Patient is at work. states patient was bending over this past Friday evening and his left knee popped loudly. States patient has had discomfort and swelling to left knee since then. reports patient has been limping. states patient has no redness or bruising to knee, as of yesterday. Left knee has history of buckling or locking up at times. This nurse encouraged to have patient evaluated within 24 hours based on information given, unless pt has other severe sx's. No appts available this afternoon with PCP team or other providers. states she [facility]. . Protocols used: Knee [id number]-TL [facility] 03-22-2024 Miscellaneous Notes Triage Protocol Advised: See provider within 24 hours. agreeable to give message to patient. Reason for Disposition [1] High-risk adult (e.g., age > 60 years, osteoporosis, chronic steroid use) AND [2] limping Answer Assessment - Initial Assessment Questions Patient's calling asking for advise for patient. Patient not available to triage. Patient is at work. states patient was bending over this past Friday evening and his left knee popped loudly. States patient has had discomfort and swelling to left knee since then. reports patient has been limping. states patient has no redness or bruising to knee, as of yesterday. Left knee has history of buckling or locking up at times. This nurse encouraged to have patient evaluated within 24 hours based on information given, unless pt has other severe sx's. No appts available this afternoon with PCP team or other providers. states she will [facility] for [facility]. . Protocols used: Knee [id number] documented in this encounter [facility] 02-13-2024 History of Presen t illness Narrative Images from the original note were not included. Jonathan Duncan is a 68 year old male here for a Medicare wellness visit. Pt here today with his for a 6 month follow up/Medicare Wellness. Pt here today with his . Medicare Health Risk Assessment General Health Good Exercise: Minutes/Day 150+ min Exercise: Days/Week 5 days Alcohol: Daily Use 4 or more times a week Alcohol: Drinks/Day 1 or 2 Alcohol: 6 or more drinks Never Feel off balance No Concerns: Teeth/Dentures No Concerns: Sexual function Yes Troubled by feelings None of the above Frequency: Eating healthy diet Nearly every day ADLs requiring help None of the above Safety precautions in home/vehicle Yes (no grab bars in the bathroom) Smoke, vape, chews tobacco Yes, but I'm not ready to quit Difficulty hearing No Difficulty seeing No Current Providers Specialists: I have reviewed specialist-related care of the patient in the medical record. Current care team: Patient Care Team: Kerri Strickland MD as PCP - General (Family Medicine) CHRISTINA Palomino - Urology. Dr. Guillen - Ophthalmology [facility] in [place]. Dr. Egan - Podiatry Medical/Family history review Reviewed and updated problem list, medical/surgical/family/social history, medications, and allergies. Opioid use review Opioid Medications (last 90 days) No data to display Anxiety/Depression screening Recommendation: no further intervention at this time Cognitive screening Cognitive screening reviewed and No further action needed (score 3-5). Functional Observation Was the patient's Timed Up & Go test unsteady or ? 12 seconds? No Advance Care Planning Surrogate decision maker and/or advance care plan documented Measurements BP 122/74 (BP Site: Left Arm, BP Position: Sitting, BP Cuff Size: Regular Adult) Pulse (!) 58 Resp 18 Ht 171.5 cm (5' 7.5) Wt 103.4 kg (227 lb 15.3 oz) BMI 35.18 kg/m Vision Screening: Follows with optometry/ophthalmology Assessment/Plan - Counseled on healthy diet and regular exercise - Fall avoidance information provided - Personalized prevention plan provided Follow up in 1 year Kerri Strickland MD Chief Complaint Follow up; in additional to Medicare Wellness HPI Jonathan Duncan is a 68 year old male who presents here today for a 6 month follow up. Pt here today for his routine follow up with his . Labs ordered but not completed. Pt is fasting today. GI/Uro Denies any stomach, bowel or urinary issues. Follows with Christina Palomino for BPH. Due to see him. ED - Reports ED/sexual function issues. Not really wanting to try Viagra due to, too many guys have used this and had a LA with use. Did not hear anything regarding Cialis, will try this. HTN: Denies checking his BP at home, states he's fine. Denies any chest pain, sob or dizziness. Currently taking Lopressor 25 mg 1 pill BID, Imdur 30 mg once daily and Lisinopril-HCTZ 20-12.5 mg daily. Lipid: Taking Lipitor 80 mg daily and ASA 81 mg daily. Tolerating Lipitor well. Denies watching diet, eats what he wants. No formal exercise but does hard work daily due to hi job. DM: Currently taking Metformin xr 500 mg 3 pills once daily. Denies any hypoglycemic episodes and neuropathy sx. Does not check BS at home, but has asked if he needed to in the past. Allergies: Stable with Claritin 10 mg daily. Gout - Hx of gout. Had a previous episode of gout to the left great toe last year, no new flares since that time. He was evaluated at and given Colchicine 0.6 mg. Complains of decreased energy the last few months. Sleeps about 5-6 hours a night but that has been is normal forever. He does get tired around 2 pm, naps when he is off work. He denies any drowsiness while driving. He does snore some when really tired. No witnessed apnea. Has had sleep study done several years ago. Takes a one a day vitamin, Apple Cider Vinegar pill, and B 12 and B complex, a muscle strength supplement. 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 - Anxiety/Depression screening completed, negative. Denies Covid. Discussed Shingles/RSV through Pharmacy. Has Adv Dir/Living Will scanned into chart. Past medical history, appointments, medications, allergies reviewed. Previous Medical History PAST MEDICAL HISTORY No date: Diabetes mellitus type 2, controlled, without complications (HCC) No date: Hyperlipidemia No date: Hypertension No date: Prostate cancer (HCC) No date: Snoring Previous Surgical History PAST SURGICAL HISTORY 09/27/2022: COLONOSCOPY Comment: repeat in 5 years, history of polyps. 05/15/2017: COLONOSCOPY FLX DX W/COLLJ SPEC WHEN PFRMD Comment: Colonoscopy No date: EYE SURGERY HX 2014: PAST SURGICAL HISTORY OF Comment: Prostate cancer removed 2006: PAST SURGICAL HISTORY OF; Right Comment: Cataract surgery 2005: PAST SURGICAL HISTORY OF Comment: Colonoscopy 2006: PAST SURGICAL HISTORY OF Comment: Hemorrhoidectomy 2012: PAST SURGICAL HISTORY OF Comment: Toe surgery, due to almost cutting toe off with chainshaw 2010: PAST SURGICAL HISTORY OF Comment: Colonoscopy Family History FAMILY HISTORY Problem Relation Age of Onset Heart Mother Heart Father Age of 69, massive LA Diabetes Father Heart Sister Heart Brother Diabetes Paternal Aunt Colon Cancer Paternal Uncle Patient Allergies ALLERGIES No Known Allergies Current Medications Current Outpatient Medications on File Prior to Visit Medication Sig meloxicam (MOBIC) 15 mg tablet Take 1 tablet by mouth once daily. With food. colchicine 0.6 mg tablet TAKE 2 TABLETS BY MOUTH ONCE NOW AND THEN 1 TABLET ONCE IN 1 HOUR... (REFER TO PRESCRIPTION NOTES). lisinopril-hydroCHLOROthiazide (ZESTORETIC) 20-12.5 mg per tablet Take 1 tablet by mouth every morning. metoprolol tartrate, short acting, (LOPRESSOR) 25 mg tablet Take 1 tablet by mouth two times a day. loratadine (CLARITIN) 10 mg tablet Take 1 tablet by mouth once daily. atorvastatin (LIPITOR) 80 mg tablet Take 1 tablet by mouth once daily. isosorbide mononitrate ER (IMDUR) 30 mg 24 hr tablet Take 1 tablet by mouth once daily. metFORMIN ER (GLUCOPHAGE XR) 500 mg 24 hr tablet Take 3 tablets by mouth daily with breakfast. Lancets lancets Test blood sugar(s) 1 times daily. Dx: Type 1 DM - Controlled E10.9 Insulin: No blood sugar diagnostic (BLOOD GLUCOSE TEST) test strip Test blood sugar(s) 1 times daily. Dx: Type 1 DM - Controlled E10.9 Insulin: No aspirin 81 mg chewable tablet Take 1 tablet by mouth once daily. vitamin b complex (B COMPLETE) tab Take 1 tablet by mouth once daily. No current facility-administered medications on file prior to visit. Social History Social History Tobacco Use Smoking status: Former Types: Cigarettes Smokeless tobacco: Current Types: Chew Vaping Use Vaping status: Never Used Substance Use Topics Alcohol use: Yes Comment: 2 beers per day Drug use: No EXAM: BP 122/74 (BP Site: Left Arm, BP Position: Sitting, BP Cuff Size: Regular Adult) Pulse (!) 58 Resp 18 Ht 171.5 cm (5' 7.5) Wt 103.4 kg (227 lb 15.3 oz) BMI 35.18 kg/m General Appearance: Well appearing, alert, in no acute distress, well-hydrated, well nourished. and Obese. Lungs: Lungs clear to auscultation. No wheezing, rhonchi, rales.. Heart: RRR without murmur, gallop, or rubs. No ectopy. Health Maintenance List Depression Screening Never done Anxiety Screening Never done Shingrix Vaccine(1 of 2) Never done RSV Vaccine(1 - 1-dose 60+ series) Never done Diabetic Foot Exam due on 04/18/2022 Advance Directive Discussion due on 06/16/2023 Urine Albumin:Creatinine Ratio due on 08/03/2023 HbA1C due on 01/31/2024 LDL Cholesterol due on 02/23/2024 Covid-19 Vaccine( - season) due on 02/12/2025 Influenza Vaccine(1) due on 02/15/2024 BP Controlled (<130/80) due on 08/11/2024 Dilated Retinal Exam due on 09/25/2024 Annual PCP Team Chronic Disease Visit due on 02/12/2025 DTaP,Tdap,Td Vaccine(2 - Td or Tdap) due on 09/26/2025 Colorectal Cancer Screening due on 09/28/2027 Abdominal Aortic Aneurysm Screening Completed Hepatitis C Screening Completed Pneumococcal Vaccine: 65+ Completed Data reviewed None ASSESSMENT/PLAN: 1. HTN (hypertension), benign - ICD9: 401.1, ICD10: I10 - Controlled - Continue current medications - Recommend home blood pressure monitoring, to bring results to next visit - Encouraged sodium restriction, DASH or Mediterranean diet - Recommend regular aerobic exercise 2. Hyperlipidemia, unspecified hyperlipidemia type - ICD9: 272.4, ICD10: E78.5 - Check labs - Continue current medications - Counseled on healthy diet and regular exercise 3. Type 2 diabetes mellitus without complication, without long-term current use of insulin (HCC) - ICD9: 250.00, ICD10: E11.9 - Check labs today, will call with results. - Continue current medications - Counseled on healthy diet and regular exercise 4. Benign non-nodular prostatic hyperplasia without lower urinary tract symptoms - ICD9: 600.90, ICD10: N40.0 - Cont f/u with Urology 5. Acute gout involving toe of left foot, unspecified cause - ICD9: 274.01, ICD10: M10.9 - No further issues at this time. 6. Erectile dysfunction, unspecified erectile dysfunction type - ICD9: 607.84, ICD10: N52.9 - Start with Cialis, Rx sent in - Discussed how to use 7. Tobacco use current - ICD9: 305.1, ICD10: Z72.0 - Cessation encouraged. - Physiologic and physical aspects of tobacco addiction as well as strategies for quitting were discussed. - Counseling was given focusing on the harmful effects of this addiction especially given the patient's medical condition(s) which will be worsened because of the chemicals in tobacco. 8. Screening for depression - ICD9: V79.0, ICD10: Z13.31 - Negative - DEPRESSION SCREENING 9. Encounter for screening examination for other mental health and behavioral disorders - ICD9: V79.8, ICD10: Z13.39 negative - ANXIETY SCREENING Complete fasting labs today as ordered; notify of results Follow up in 6 months with labs. I agree with the Chief Complaint, ROS, and Past Histories independently gathered by the clinical academic support assistant and the remaining scribed note accurately describes my personal service to the patient. Medical Decision Making: Problems: Moderate: 2+ stable chronic illnesses Data: Unique test(s) ordered: 3+ Risk: Moderate: Drug management Medical Decision Making Level: 4 - Moderate Kerri Strickland MD The documentation for this note was completed by Jazmyn Lui MA acting as scribe for Kerri Strickland MD. February 13, 2024 10:04 AM. Jazmyn Lui MA documented in this encounter [facility] 11-21-2023 Telephone encounter Note OK to refill as ordered Kerri Strickland MD [facility] 11-21-2023 Miscellaneous Notes OK to refill as ordered Kerri Strickland MD Prescription Refill Information The patient has been identified by name and date of : Yes Caregiver verified no other encounters exist for this prescription request: Yes Caregiver confirmed with patient/requestor that no other refills are due, in the near future, with this provider at this time: No, refill sent to office by PSS who took call. The last office visit in the department: 08/11/23 Does the patient have a future office visit with this provider/department: Yes Requested Prescriptions Pending Prescriptions Disp Refills meloxicam (MOBIC) 15 mg tablet 90 tablet 2 Sig: Take 1 tablet by mouth once daily. With food. Joana Curry MA November 21, 2023 3:51 PM Patient has been identified by name and date of : Yes, Provider Kerri Strickland MD Date 11/21/2023 Time 3:42 pm Spouse phones for refill(s): Requested Prescriptions Pending Prescriptions Disp Refills meloxicam (MOBIC) 15 mg tablet 30 tablet 2 Sig: Take 1 tablet by mouth once daily. With food. Date of last office visit in primary care: 08/11/2023 Date of next office visit in primary care: 02/10/2024 Please advise. Thank you. Piper Juan. documented in this encounter [facility] 11-21-2023 Telephone encounter Note Prescription Refill Information The patient has been identified by name and date of : Yes Caregiver verified no other encounters exist for this prescription request: Yes Caregiver confirmed with patient/requestor that no other refills are due, in the near future, with this provider at this time: No, refill sent to office by PSS who took call. The last office visit in the department: 08/11/23 Does the patient have a future office visit with this provider/department: Yes Requested Prescriptions Pending Prescriptions Disp Refills meloxicam (MOBIC) 15 mg tablet 90 tablet 2 Sig: Take 1 tablet by mouth once daily. With food. Joana Curry MA November 21, 2023 3:[address] [facility] 11-21-2023 Telephone encounter Note Patient has been identified by name and date of : Yes, Provider Kerri Strickland MD Date 11/21/2023 Time 3:42 pm Spouse phones for refill(s): Requested Prescriptions Pending Prescriptions Disp Refills meloxicam (MOBIC) 15 mg tablet 30 tablet 2 Sig: Take 1 tablet by mouth once daily. With food. Date of last office visit in primary care: 08/11/2023 Date of next office visit in primary care: 02/10/2024 Please advise. Thank you. Piper Juan. [facility] 07-31-2023 Miscellaneous Notes Spoke with patient's . Notified scripts sent to [facility]. Loretta Garrido RN The following approved medication requests have been transmitted electronically. Requested Prescriptions Pending Prescriptions Disp Refills lisinopril-hydroCHLOROthiazide (ZESTORETIC) 20-12.5 mg per tablet 90 tablet 3 Sig: Take 1 tablet by mouth every morning. metoprolol tartrate, short acting, (LOPRESSOR) 25 mg tablet 180 tablet 3 Sig: Take 1 tablet by mouth two times a day. loratadine (CLARITIN) 10 mg tablet 90 tablet 3 Sig: Take 1 tablet by mouth once daily. atorvastatin (LIPITOR) 80 mg tablet 90 tablet 3 Sig: Take 1 tablet by mouth once daily. isosorbide mononitrate ER (IMDUR) 30 mg 24 hr tablet 90 tablet 3 Sig: Take 1 tablet by mouth once daily. metFORMIN ER (GLUCOPHAGE XR) 500 mg 24 hr tablet 270 tablet 3 Sig: Take 3 tablets by mouth daily with breakfast. Adina Pennington APRN.FOCUSED FACTORY MANAGER Patient has been identified by name and date of : Yes, Provider Date Time Spouse phones for refill(s): Requested Prescriptions Pending Prescriptions Disp Refills lisinopril-hydroCHLOROthiazide (ZESTORETIC) 20-12.5 mg per tablet 90 tablet 3 Sig: Take 1 tablet by mouth every morning. metoprolol tartrate, short acting, (LOPRESSOR) 25 mg tablet 180 tablet 4 Sig: Take 1 tablet by mouth two times a day. loratadine (CLARITIN) 10 mg tablet 90 tablet 3 Sig: Take 1 tablet by mouth once daily. atorvastatin (LIPITOR) 80 mg tablet 90 tablet 3 Sig: Take 1 tablet by mouth once daily. isosorbide mononitrate ER (IMDUR) 30 mg 24 hr tablet 90 tablet 3 Sig: Take 1 tablet by mouth once daily. metFORMIN ER (GLUCOPHAGE XR) 500 mg 24 hr tablet 270 tablet 3 Sig: Take 3 tablets by mouth daily with breakfast. Patient's calling to request scripts be sent to [facility]. Pended. Date of last office visit in primary care: 02/03/2023 Date of next office visit in primary care: 08/11/2023 Please advise. Thank you. Loretta Garrido RN. documented in this encounter [facility] 02-03-2023 History of Presen t illness Narrative Chief Complaint Patient presents with: 6 Month Exam HPI Jonathan Duncan is a 67 year old male who presents here today for 6 month follow up. No bowel, Gi, or urinary issues. He had colonoscopy done in September. Allergies: controlled with Claritin 10 mg daily. Lipid: Taking Lipitor 80 mg daily, tolerating well. Also taking 81 mg ASA daily. Tries to watch diet but denies any exercise. DM: Denies checking BS at home, no hypoglycemic episodes, no neuropathy sx. Taking Metformin xr 500 mg 2 pills once daily. HTN: Denies checking BP at home, no chest pains, dizziness, or SOB. He has had some lightheadedness that started this afternoon, stated it only lasts a few minutes and it is when he goes from sitting to standing. He has been drinking plenty of water and Gatorade, has not skipped any meals. Taking Lopressor 25 mg 1 pill BID, Lisinopril-HCTZ 20-12.5 mg daily and Imdur 30 mg daily. Following with Biomaterials Engineer Dr. Egan for Plantar Fasciitis, right foot. No longer uses Mobic. Past medical history, appointments, medications, allergies reviewed. Previous Medical History PAST MEDICAL HISTORY Diagnosis Date Diabetes mellitus type 2, controlled, without complications (HCC) Hyperlipidemia Hypertension Prostate cancer (HCC) Snoring Previous Surgical History PAST SURGICAL HISTORY Procedure Laterality Date COLONOSCOPY 09/27/2022 repeat in 5 years, history of polyps. COLONOSCOPY FLX DX W/COLLJ SPEC WHEN PFRMD 05/15/2017 Colonoscopy EYE SURGERY HX PAST SURGICAL HISTORY OF 2014 Prostate cancer removed PAST SURGICAL HISTORY OF Right 2006 Cataract surgery PAST SURGICAL HISTORY OF 2004 Colonoscopy PAST SURGICAL HISTORY OF 2005 Hemorrhoidectomy PAST SURGICAL HISTORY OF 2011 Toe surgery, due to almost cutting toe off with chainshaw PAST SURGICAL HISTORY OF 2009 Colonoscopy Family History FAMILY HISTORY Problem Relation Age of Onset Heart Mother Heart Father Age of 69, massive [place] Diabetes Father Heart Sister Heart Brother Diabetes Paternal Aunt Colon Cancer Paternal Uncle Patient Allergies ALLERGIES No Known Allergies Current Medications Current Outpatient Medications on File Prior to Visit Medication Sig metoprolol tartrate, short acting, (LOPRESSOR) 25 mg tablet Take 1 tablet by mouth twice daily. metFORMIN ER (GLUCOPHAGE XR) 500 mg 24 hr tablet Take 2 tablets by mouth daily with breakfast. loratadine (CLARITIN) 10 mg tablet Take 1 tablet by mouth once daily. atorvastatin (LIPITOR) 80 mg tablet Take 1 tablet by mouth once daily. isosorbide mononitrate ER (IMDUR) 30 mg 24 hr tablet Take 1 tablet by mouth once daily. lisinopril-hydroCHLOROthiazide (PRINZIDE,ZESTORETIC) 20-12.5 mg per tablet Take 1 tablet by mouth every morning. meloxicam (MOBIC) 15 mg tablet Take 1 tablet by mouth once daily. With food. triamcinolone (KENALOG) 0.025 % cream Apply to affected area twice daily. docosahexanoic acid/epa (FISH OIL ORAL) Take by mouth once daily. aspirin 81 mg chewable tablet Take 1 tablet by mouth once daily. vitamin b complex (B COMPLETE) tab Take 1 tablet by mouth once daily. No current facility-administered medications on file prior to visit. Social History Social History Tobacco Use Smoking status: Former Types: Cigarettes Smokeless tobacco: Current Types: Chew Vaping Use Vaping Use: Never used Substance Use Topics Alcohol use: Yes Comment: 2 beers per day Drug use: No EXAM: BP 124/78 Pulse 78 Resp 16 Wt 100.2 kg (220 lb 12.8 oz) BMI 32.61 kg/m General Appearance: Well appearing, alert, in no acute distress, well-hydrated, well nourished.. Lungs: Lungs clear to auscultation. No wheezing, rhonchi, rales.. Heart: RRR without murmur, gallop, or rubs. No ectopy. Health Maintenance List SHINGRIX VACCINE(1 of 2) Never done PNEUMOCOCCAL: 65+(2 - PPSV23 or PCV20) due on 07/28/2019 BP CONTROLLED (<130/80) due on 12/30/2020 COVID-19 VACCINE(4 - Moderna series) due on 08/06/2021 DIABETIC FOOT EXAM due on 04/18/2022 HBA1C due on 01/31/2023 INFLUENZA(1) due on 02/14/2023 ANNUAL PCP TEAM CHRONIC DISEASE VISIT due on 08/02/2023 URINE ALBUMIN:CREATININE RATIO due on 08/03/2023 LDL CHOLESTEROL due on 08/03/2023 DILATED RETINAL EXAM due on 08/31/2023 PROSTATE CANCER SCREENING DISCUSSION due on 06/04/2024 DTAP,TDAP,TD(2 - Td or Tdap) due on 09/26/2025 COLORECTAL CANCER SCREENING due on 09/28/2027 ABDOMINAL AORTIC ANEURYSM SCREENING Completed ADVANCE DIRECTIVE DISCUSSION Completed DEPRESSION ASSESSMENT Completed HEPATITIS C SCREENING Completed HPV VACCINE Aged Out Data reviewed none ASSESSMENT/PLAN: 1. Need for vaccination - ICD9: V05.9, ICD10: Z23 (primary diagnosis) - PNEUMOCOCCAL VACCINE (PNEUMOVAX 23) 2. HTN (hypertension), benign - ICD9: 401.1, ICD10: I10 - Controlled - Continue current medications - Monitor orthostatic lightheadedness, call if worsens - LISINOPRIL 20 MG-HYDROCHLOROTHIAZIDE 12.5 MG TABLET - COMP METABOLIC PANEL - CBC 3. Type 2 diabetes mellitus without complication, without long-term current use of insulin (HCC) - ICD9: 250.00, ICD10: E11.9 - Controlled - Continue current medications - Check labs; notify of results - LISINOPRIL 20 MG-HYDROCHLOROTHIAZIDE 12.5 MG TABLET - HOME BLOOD GLUCOSE MONITOR - LANCETS - COMP METABOLIC PANEL - HGB A1C - LIPID PANEL BASIC - CBC Notify of lab reuslts Follow up in 6 months I agree with the Chief Complaint, ROS, and Past Histories independently gathered by the clinical academic support assistant and the remaining scribed note accurately describes my personal service to the patient. Medical Decision Making: Problems: Moderate: 2+ stable chronic illnesses Data: Unique test(s) ordered: 3+ Risk: Moderate: Drug management Medical Decision Making Level: 4 - Moderate Kerri Strickland MD The documentation for this note was completed by Joana Curry Ma acting as scribe for Kerri Strickland MD. February 03, 2023 6:27 PM. Joana Curry Ma documented in this encounter [facility] 08-20-2022 Instructions Bobby Egan - 08/20/2022 3:48 PM EST Images from the original note were not included. Diabetes Foot Care Instructions When you have diabetes, proper foot care is very important. Poor foot care may lead to amputation of a foot or leg. As a person with diabetes, you are more vulnerable to foot problems, because diabetes can damage your nerves and reduce blood flow to your feet. Here are some diabetes foot care tips to follow: Wash and Dry Your Feet Daily Use mild soaps Use warm water Pat your skin dry; do not rub. Thoroughly dry your feet. After washing, use lotion on your feet to prevent cracking. Do not put lotion between your toes. Examine Your Feet Each Day Check the tops and bottoms of your feet. Have someone else look at your feet if you cannot see them. Check for dry, cracked skin. Look for blisters, cuts, scratches, or other sores. Check for redness, increased warmth, or tenderness when touching any area of your feet. Check for ingrown toenails, corns, and calluses. If you get a blister or sore from your shoes, do not pop it. Apply a bandage and wear a different pair of shoes. Take Care of Your Toenails Cut toenails after bathing, when they are soft. Cut toenails straight across and smooth with a nail file. Avoid cutting into the corners of toes. Do not cut cuticles. If you have neuropathy (or decreased sensation in your feet) a outsole rounder should always cut your toenails. Be Careful When Exercising Walk and exercise in comfortable shoes. Do not exercise when you have open sores on your feet. Protect Your Feet With Shoes and Socks Never go barefoot. Always protect your feet by wearing shoes or hard-soled slippers or footwear. Avoid shoes with high heels and pointed toes. Avoid shoes that expose your toes or heels (such as open-toed shoes or sandals). These types of shoes increase your risk for injury and potential infections. Try on new footwear with the type of socks you usually wear. Do not wear new shoes for more than an hour at a time. Change your socks daily. Look and feel inside your shoes before putting them on to make sure there are no foreign objects or rough areas. Avoid tight socks. Wear natural-fiber socks (cotton, wool, or a cotton-wool blend). Wear special shoes if your health care provider recommends them. Wear shoes/boots that will protect your feet from various weather conditions (cold, moisture, etc.). Make sure your shoes fit properly. If you have neuropathy (nerve damage), you may not notice that your shoes are too tight. Perform the footwear test described below. Footwear Test Use this simple test to see if your shoes fit correctly: Stand on a piece of paper. (Make sure you are standing and not sitting, because your foot changes shape when you stand.) Trace the outline of your foot. Trace the outline of your shoe. Compare the tracings: Is the shoe too narrow? Is your foot crammed into the shoe? The shoe should be at least 1/2 inch longer than your longest toe and as wide as your foot. Proper Shoe Choices The following types of shoes are best for people with diabetes Closed toes and heels Leather uppers without a seam inside At least 1/2 inch extra space at the end of your longest toe Inside of shoe should be soft with no rough areas Outer sole should be made of stiff material Shoes should be at least as wide as your feet Tips for Foot Care in Diabetes Don't wait to treat a minor foot problem if you have diabetes. Follow your health care provider's guidelines and first aid guidelines. Report foot injuries and infections to your health care provider immediately. Check water temperature with your elbow, not your foot. Do not use a heating pad on your feet. Do not cross your legs. Do not self-treat your corns, calluses, or other foot problems. Go to your health care provider or outsole rounder to treat these conditions. What is Plantar Fasciitis? Plantar fasciitis is the most common cause of heel pain. The pain is caused by inflammation of the plantar fascia. If you strain your plantar fascia, it becomes weak, swollen and irritated (inflamed). The resulting pain may be isolated in the heel or may appear at different points on the bottom of the foot, from time to time; it may occur in one foot or both. Some think that plantar fasciitis pain is caused by irritation of nerves from tissue swelling or inflammation, but it is debatable. Plantar fasciitis is common in middle-aged people; it also occurs in younger people who are on their feet a lot, such as athletes or soldiers. The plantar fascia is a strong band of connective tissue that extends from the base of the toes, along the bottom of the foot, to the bottom of the heel (calcaneous bone); it acts like a bowstring to maintain the arch of the foot. What are heel spurs? The inflammatory reaction of the heel bone may produce spike-like projections of new bone, called heel spurs. The spurs sometimes show on X-rays. They neither cause the initial pain nor do they cause the initial problem. However, later, having to walk on spurs may cause sharp pain. What causes plantar fasciitis? Plantar fasciitis is caused by straining the ligament that supports your arch. Repeated strain can cause tiny tears in the ligament. These lead to pain and swelling. During walking, the plantar fascia experiences tension up to twice the body weight with each step. While this is normal, those who spend much time on their feet, such as nurses, chemical process equipment operator/waiters, and mail carriers, often experience plantar fasciitis. Athletes involved in tennis or other racquet sports, race walking, jogging or running also show a higher incidence of plantar fasciitis than do those participating in other activities. Thus, it's clear that plantar fasciitis is predominantly an overuse injury. In fact, any activity that results in prolonged tension and stress on the plantar fascia may cause plantar fasciitis. It is possible that changes in footwear may play a role in causing plantar fasciitis, no matter what activity is occurring. Those who are overweight are prone to plantar fasciitis. This is true even for sedentary people who get little physical activity. Abnormalities of the foot and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 VACCINE(4 - Booster for Moderna series) due on 10/10/2021 INFLUENZA(1) due on 02/14/2022 URINE ALBUMIN:CREATININE RATIO due on 04/13/2022 DIABETIC FOOT EXAM due on 04/18/2022 DEPRESSION SCREENING due on 04/18/2022 HBA1C due on 04/21/2022 COLORECTAL CANCER SCREENING due on 05/15/2022 LDL CHOLESTEROL due on 10/19/2022 ANNUAL PCP TEAM CHRONIC DISEASE VISIT due on 10/19/2022 PROSTATE CANCER SCREENING DISCUSSION due on 06/04/2024 DTAP,TDAP,TD(2 - Td or Tdap) due on 09/26/2025 ABDOMINAL AORTIC ANEURYSM SCREENING Completed ADVANCE DIRECTIVE DISCUSSION Completed HEPATITIS C SCREENING Completed Data reviewed None ASSESSMENT/PLAN: 1. HTN (hypertension), benign - ICD9: 401.1, ICD10: I10 (primary diagnosis) - good control - Continue current medication(s) - Recommended regular aerobic exercise. - Rx for combination pill lisinopril- HCTZ - Goal of BP <140/90 - BASIC METABOLIC PNL 2. Hyperlipidemia, unspecified hyperlipidemia type - ICD9: 272.4, ICD10: E78.5 - good control - Continue current medication. - Discussed the benefits of regular aerobic exercise and weight loss. 3. Type 2 diabetes mellitus without complication, without long-term current use of insulin (HCC) - ICD9: 250.00, ICD10: E11.9 Controlled. - Continue current medications - Check HgA1C and BMP - HGB A1C - BASIC METABOLIC PNL 4. Malignant neoplasm of prostate (HCC) - ICD9: 185, ICD10: C61 Symptomatic treatment for thumb Notify pt of results Follow up in 6 months Due for repeat colonoscopy at the end of the year; tubular adenoma removed 05/15/[address] Forrester Medical Decision Making: Problems: Moderate: 2+ stable chronic illnesses Data: Unique test(s) ordered: 2 Risk: Moderate: Drug management Medical Decision Making Level: 4 - Moderate Kerri Strickland MD documented in this encounter [facility] 10-22-2021 Miscellaneous Notes Letter mailed to pt home of results. Joana Curry MA Please inform patient that his Hgb A1c improved to 6.3%. Cholesterol panel looks good. Complete blood count is normal. Kidney function is normal. Continue with current medications and follow up in 3 months with labs prior. Hugo Manzo APRN.RICHY documented in this encounter [facility] 10-19-2021 History of Presen t illness Narrative Chief Complaint Patient presents with: F/U 3 Month HPI Jonathan Duncan is a 66 year old male who presents here today for 3 month follow up. Here today for a 3 month follow up. with him today. Lisinopril increased for better BP control last visit. Overall feels good; active;l able to work hard without problems. Limiting beers to 2/day average. GI - Due for Colonoscopy, not due til 04/2022. Pt states that he went put under for his procedure. HTN: Denies any chest pains, dizziness, or SOB. Does not check BP at home. Taking Imdur 30 mg daily, Lisinopril 20 mg daily and Lopressor 25 mg BID. Reports that since starting the Lisinopril 20 mg daily he seems to be more tired. Unsure if this the cause. Lipid: Taking Lipitor 80 mg daily, tolerating well. Denies watching diet or getting exercise. DM: Taking Metformin xr 500 mg 2 pills once daily. No hypoglycemic episodes, no neuropathy sx. Does not check BS at home. Lump - Lump on the bottom of his left foot that he noticed a few days ago, while sitting in his chair. Denies any pain at that area. Allergies - Asking for an Rx of Claritin 10 mg to be sent to [facility]. This is covered by his insurance. - Has Adv Dir/Living Will. Past medical history, appointments, medications, allergies reviewed. Previous Medical History PAST MEDICAL HISTORY Diagnosis Date Diabetes mellitus type 2, controlled, without complications (HCC) Hyperlipidemia Hypertension Prostate cancer (HCC) Snoring Previous Surgical History PAST SURGICAL HISTORY Procedure Laterality Date COLONOSCOPY FLX DX W/COLLJ SPEC WHEN PFRMD 05/15/2017 Colonoscopy PAST SURGICAL HISTORY OF 2014 Prostate cancer removed PAST SURGICAL HISTORY OF Right 2006 Cataract surgery PAST SURGICAL HISTORY OF 2005 Colonoscopy PAST SURGICAL HISTORY OF 2006 Hemorrhoidectomy PAST SURGICAL HISTORY OF 2012 Toe surgery, due to almost cutting toe off with chainshaw PAST SURGICAL HISTORY OF 2009 Colonoscopy Family History FAMILY HISTORY Problem Relation Age of Onset Heart Mother Heart Father Age of 69, massive [place] Diabetes Father Diabetes Paternal Aunt Heart Sister Heart Brother Patient Allergies ALLERGIES No Known Allergies Current Medications Current Outpatient Medications on File Prior to Visit Medication Sig lisinopril (PRINIVIL) 20 mg tablet Take 1 tablet by mouth once daily. atorvastatin (LIPITOR) 80 mg tablet Take 1 tablet by mouth once daily. isosorbide mononitrate ER (IMDUR) 30 mg 24 hr tablet Take 1 tablet by mouth once daily. metFORMIN ER (GLUCOPHAGE XR) 500 mg 24 hr tablet Take 2 tablets by mouth daily with breakfast. metoprolol tartrate, short acting, (LOPRESSOR) 25 mg tablet Take 1 tablet by mouth twice daily. triamcinolone (KENALOG) 0.025 % cream Apply to affected area twice daily. docosahexanoic acid/epa (FISH OIL ORAL) Take by mouth once daily. aspirin 81 mg chewable tablet Take 1 tablet by mouth once daily. vitamin b complex (B COMPLETE) tab Take 1 tablet by mouth once daily. No current facility-administered medications on file prior to visit. Social History Social History Tobacco Use Smoking status: Former Smoker Smokeless tobacco: Current User Types: Chew Substance Use Topics Alcohol use: Yes Drug use: No EXAM: BP 148/84 Pulse 68 Resp 16 Wt 100 kg (220 lb 6.4 oz) BMI 32.55 kg/m General Appearance: Well appearing, alert, in no acute distress, well-hydrated, well nourished.. Lungs: Lungs clear to auscultation. No wheezing, rhonchi, rales.. Heart: RRR without murmur, gallop, or rubs. No ectopy. Left foot: small nodule med foot; round, moveable, non-tender. Health Maintenance List SHINGRIX VACCINE(1 of 2) Never done PNEUMOVAX AGE 65 AND OVER WITH 5YR LOOKBACK(1) Never done BP CONTROLLED (<130/80) due on 12/30/2020 ADVANCE DIRECTIVE DISCUSSION Never done DILATED RETINAL EXAM due on 08/19/2021 HBA1C due on 10/12/2021 URINE ALBUMIN:CREATININE RATIO due on 04/13/2022 LDL CHOLESTEROL due on 04/13/2022 DIABETIC FOOT EXAM due on 04/18/2022 DEPRESSION SCREENING due on 04/18/2022 COLORECTAL CANCER SCREENING due on 05/15/2022 ANNUAL PCP TEAM CHRONIC DISEASE VISIT due on 07/24/2022 PROSTATE CANCER SCREENING DISCUSSION due on 06/04/2024 DTAP,TDAP,TD(2 - Td or Tdap) due on 09/26/2025 ABDOMINAL AORTIC ANEURYSM SCREENING Completed INFLUENZA Completed HEPATITIS C SCREENING Completed COVID-19 VACCINE Completed MENINGOCOCCAL CONJUGATE Aged Out Data reviewed Labs ordered ASSESSMENT/PLAN: 1. Type 2 diabetes mellitus without complication, without long-term current use of insulin (HCC) - ICD9: 250.00, ICD10: E11.9 (primary diagnosis) - COMP METABOLIC PANEL - LIPID PANEL, NONFASTING - HGB A1C 2. HTN (hypertension), benign - ICD9: 401.1, ICD10: I10 - CBC 3. Hyperlipidemia, unspecified hyperlipidemia type - ICD9: 272.4, ICD10: E78.5 - COMP METABOLIC PANEL - LIPID PANEL, NONFASTING Monitor foot nodule; no treatment needed Will get labs today Add HCTZ 12.5 mg daily for better BP control Notify of lab results Follow up in 3 months Medical Decision Making: Problems: Moderate: 2+ stable chronic illnesses Data: Unique test(s) ordered: 3+ Risk: Moderate: Drug management Medical Decision Making Level: 4 - Moderate Kerri Strickland MD documented in this encounter [facility] 06-05-2017 History of Past i llness Narrative Problem Noted Date Diagnosed Date Resolved Date Malignant neoplasm of prostate 06/05/2017 02/03/2023 Prostate cancer 05/07/2016 02/03/2023 documented as of this encounter (statuses as of 02/04/2023) [facility] History of Past illness Narrative* Problem Noted Date Diagnosed Date Resolved Date Malignant neoplasm of prostate 06/05/2017 02/03/2023 Prostate cancer 05/07/2016 02/03/2023 documented as of this encounter (statuses as of 07/31/2023) [facility] Diagnosis Type 2 diabetes mellitus without complication, without long-term current use of insulin (HCC)- Primary HTN (hypertension), benign Essential hypertension, benign Hyperlipidemia, unspecified hyperlipidemia type [facility] Diagnosis Type 2 diabetes mellitus without complication, without long-term current use of insulin (HCC)- Primary [facility] Diagnosis HTN (hypertension), benign- Primary Essential hypertension, benign Hyperlipidemia, unspecified hyperlipidemia type Type 2 diabetes mellitus without complication, without long-term current use of insulin (HCC) Malignant neoplasm of prostate (HCC) Malignant neoplasm of prostate [facility] Visit for suture removal- Primary Encounter for removal of sutures [facility] Diagnosis Plantar fasciitis- Primary Plantar fascial fibromatosis Foot pain, right Pain in limb Nail dystrophy Other specified disease of nail [facility] Diagnosis HTN (hypertension), benign- Primary Essential hypertension, benign Need for vaccination Need for prophylactic vaccination and inoculation against unspecified single disease Type 2 diabetes mellitus without complication, without long-term current use of insulin (HCC) [facility]* Diagnosis HTN (hypertension), benign Essential hypertension, benign Type 2 diabetes mellitus without complication, without long-term current use of insulin (HCC) Hyperlipidemia, unspecified hyperlipidemia type [facility]* Diagnosis Foot pain, right Pain in limb [facility] Diagnosis Encounter for Medicare annual wellness exam- Primary Routine general medical examination at a health care facility HTN (hypertension), benign Essential hypertension, benign Hyperlipidemia, unspecified hyperlipidemia type Type 2 diabetes mellitus without complication, without long-term current use of insulin (HCC) Benign non-nodular prostatic hyperplasia without lower urinary tract symptoms Acute gout involving toe of left foot, unspecified cause Erectile dysfunction, unspecified erectile dysfunction type Tobacco use current Screening for depression Encounter for screening examination for other mental health and behavioral disorders [facility] Diagnosis Foot pain, right Pain in limb [facility] Acute pain of left knee- Primary Acute pain of left knee [facility]* Diagnosis Acute pain of left knee [facility]* Diagnosis Acute pain of left knee- Primary 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 [facility]* Diagnosis Acute pain of left knee 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 [facility]* Diagnosis Internal derangement of left knee- Primary Unspecified internal derangement of knee Left knee pain, unspecified chronicity Internal derangement of left knee Unspecified internal derangement of knee Left knee pain, unspecified chronicity [facility]* Diagnosis Foot pain, right Pain in limb HTN (hypertension), benign Essential hypertension, benign Internal derangement of left knee Unspecified internal derangement of knee Left knee pain, unspecified chronicity [facility] Diagnosis Pre-operative examination- Primary Preoperative examination, unspecified Atrial fibrillation, unspecified type (HCC) HTN (hypertension), benign Essential hypertension, benign Hyperlipidemia, unspecified hyperlipidemia type Type 2 diabetes mellitus without complication, without long-term current use of insulin (HCC) Benign non-nodular prostatic hyperplasia without lower urinary tract symptoms Coronary artery disease involving [place] coronary artery of [place] heart with angina pectoris (HCC) * Assessment & Plan Note - Aspen Klein APRN.CNP - 06/21/2024 11:52 AM EST Associated Problem(s): New onset a-fib (HCC) Assessment: found on pre-op EKG today, asymptomatic, currently taking daily ASA, cardiac optimization appt made with [facility] for patient. Informed pt to remain on ASA therapy until cardiology appt * Assessment & Plan Note - Aspen Klein APRN.CNP - 06/21/2024 11:49 AM EST Associated Problem(s): Coronary artery disease involving [place] coronary artery of [place] heart with angina pectoris (HCC) Assessment: pending cardiac optimization due to abnormal EKG,non-obstructing per 2014 heart cath SUMMARY: Normal LV systolic function with moderate 1-vessel distal coronary disease. * Assessment & Plan Note - Aspen Klein APRN.CNP - 06/21/2024 11:48 AM EST Associated Problem(s): Benign non-nodular prostatic hyperplasia without lower urinary tract symptoms Assessment: controlled on rx * Assessment & Plan Note - Aspen Klein APRN.CNP - 06/21/2024 11:48 AM EST Associated Problem(s): Type 2 diabetes mellitus without complication, without long-term current useof insulin (HCC) Assessment: controlled on oral agent\ Hemoglobin A1C (%) Date Value 02/13/2024 7.6 04/13/2021 7.2 * Assessment & Plan Note - Aspen Klein APRN.CNP - 06/21/2024 11:47 AM EST Associated Problem(s): Hyperlipidemia Assessment: c/w statin * Assessment & Plan Note - Aspen Klein APRN.CNP - 06/21/2024 11:47 AM EST Associated Problem(s): HTN (hypertension), benign Assessment: controlled on rx Last 14 BP Last 14 Encounter BP Readings: Date: BP: 06/18/2024 150/82 05/07/2024 148/90 03/22/2024 140/82 02/13/2024 122/74 08/11/2023 126/74 02/03/2023 124/78 09/27/2022 133/73 08/20/2022 138/88 08/02/2022 138/88 04/15/2022 124/72 01/25/2022 138/80 10/19/2021 148/84 07/24/2021 148/82 04/18/2021 160/90 documented in this encounter [facility] note* Diagnosis Acute pain of left knee 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 Pre-operative examination- Primary Preoperative examination, unspecified Atrial fibrillation, unspecified type (HCC) HTN (hypertension), benign Essential hypertension, benign Hyperlipidemia, unspecified hyperlipidemia type Type 2 diabetes mellitus without complication, without long-term current use of insulin (HCC) Benign non-nodular prostatic hyperplasia without lower urinary tract symptoms Coronary artery disease involving [place] coronary artery of [place] heart with angina pectoris (HCC) documented in this encounter [facility] note* Diagnosis Pre-operative examination- Primary Preoperative examination, unspecified Atrial fibrillation, unspecified type (HCC) HTN (hypertension), benign Essential hypertension, benign Hyperlipidemia, unspecified hyperlipidemia type Type 2 diabetes mellitus without complication, without long-term current use of insulin (HCC) Benign non-nodular prostatic hyperplasia without lower urinary tract symptoms Coronary artery disease involving [place] coronary artery of [place] heart with angina pectoris (HCC) Type 2 diabetes mellitus without complication, without long-term current use of insulin (HCC) Hyperlipidemia, unspecified hyperlipidemia type HTN (hypertension), benign Essential hypertension, benign [facility] Diagnosis Pre-operative examination- Primary Preoperative examination, unspecified Atrial fibrillation, unspecified type (HCC) HTN (hypertension), benign Essential hypertension, benign Hyperlipidemia, unspecified hyperlipidemia type Type 2 diabetes mellitus without complication, without long-term current use of insulin (HCC) Benign non-nodular prostatic hyperplasia without lower urinary tract symptoms Coronary artery disease involving [place] coronary artery of [place] heart with angina pectoris (HCC) Type 2 diabetes mellitus without complication, without long-term current use of insulin (HCC)- Primary HTN (hypertension), benign Essential hypertension, benign New onset a-fib (HCC) Atrial fibrillation Hyperlipidemia, unspecified hyperlipidemia type Gout, unspecified cause, unspecified chronicity, unspecified site Benign non-nodular prostatic hyperplasia without lower urinary tract symptoms 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 Arthritis of left knee Unspecified arthropathy, lower leg Erectile dysfunction, unspecified erectile dysfunction type documented in this encounter [facility] note* Diagnosis Pre-operative examination- Primary Preoperative examination, unspecified Atrial fibrillation, unspecified type (HCC) HTN (hypertension), benign Essential hypertension, benign Hyperlipidemia, unspecified hyperlipidemia type Type 2 diabetes mellitus without complication, without long-term current use of insulin (HCC) Benign non-nodular prostatic hyperplasia without lower urinary tract symptoms Coronary artery disease involving [place] coronary artery of [place] heart with angina pectoris (HCC) Derangement of knee, left- Primary Unspecified internal derangement of knee Left knee pain, unspecified chronicity Derangement of knee, left Unspecified internal derangement of knee Left knee pain, unspecified chronicity documented in this encounter [facility] note* Diagnosis Pre-operative examination- Primary Preoperative examination, unspecified Atrial fibrillation, unspecified type (HCC) HTN (hypertension), benign Essential hypertension, benign Hyperlipidemia, unspecified hyperlipidemia type Type 2 diabetes mellitus without complication, without long-term current use of insulin (HCC) Benign non-nodular prostatic hyperplasia without lower urinary tract symptoms Coronary artery disease involving [place] coronary artery of [place] heart with angina pectoris (HCC) Pre-operative examination- Primary Preoperative examination, unspecified Coronary artery disease involving [place] coronary artery of [place] heart with angina pectoris (HCC) HTN (hypertension), benign Essential hypertension, benign Hyperlipidemia, unspecified hyperlipidemia type New onset a-fib (HCC) Atrial fibrillation Type 2 diabetes mellitus without complication, without long-term current use of insulin (HCC) Benign non-nodular prostatic hyperplasia without lower urinary tract symptoms BMI 34.0-34.9,adult Body Mass Index 34.0-34.9, adult History of prostate cancer Personal history of malignant neoplasm of prostate Former smoker Personal history of tobacco use, presenting hazards to health Derangement of knee, left Unspecified internal derangement of knee Left knee pain, unspecified chronicity * Assessment & Plan Note - Aspen Klein APRN.CNP - 08/31/2024 6:53 AM EDT Associated Problem(s): Former smoker Assessment: vague hx given, denies asthma or COPD * Assessment & Plan Note - Aspen Klein APRN.CNP - 08/31/2024 6:52 AM EDT Associated Problem(s): History of prostate cancer Assessment: s/p prostatectomy * Assessment & Plan Note - Aspen Klein APRN.CNP - 08/31/2024 6:51 AM EDT Associated Problem(s): BMI 34.0-34.9,adult Assessment: Body mass index is 34.21 kg/m . * Assessment & Plan Note - Aspen Klein APRN.CNP - 08/31/2024 6:51 AM EDT Associated Problem(s): Benign non-nodular prostatic hyperplasia without lower urinary tract symptoms Assessment: controlled on rx * Assessment & Plan Note - Aspen Klein APRN.CNP - 08/31/2024 6:51 AM EDT Associated Problem(s): Type 2 diabetes mellitus without complication, without long-term current useof insulin (HCC) Assessment: controlled on oral agent\ Hemoglobin A1C (%) Date Value 08/20/2024 7.4 04/13/2021 7.2 * Assessment & Plan Note - Aspen Klein APRN.CNP - 08/31/2024 6:48 AM EDT Associated Problem(s): New onset a-fib (HCC) Assessment: rate controlled, on rx, started on Eliquis, received cardiac optimization scanned into [employer], received AC instructions as well. Pt recently underwent a normal stress test and echo 55% EF * Assessment & Plan Note - Aspen Klein APRN.CNP - 08/31/2024 6:47 AM EDT Associated Problem(s): Hyperlipidemia Assessment: c/w statin * Assessment & Plan Note - Aspen Klein APRN.CNP - 08/31/2024 6:47 AM EDT Associated Problem(s): HTN (hypertension), benign Assessment: controlled on rx Last 14 BP Last 14 Encounter BP Readings: Date: BP: 08/26/2024 136/68 08/20/2024 130/86 06/18/2024 150/82 05/07/2024 148/90 03/22/2024 140/82 02/13/2024 122/74 08/11/2023 126/74 02/03/2023 124/78 09/27/2022 133/73 08/20/2022 138/88 08/02/2022 138/88 04/15/2022 124/72 01/25/2022 138/80 10/19/2021 148/84 * Assessment & Plan Note - Aspen Klein APRN.CNP - 08/31/2024 6:47 AM EDT Associated Problem(s): Coronary artery disease involving [place] coronary artery of [place] heart with angina pectoris (HCC) Images from the original note were not included. Assessment: non-obstructing, established with cardiology recently 2/2 new onset afib, received cardiac optimization below [facility] Diagnosis Pre-operative examination- Primary Preoperative examination, unspecified Atrial fibrillation, unspecified type (HCC) HTN (hypertension), benign Essential hypertension, benign Hyperlipidemia, unspecified hyperlipidemia type Type 2 diabetes mellitus without complication, without long-term current use of insulin (HCC) Benign non-nodular prostatic hyperplasia without lower urinary tract symptoms Coronary artery disease involving [place] coronary artery of [place] heart with angina pectoris (HCC) Pre-operative examination- Primary Preoperative examination, unspecified Coronary artery disease involving [place] coronary artery of [place] heart with angina pectoris (HCC) HTN (hypertension), benign Essential hypertension, benign Hyperlipidemia, unspecified hyperlipidemia type New onset a-fib (HCC) Atrial fibrillation Type 2 diabetes mellitus without complication, without long-term current use of insulin (HCC) Benign non-nodular prostatic hyperplasia without lower urinary tract symptoms BMI 34.0-34.9,adult Body Mass Index 34.0-34.9, adult History of prostate cancer Personal history of malignant neoplasm of prostate Former smoker Personal history of tobacco use, presenting hazards to health HTN (hypertension), benign Essential hypertension, benign Derangement of knee, left Unspecified internal derangement of knee Left knee pain, unspecified chronicity documented in this encounter [facility] note* Diagnosis Pre-operative examination- Primary Preoperative examination, unspecified Atrial fibrillation, unspecified type (HCC) HTN (hypertension), benign Essential hypertension, benign Hyperlipidemia, unspecified hyperlipidemia type Type 2 diabetes mellitus without complication, without long-term current use of insulin (HCC) Benign non-nodular prostatic hyperplasia without lower urinary tract symptoms Coronary artery disease involving [place] coronary artery of [place] heart with angina pectoris Pre-operative examination- Primary Preoperative examination, unspecified Coronary artery disease involving [place] coronary artery of [place] heart with angina pectoris HTN (hypertension), benign Essential hypertension, benign Hyperlipidemia, unspecified hyperlipidemia type New onset a-fib (HCC) Atrial fibrillation Type 2 diabetes mellitus without complication, without long-term current use of insulin (HCC) Benign non-nodular prostatic hyperplasia without lower urinary tract symptoms BMI 34.0-34.9,adult Body Mass Index 34.0-34.9, adult History of prostate cancer Personal history of malignant neoplasm of prostate Former smoker Personal history of tobacco use, presenting hazards to health Internal derangement of left knee- Primary Unspecified internal derangement of knee documented in this encounter [facility] note* Diagnosis Pre-operative examination- Primary Preoperative examination, unspecified Atrial fibrillation, unspecified type (HCC) HTN (hypertension), benign Essential hypertension, benign Hyperlipidemia, unspecified hyperlipidemia type Type 2 diabetes mellitus without complication, without long-term current use of insulin (HCC) Benign non-nodular prostatic hyperplasia without lower urinary tract symptoms Coronary artery disease involving [place] coronary artery of [place] heart with angina pectoris Pre-operative examination- Primary Preoperative examination, unspecified Coronary artery disease involving [place] coronary artery of [place] heart with angina pectoris HTN (hypertension), benign Essential hypertension, benign Hyperlipidemia, unspecified hyperlipidemia type New onset a-fib (HCC) Atrial fibrillation Type 2 diabetes mellitus without complication, without long-term current use of insulin (HCC) Benign non-nodular prostatic hyperplasia without lower urinary tract symptoms BMI 34.0-34.9,adult Body Mass Index 34.0-34.9, adult History of prostate cancer Personal history of malignant neoplasm of prostate Former smoker Personal history of tobacco use, presenting hazards to health Other tear of medial meniscus of left knee as current injury, subsequent encounter- Primary Primary osteoarthritis of left knee Primary localized osteoarthrosis, lower leg documented in this encounter [facility] for referral (narrative)* Diagnostic Procedure Only (Routine) - Closed Specialty Diagnoses / Procedures Referred By Contac t Referred To Contact XR IMAGING Diagnoses Foot pain, right Procedures XR FOOT GENERAL 3V AP/LAT/OBL RIGHT RADEX FOOT COMPLETE MINIMUM 3 VIEWS Kerri Strickland MD [address] [place] [address] [place] [address] Referral ID Status Reason Start Date Expiration Date V isits Requested Visits Authorized [id number] Closed Auto-Generate d Referral 08/02/2022 09/01/2023 1 1 [facility] for referral (narrative)* Diagnostic Procedure Only (Urgent) - Closed Specialty Diagnoses / Procedures Referred By Contac t Referred To Contact XR IMAGING Diagnoses Acute pain of left knee Procedures XR KNEE GENERAL 4V AP BOTH/PA BOTH/LAT/MERC LEFT RADIOLOGIC EXAM KNEE COMPLETE 4/MORE VIEWS Kyler Melo MD [address] [place] [address] [place] [address] Referral ID Status Reason Start Date Expiration Date V isits Requested Visits Authorized [id number] Closed Auto-Generate d Referral 03/22/2024 04/21/2025 1 1 [facility] for referral (narrative)* Diagnostic Procedure Only (Urgent) - Closed Specialty Diagnoses / Procedures Referred By Contac t Referred To Contact XR IMAGING Diagnoses Acute pain of left knee Procedures XR KNEE GENERAL 4V AP BOTH/PA BOTH/LAT/MERC LEFT RADIOLOGIC EXAM KNEE COMPLETE 4/MORE VIEWS Kyler Melo MD [address] [place] [address] [place] [address] Referral ID Status Reason Start Date Expiration Date V isits Requested Visits Authorized [id number] Closed Auto-Generate d Referral 03/22/2024 04/21/2025 1 1 [facility] for visit Narrative* Diagnostic Procedure Only (Routine) - Closed Specialty Diagnoses / Procedures Referred By Contac t Referred To Contact XR IMAGING Diagnoses Foot pain, right Procedures XR FOOT GENERAL 3V AP/LAT/OBL RIGHT RADEX FOOT COMPLETE MINIMUM 3 VIEWS Kerri Strickland MD [address] [place] [address] [place] [address] Referral ID Status Reason Start Date Expiration Date V isits Requested Visits Authorized [id number] Closed Auto-Generate d Referral 08/02/2022 09/01/2023 1 1 [facility] for visit Narrative* Diagnostic Procedure Only (Urgent) - Closed Specialty Diagnoses / Procedures Referred By Contac t Referred To Contact XR IMAGING Diagnoses Acute pain of left knee Procedures XR KNEE GENERAL 4V AP BOTH/PA BOTH/LAT/MERC LEFT RADIOLOGIC EXAM KNEE COMPLETE 4/MORE VIEWS Kyler Melo MD [address] [place] [address] [place] [address] Referral ID Status Reason Start Date Expiration Date V isits Requested Visits Authorized [id number] Closed Auto-Generate d Referral 03/22/2024 04/21/2025 1 1 [facility] Advance Directives No Advanced Directives Records FoundDocuments on File Type Date 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 Advance Directive(s) 06/20/2017 12:30 PM Advance Directive(s) 05/19/2017 12:02 PM Advance Directive(s) 05/15/2017 11:11 AM Documents on File Type Date 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 Advance Directive(s) 06/20/2017 12:30 PM Advance Directive(s) 05/19/2017 12:02 PM Documents on File Type Date 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 Advance Directive(s) 06/20/2017 12:30 PM Advance Directive(s) 05/19/2017 12:02 PM Summary Purpose Family History No Family History Records FoundNo Family History Records FoundNo Family History Records FoundNo Family History Records Found Reason for Referral Specialty Diagnoses / Procedures Referred By Contac t Referred To Contact MR IMAGING Diagnoses Acute pain of left knee 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 Procedures MRI KNEE WO IVCON LEFT MRI ANY JT LOWER EXTREM W/O CONTRAST MATRL Kerri Strickland MD [address] [place] [address] [place] [address] Referral ID Status Reason Start Date Expiration Date Visits Requested Visits Authorized [id number] Authorized Auto-Generat ed Referral 06/06/2025 1 1 Specialty Diagnoses / Procedures Referred By Contac t Referred To Contact Orthopedics Diagnoses Acute pain of left knee 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 Procedures CONSULT TO ORTHOPAEDICS OFFICE/OUTPATIENT [facility] 60 MINUTES Kerri Strickland MD [address] [place] [id number] Referral ID Status Reason Start Date Expiration Date Visits Requested Visits Authorized [id number] Authorized PCP Requested Referral 05/07/2025 1 1 Referral ID Status Reason Start Date Expiration Date V isits Requested Visits Authorized [id number] Closed Auto-Generate d Referral 05/07/2024 06/06/2025 1 1 Specialty Diagnoses / Procedures Referred By Contac t Referred To Contact Cardiology Diagnoses Pre-operative examination Atrial fibrillation, unspecified type (HCC) Procedures CONSULT TO CARDIOLOGY OFFICE/OUTPATIENT [facility] 60 MINUTES Aspen Klein, ROAD MACHINE OPERATOR.FOCUSED FACTORY MANAGER [address] [phone] Referral ID Status Reason Start Date Expiration Date Visits Requested Visits Authorized [id number] Authorized PCP Requested Referral 06/18/2024 06/18/2025 1 1 Specialty Diagnoses / Procedures Referred By Contac t Referred To [facility] Diagnoses Pre-operative examination Procedures ECG COMPLETE ECG ROUTINE ECG W/LEAST 12 LDS W/I&R Aspen Klein, ROAD MACHINE OPERATOR.FOCUSED FACTORY MANAGER [address] [place] [address] [facility] [address] [place] [address] Referral ID Status Reason Start Date Expiration Date Visits Requested Visits Authorized [id number] New Request Auto-Generat ed Referral 06/18/2024 06/18/2025 1 1 Additional Source Comments Source Comments (unrecognize d section and content) In the event this informatio n is protected by the Federal Confidentiality of Alcohol and Drug Abuse Patient Records regulations: The Federal rules restrict any use of the information to criminally investigate or prosecute any alcohol or drug abuse patient.[facility] the event this information is protected by the Federal Confidentiality of Alcohol and Drug Abuse Patient Records regulations: The Federal rules restrict any use of the information to criminally investigate or prosecute any alcohol or drug abuse patient.[facility] the event this information is protected by the Federal Confidentiality of Alcohol and Drug Abuse Patient Records regulations: The Federal rules restrict any use of the information to criminally investigate or prosecute any alcohol or drug abuse patient.[facility] the event this information is protected by the Federal Confidentiality of Alcohol and Drug Abuse Patient Records regulations: The Federal rules restrict any use of the information to criminally investigate or prosecute any alcohol or drug abuse patient.[facility] the event this information is protected by the Federal Confidentiality of Alcohol and Drug Abuse Patient Records regulations: The Federal rules restrict any use of the information to criminally investigate or prosecute any alcohol or drug abuse patient.[facility] the event this information is protected by the Federal Confidentiality of Alcohol and Drug Abuse Patient Records regulations: The Federal rules restrict any use of the information to criminally investigate or prosecute any alcohol or drug abuse patient.[facility] the event this information is protected by the Federal Confidentiality of Alcohol and Drug Abuse Patient Records regulations: The Federal rules restrict any use of the information to criminally investigate or prosecute any alcohol or drug abuse patient.[facility] the event this information is protected by the Federal Confidentiality of Alcohol and Drug Abuse Patient Records regulations: The Federal rules restrict any use of the information to criminally investigate or prosecute any alcohol or drug abuse patient.[facility] the event this information is protected by the Federal Confidentiality of Alcohol and Drug Abuse Patient Records regulations: The Federal rules restrict any use of the information to criminally investigate or prosecute any alcohol or drug abuse patient.[facility] the event this information is protected by the Federal Confidentiality of Alcohol and Drug Abuse Patient Records regulations: The Federal rules restrict any use of the information to criminally investigate or prosecute any alcohol or drug abuse patient.[facility] HospitalIn the event this information is protected by the Federal Confidentiality of Alcohol and Drug Abuse Patient Records regulations: The Federal rules restrict any use of the information to criminally investigate or prosecute any alcohol or drug abuse patient.[facility] HospitalIn the event this information is protected by the Federal Confidentiality of Alcohol and Drug Abuse Patient Records regulations: The Federal rules restrict any use of the information to criminally investigate or prosecute any alcohol or drug abuse patient.[facility] HospitalIn the event this information is protected by the Federal Confidentiality of Alcohol and Drug Abuse Patient Records regulations: The Federal rules restrict any use of the information to criminally investigate or prosecute any alcohol or drug abuse patient.[facility] HospitalIn the event this information is protected by the Federal Confidentiality of Alcohol and Drug Abuse Patient Records regulations: The Federal rules restrict any use of the information to criminally investigate or prosecute any alcohol or drug abuse patient.[facility] HospitalIn the event this information is protected by the Federal Confidentiality of Alcohol and Drug Abuse Patient Records regulations: The Federal rules restrict any use of the information to criminally investigate or prosecute any alcohol or drug abuse patient.[facility] HospitalIn the event this information is protected by the Federal Confidentiality of Alcohol and Drug Abuse Patient Records regulations: The Federal rules restrict any use of the information to criminally investigate or prosecute any alcohol or drug abuse patient.[facility] HospitalIn the event this information is protected by the Federal Confidentiality of Alcohol and Drug Abuse Patient Records regulations: The Federal rules restrict any use of the information to criminally investigate or prosecute any alcohol or drug abuse patient.[facility] HospitalIn the event this information is protected by the Federal Confidentiality of Alcohol and Drug Abuse Patient Records regulations: The Federal rules restrict any use of the information to criminally investigate or prosecute any alcohol or drug abuse patient.[facility] HospitalIn the event this information is protected by the Federal Confidentiality of Alcohol and Drug Abuse Patient Records regulations: The Federal rules restrict any use of the information to criminally investigate or prosecute any alcohol or drug abuse patient.[facility] HospitalIn the event this information is protected by the Federal Confidentiality of Alcohol and Drug Abuse Patient Records regulations: The Federal rules restrict any use of the information to criminally investigate or prosecute any alcohol or drug abuse patient.[facility] HospitalIn the event this information is protected by the Federal Confidentiality of Alcohol and Drug Abuse Patient Records regulations: The Federal rules restrict any use of the information to criminally investigate or prosecute any alcohol or drug abuse patient.[facility] HospitalIn the event this information is protected by the Federal Confidentiality of Alcohol and Drug Abuse Patient Records regulations: The Federal rules restrict any use of the information to criminally investigate or prosecute any alcohol or drug abuse patient.[facility] HospitalIn the event this information is protected by the Federal Confidentiality of Alcohol and Drug Abuse Patient Records regulations: The Federal rules restrict any use of the information to criminally investigate or prosecute any alcohol or drug abuse patient.[facility] HospitalIn the event this information is protected by the Federal Confidentiality of Alcohol and Drug Abuse Patient Records regulations: The Federal rules restrict any use of the information to criminally investigate or prosecute any alcohol or drug abuse patient.[facility] HospitalIn the event this information is protected by the Federal Confidentiality of Alcohol and Drug Abuse Patient Records regulations: The Federal rules restrict any use of the information to criminally investigate or prosecute any alcohol or drug abuse patient.[facility] HospitalIn the event this information is protected by the Federal Confidentiality of Alcohol and Drug Abuse Patient Records regulations: The Federal rules restrict any use of the information to criminally investigate or prosecute any alcohol or drug abuse patient.[facility] HospitalIn the event this information is protected by the Federal Confidentiality of Alcohol and Drug Abuse Patient Records regulations: The Federal rules restrict any use of the information to criminally investigate or prosecute any alcohol or drug abuse patient.[facility] HospitalIn the event this information is protected by the Federal Confidentiality of Alcohol and Drug Abuse Patient Records regulations: The Federal rules restrict any use of the information to criminally investigate or prosecute any alcohol or drug abuse patient.[facility] HospitalIn the event this information is protected by the Federal Confidentiality of Alcohol and Drug Abuse Patient Records regulations: The Federal rules restrict any use of the information to criminally investigate or prosecute any alcohol or drug abuse patient.[facility] HospitalIn the event this information is protected by the Federal Confidentiality of Alcohol and Drug Abuse Patient Records regulations: The Federal rules restrict any use of the information to criminally investigate or prosecute any alcohol or drug abuse patient.[facility] HospitalIn the event this information is protected by the Federal Confidentiality of Alcohol and Drug Abuse Patient Records regulations: The Federal rules restrict any use of the information to criminally investigate or prosecute any alcohol or drug abuse patient.[facility] HospitalIn the event this information is protected by the Federal Confidentiality of Alcohol and Drug Abuse Patient Records regulations: The Federal rules restrict any use of the information to criminally investigate or prosecute any alcohol or drug abuse patient.[facility] HospitalIn the event this information is protected by the Federal Confidentiality of Alcohol and Drug Abuse Patient Records regulations: The Federal rules restrict any use of the information to criminally investigate or prosecute any alcohol or drug abuse patient.[facility] Reason for Visit (unrecogniz ed section and content) Reason Comments New Pain Specialty Diagnoses / Procedures Referred By Contac t Referred To Contact Orthopedics Diagnoses Acute pain of left knee 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 Procedures CONSULT TO ORTHOPAEDICS OFFICE/OUTPATIENT NEW HIGH MDM 60 MINUTES Kerri Strickland MD [address] [place] [address] Referral ID Status Reason Start Date Expiration Date V isits Requested Visits Authorized [id number] Closed PCP Requested Referral 05/07/2024 05/07/2025 1 1 Reason Comments F/U 3 Month Reason Comments Results Reason Comments Acute Visit removel of stitches Reason Onset Date Comments Refill Request 05/02/2022 Specialty Diagnoses / Procedures Referred By Contac t Referred To Contact Podiatry Diagnoses Foot pain, right Procedures CONSULT TO PODIATRY OFFICE/OUTPATIENT NEW HIGH MDM 60-74 MINUTES Kerri tSrickland MD [address] [place] [address] Referral ID Status Reason Start Date Expiration Date V isits Requested Visits Authorized [id number] Closed PCP Requested Referral 08/02/2022 08/02/2023 1 1 Reason Comments 6 Month Exam Reason Onset Date Comments Refill Request 07/31/2023 Reason Comments Refill Request Reason Comments Medicare Wellness Exam Reason Comments Knee Pain left knee pain, helga ing x 4 days Reason Comments Knee Injury Reason Comments Knee Pain Left Specialty Diagnoses / Procedures Referred By Contac t Referred To Contact MR IMAGING Diagnoses Acute pain of left knee 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 Procedures MRI KNEE WO IVCON LEFT MRI ANY JT LOWER EXTREM W/O CONTRAST MATRL Kerri Strickland MD [address] [place] [address] [place] [address] Referral ID Status Reason Start Date Expiration Date V isits Requested Visits Authorized [id number] Closed Auto-Generate d Referral 05/07/2024 06/06/2025 1 1 Reason Comments Schedule Surgery Reason Comments Surgery Cancelled Reason Comments Consult Reason Onset Date Comments Refill Request 08/16/2024 Reason Comments F/U 6 Month Reason Comments Surgery Cancelled wants to reschedule surgery- patient has been cleared by certified welder Reason Comments Consult 09/15/24 surgery at [facility] left knee with Reason Onset Date Comments Refill Request 09/06/2024 Reason Comments Post Op 1 week 5 days post o p Left knee arthroscopic medial menisectomy, medial distal femoral chondroplasty Reason Comments Post Op 5 weeks 5 days post op Left knee arthroscopic medial menisectomy, medial distal femoral chondroplasty Care Teams (unrecognized sec tion and content) Senior Integration Architect Relationship Specialty Start Date End Date Kerri Strickland MD [address] [place], [place] [id number] PCP - General Family Practice 05/07/16 Senior Integration Architect Relationship Specialty Start Date End Date Kerri Strickland MD [address] [place], [place] [id number] PCP - General Family Practice 05/07/16 Senior Integration Architect Relationship Specialty Start Date End Date Kerri Strickland MD [address] [place] [address] PCP - General Family Practice 05/07/16 Senior Integration Architect Relationship Specialty Start Date End Date Kerri Strickland MD [address] [place] [address] PCP - General Family Practice 05/07/16 Senior Integration Architect Relationship Specialty Start Date End Date Kerri Strickland MD [address] [place] [address] PCP - General Family Medicine 05/07/16 Senior Integration Architect Relationship Specialty Start Date End Date Kerri Strickland MD [address] [place] [address] PCP - General Family Medicine 05/07/16 Senior Integration Architect Relationship Specialty Start Date End Date Kerri Strickland MD [address] [place] [address] PCP - General Family Medicine 05/07/16 Senior Integration Architect Relationship Specialty Start Date End Date Kerri Strickland MD [address] [place] [address] PCP - General Family Medicine 05/07/16 Senior Integration Architect Relationship Specialty Start Date End Date Kerri Strickland MD [address] [place] [address] PCP - General Family Medicine 05/07/16 Senior Integration Architect Relationship Specialty Start Date End Date Kerri Stirckland MD [address] [place] [address] PCP - General Family Medicine 05/07/16 Senior Integration Architect Relationship Specialty Start Date End Date Kerri Strickland MD [address] [place] [address] PCP - General Family Medicine 05/07/16 Senior Integration Architect Relationship Specialty Start Date End Date Kerri Strickland MD [address] [place] [address] PCP - General Family Medicine 05/07/16 Senior Integration Architect Relationship Specialty Start Date End Date Kerri Strickland MD [address] [place] [address] PCP - General Family Medicine 05/07/16 Senior Integration Architect Relationship Specialty Start Date End Date Kerri Strickland MD [address] [place] [address] PCP - General Family Medicine 05/07/16 Senior Integration Architect Relationship Specialty Start Date End Date Kerri Strickland MD [address] [place] [address] PCP - General Family Medicine 05/07/16 Senior Integration Architect Relationship Specialty Start Date End Date Kerri Strickland MD [address] [place] [address] PCP - General Family Medicine 05/07/16 Senior Integration Architect Relationship Specialty Start Date End Date Kerri Strickland MD [address] [place] [address] PCP - General Family Medicine 05/07/16 Senior Integration Architect Relationship Specialty Start Date End Date Kerri Strickland MD [address] [place] [address] PCP - General Family Medicine 05/07/16 Senior Integration Architect Relationship Specialty Start Date End Date Kerri Strickland MD [address] [place] [address] PCP - General Family Medicine 05/07/16 Senior Integration Architect Relationship Specialty Start Date End Date Kerri Strickland MD [address] [place] [address] PCP - General Family Medicine 05/07/16 Adina Pennington APRN.FOCUSED FACTORY MANAGER [address] [place] [address] Product Accountant Family Medicine 05/23/24 Hugo Manzo APRN.FOCUSED FACTORY MANAGER [address] [place] [address] Product Accountant Family Medicine 06/01/24 Senior Integration Architect Relationship Specialty Start Date End Date Kerri Strickland MD [address] [place] [address] PCP - General Family Medicine 05/07/16 Adina Pennington APRN.FOCUSED FACTORY MANAGER [address] [place] [address] Product Accountant Family Medicine 05/23/24 Hugo Manzo APRN.FOCUSED FACTORY MANAGER [address] [place] [address] Product Accountant Family Medicine 06/01/24 Senior Integration Architect Relationship Specialty Start Date End Date Kerri Strickland MD [address] [place] [address] PCP - General Family Medicine 05/07/16 Adina Pennington APRN.FOCUSED FACTORY MANAGER [address] [place] [address] Product Accountant Family Medicine 05/23/24 Hugo Manzo APRN.FOCUSED FACTORY MANAGER [address] [place] [address] Product Accountant Family Medicine 06/01/24 Senior Integration Architect Relationship Specialty Start Date End Date Kerri Strickland MD [address] [place] [address] PCP - General Family Medicine 05/07/16 Adina Pennington APRN.FOCUSED FACTORY MANAGER [address] [place] [address] Product Accountant Family Medicine 05/23/24 Hugo Manzo APRN.FOCUSED FACTORY MANAGER [address] [place] [address] [facility] Senior Integration Architect Relationship Specialty Start Date End Date Kerri Strickland MD [address] [place] [address] PCP - General Family Medicine 05/07/16 Adina Pennington, ROAD MACHINE OPERATOR.FOCUSED FACTORY MANAGER [address] [place] [address] [facility] 05/23/24 Senior Integration Architect Relationship Specialty Start Date End Date Kerri Strickland MD [address] [place] [address] PCP - General Family Medicine 05/07/[address] MACHINE OPERATOR.FOCUSED FACTORY MANAGER [address] [place] [address] Product Accountant Family Medicine 05/23/24 Hugo Manzo APRN.FOCUSED FACTORY MANAGER [address] [place] [address] [facility] 06/01/24 Senior Integration Architect Relationship Specialty Start Date End Date Kerri Strickland MD [address] [place] [address] PCP - General Family Medicine 05/07/16 Adina Pennington APRN.FOCUSED FACTORY MANAGER [address] [place] [address] [facility] 05/23/24 Hugo Manzo APRN.FOCUSED FACTORY MANAGER [address] [place] [address] [facility] 06/01/24 Senior Integration Architect Relationship Specialty Start Date End Date Kerri Strickland MD [address] [place] [address] PCP - General Family Medicine 05/07/16 Adina Pennington APRN.FOCUSED FACTORY MANAGER [address] [place] [address] Product Accountant Family Medicine 05/23/24 Hugo Manzo APRN.FOCUSED FACTORY MANAGER [address] [place] [address] Product Accountant Family Medicine 06/01/24 Senior Integration Architect Relationship Specialty Start Date End Date Kerri Strickalnd MD [address] [place] [address] PCP - General Family Medicine 05/07/16 Adina Pennington APRN.FOCUSED FACTORY MANAGER [address] [place] [address] Product Accountant Family Medicine 05/23/24 Hugo Manzo APRN.FOCUSED FACTORY MANAGER [address] [place] [address] Product Accountant Family Medicine 06/01/24 Senior Integration Architect Relationship Specialty Start Date End Date Kerri Strickland MD [address] [place] [address] PCP - General Family Medicine 05/07/16 Adina Pennington APRN.FOCUSED FACTORY MANAGER [address] [place] [address] Product Accountant Family Medicine 05/23/24 Hugo Manzo APRN.FOCUSED FACTORY MANAGER [address] [place] [address] Product Accountant Family Medicine 06/01/24 Senior Integration Architect Relationship Specialty Start Date End Date Kerri Strickland MD [address] [place] [address] PCP - General Family Medicine 05/07/16 Adina Pennington APRN.FOCUSED FACTORY MANAGER [address] [place] [address] Product Accountant Family Medicine 05/23/24 Hugo Manzo APRN.FOCUSED FACTORY MANAGER [address] [place] [address] Product Accountant Family Medicine 06/01/24 Senior Integration Architect Relationship Specialty Start Date End Date Kerri Strickland MD [address] [place] [address] PCP - General [facility] 05/07/16 Adina Pennington, ALEXANDREA.FOCUSED FACTORY MANAGER [address] [facility] [place] [address] [facility] 05/23/24 Hugo Manzo APRN.FOCUSED FACTORY MANAGER [address] [facility] [place] [address] [facility] 06/01/24 Senior Integration Architect Relationship Specialty Start Date End Date Kerri Strickland MD [address] [facility], [place] [address] PCP - [facility] 05/07/16 Adina Pennington APRN.FOCUSED FACTORY MANAGER [address] [facility], [place] [address] [facility] 05/23/24 Hugo Manzo, ROAD MACHINE OPERATOR.FOCUSED FACTORY MANAGER [address] [facility], [place] [address] [facility] 06/01/24 (unrecognized sect ion and content) No Status Records FoundNo Status Records FoundNo Status Records FoundNo Status Records Found INFORMATION SOURCE (unrecogn ized section and content) DATE CREATED AUTHOR 05/01/2022 [facility] DATE CREATED AUTHOR AUTHOR'S ORGANIZ ATION 09/18/2024 [facility] DATE CREATED AUTHOR AUTHOR'S ORGANIZ ATION 03/10/2025 [facility] DATE CREATED AUTHOR AUTHOR'S ORGANIZ ATION 04/18/2025 [facility] FOR RECORDS PERTAINING TO PATIENTS WHO ARE OR HAVE BEEN ENROLLED IN A CHEMICAL DEPENDENCY/SUBSTANCEABUSE PROGRAM, SOME INFORMATION MAY BE OMITTED. This clinical summary was aggregated from multiple sources. Caution should be exercised in using it in the provision of clinical care. This summary normalizes information from multiple sources, and as a consequence, information in this document may materially change the coding, format and clinical context of patient data. In addition, data may be omitted in some cases. CLINICAL DECISIONS SHOULD BE BASED ON THE PRIMARY CLINICAL RECORDS. [facility]. provides no warranty or guarantee of the accuracy or completeness of information in this document.
== END 2025-04-29 23:59 | disposition home or self-care (01) ==
LOC: SL 20:24
PROVIDERS: PCP Nurse Practitioner Family; Referring Provider Student in an Organized Health Care Education/Training Program; Visit Provider Student in an Organized Health Care Education/Training Program
DX: G47.33 Obstructive sleep apnea (adult) (pediatric) (principal); G47.10 Hypersomnia, unspecified
CPT/HCPCS: 95811

== ENCOUNTER → 2025-06-03 | Outpatient (CLI) | payer MEDICARE, BC, SELFPAY ==
--- OUTSIDE RECORDS SUMMARY | 2025-06-03 19:54 | XMS RPT_ITS | CCD ---
Author Organization [facility] Partnership [facility] Care Team Providers Care Workers' Compensation Claims Examiner Name Role Phone Kerri Strickland MD Primary Care Provider PRISCILA MISTRY Attending Unava ilable KERRI STRICKLAND Primary Care Unavailable Kerri Strickland MD Primary Care Provider Kerri Strickland MD Primary Care Provider Kerri Strickland MD Primary Care Provider [place] CATTLE BRANDER.Adina LOCKHART Unavailable Jovany CATTLE BRANDER.Hugo LOCKHART Unavailable BRAYDEN JOSEPH Attending Unavailable BRAYDEN JOSEPH Admitting Unavailable KERRI STRICKLAND Primary Care Unavailable [place] CATTLE BRANDER.Adina LOCKHART Unavailable Unavail able [place] CATTLE BRANDER.Adina LOCKHART Unavailable KERRI STRICKLAND Referring Unavailable ELDERKERRI [...] to adverse reactions to drug (disorder) 2 [facility] Medications Current Medications Medication Drug Class(es) Dates [...] on above: Take 1 capsule by mo [facility] once daily. lisinopril 20 mg oral tablet (3 sources) Angiotensin Converting Enzyme Inhibitor Start : 07-24 End: 01-25 take 1 tablet by mouth once daily lisinopril (PRINIVIL) 20 mg tablet Indications: HTN (hypertension), benign Take 1 tablet by mouth once daily. 90 tablet 3 07/24/2021 01/25/2022 Discontinued Comment on above: Take 1 tablet by andrea th once daily. polyethylene glycol 3350 [id number] mg / potassium chloride 2970 mg / sodium bicarbonate 6740 mg / sodium chloride 5860 mg / sodium sulfate 00079 mg powder for oral solution (1 source) [...] Coronary arteriosclerosis; Translations: [Atherosclerotic heart disease of com[place] coronary artery with unspecified angina pectoris] Onset: [...] 02-03-2023 05-07-2016 Chronic Other aftercare (1 source) intermediate (current) use of insulin; Translations: [intermediate (current) use of insulin] Onset: 08-12-2024 Episodic [...] 20 mg/L (U) [Mass/Vol] 22.3 mg/L Normal [facility] Comment on above: Order Comment: Speci men Type: URINE SPECIMENOrdering Facility: [facility] Address: [address] [place] [address] Performed By: #### U ACR ####[facility] LABCLIA [id number] [place] [address] [place] Albumin/Creatinine (U) [Mass ratio] 22 mg/g Normal <30 [facility] Comment on above: Order Comment: Speci men Type: URINE SPECIMENOrdering Facility: [facility] Address: [address] [place] [address] Result Comment: Adul t Male and Female Nephrotic Criteria: <30 mg/g is considered normal to mildly increased 30-300 mg/g is considered moderately increased >300 mg/g is considered severely increased KDIGO. (2013). KDIGO 2012 Clinical Practice Guideline for the Evaluation and Management of Chronic Kidney Disease. Official Journal of the International Society of Nephrology, 3(1), 1-150. Performed By: #### U ACR ####[facility] LABCLIA [id number] [place] [address] [place] Creatinine (U) [Mass/Vol] 101.4 mg/dL Normal 20.0-300.0 [facility] Comment on above: Order Comment: Speci men Type: URINE SPECIMENOrdering Facility: [facility] Address: [address] [place] [address] Performed By: #### U ACR ####[facility] LABCLIA [id number] [place] [address] [place] CBC panel Auto (Bld)on 03-05 Erythrocyte distribution width (RBC) [Ratio] 13.5 % Normal 11.5-15.0 [facility] Comment on above: Order Comment: Speci men Type: BLOOD SPECIMENOrdering Facility: [facility] Address: [address] [place] [address] Performed By: #### 5 8410-2 ####[facility] LABIA [id number] [place] [address] [place] Hematocrit (Bld) [Volume fraction] 43.3 % Normal 39.0-51.0 [facility] Comment on above: Order Comment: Speci men Type: BLOOD SPECIMENOrdering Facility: [facility] Address: [address] [place] [address] Performed By: #### 5 8410-2 ####[facility] LABIA [id number] [address] [place] Hemoglobin (Bld) [Mass/Vol] 14.0 g/dL Normal 13.0-17.0 [facility] Comment on above: Order Comment: Speci men Type: BLOOD SPECIMENOrdering Facility: [facility] Address: [address] [place] [address] Performed By: #### 5 8410-2 ####[facility] LABIA [id number] [place] [id number] [place] MCH (RBC) [Entitic mass] 30.7 pg Normal 26.0-34.0 [facility] Comment on above: Order Comment: Speci men Type: BLOOD SPECIMENOrdering Facility: [facility] Address: [address] [place] [address] Performed By: #### 5 8410-2 ####[facility] LABIA [id number] [address] [address] [place] MCHC (RBC) [Mass/Vol] 32.3 g/dL Normal 30.5-36.0 [facility] Comment on above: Order Comment: Speci men Type: BLOOD SPECIMENOrdering Facility: [facility] Address: [address] [place] [address] Performed By: #### 5 8410-2 ####[facility] LABCLIA [id number] [place] [address] [place] MCV (RBC) [Entitic vol] 95.0 fL Normal 80.0-100.0 [facility] Comment on above: Order Comment: Speci men Type: BLOOD SPECIMENOrdering Facility: [facility] Address: [address] [place] [address] Performed By: #### 5 8410-2 ####[facility] LABCLIA [id number] [place] [address] [place] Nucleated RBC (Bld) [#/Vol] 10*3/uL Normal <0.01 [facility] Comment on above: Order Comment: Speci men Type: BLOOD SPECIMENOrdering Facility: [facility] Address: [address] [place] [address] Performed By: #### 5 8410-2 ####[facility] LABCLIA [id number] [place] [address] [place] Platelet mean volume (Bld) [Entitic vol] 13.5 fL High 9.0-12.7 [facility] Comment on above: Order Comment: Speci men Type: BLOOD SPECIMENOrdering Facility: [facility] Address: [address] [place] [address] Performed By: #### 5 8410-2 ####[facility] LABCLIA [id number] [place] [id number] [place] Platelets (Bld) [#/Vol] 160 10*3/uL Normal 150-400 [facility] Comment on above: Order Comment: Speci men Type: BLOOD SPECIMENOrdering Facility: [facility] Address: [address] [place] [address] Performed By: #### 5 8410-2 ####[facility] LABIA [id number] [place] [address] [place] RBC (Bld) [#/Vol] 4.56 10*6/uL Normal 4.20-6.00 [facility] Comment on above: Order Comment: Speci men Type: BLOOD SPECIMENOrdering Facility: [facility] Address: [address] [place] [address] Performed By: #### 5 8410-2 ####[facility] LABIA [id number] [place] [address] [place] WBC (Bld) [#/Vol] 8.78 10*3/uL Normal 3.70-11.00 [facility] Comment on above: Order Comment: Speci men Type: BLOOD SPECIMENOrdering Facility: [facility] Address: [address] [place] [address] Performed By: #### 5 8410-2 ####[facility] LABIA [id number] [place] [address] [place] CNOVon 03-05-2025 CNOV Office Visit (FAMPWS ) JONATHAN DUNCAN ([id number]) 1955 M Date Time Provider Department 03/05/25 [...] mg 1 tab po bid. Follows with [facility]. Arthritis: Uses Mobic 15 mg [...] Mother Heart Father Age of 69, massive [place] Diabetes Father Heart Sister Heart Brother Diabetes [...] Completed Advanc (more content not included)... Normal [facility] Comprehensive metabolic 2000 panelon 03-05-2025 Albumin [Mass/Vol] 3.9 g/dL Normal 3.9-4.[address] [facility] Comment on above: Order Comment: Speci men Type: BLOOD SPECIMENOrdering Facility: [facility] Address: [address] [place] [address] Performed By: #### 3 084-1, 51732-2, 41058-2 ####[facility] LABIA [id number] [place] [address] [place] ALP [Catalytic activity/Vol] 115 U/L High 38-113 [facility] Comment on above: Order Comment: Speci men Type: BLOOD SPECIMENOrdering Facility: [facility] Address: [address] [place] [address] Performed By: #### 3 084-1, 13421-6, 81631-5 ####[facility] LABIA [id number] [place] [address] [place] ALT [Catalytic activity/Vol] 24 U/L Normal 10-54 [facility] Comment on above: Order Comment: Speci men Type: BLOOD SPECIMENOrdering Facility: [facility] Address: [address] [place] [address] Performed By: #### 3 084-1, 11669-7, 40534-2 ####[facility] LABIA [id number] [address] [address] [place] Anion gap [Moles/Vol] 11 mmol/L Normal 8-15 [facility] Comment on above: Order Comment: Speci men Type: BLOOD SPECIMENOrdering Facility: [facility] Address: [address] [place] [address] Performed By: #### 3 084-1, 38753-3, 41613-9 ####[facility] LABCLIA [id number] [address] [address] [place] AST [Catalytic activity/Vol] 25 U/L Normal 14-40 [facility] Comment on above: Order Comment: Speci men Type: BLOOD SPECIMENOrdering Facility: [facility] Address: [address] [place] [address] Performed By: #### 3 084-1, 71532-7, 39408-0 ####[facility] LABCLIA [id number] [address] [address] [place] Bilirubin [Mass/Vol] 0.5 mg/dL Normal 0.2-1.3 [facility] Comment on above: Order Comment: Speci men Type: BLOOD SPECIMENOrdering Facility: [facility] Address: [address] [place] [address] Performed By: #### 3 084-1, 19886-8, 98905-5 ####[facility] LABIA [id number] [address] [address] [place] Calcium [Mass/Vol] 9.4 mg/dL Normal 8.5-10.[address] [facility] Comment on above: Order Comment: Speci men Type: BLOOD SPECIMENOrdering Facility: [facility] Address: [address] [place], [place] [address] Performed By: #### 3 084-1, 81156-5, 12713-4 ####[facility] LABIA [id number] [address] [address] [place] Chloride [Moles/Vol] 102 mmol/L Normal 98-107 [facility] Comment on above: Order Comment: Speci men Type: BLOOD SPECIMENOrdering Facility: [facility] Address: [address] [place], [place] [address] Performed By: #### 3 084-1, 94228-0, 24730-1 ####[facility] LABCLIA [id number] [place] [address] [place] CO2 [Moles/Vol] 26 mmol/L Normal 22-30 [facility] Comment on above: Order Comment: Speci men Type: BLOOD SPECIMENOrdering Facility: [facility] Address: [address] [place] [address] Performed By: #### 3 084-1, 89037-8, 21888-9 ####[facility] LABCLIA [id number] [place] [address] [place] Creatinine [Mass/Vol] 0.79 mg/dL Normal 0.73-1.22 [facility] Comment on above: Order Comment: Speci men Type: BLOOD SPECIMENOrdering Facility: [facility] Address: [address] [place] [address] Performed By: #### 3 084-1, 40632-2, ####[facility] [id number] [place] [address] [place] eGFRcr SerPlBld CKD-EPI 2020 95 mL/min/1.73m??? Normal >=60 [facility] Comment on above: Order Comment: Speci men Type: BLOOD SPECIMENOrdering Facility: [facility] Address: [address] [place] [address] Result Comment: Zainab mated Glomerular Filtration Rate [...] actual GFR. Performed By: #### 3 084-1, 13038-0, 76749-4 ####[facility] LABCLIA [id number] [place] [id number] [place] Glucose [Mass/Vol] 131 mg/dL High 74-[address] [facility] Comment on above: Order Comment: Speci men Type: BLOOD SPECIMENOrdering Facility: [facility] Address: [address] [place] [address] Result Comment: The [place] Diabetes Association (ADA) provides guidance for cutoff [...] Standards of Medical Care in Diabetes 2016, [place] Diabetes Association. Diabetes Care. 2016.39(Suppl 1). Performed By: #### 3 084-1, 37195-6, 82863-8 ####[facility] LABCLIA [id number] [place] [address] [place] Potassium [Moles/Vol] 4.1 mmol/L Normal 3.7-5.1 [facility] Comment on above: Order Comment: Prestoni men Type: BLOOD SPECIMENOrdering Facility: [facility] Address: [address] [place] [address] Performed By: #### 3 084-1, 22039-0, 27172-1 ####[facility] LABCLIA [id number] [place] [address] [place] Protein [Mass/Vol] 6.6 g/dL Normal 6.3-8.[address] [facility] Comment on above: Order Comment: Speci men Type: BLOOD SPECIMENOrdering Facility: [facility] Address: [address] [place] [address] Performed By: #### 3 084-1, 71207-9, 63842-6 ####[facility] LABCLIA [id number] [facility] [address] [address] [place] Sodium [Moles/Vol] 139 mmol/L Normal 136-[address] [facility] Comment on above: Order Comment: Tiffanie men Type: BLOOD SPECIMENOrdering Facility: [facility] Address: [address] [place] [address] Performed By: #### 3 084-1, 76950-9, 25358-1 ####[facility] LABCLIA [id number] [place] [address] [place] Urea nitrogen [Mass/Vol] 16 mg/dL Normal 9-24 [facility] Comment on above: Order Comment: Tiffanie men Type: BLOOD SPECIMENOrdering Facility: [facility] Address: [address] [place] [address] Performed By: #### 3 084-1, 27696-3, ####[facility] LABCLIA [id number] [place] [address] [place] HbA1c (Bld)on 03-05-2025 Average glucose Estimated from glycated hemoglobin (Bld) [Mass/Vol] 154 mg/dL Normal [facility] Comment on above: Order Comment: Tiffanie men Type: BLOOD SPECIMENOrdering Facility: [facility] Address: [address] [place] [address] Result Comment: eAG: (Estimated average glucose) is a calculated value from HgbA1c and is escrow representative of the average blood glucose level in the last 2-3 month period. Performed By: #### 5 5454-3 ####[facility] LABIA [id number] [place] [address] [place] HbA1c (Bld) [Mass fraction] 7.0 % High 4.3-5.6 [facility] Comment on above: Order Comment: Tiffanie ismael Type: BLOOD SPECIMENOrdering Facility: [facility] Address: [address] [place] [address] Result Comment: Amer ican Diabetes Association guidelines indicate that patients with HgbA1c in the range 5.7-6.4% are at increased risk for development of diabetes, and intervention by lifestyle modification may be beneficial. HgbA1c greater or equal to 6.5% is considered diagnostic of diabetes. Performed By: #### 5 5454-3 ####[facility] LABCLIA [id number] [place] [address] [place] [facility] [place] Lipid 1996 panelon 5 Cholesterol [Mass/Vol] 107 mg/dL Normal <200 [facility] Comment on above: Order Comment: Prestoni men Type: BLOOD SPECIMENOrdering Facility: [facility] Address: [address] [place] [address] Result Comment: <200 mg/dL, Desirable 200-239 mg/dL, Borderline high >239 mg/dL, High Performed By: #### 3 084-1, 20371-0, 95559-2 ####[facility] LABCLIA [id number] [address] [place] Cholesterol in HDL [Mass/Vol] 29 mg/dL Low >39 [facility] Comment on above: Order Comment: Tiffanie guevara Type: BLOOD SPECIMENOrdering Facility: [facility] Address: [address] [place] [address] Result Comment: 40-5 9 mg/dL, Acceptable >59 mg/dL, High: Negative risk factor for coronary heart disease <40 mg/dL, Low: Positive risk factor for coronary heart disease Performed By: #### 3 084-1, 65172-8, 71653-4 ####[facility] LABCLIA [id number] [place] [id number] [facility] [place] Cholesterol in LDL [Mass/Vol] 65 mg/dL Normal <100 [facility] Comment on above: Order Comment: Tiffanie [facility] Type: BLOOD SPECIMENOrdering Facility: [facility] Address: [address] [place] [address] Result Comment: <100 mg/dL, Optimal 100-129 mg/dL, Near optimal/above optimal 130-159 mg/dL, Borderline high 160-189 mg/dL, High >189 mg/dL, Very high Secondary prevention optimal LDL Cholesterol levels are recommended to be <70 mg/dL LDL cholesterol is calculated using the Edouard-NIH equation. Performed By: #### 3 084-1, 90146-3, 17207-7 ####[facility] LABCLIA [id number] [address] [address] [place] Cholesterol in LDL/Cholesterol in HDL [Mass ratio] 2.24 {ratio} Normal <2.54 [facility] Comment on above: Order Comment: Speci men Type: BLOOD SPECIMENOrdering Facility: [facility] Address: [address] [place] [address] Result Comment: Refe rence: 1. National Cholesterol Education Program ATP III Guideline At-A-Glance Quick Desk Reference: National Heart, Lung, and Blood [place]. National Institutes of Health. 2001: NIH Publication No. 01-3305. 2. An International Atherosclerosis Society position paper: global recommendations for the management of dyslipidemia: executive summary, Atherosclerosis. 2014: 232(2):410-413. Performed By: #### 3 084-1, 06248-5, 25014-7 ####[facility] LABIA [id number] [place] [id number] [place] Cholesterol in VLDL [Mass/Vol] 9 mg/dL Normal <30 [facility] Comment on above: Order Comment: Tiffanie guevara Type: BLOOD SPECIMENOrdering Facility: [facility] Address: [address] [place] [address] Performed By: #### 3 084-1, 73239-9, 06440-3 ####[facility] LABIA [id number] [address] [address] [place] Cholesterol non HDL [Mass/Vol] 78 mg/dL Normal <130 [facility] Comment on above: Order Comment: Prestoni men Type: BLOOD SPECIMENOrdering Facility: [facility] Address: [address] [place] [address] Result Comment: <130 mg/dL, Optimal 130-159 mg/dL, Near optimal/above optimal 160-189 mg/dL, Borderline high 190-219 mg/dL, High >219 mg/dL, Very high Secondary prevention optimal non HDL Cholesterol levels are recommended to be <100 mg/dL Performed By: #### 3 084-1, 41429-5, 21296-7 ####[facility] LABCLIA [id number] [address] [place] [address] [place] Cholesterol.total/Ch olesterol in HDL [Mass ratio] 3.69 {ratio} Normal <5.10 [facility] Comment on above: Order Comment: Speci men Type: BLOOD SPECIMENOrdering Facility: [facility] Address: [address] [place] [address] Performed By: #### 3 084-1, 31142-8, 74535-5 ####[facility] LABIA [id number] [address] OF [facility] FASTING TIME 12 hrs Normal [facility] Comment on above: Order Comment: Speci men Type: BLOOD SPECIMENOrdering Facility: [facility] Address: [address] [place] [address] Performed By: #### 3 084-1, 73182-9, 51326-9 ####[facility] LABIA [id number] [address] [place] Triglyceride [Mass/Vol] 58 mg/dL Normal <150 [facility] Comment on above: Order Comment: Speci men Type: BLOOD SPECIMENOrdering Facility: [facility] Address: [address] [place] [address] Result Comment: <150 mg/dL, Normal 150-199 mg/dL, Borderline high 200-499 mg/dL, High >499 mg/dL, Very high Performed By: #### 3 084-1, 34579-1, 02884-3 ####[facility] LABCLIA [id number] [address] [address] [place] Urate SerPl-mCncon 5 Urate [Mass/Vol] 6.0 mg/dL Normal 4.0-8.1 [facility] Comment on above: Order Comment: Speci men Type: BLOOD SPECIMENOrdering Facility: [facility] Address: [address] [place] [address] Performed By: #### 3 084-1, 73238-1, 74633-7 ####[facility] LABCLIA [id number] TALA YODER [id number] [place] [address] OF [facility] CNOVon 10-25-2024 CNOV Office Visit (ORTHWS ) JONATHAN DUNCAN ([id number]) 1955 M Date Time Provider Department 10/25/24 12:45 PM BRAYDEN JOSEPH During your visit today, we recorded the following information about you: Brayden Joseph MD 10/25/2024 10:29 PM Signed Brayden Joseph MD Department of Orthopaedics Orthopaedics [address] [facility] [address] Dept: [phone] Dept October 25, 2024 CHIEF COMPLAINT: Post [...] take the edge off. Patient works at [employer] and would like to return to [...] Patient has no known allergies. Recording using [employer] software for draft documentation of the visit was discussed with the patient/authorized escrow representative; all questions welcomed and answered. Patient/authorized escrow representative agreed to proceed Brayden Joseph MD Referring Provider: BRAYDEN JOSEPH [[id number]] Allergies As of Date: 10/25/2024 (No Known Allergies) Date Reviewed: 10/25/2024 Reviewed by: Tracy Mata MA - Fully Assessed Reason for Visit: Post Op [174] Cmt: 5 weeks 5 days post op Left knee arthroscopic medial menisectomy, medial distal femoral chondroplasty Primary Visit Diagnosis:Other tear of medial meniscus of left knee as current injury, subsequent encounter [J56.981B] Other Visit Diagnosis:Primary osteoarthritis of left knee [...] (HCC) [C61] (more content not included)... Normal [facility] CNOVon 09-27-2024 CNOV Office Visit (MARANDA ) JONATHAN DUNCAN ([id number]) 1955 M Date Time Provider Department 09/27/24 [...] at incision sites. Patient has been taking [place] as needed for the pain and is asking for a refill. Sophia Rebolledo PA-C 09/27/2024 2:59 PM Signed Sophia Rebolledo PA-C Department of Orthopaedics Orthopaedics [address] [place] [address] Dept: [phone] Dept September 27, 2024 CHIEF COMPLAINT: Post [...] allergies. This note was partially generated using [employer] voice recognition system, and there may be some incorrect words, spellings, and punctuation that were not noted in checking the note before saving. Sophia Rebolledo PA-C Referring Provider: BRAYDEN JOSEPH [[id number]] Allergies As of Date: 09/27/2024 (No Known [...] mg tablet (more content not included)... Normal [facility] ANES POSTPROC EVALon 025 ANES POSTPROC EVAL HNO ID: [id number] Author: OZZIE DEAL DO Service: Anesthesiology Author Type: Anesthesiologist Type: Anesthesia Postprocedure Evaluation Filed: 09/15/2024 13:55 Note Text: POST ANESTHESIA EVALUATION NOTE : 1955 Procedure Summary Date: 09/15/24 Room / Location: [place] [address] / [facility] Anesthesia Start: 731 Anesthesia Stop: 857 Procedure: [...] with this procedure. Documented by Leticia Szymanski APRN.ORDER MANAGER 09/15/2024 8:58 AM EDT SIGNATURE: Ozzie Deal DO PATIENT NAME: Jonathan Duncan DATE: September 15, 2024 TIME: 1:55 PM CSN: [id number] [facility] ANES PRE-OPon 09-15-2024 ANES PRE-OP HNO ID: [id number] Author: OZZIE DEAL DO Service: Anesthesiology Author Type: Anesthesiologist Type: Anesthesia Preprocedure Evaluation Filed: 09/15/2024 07:08 Note Text: ANESTHESIOLOGY DAY OF SURGERY NOTE : 1955 Procedure Information Date/Time: 09/15/24729 Procedure: ARTHROSCOPY KNEE MENISCECTOMY MEDIAL OR LATERAL (Left: Knee) Location: [place] / [place] Surgeons: Brayden Joseph MD Estimated body mass index is 34.21 kg/m? as calculated from the following: Height as of 08/26/24: 172.7 cm (5' 8). Weight as of 08/26/24: 102.1 kg (225 lb). 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 (+) HTN (hypertension), [...] September 15, 2024 TIME: 7:06 AM CSN: [id number] [facility] OPERATIVE NOon 09-15-2024 OPERATIVE NO HNO ID: [id number] Author: BRAYDEN JOSEPH MD Service: Orthopaedic Surgery Author Type: Physician Type: Operative Report Filed: 09/15/2024 09:06 Note Text: OPERATIVE/PROCEDURE REPORT LOG ID: [id number] Surgery/Procedure Date: 09/15/2024 Incision/Procedure Start Time: 8:07 AM Incision Close/Procedure End Time: 8:45 AM Surgeon(s)/Procedurali st(s) and Home Appliances Mechanic(s): Surgeons and Role: * Brayden Joseph MD - Primary Physician Home Appliances Mechanic: Sophia Rebolledo PA-C Procedure(s): left knee, arthroscopic, [...] Post-Op/Post-Procedure Diagnosis: (more content not included)... Normal [facility] HISTORY PHYSICALon HISTORY PHYSICAL HNO ID: [id number] Author: ASPEN KLEIN APRN.HOSE FINISHER Service: ? 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 Pt recently [...] equal to 35 kg/m2 STOP-Bang Score: 5 [id number] Score: Age: 65-74 Sex: male CHF history: No Hypertension history: Yes Stroke/TIA/thromboembo lism history: No Vascular disease history: No Diabetes history: Yes [id number] Score: 3 ARISCAT Score: Age: 51-80 Preoperative [...] meat in (more content not included)... Normal [facility] CNCOon 08-23-2024 CNCO Letter Text Normal [facility] CNOVon 08-20-2024 CNOV Office Visit (FAMPWS ) JONATHAN DUNCAN ([id number]) 1955 M Date Time Provider Department 08/20/24 9:40 AM KERRI STRICKLAND During your visit today, we recorded the following information about you: Pulse Respiration Blood pressure Weight 64/minute 18/minute 130/86 102.2 kg Kerri Stirckland MD 08/20/2024 11:45 AM Signed Chief Complaint [...] po bid. Follows with [facility]. Flour Tester suggested doing a thyroid test, but pt [...] 81 mg once daily was d/c by Flour Tester. Tolerating well. Arthritis: Uses Mobic 15 mg [...] Mother Heart Father Age of 69, massive [place] Diabetes Father Heart Sister Heart Brother Diabetes [...] Smoking status: (more content not included)... Normal [facility] Comprehensive metabolic 2000 panelon 08-20-2024 Albumin [Mass/Vol] 4.2 g/dL Normal 3.9-4.[address] [facility] Comment on above: Order Comment: Speci men Type: BLOOD SPECIMENOrdering Facility: [facility] Address: [address] [place] [address] Performed By: #### 3 016-3, 98963-0 ####[facility]ORATORYCLIA [id number] [address] OF [place]#### [address]5525-2 ####[facility]ORATORYCLIA [id number] [place] [id number] [place] [address] STATES OF [facility] ALP [Catalytic activity/Vol] 108 U/L Normal 38-113 [facility] Comment on above: Order Comment: Speci men Type: BLOOD SPECIMENOrdering Facility: [facility] Address: [address] [place] [address] Performed By: #### 3 016-3, 60077-6 ####[facility]ATORYCLIA [id number] [address] [place]#### 93277-8 ####[facility]ORATORYCLIA [id number] [address] OF [facility] [id number] [place] [address] [place] ALT With P-5'-P [Catalytic activity/Vol] 26 U/L Normal 10-54 [facility] Comment on above: Order Comment: Speci men Type: BLOOD SPECIMENOrdering Facility: [facility] Address: [address] [place] [address] Performed By: #### 3 016-3, 09084-0 ####[facility]ORATORYCLIA [id number] [address] STATES OF [place]#### [address]63-9 ####[facility]ATORYCLIA [id number] [address] STATES OF [facility] [id number] [place] [address] STATES [place] Anion gap [Moles/Vol] 10 mmol/L Normal 8-15 [facility] Comment on above: Order Comment: Speci men Type: BLOOD SPECIMENOrdering Facility: [facility] Address: [address] [place] [address] Performed By: #### 3 016-3, 71205-5 ####[facility]ATORYCLIA [id number] [address] STATES OF [place]#### 86954-5 ####[facility]ORATORYCLIA [id number] [address] STATES OF [facility] [id number] [address] STATES OF [place] AST With P-5'-P [Catalytic activity/Vol] 24 U/L Normal 14-40 [facility] Comment on above: Order Comment: Speci men Type: BLOOD SPECIMENOrdering Facility: [facility] Address: [address] [place] [address] Performed By: #### 3 016-3, 81937-4 ####[facility]ORATORYCLIA [id number] [address] STATES OF [place]#### 53341-4 ####[facility]ATORYCLIA [id number] [address] [id number] [place] [address] [place] Bilirubin [Mass/Vol] 0.5 mg/dL Normal 0.2-1.3 [facility] Comment on above: Order Comment: Speci men Type: BLOOD SPECIMENOrdering Facility: [facility] Address: [address] [place] [address] Performed By: #### 3 016-3, 19723-8 ####[facility]ORATORYCLIA [id number] [address] STATES OF [place]#### 76394-9 ####[facility]ORATORYCLIA [id number] [address] [id number] [place] [address] [place] Calcium [Mass/Vol] 9.8 mg/dL Normal 8.5-10.[address] [facility] Comment on above: Order Comment: Speci men Type: BLOOD SPECIMENOrdering Facility: [facility] Address: [address] [place] [address] Performed By: #### 3 016-3, 84100-7 ####[facility]ORATORYCLIA [id number] [address] STATES OF [place]#### 58674-2 ####[facility]ORATORYCLIA [id number] [address] STATES [facility] [id number] [place] [address] [place] Chloride [Moles/Vol] 100 mmol/L Normal 98-107 [facility] Comment on above: Order Comment: Speci men Type: BLOOD SPECIMENOrdering Facility: [facility] Address: [address] [place] [address] Performed By: #### 3 016-3, ####[facility]ORATORYCLIA [id number] [address]#### 65818-4 ####[facility]ORATORYCLIA [id number] [address] [id number] [place] [address] [place] CO2 [Moles/Vol] 27 mmol/L Normal 22-30 [facility] Comment on above: Order Comment: Speci men Type: BLOOD SPECIMENOrdering Facility: [facility] Address: [address] [place] [address] Performed By: #### 3 016-, ####[facility]ORATORYCLIA [id number] [address]#### 85285-9 ####[facility]ORATORYCLIA [id number] [address] [id number] [place] [address] [place] Creatinine [Mass/Vol] 0.80 mg/dL Normal 0.73-1.22 [facility] Comment on above: Order Comment: Speci men Type: BLOOD SPECIMENOrdering Facility: [facility] Address: [address] [place] [address] Performed By: #### 3 016-3, 08895-8 ####[facility]ORATORYCLIA [id number] [address]#### 29026-4 ####[facility]ORATORYCLIA [id number] [address] [id number] [address] STATES OF [place] Creatinine and Glomerular filtration rate.predicted panel (S/P/Bld) 95 mL/min/1.73m??? Normal >=60 [facility] Comment on above: Order Comment: Tiffanie guevara Type: BLOOD SPECIMENOrdering Facility: [facility] Address: [address] [place] [address] Result Comment: Zainab mated Glomerular Filtration Rate [...] actual GFR. Performed By: #### 3 016-3, 92779-3 ####[facility] LABORATORYCLIA [id number] [address]#### 64159-4 ####PicRate.MeVETERANS AFF[facility] LABORATORYCLIA [id number] [address] [id number] [address] OF [facility] Glucose [Mass/Vol] 161 mg/dL High 74-[address] [facility] Comment on above: Order Comment: Tiffanie guevara Type: BLOOD SPECIMENOrdering Facility: [facility] Address: [address] [place] [address] Result Comment: The [place] Diabetes Association (ADA) provides guidance for cutoff [...] Standards of Medical Care in Diabetes 2016, [place] Diabetes Association. Diabetes Care. 2016.39(Suppl 1). Performed By: #### 3 016-3, 73481-1 ####[facility]ORATORYCLIA [id number] [place] [address] [place]#### 72113-9 ####[facility]ORATORYCLIA [id number] [place], [place] [address] [place] [address] STATES OF AMERICAOUR LADY OF [facility] ULISESPROCTOR HOSPITALWWALIA [id number] [place] [address] [place] Potassium [Moles/Vol] 4.3 mmol/L Normal 3.7-5.1 [facility] Comment on above: Order Comment: Speci men Type: BLOOD SPECIMENOrdering Facility: [facility] Address: [address] [place] [address] Performed By: #### 3 016-3, 68813-0 ####[facility]ORATORYCLIA [id number] [place] [address] [place]#### 60587-1 ####[facility]ORATORYCLIA [id number] [address] STATES OF [facility] [id number] [place] [address] [place] Protein [Mass/Vol] 6.7 g/dL Normal 6.3-8.[address] [facility] Comment on above: Order Comment: Speci men Type: BLOOD SPECIMENOrdering Facility: [facility] Address: [address] [place] [address] Performed By: #### 3 016-3, 04953-7 ####[facility]ORATORYCLIA [id number] [place] [address] [place]#### 62382-7 ####[facility]ORATORYCLIA [id number] [address] STATES OF [facility] [id number] [place] [address] [place] Sodium [Moles/Vol] 137 mmol/L Normal 136-[address] [facility] Comment on above: Order Comment: Speci men Type: BLOOD SPECIMENOrdering Facility: [facility] Address: [address] [place] [address] Performed By: #### 3 016-3, 35970-2 ####[facility]ORATORYCLIA [id number] [address] [place]#### 82330-8 ####[facility]ORATORYCLIA [id number] [address] [id number] [place] [address] [place] Urea nitrogen [Mass/Vol] 17 mg/dL Normal 9-24 [facility] Comment on above: Order Comment: Speci men Type: BLOOD SPECIMENOrdering Facility: [facility] Address: [address] [place] [address] Performed By: #### 3 016-3, 45614-0 ####[facility]ORATORYCLIA [id number] [address] STATES OF [place]#### 15713-2 ####[facility]ORATORYCLIA [id number] [address] [id number] [place] [address] [place] HbA1c (Bld)on 08-20-2024 Average glucose Estimated from glycated hemoglobin (Bld) [Mass/Vol] 166 mg/dL Normal [facility] Comment on above: Order Comment: Speci men Type: BLOOD SPECIMENOrdering Facility: [facility] Address: [address] [place] [address] Result Comment: eAG: (Estimated average glucose) is a calculated value from HgbA1c and is escrow representative of the average blood glucose level in the last 2-3 month period. Performed By: #### 5 5454-3 ####[facility] LABCLIA [id number] [place] [address] [place] HbA1c (Bld) [Mass fraction] 7.4 % High 4.3-5.6 [facility] Comment on above: Order Comment: Tiffanie guevara Type: BLOOD SPECIMENOrdering Facility: [facility] Address: [address] [place] [address] Result Comment: Amer [place] Diabetes Association guidelines indicate that patients with HgbA1c in the range 5.7-6.4% are at increased risk for development of diabetes, and intervention by lifestyle modification may be beneficial. HgbA1c greater or equal to 6.5% is considered diagnostic of diabetes. Performed By: #### 5 5454-3 ####[facility] LABCLIA [id number] [address] OF [place] Lipid 1996 panelon 5 Cholesterol [Mass/Vol] 117 mg/dL Normal <200 [facility] Comment on above: Order Comment: Tiffanie guevara Type: BLOOD SPECIMENOrdering Facility: [facility] Address: [address] [place] [address] Result Comment: <200 mg/dL, Desirable 200-239 mg/dL, Borderline high >239 mg/dL, High Performed By: #### 3 016-3, 44639-2 ####[facility]ORATORYCLIA [id number] [address] OF [facility]#### 72969-7 ####[facility]ORATORYCLIA [id number] [address] STATES OF [facility] [id number] [address] STATES OF [facility] Cholesterol in HDL [Mass/Vol] 33 mg/dL Low >39 [facility] Comment on above: Order Comment: Tiffanie ismael Type: BLOOD SPECIMENOrdering Facility: [facility] Address: [address] [place] [address] Result Comment: 40-5 9 mg/dL, Acceptable >59 mg/dL, High: Negative risk factor for coronary heart disease <40 mg/dL, Low: Positive risk factor for coronary heart disease Performed By: #### 3 016-3, 49064-2 ####[facility]ORATORYCLIA [id number] [address]#### 20515-0 ####[facility]ORATORYCLIA [id number] [address]NCFILLMORE COMM[facility] [id number] [address] Cholesterol in LDL [Mass/Vol] 68 mg/dL Normal <100 [facility] Comment on above: Order Comment: Speci men Type: BLOOD SPECIMENOrdering Facility: [facility] Address: [address] [place] [address] Result Comment: <100 mg/dL, Optimal 100-129 mg/dL, Near optimal/above optimal 130-159 mg/dL, Borderline high 160-189 mg/dL, High >189 mg/dL, Very high Secondary prevention optimal LDL Cholesterol levels are recommended to be < 70 mg/dL Performed By: #### 3 016-3, 41235-9 ####[facility]ORATORYCLIA [id number] [address]#### 38345-3 ####[facility]ORATORYCLIA [id number] [address] [id number] [address] Cholesterol in LDL/Cholesterol in HDL [Mass ratio] 2.06 {ratio} Normal <2.54 [facility] Comment on above: Order Comment: Speci men Type: BLOOD SPECIMENOrdering Facility: [facility] Address: [address] [place] [address] Result Comment: Refsybil martinezce: 1. National Cholesterol Education Program ATP III Guideline At-A-Glance Quick Desk Reference: National Heart, Lung, and Blood [place]. National Institutes of Health. 2001: NIH Publication No. 01-3305. 2. An International Atherosclerosis Society position paper: global recommendations for the management of dyslipidemia: executive summary, Atherosclerosis. 2014: 232(2):410-413. Performed By: #### 3 016-3, 52427-4 ####[facility]ORATORYCLIA [id number] [place], [place] [address] [place] [address] [place]#### 10530-0 ####[facility]ORATORYCLIA [id number] [id number] STATES OF [place] Cholesterol in VLDL [Mass/Vol] 16 mg/dL Normal <30 [facility] Comment on above: Order Comment: Speci men Type: BLOOD SPECIMENOrdering Facility: [facility] Address: [address] [place] [address] Performed By: #### 3 016-3, 68827-6 ####[facility]ORATORYCLIA [id number] [address] OF [place]#### 64514-7 ####[facility]ORATORYCLIA [id number] [address] [id number] [place] [address] [place] Cholesterol non HDL [Mass/Vol] 84 mg/dL Normal <130 [facility] Comment on above: Order Comment: Speci men Type: BLOOD SPECIMENOrdering Facility: [facility] Address: [address] [place] [address] Result Comment: <130 mg/dL, Optimal 130-159 mg/dL, Near optimal/above optimal 160-189 mg/dL, Borderline high 190-219 mg/dL, High >219 mg/dL, Very high Secondary prevention optimal non HDL Cholesterol levels are recommended to be <100 mg/dL Performed By: #### 3 016-3, ####[facility]ORATORYCLIA [id number] [address] STATES OF [place]#### 87239-9 ####[facility]ORATORYCLIA [id number] [address] STATES OF [facility] BEACHWWALI [id number] [address] Cholesterol.total/Ch olesterol in HDL [Mass ratio] 3.55 {ratio} Normal <5.10 [facility] Comment on above: Order Comment: Speci men Type: BLOOD SPECIMENOrdering Facility: [facility] Address: [address] [place] [address] Performed By: #### 3 016-3, 41762-6 ####[facility]ORATORYCLIA [id number] [address]#### 71422-7 ####[facility]ORATORYCLIA [id number] [address] [id number] [place] [address] FASTING TIME 15 hrs Normal [facility] Comment on above: Order Comment: Speci men Type: BLOOD SPECIMENOrdering Facility: [facility] Address: [address] [place] [address] Performed By: #### 3 016-3, 50855-0 ####[facility]ORATORYCLIA [id number] [address] OF [facility]#### 88514-0 ####[facility]ORATORYCLIA [id number] [address] [id number] [address] Triglyceride [Mass/Vol] 79 mg/dL Normal <150 [facility] Comment on above: Order Comment: Speci men Type: BLOOD SPECIMENOrdering Facility: [facility] Address: [address] [place] [address] Result Comment: <150 mg/dL, Normal 150-199 mg/dL, Borderline high 200-499 mg/dL, High >499 mg/dL, Very high Performed By: #### 3 016-3, 25833-8 ####[facility]ORATORYCLIA [id number] [address]#### 43812-3 ####[facility][1]CLIA [id number] [address] [id number] [address] TSH SerPl-aCncon 08-20-2024 TSH Qn 2.090 m[IU]/L Normal 0.270-4.200 [facility] Comment on above: Order Comment: Speci men Type: BLOOD SPECIMENOrdering Facility: [facility] Address: [address] [place] [address] Performed By: #### 3 016-3, 78506-6 ####[facility] WESTCLIA [id number] [address]#### 03362-6 ####[facility][1]CLIA [id number] [address] [id number] [address] Dawn 08-05-2024 [facility] Telephone (KOREYWSTR) JONATHAN DUNCAN ([id number]) 1955 M Date Time Provider Department 08/05/24 KERRI STRICKLANDTR During your visit today, we recorded the following information about you: Saarh Modi, LEVI 08/05/2024 3:43 PM Signed Patient 's is calling office back stating that he seen his director of medical review and has been cleared for surgery. Phoned office and spoke with nurse. Patient was last seen by on 07/14/24, then ahd ECHO , stress test completed. EKG done on 06/18/24. They did not get a clearance from . They did complete the testing. is needing paperwork saying what type of surgery, when surgery is to get a clearance. FAx number # [phone]. Please review and advise further. PATIENT will [...] Date Reviewed: 06/21/2024 Reviewed by: Aspen Klein APRN.HOSE FINISHER - Fully Assessed Reason for Visit: Surgery Cancelled [4163] Cmt: wants to reschedule surgery- patient has been cleared by director of medical review Primary Visit Diagnosis:Derangement of knee, left [M23.92] Other Visit Diagnosis:Left knee pain, unspecified chronicity [M25.562] Order(s):SURGICAL REQUEST - ELECTIVE (01/2020) [2953315] Order #: [id number]: 1 Prescriptions as of 08/23/2024 - apixaban [...] eyes [Z96.1] 08/25/2017 Coronary artery disease involving comanche briceño*06/21/2024 New onset a-fib (HCC) [I48.91] 06/21/2024 Encounter Status:Closed by JOSIE NICOLE on 08/23/24 Normal [facility] Echo Complete W/ Contraston 07-29-2024 Echo Complete W/ Contrast [facility] [address] [place] [address] Echo Complete W/ Contrast 07/29/24 0825 MR#: [id number] Acct: [id number] Name: JONATHAN DUNCAN Rep #: [id number] : 1955 69 From: Nya Tran MD Attending Dr: Dr. Nya Tran MD Status: REG CLI Ordering Dr: Nya Tran MD Date: 07/29/24 Location: [facility] Sex: M C Admitted: Reason For Study [...] MD Kerri Strickland Performed By: Gracie Brown [facility] 07/29/24 1406 Date Nya Tran MD CC: Dr. Nya Tran MD; Dr. Kerri Strickland MD Date Dictated: 07/29/24824 Date Transcribed: 07/29/241405 Music Executive: Signed Normal [facility] Stress Reporton 07-29-2024 Stress Report [facility] [address] [place] [address] MR#: [id number] Acct: [id number] Name: JONATHAN DUNCAN Rep #: [id number] : 1955 69 From: Nya Tran MD [...] of 65%. This note was generated with Tamagoation software. It may contain incorrect words, spelling, and punctuation that were not noted in checking the note before signing. 07/29/241228 Date Nya Tran MD CC: Dr. Nya Tran MD; Dr. Kerri Strickland MD Date Dictated: 07/29/241226 Date Transcribed: 07/29/241226 Music Executive: PEREZ Signed Normal [facility] 12 Lead EKG performed by [facility] [facility] on 07-14-2024 12 Lead EKG performed by [facility] [address] [place] [address] 12 Lead EKG performed by [facility] 07/14/24 0811 MR#: [id number] Acct: [id number] Name: Jonathan Duncan Rep #: [id number] : 1955 69 From: Nya Tran MD Attending Dr: Dr. Nya Tran MD Status: DEP AMB Ordering Dr: Nya Tran MD Date: 07/14/24 Location: [facility] [place] Sex: M UTD Admitted: BMS/12 Lead EKG performed by [facility] ECG Report Interpretation ----Atrial fibrillation -irregular conduction -Old anterior infarct. ABNORMAL Electronically signed on 07/15/2024 at 11:[address] Nya Tran [employer] Version [id number] 07/15/24 1142 Date Nya Tran MD CC: Dr. Kerri Strickland MD Date Dictated: 07/14/24810 Date Transcribed: 07/14/24810 Music Executive: PEREZ Signed Normal [facility] Cardiology Visit Reporton Cardiology Visit Report [facility] [address] [place], [place] [address] OFFICE VISIT Date of Service: 07/14/24 MR#: [id number] Acct: [id number] Name: Jonathan Duncan Rep #: [id number] : 1955 Provider: Dr. 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 [facility] Telephone (LawKick) JONATHAN DUCNAN ([id number]) 1955 M Date Time Provider Department 06/18/24 ASPEN KLEIN During your visit today, we recorded the following information about you: Breonna Bess LPN 06/18/2024 4:08 PM Signed Faxed EKG, problem list and medlist to [facility] for upcoming appt 07/14/24 at 10:am. Patient aware and agreeable of appt. LEVI Trammell Jillian S, APRN.HOSE FINISHER 06/19/2024 5:39 PM Signed Notifying surgeon's office [...] office visit and cardiac testing. Scanned into Tangled through Onbase scanning. Breonna Bess LPN Allergies As of Date: 06/18/2024 (No Known Allergies) Date Reviewed: 06/18/2024 Reviewed by: Aspen Klein APRN.HOSE FINISHER - Fully Assessed Reason for Visit: Surgery [...] Status:Closed by JOSIE NICOLE on 06/21/24 Normal [facility] [id number] 06-18-2024 ECG01 Ventricular Rate : 8 4 BPM Atrial Rate : 85 BPM QRS Duration : 94 ms Q-T Interval : 370 ms QTC Calculation(Bazett) : 437 ms Calculated R Allred : 44 degrees Calculated T Allred : 19 degrees ATRIAL FIBRILLATION ABNORMAL ECG Confirmed by MD MULLINS GREGORY () on 06/21/2024 4:39:59 PM NAME : JONATHAN DUNCAN PID : [id number] : 1955 Gender : Male Race : [...] BRAYDEN JOSEPH Acquired by : Tasha johnston [facility] HISTORY PHYSICALon HISTORY PHYSICAL HNO ID: [id number] Author: ASPEN KLEIN APRN.HOSE FINISHER Service: ? 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 Normal [facility] CNPEsther 06-01-2024 CNPN Telephone (MARANDA) JONATHAN DUNCAN ([id number]) 1955 Date Time Provider Department 06/01/24 BRAYDEN [...] chronicity [M25.562] Order(s):SURGICAL REQUEST - ELECTIVE (01/2020) [[id number]] Order #: [id number]: 1 Prescriptions as of 06/02/2024 - multivitamin [...] Encounter Status:Closed by TRACY MATA on 06/02/24 [facility] CNOVon 05-31-2024 CNOV Office Visit (TAMWS ) JONATHAN DUNCAN ([id number]) 1955 M Date Time Provider Department 05/31/24 12:45 PM BRAYDEN OJSEPH During your visit today, we recorded the following information about you: Brayden Joseph MD 06/22/2024 9:16 AM Signed Brayden Joseph MD Department of Orthopaedics Orthopaedics [address] [place] [address] Dept: [phone] Dept May 31, 2024 CHIEF COMPLAINT: New [...] OSTEOARTHRITIS, MOST PRONOUNCED IN THE MEDIAL COMPARTMENT. Music Executive: CHANTELL Transcribe Date/Time: May 18 2024 1:05P [...] process. R (more content not included)... Normal [facility] CNP[facility]20[facility] (FAM[employer]am[employer] Worldwide[employer]) JONATHAN DUNCAN ([id number]) 1955 M Date Time Provider Department 05/18/24 KERRI STRICKLAND [facility] During your visit today, we recorded [...] Status:Closed by JILL GOOD on 05/18/24 Normal [facility] MR Knee - left WO contraston 05-18-2024 IMPRESSION: MEDIAL MENISCAL TEAR. MILD-MODERATE OSTEOARTHRITIS, MOST PRONOUNCED IN THE MEDIAL COMPARTMENT. Music Executive: CHANTELL Transcribe Date/Time: May 18 2024 1:05P Dictated by : CHANDA STRATTON DO This examination was interpreted and the report reviewed and electronically signed by: HARJINDER RODRÍGUEZ MD on May 18 2024 1:34PM [facility] DIVISION OF RADIOLOGY * * *Final Report* * * DATE OF EXAM: May 18 2024 12:55PM [facility] 0212 - MRI KNEE WO IVCON LT [...] No additional findings. DIVISION OF RADIOLOGY Provider, [facility] - 05/18/2024 * * *Final Report* * * DATE OF EXAM: May 18 2024 12:55PM [facility] 0212 - MRI KNEE WO IVCON LT [...] OSTEOARTHRITIS, MOST PRONOUNCED IN THE MEDIAL COMPARTMENT. Music Executive: CHANTELL Transcribe Date/Time: May 18 2024 1:05P Dictated by : CHANDA STRATTON DO This examination was interpreted and the report reviewed and electronically signed by: HARJINDER RODRÍGUEZ MD on May 18 2024 1:34PM EST [facility] Radiology Study observation (narrative) [facility] MR Knee - left WO contrastOr dered By: Ccf Provider on 05-18-2024 [facility] MRI KNEE WO IVCON LTon 05-18 [...] OSTEOARTHRITIS, MOST PRONOUNCED IN THE MEDIAL COMPARTMENT. Music Executive: PSCB Transcribe Date/Time: May 18 2024 1:05P Dictated by : CHANDA STRATTON, This examination was interpreted and the report reviewed and electronically signed by: HARJINDER RODRÍGUEZ MD on May 18 2024 1:34PM EST [id number] Normal [facility] CNOVon 05-07-2024 CNOV Office Visit (FAMPWS ) JONATHAN DUNCAN ([id number]) 1955 M Date Time Provider Department 05/07/24 4:20 PM [facility] visit today, we recorded [...] Mother Heart Father Age of 69, massive [place] Diabetes Father Heart Sister Heart Brother Diabetes [...] on 09/25/2024 (more content not included)... Normal [facility] CNOVon 03-22-2024 CNOV Office Visit (UCTR ) JONATHAN DUNCAN ([id number]) 1955 M Date Time Provider Department 03/22/24 5:15 PM KYLER MELO [facility] During your visit today, we recorded [...] KNEE GENERAL 4V AP BOTH/PA BOTH/LAT/MERC LEFT [[id number]] Order #: [id number] FUTURE Prescriptions as of 03/22/2024 - Tadalafil [...] of 02/13/2024: (more content not included)... Normal [facility] XR KNEE 4V AP/PA BOTH+LAT/ME R LTon [...] No joint effusion. IMPRESSION: Negative left knee. Music Executive: PSCB Transcribe Date/Time: Mar 22 2024 6:47P Dictated by : NOBLE MAXWELL MD This examination was interpreted and the report reviewed and electronically signed by: NOBLE MAXWELL MD on Mar 22 2024 6:49PM EST [id number] Normal [facility] XR Knee - left 4 Viewson IMPRESSION: Negative left knee. Music Executive: PSCB Transcribe Date/Time: Mar 22 2024 6:47P [...] No joint effusion. DIVISION OF RADIOLOGY Provider, [facility] - 03/22/2024 * * *Final Report* * [...] joint effusion. IMPRESSION IMPRESSION: Negative left knee. Music Executive: PSCB Transcribe Date/Time: Mar 22 2024 6:47P Dictated by : NOBLE MAXWELL MD This examination was interpreted and the report reviewed and electronically signed by: NOBLE MAXWELL MD on Mar 22 2024 6:49PM EST [facility] Radiology Study observation (narrative) [facility] XR Knee - left 4 ViewsOrdere d By: Ccf Provider on 03-22-2024 [facility] XR Foot - right AP and Later al and obliqueon 08-07-2022 IMPRESSION: Calcaneal spurs. Otherwise, unremarkable radiograph Music Executive: [facility] Transcribe Date/Time: Aug 07 2022 4:14P Dictated by : KERRI SAM MD This examination was interpreted and the report reviewed and electronically signed by: KERRI SAM MD on Aug 07 2022 4:16PM [facility] DIVISION OF RADIOLOGY * * *Final Report* [...] the Achilles tendon. DIVISION OF RADIOLOGY Provider, [facility] - 08/07/2022 * * *Final Report* * [...] IMPRESSION IMPRESSION: Calcaneal spurs. Otherwise, unremarkable radiograph Music Executive: PSCB Transcribe Date/Time: Aug 07 2022 4:14P Dictated by : KERRI SAM MD This examination was interpreted and the report reviewed and electronically signed by: KERRI SAM MD on Aug 07 2022 4:16PM EST [facility] XR Foot - right AP and Later al and obliqueOrdered By: Ccf Provider on 08-07-2022 [facility] XR Foot - right AP and Later al and obliqueon 08-02-2022 Radiology Study observation (narrative) [facility] Vital Signs Date Time Vital Sign Value Performing Clinician Faci poonam 08-26-2024 12:41-0400 Body height 172.7 cm Pacc 1 Work Phone: [facility] 08-26-2024 12:41-0400 Body mass index (BMI) [Ratio] 34.21 kg/m2 Pacc 1 Work Phone: [facility] 08-26-2024 12:41-0400 Body temperature 98.71 [degF] Pacc 1 Work Phone: [facility] 08-26-2024 12:41-0400 Body weight 102.06 kg Pacc 1 Work Phone: [facility] 08-26-2024 12:41-0400 Diastolic blood pressure 68 mm[Hg] Pacc 1 Work Phone: [facility] 08-26-2024 12:41-0400 Heart rate 76 /min Pacc 1 Work Phone: [facility] 08-26-2024 12:41-0400 Respiratory rate 16 /min Pacc 1 Work Phone: [facility] 08-26-2024 12:41-0400 SaO2% (BldA) [Mass fraction] 97 % Pacc 1 Work Phone: [facility] 08-26-2024 12:41-0400 Systolic blood pressure 136 mm[Hg] Pacc 1 Work Phone: [facility] 08-20-2024 09:39-0500 Diastolic blood pressure 86 mm[Hg] Kerri Strickland MD Work Phone: [facility] 08-20-2024 09:39-0500 Systolic blood pressure 130 mm[Hg] Kerri Strickland MD Work Phone: [facility] 08-20-2024 09:24-0500 Body mass index (BMI) [Ratio] 34.26 kg/m2 Kerri Strickland MD Work Phone: [facility] 08-20-2024 09:24-0500 Body weight 102.2 kg Kerri Strickland MD Work Phone: [facility] 08-20-2024 09:24-0500 Heart rate 64 /min Kerri Strickland MD Work Phone: [facility] 08-20-2024 09:24-0500 Respiratory rate 18 /min Kerri Strickland MD Work Phone: [facility] 06-18-2024 15:32-0500 Diastolic blood pressure 82 mm[Hg] Pacc 1 Work Phone: [facility] 06-18-2024 15:32-0500 Systolic blood pressure 150 mm[Hg] Pacc 1 Work Phone: [facility] 06-18-2024 15:01-0500 Body height 172.7 cm Pacc 1 Work Phone: [facility] 06-18-2024 15:01-0500 Body mass index (BMI) [Ratio] 34.36 kg/m2 Pacc 1 Work Phone: [facility] 06-18-2024 15:01-0500 Body temperature 98.01 [degF] Pacc 1 Work Phone: [facility] 06-18-2024 15:01-0500 Body weight 102.51 kg Pacc 1 Work Phone: [facility] 06-18-2024 15:01-0500 Heart rate 98 /min Pacc 1 Work Phone: [facility] 06-18-2024 15:01-0500 Respiratory rate 16 /min Pacc 1 Work Phone: [facility] 06-18-2024 15:01-0500 SaO2% (BldA) [Mass fraction] 97 % Pacc 1 Work Phone: [facility] 05-07-2024 16:13-0500 Body mass index (BMI) [Ratio] 35.52 kg/m2 Kerri Strickland MD Work Phone: [facility] 05-07-2024 16:13-0500 Body weight 104.4 kg Kerri Strickland MD Work Phone: [facility] 05-07-2024 16:13-0500 Diastolic blood pressure 90 mm[Hg] Kerri Strickland MD Work Phone: [facility] 05-07-2024 16:13-0500 Heart rate 84 /min Kerri Strickland MD Work Phone: [facility] 05-07-2024 16:13-0500 Respiratory rate 18 /min Kerri Strickland MD Work Phone: [facility] 05-07-2024 16:13-0500 Systolic blood pressure 148 mm[Hg] Kerri Strickland MD Work Phone: [facility] 03-22-2024 17:26-0400 Body mass index (BMI) [Ratio] 35.69 kg/m2 Kyler Melo MD Work Phone: [facility] 03-22-2024 17:26-0400 Body temperature 97.59 [degF] Kyler Melo MD Work Phone: [facility] 03-22-2024 17:26-0400 Body weight 104.9 kg Kyler Melo MD Work Phone: [facility] 03-22-2024 17:26-0400 Diastolic blood pressure 82 mm[Hg] Kyler Melo MD Work Phone: [facility] 03-22-2024 17:26-0400 Heart rate 68 /min Kyler Melo MD Work Phone: [facility] 03-22-2024 17:26-0400 Respiratory rate 16 /min Kyler Melo MD Work Phone: [facility] 03-22-2024 17:26-0400 SaO2% (BldA) [Mass fraction] 97 % Kyler Melo MD Work Phone: [facility] 03-22-2024 17:26-0400 Systolic blood pressure 140 mm[Hg] Kyler Melo MD Work Phone: [facility] 02-13-2024 09:54-0400 Body height 171.5 cm Kerri Strickland MD Work Phone: [facility] 02-13-2024 09:54-0400 Body mass index (BMI) [Ratio] 35.18 kg/m2 Kerri Strickland MD Work Phone: [facility] 02-13-2024 09:54-0400 Body weight 103.4 kg Kerri Strickland MD Work Phone: [facility] 02-13-2024 09:54-0400 Diastolic blood pressure 74 mm[Hg] Kerri Strickland MD Work Phone: [facility] 02-13-2024 09:54-0400 Heart rate 58 /min Kerri Strickland MD Work Phone: [facility] 02-13-2024 09:54-0400 Respiratory rate 18 /min Kerri Strickland MD Work Phone: [facility] 02-13-2024 09:54-0400 Systolic blood pressure 122 mm[Hg] Kerri Strickland MD Work Phone: [facility] 02-03-2023 18:23-0400 Body weight 100.15 kg Kerri Stricklnad MD Work Phone: [facility] 02-03-2023 18:23-0400 Diastolic blood pressure 78 mm[Hg] Kerri Strickland MD Work Phone: [facility] 02-03-2023 18:23-0400 Heart rate 78 /min Kerri Strickland MD Work Phone: [facility] 02-03-2023 18:23-0400 Respiratory rate 16 /min Kerri Strickland MD Work Phone: [facility] 02-03-2023 18:23-0400 Systolic blood pressure 124 mm[Hg] Kerri Strickland MD Work Phone: [facility] 04-15-2022 14:51-0400 Diastolic blood pressure 72 mm[Hg] Adina Tannhof CATTLE BRANDER.HOSE FINISHER Work Phone: [facility] 04-15-2022 14:51-0400 Heart rate 87 /min Adina Tannhof CATTLE BRANDER.HOSE FINISHER Work Phone: [facility] 04-15-2022 14:51-0400 Respiratory rate 16 /min Adina Tannhof CATTLE BRANDER.HOSE FINISHER Work Phone: [facility] 04-15-2022 14:51-0400 SaO2% (BldA) [Mass fraction] 97 % Adina Tannhof CATTLE BRANDER.HOSE FINISHER Work Phone: [facility] 04-15-2022 14:51-0400 Systolic blood pressure 124 mm[Hg] Adina Tannhof CATTLE BRANDER.HOSE FINISHER Work Phone: [facility] 01-25-2022 15:28-0400 Body weight 97.98 kg Kerri Strickland MD Work Phone: [facility] 01-25-2022 15:28-0400 Diastolic blood pressure 80 mm[Hg] Kerri Strickland MD Work Phone: [facility] 01-25-2022 15:28-0400 Heart rate 70 /min Kerri Strickland MD Work Phone: [facility] 01-25-2022 15:28-0400 Respiratory rate 14 /min Kerri Strickland MD Work Phone: [facility] 01-25-2022 15:28-0400 Systolic blood pressure 138 mm[Hg] Kerri Strickland MD Work Phone: [facility] 10-19-2021 15:14-0400 Diastolic blood pressure 84 mm[Hg] Kerri Strickland MD Work Phone: [facility] 10-19-2021 15:140400 Systolic blood pressure 148 mm[Hg] Kerri Strickland MD Work Phone: [facility] 10-19-2021 15:110400 Body weight 99.97 kg Kerri Strickland MD Work Phone: [facility] 10-19-2021 15:110400 Heart rate 68 /min Kerri Strickland MD Work Phone: [facility] 10-19-2021 15:110400 Respiratory rate 16 /min Kerri Strickland MD Work Phone: [facility] Encounters Encounter Date Encounter Type Care Provider Facility Start: 04-18-2025 End: 04-18-2025 ambulatory Sen Guy Facility:[facility] Start: 03-05-2025 End: 03-05-2025 ambulatory KERRI STRICKLAND Facility:[facility] Start: 10-25-2024 End: 10-25-2024 Patient encounter procedure Brayden Joseph MD Work Phone: Orthopaedics Comment on above: Other tear of medial meniscus of left knee as current injury, subsequent encounter (Primary Dx); Primary osteoarthritis of left knee Start: 10-25-2024 End: 10-25-2024 ambulatory KERRI STRICKLAND Facility:[facility] Start: 09-27-2024 End: 09-27-2024 ambulatory SOPHIA REBOLLEDO Facility:[facility] Start: 09-27-2024 End: 09-27-2024 Patient encounter procedure Sophia Rebolledo PA-C Work Phone: Orthopaedics Comment on above: Internal derangement of left knee (Primary Dx) Start: 09-15-2024 End: 09-15-2024 ambulatory BRAYDEN JOSEPH Facility:[facility] Start: 09-06-2024 End: 09-06-2024 Refill Kerri Strickland MD Work Phone: [place] Comment on above: Refill Request Start: 08-26-2024 End: 08-26-2024 Admission to [facility] Pacc [place] 1 Work Phone: Pre Anesthesia Start: 08-26-2024 End: 08-26-2024 Anesthesia consultation [place] [address] Work Phone: Pre Anesthesia Comment on above: Pre-operative examin ation (Primary Dx); 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); HTN (hypertension), benign; Hyperlipidemia, unspecified hyperlipidemia type; New onset a-fib (HCC); Type 2 diabetes mellitus without complication, without long-term current use of insulin (HCC); Benign non-nodular prostatic hyperplasia without lower urinary tract symptoms; BMI 34.0-34.9,adult; History of prostate cancer; Former smoker Start: 08-26-2024 End: 08-26-2024 Preprocedural examination done [place] [address] Work Phone: [facility] Start: 08-26-2024 End: 08-26-2024 ambulatory KERRI STRICKLAND Facility:[facility] Start: 08-21-2024 End: 10-21-2024 Follow-up encounter Kerri Strickland MD Work Phone: [facility] Start: 08-20-2024 End: 08-20-2024 ambulatory KERRI STRICKLAND Facility:[facility] Start: 08-20-2024 End: 08-20-2024 Patient encounter procedure Kerri Strickland MD Work Phone: [facility] Comment on above: Type 2 diabetes gissell [...] 08-16-2024 Refill Kerri Strickland MD Work Phone: [address] [place] [address] Comment on above: Refill Request Start: 08-12-2024 Encounter for preprocedural cardiovascular examination Nya Marc [facility] Start: 08-05-2024 End: 08-23-2024 Telephone encounter Kerri Strickland MD Work Phone: Endocrinology Comment on above: Surgery Cancelled (w ants to reschedule surgery- patient has been cleared by director of medical review ) Start: 07-29-2024 ambulatory Nya Marc Facility:[facility] Start: 07-29-2024 End: 07-29-2024 ambulatory Nya Marc Facility:[facility] Start: 07-14-2024 End: 07-14-2024 ambulatory Nya Marc Facility:[facility] Start: 06-18-2024 End: 06-18-2024 Admission to [place] [id number] Work Phone: Pre Anesthesia Start: 06-18-2024 End: 06-18-2024 Anesthesia consultation [place] [address] Work Phone: Pre Anesthesia Comment on above: Pre-operative examin ation (Primary Dx); Atrial fibrillation, unspecified type (HCC); HTN (hypertension), benign; Hyperlipidemia, unspecified hyperlipidemia type; Type 2 diabetes mellitus without complication, without long-term current use of insulin (HCC); Benign non-nodular prostatic hyperplasia without lower urinary tract symptoms; 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); New onset a-fib (HCC) Start: 06-18-2024 End: 06-18-2024 Preprocedural examination done [place] [address] Work Phone: [facility] Work Phone: Start: 06-18-2024 End: 06-18-2024 ambulatory KERRI STRICKLAND Facility:[facility] Start: 06-18-2024 Encounter for other preprocedural examination KERRI STRICKLAND [facility] Start: 06-18-2024 End: 06-21-2024 Telephone encounter Aspen Klein APRN.CNP Work Phone: Pre Anesthesia Comment on above: Surgery Cancelled Start: 06-11-2024 End: 06-11-2024 Refill Kerri Strickland MD Work Phone: [facility] Comment on above: Refill Request Start: 06-01-2024 End: 06-02-2024 Telephone encounter Brayden Joseph MD Work Phone: Orthopaedics Comment on above: Schedule Surgery Start: 05-31-2024 End: 05-31-2024 ambulatory KERRI GARNICAGRAPELAND Facility:[facility] Start: 05-31-2024 End: 05-31-2024 Patient encounter procedure Brayden Joseph MD Work Phone: Orthopaedics Comment on above: Acute pain of left k nee; 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 Start: 05-18-2024 End: 05-18-2024 Telephone encounter Kerri Strickland MD Work Phone: [facility] Start: 05-18-2024 End: 05-18-2024 [facility] Start: 05-18-2024 End: 05-18-2024 Subsequent hospital visit by physician Mri Radio [facility] (I-Stat/1.5t) Work Phone: Radiology Comment on above: Acute pain of left k nee [M25.562] Start: 05-07-2024 End: 05-07-2024 ambulatory KERRI Crespo [facility] Facility:[facility] Start: 05-07-2024 End: 05-07-2024 Patient encounter procedure Kerri Strickland MD Work Phone: [facility] Comment on above: Acute pain of left k nee (Primary Dx); 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 Start: 03-22-2024 End: 03-22-2024 Subsequent hospital visit by physician Xr [facility] Work Phone: Radiology Comment on above: Acute pain of left k nee [M25.562] Start: 03-22-2024 End: 03-22-2024 Office outpatient visit 15 minutes Kyler Melo MD Work Phone: [facility] Comment on above: Acute pain of left k nee (Primary Dx) Start: 03-22-2024 End: 10-07-2024 ambulatory Kerri Strickland MD Work Phone: [facility] Comment on above: Knee Injury Start: 02-13-2024 End: 02-13-2024 Patient encounter procedure Kerri Strickland MD Work Phone: [facility] Comment on above: Encounter [...] 11-21-2023 Refill Kerri prabhakar MD Work Phone: [facility] Comment on above: Refill Request Start: 07-31-2023 Refill Kerri prabhakar MD Work Phone: [facility] Comment on above: Refill Request Start: 02-03-2023 End: 02-03-2023 Patient encounter procedure Kerri Strickland MD Work Phone: [facility] [place] Comment on above: HTN (hypertension), benign (Primary Dx); Need for vaccination; Type 2 diabetes mellitus without complication, without long-term current use of insulin (HCC) Start: 08-20-2022 End: 08-21-2022 Patient encounter procedure Bobby Egan Work Phone: Podiatry Comment on above: Plantar fasciitis (P rimary Dx); Foot pain, right; Nail dystrophy Start: 08-08-2022 Telephone encounter Kerri winston MD Work Phone: [facility] [place] Comment on above: Results Start: 08-02-2022 End: 08-02-2022 Subsequent hospital visit by physician David [facility] [place] Work Phone: Radiology Comment on above: Foot pain, right [M7 9.671] Start: 05-02-2022 Refill Kerri prabhakar MD Work Phone: [facility] [place] Comment on above: Refill Request Start: 04-15-2022 End: 04-15-2022 Patient encounter procedure Adina Pennington CATTLE BRANDER.HOSE FINISHER Work Phone: [facility] [place] Comment on above: Visit for suture rem oval (Primary Dx) Start: 04-04-2022 End: 04-04-2022 Emergency department patient visit PRISCILA GAGNON [facility] Start: 02-08-2022 Telephone encounter Kerri winston MD Work Phone: [facility] [place] Comment on above: Results Start: 01-25-2022 End: 01-25-2022 Patient encounter procedure Kerri Strickland MD Work Phone: [facility] [place] Comment on above: HTN (hypertension), benign (Primary Dx); Hyperlipidemia, unspecified hyperlipidemia type; Type 2 diabetes mellitus without complication, without long-term current use of insulin (HCC); Malignant neoplasm of prostate (HCC) Start: 10-22-2021 Telephone encounter Hugo Alondra vaughan CATTLE BRANDER.HOSE FINISHER Work Phone: [facility] [place] Comment on above: Results Start: 10-19-2021 End: 10-19-2021 Patient encounter procedure Kerri Strickland MD Work Phone: [facility] [place] Comment on above: Type [...] RSV Vaccine (1 - 1-dose 75+ series) [facility] Start: 09-28-2027 Colonoscopy COLONOSCOPY [facility] Start: 09-28-2027 COLORECTAL CANCER SCREENING COLORECTAL CANCER SCREENING [facility] Start: 09-28-2027 Screening for malign ant neoplasm of colon [facility] Start: 09-26-2025 Urine microalbumin profile [facility] Start: 08-20-2025 Annual PCP Team Web Support Engineer clyde Disease Visit Annual PCP Team Chronic Disease Visit [facility] Start: 08-20-2025 Covid-19 Vaccine ( season) Covid-19 Vaccine () [facility] Comment on above: Postponed from 02/14 (Declined at this time) Start: 08-20-2025 Hepatitis B surface antibody level LDL Cholesterol [facility] Start: 08-19-2025 Glaucoma screening Dilated Retinal E xam [facility] Start: 05-07-2025 Annual PCP Team Web Support Engineer clyde Disease Visit Annual PCP Team Chronic Disease Visit [facility] Start: 03-04-2025 End: 03-04-2025 Patient encounter procedure 03/04/2025 9:40 AM EDT Office Visit [facility] [place] [address] [place] [id number] Kerri Strickland MD [address] [place] [id number] 6 mo f/u [facility] [place] Comment on above: 6 mo f/u Start: 02-20-2025 End: 05-22-2025 CBC W Auto Differential panel - Blood COMPLETE BLOOD COUNT AND DIFFERENTIAL Lab Routine HTN (hypertension), benign Expected: 02/20/2025 (Approximate), Expires: 05/22/2025 [facility] Comment on above: Expected: 02/20/2025 (Approximate), Expires: 05/22/2025 Start: 02-20-2025 End: 05-22-2025 Comprehensive metabolic 2000 panel - Serum or Plasma COMPREHENSIVE METABOLIC PANEL Lab Routine Type 2 diabetes mellitus without complication, without long-term current use of insulin (HCC) HTN (hypertension), benign Hyperlipidemia, unspecified hyperlipidemia type Expected: 02/20/2025 (Approximate), Expires: 05/22/2025 [facility] Comment on above: Expected: 02/20/2025 (Approximate), Expires: 05/22/2025 Start: 02-20-2025 End: 05-22-2025 Hemoglobin A1c in Blood HEMOGLOBIN A1C Lab Routine Type 2 diabetes mellitus without complication, without long-term current use of insulin (HCC) Expected: 02/20/2025 (Approximate), Expires: 05/22/2025 [facility] Comment on above: Expected: 02/20/2025 (Approximate), Expires: 05/22/2025 Start: 02-20-2025 Hemoglobin A1c measurement HbA1C [facility] Start: 02-20-2025 End: 05-22-2025 Lipid 1996 panel - Serum or Plasma LIPID PANEL BASIC Lab Routine Type 2 diabetes mellitus without complication, without long-term current use of insulin (HCC) HTN (hypertension), benign Hyperlipidemia, unspecified hyperlipidemia type Expected: 02/20/2025 (Approximate), Expires: 05/22/2025 [facility] Comment on above: Expected: 02/20/2025 (Approximate), Expires: 05/22/2025 Start: 02-20-2025 End: 05-22-2025 Microalbumin/Creatinine [Mass Ratio] in Urine ALBUMIN/CREATININE RATIO, URINE Lab Routine Type 2 diabetes mellitus without complication, without long-term current use of insulin (HCC) Expected: 02/20/2025 (Approximate), Expires: 05/22/2025 [facility] Comment on above: Expected: 02/20/2025 (Approximate), Expires: 05/22/2025 Start: 02-12-2025 Annual PCP Team Web Support Engineer clyde Disease Visit Annual PCP Team Chronic Disease Visit [facility] Start: 02-12-2025 Anxiety Screening Anxiety Screening [facility] Start: 02-12-2025 BP Controlled (<130/80) BP Controlle d (<130/80) [facility] Start: 02-12-2025 Covid-19 Vaccine () Covid-19 Vaccine () [facility] Comment on above: Postponed from 02/14 (Declined at this time) Start: 02-12-2025 Depression Screening Depression Scre ening [facility] Start: 02-12-2025 Hepatitis B screening Urine Al bumin:Creatinine Ratio [facility] Start: 02-12-2025 Hepatitis B surface antibody level LDL Cholesterol [facility] Start: 10-25-2024 End: 10-25-2024 Patient encounter procedure 10/25/2024 12:45 PM EDT Office Visit Orthopaedics [address] [place] [address] Brayden Joseph MD [address] [place] [address] Post op left knee arthroscopic medial menisectomy Orthopaedics Comment on above: Post op left knee ar throscopic medial menisectomy Start: 09-27-2024 End: 09-27-2024 Patient encounter procedure 09/27/2024 2:30 PM EDT Office Visit Orthopaedics [address] [place] [address] Sophia Rebolledo PA-C [address] [place] [address] Post op left knee arthroscopic medial menisectomy Orthopa[facility]ics Comment on above: Post op left knee ar throscopic medial menisectomy Start: 09-25-2024 Glaucoma screening Dilated Retinal E xam [facility] Start: 09-15-2024 End: 09-15-2024 Admission to same day surgery center 09/15/2024 7:30 AM EDT - 09/15/2024 8:56 AM EDT [facility] [address] [place] [address] Brayden Joseph MD [address] [place] [address] ARTHROSCOPY KNEE MENISCECTOMY MEDIAL OR LATERAL [facility] Comment on above: ARTHROSCOPY KNEE MEN ISCECTOMY MEDIAL OR LATERAL Start: 09-15-2024 End: 09-15-2024 Arthrs kne surg w/meniscectomy med/lat w/shvg ARTHROSCOPY KNEE MENISCECTOMY MEDIAL OR LATERAL Derangement of knee, left Left knee pain, unspecified chronicity 09/15/2024 7:30 AM EDT ME OR Start: 09-15-2024 Subsequent hospital visit by physician 09/15/2024 7:30 AM EDT Hospital Encounter [facility] [address] [place] [id number] Brayden Joseph MD [address] [place] [address] Derangement of knee, left [M23.92], Left knee pain, unspecified chronicity [M25.562] [facility] Comment on above: Derangement of knee, left [M23.92], Left knee pain, unspecified chronicity [M25.562] Start: 08-20-2024 End: 11-19-2024 Thyrotropin [Units/volume] in Serum or Plasma [facility] Work Phone: Comment on above: Expected: 08/20/2024 , Expires: 11/19/2024 Start: 08-20-2024 End: 08-20-2024 Patient encounter procedure 08/20/2024 9:40 AM EST Office Visit [facility] [place] [address], [place] [phone] Kerri Strickland MD [address] [place] [address] 6 mo f/u [facility] [place] Comment on above: 6 mo f/u Start: 08-13-2024 End: 11-12-2024 Comprehensive metabolic 2000 panel - Serum or Plasma COMPREHENSIVE METABOLIC PANEL Lab Routine HTN (hypertension), benign Hyperlipidemia, unspecified hyperlipidemia type Type 2 diabetes mellitus without complication, without long-term current use of insulin (HCC) Expected: 08/13/2024 (Approximate), Expires: 11/12/2024 [facility] Work Phone: Comment on above: Expected: 08/13/2024 (Approximate), Expires: 11/12/2024 Start: 08-13-2024 End: 11-12-2024 Hemoglobin A1c in Blood HEMOGLOBIN A1C Lab Routine Type 2 diabetes mellitus without complication, without long-term current use of insulin (HCC) Expected: 08/13/2024 (Approximate), Expires: 11/12/2024 [facility] Comment on above: Expected: 08/13/2024 (Approximate), Expires: 11/12/2024 Start: 08-13-2024 Hemoglobin A1c measurement HbA1C [facility] Start: 08-13-2024 End: 11-12-2024 Lipid 1996 panel - Serum or Plasma LIPID PANEL BASIC Lab Routine HTN (hypertension), benign Hyperlipidemia, unspecified hyperlipidemia type Type 2 diabetes mellitus without complication, without long-term current use of insulin (HCC) Expected: 08/13/2024 (Approximate), Expires: 11/12/2024 [facility] Comment on above: Expected: 08/13/2024 (Approximate), Expires: 11/12/2024 Start: 08-11-2024 Annual PCP Team Web Support Engineer clyde Disease Visit Annual PCP Team Chronic Disease Visit [facility] Start: 08-11-2024 BP Controlled (<130/80) BP Controlle d (<130/80) [facility] Start: 08-09-2024 End: 08-09-2024 Patient encounter procedure 08/09/2024 2:45 PM EST Office Visit Orthopaedics [address] [place] [address] Brayden Joseph MD [address] [place] [address] Post op Left knee arthroscopy Orthopa[facility] Comment on above: Post op Left knee ar throscopy Start: 07-12-2024 End: 07-12-2024 Patient encounter procedure 07/12/2024 2:30 PM EST Office Visit Orthopaedics [address] [place] [phone] Sophia Rebolledo PA-C [address] [place] [address] Post op Left knee arthroscopy [facility] Comment on above: Post op Left knee ar throscopy Start: 07-03-2024 Shingrix Vaccine (2 of 2) Shingrix Vaccine (2 of 2) [facility] Start: 06-30-2024 End: 06-30-2024 Admission to same day surgery center 06/30/2024 11:21 AM EST - 06/30/2024 12:56 PM EST Surgery [facility] [address] [place] [address] Brayden Joseph MD [address] [facility] [place] [address] ARTHROSCOPY KNEE MENISCECTOMY MEDIAL OR LATERAL [facility] Comment on above: ARTHROSCOPY KNEE MEN ISCECTOMY MEDIAL OR LATERAL Start: 06-30-2024 End: 06-30-2024 Arthrs kne surg w/meniscectomy med/lat w/shvg ARTHROSCOPY KNEE MENISCECTOMY MEDIAL OR LATERAL Internal derangement of left knee Left knee pain, unspecified chronicity 06/30/2024 11:21 AM EST ME OR Start: 06-30-2024 Subsequent hospital visit by physician 06/30/2024 11:21 AM EST Hospital Encounter [facility] [address] [place] [address] Brayden Joseph MD [address] [facility] [place] [address] Internal derangement of left knee [M23.92], Left knee pain, unspecified chronicity [M25.562] [facility] Comment on above: Internal derangement of left knee [M23.92], Left knee pain, unspecified chronicity [M25.562] Start: 06-18-2024 End: 06-18-2024 Anesthesia consultation 06/18/2024 3:20 PM EST PAT Pre Anest[facility] [address] [facility] [place] [address] 1, [facility] [place] [address] [place] [address] ARTHROSCOPY KNEE MENISCECTOMY MEDIAL OR LATERAL [5519] - Knee - Left Pre Anesthesia Comment on above: ARTHROSCOPY KNEE MEN ISCECTOMY MEDIAL OR LATERAL [5519] - Knee - Left Start: 06-16-2024 Advance Directive Discussion Advance Directive Discussion [facility] Start: 06-04-2024 PROSTATE CANCER SCREENING DISCUSSION PROSTATE CANCER SCREENING DISCUSSION [facility] Start: 05-31-2024 End: 05-31-2024 Patient encounter procedure 05/31/2024 12:45 PM EST Office Visit Orthopaedics [address] [place] [address] Brayden Joseph MD [address] [address] Acute pain of left knee [M25.562]; 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 [M23.92] Orthopaedics Comment on above: Acute pain of left k nee [M25.562]; 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 [M23.92] Start: 05-18-2024 End: 05-18-2024 Patient encounter procedure 05/18/2024 12:00 PM EST Appointment Radiology [address] [place] [address] Acute pain of left knee [M25.562]; 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 [M23.92] Radiology Comment on above: Acute pain of left k nee [M25.562]; 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 [M23.92] Start: 02-23-2024 Hepatitis B surface antibody level LDL Cholesterol [facility] Start: 02-15-2024 Covid-19 Vaccine ( season) Covid-19 Vaccine ( season) [facility] Start: 02-15-[address] [facility] Start: 02-10-2024 End: 02-10-2024 Patient encounter procedure 02/10/2024 10:40 AM EDT Office Visit [facility] [place] [address] [facility] [address] Kerri Strickland MD [address] [place] [address] 6 month follow up [facility] [place] Comment on above: 6 month follow up Start: 02-04-2024 ANNUAL PCP TEAM CARTRIDGE MAKER CLYDE DISEASE VISIT ANNUAL PCP TEAM CHRONIC DISEASE VISIT [facility] Start: 02-04-2024 BP CONTROLLED (<130/80) BP CONTROLLE D (<130/80) [facility] Start: 01-31-2024 Hemoglobin A1c measurement HbA1C [facility] Start: 08-31-2023 Glaucoma screening Dilated Retinal E xam [facility] Start: 08-31-2023 Hepatitis C antibody , confirmatory test DILATED RETINAL EXAM [facility] Start: 08-23-2023 Hemoglobin A1c measurement HbA1C [facility] Start: 08-03-2023 Hepatitis B screening URINE AL BUMIN:CREATININE RATIO [facility] Start: 08-03-2023 Hepatitis B surface antibody level LDL CHOLESTEROL [facility] Start: 08-02-2023 ANNUAL PCP TEAM CARTRIDGE MAKER CLYDE DISEASE VISIT ANNUAL PCP TEAM CHRONIC DISEASE VISIT [facility] Start: 06-16-2023 Advance Directive Discussion Advance Directive Discussion [facility] Start: 06-16-2023 Behavioral Health Screening Behavioral Health Screening [facility] Start: 06-16-2023 Depression Assessment Depression Ass essment [facility] Start: 04-19-2023 ANNUAL PCP TEAM CARTRIDGE MAKER CLYDE DISEASE VISIT ANNUAL PCP TEAM CHRONIC DISEASE VISIT [facility] Start: 04-15-2023 ANNUAL PCP TEAM CARTRIDGE MAKER CLYDE DISEASE VISIT ANNUAL PCP TEAM CHRONIC DISEASE VISIT [facility] Start: 04-15-2023 BP CONTROLLED (<130/80) BP CONTROLLE D (<130/80) [facility] Start: 02-14-2023 Covid-19 Vaccine ( season) Covid-19 Vaccine ( season) [facility] Start: 02-14-[address] [facility] Start: 02-03-2023 End: 04-05-2023 CBC panel - Blood by Automated count CBC Lab Routine HTN (hypertension), benign Type 2 diabetes mellitus without complication, without long-term current use of insulin (HCC) Expected: 02/03/2023 (Approximate), Expires: 04/05/2023 [facility] Work Phone: Comment on above: Expected: 02/03/2023 (Approximate), Expires: 04/05/2023 Start: 02-03-2023 End: 04-05-2023 Comprehensive metabolic 2000 panel - Serum or Plasma COMP METABOLIC PANEL Lab Routine HTN (hypertension), benign Type 2 diabetes mellitus without complication, without long-term current use of insulin (HCC) Expected: 02/03/2023 (Approximate), Expires: 04/05/2023 [facility] Work Phone: Comment on above: Expected: 02/03/2023 (Approximate), Expires: 04/05/2023 Start: 02-03-2023 End: 04-05-2023 Hemoglobin A1c in Blood HGB A1C Lab Routine Type 2 diabetes mellitus without complication, without long-term current use of insulin (HCC) Expected: 02/03/2023 (Approximate), Expires: 04/05/2023 [facility] Work Phone: Comment on above: Expected: 02/03/2023 (Approximate), Expires: 04/05/2023 Start: 02-03-2023 End: 04-05-2023 Lipid 1996 panel - Serum or Plasma LIPID PANEL BASIC Lab Routine Type 2 diabetes mellitus without complication, without long-term current use of insulin (HCC) Expected: 02/03/2023 (Approximate), Expires: 04/05/2023 [facility] Work Phone: Comment on above: Expected: 02/03/2023 (Approximate), Expires: 04/05/2023 Start: 01-31-2023 Hemoglobin A1c/Hemoglobin.total in Blood HBA1C [facility] Start: 01-25-2023 ANNUAL PCP TEAM CARTRIDGE MAKER CLYDE DISEASE VISIT ANNUAL PCP TEAM CHRONIC DISEASE VISIT [facility] Start: 10-19-2022 ANNUAL PCP TEAM CARTRIDGE MAKER CLYDE DISEASE VISIT ANNUAL PCP TEAM CHRONIC DISEASE VISIT [facility] Start: 10-19-2022 Hepatitis B surface antibody level LDL CHOLESTEROL [facility] Start: 07-28-2022 Hemoglobin A1c/Hemoglobin.total in Blood HBA1C [facility] Start: 05-15-2022 Colonoscopy COLONOSCOPY [facility] Start: 05-15-2022 COLORECTAL CANCER SCREENING COLORECTAL CANCER SCREENING [facility] Start: 04-21-2022 Hemoglobin A1c/Hemoglobin.total in Blood HBA1C [facility] Start: 04-18-2022 3 comp foot exam completed DIABETIC FOOT EXAM [facility] Start: 04-18-2022 Adult depression screening assessment DEPRESSION SCREENING [facility] Start: 04-18-2022 Diabetic foot examination Diabetic Foot Exam [facility] Start: 04-13-2022 Hepatitis B screening URINE AL BUMIN:CREATININE RATIO [facility] Start: 04-13-2022 Hepatitis B surface antibody level LDL CHOLESTEROL [facility] Start: 02-14-2022 Influenza vaccination INFLUENZA (#1) [facility] Start: 01-25-2022 End: 03-27-2022 Basic metabolic 2000 panel - Serum or Plasma [facility] Work Phone: Comment on above: Expected: 01/25/2022 , Expires: 03/27/2022 Start: 01-25-2022 End: 03-27-2022 Hemoglobin A1c in Blood [facility] Work Phone: Comment on above: Expected: 01/25/2022 , Expires: 03/27/2022 Start: 01-22-2022 End: 03-24-2022 Comprehensive metabolic 2000 panel - Serum or Plasma COMP METABOLIC PANEL Lab Routine Type 2 diabetes mellitus without complication, without long-term current use of insulin (HCC) Expected: 01/22/2022 (Approximate), Expires: 03/24/2022 [facility] Work Phone: Comment on above: Expected: 01/22/2022 (Approximate), Expires: 03/24/2022 Start: 01-22-2022 End: 03-24-2022 Hemoglobin A1c/Hemoglobin.total in Blood HGB A1C Lab Routine Type 2 diabetes mellitus without complication, without long-term current use of insulin (HCC) Expected: 01/22/2022 (Approximate), Expires: 03/24/2022 [facility] Work Phone: Comment on above: Expected: 01/22/2022 (Approximate), Expires: 03/24/2022 Start: 10-19-2021 End: 12-19-2021 CBC panel - Blood by Automated count [facility] Work Phone: Comment on above: Expected: 10/19/2021 , Expires: 12/19/2021 Start: 10-19-2021 End: 12-19-2021 Comprehensive metabolic 2000 panel - Serum or Plasma [facility] Work Phone: Comment on above: Expected: 10/19/2021 (Approximate), Expires: 12/19/2021 Start: 10-19-2021 End: 12-19-2021 Hemoglobin A1c/Hemoglobin.total in Blood [facility] Work Phone: Comment on above: Expected: 10/19/2021 (Approximate), Expires: 12/19/2021 Start: 10-19-2021 End: 12-19-2021 LIPID PANEL, NONFASTING [facility] Work Phone: Comment on above: Expected: 10/19/2021 (Approximate), Expires: 12/19/2021 Start: 10-12-2021 Hemoglobin A1c/Hemoglobin.total in Blood HBA1C [facility] Start: 10-10-2021 COVID-19 VACCINE (4 - Booster for Moderna series) COVID-19 VACCINE (4 - Booster for Moderna series) [facility] Start: 08-19-2021 Hepatitis C antibody , confirmatory test DILATED RETINAL EXAM [facility] Start: 08-06-2021 COVID-19 VACCINE (4 - Booster for Moderna series) COVID-19 VACCINE (4 - Booster for Moderna series) [facility] Start: 08-06-2021 COVID-19 VACCINE (4 - Moderna series) COVID-19 VACCINE (4 - Moderna series) [facility] Start: 06-16-2021 DEPRESSION ASSESSMENT DEPRESSION ASS ESSMENT [facility] Start: 12-30-2020 BP CONTROLLED (<130/80) BP CONTROLLE D (<130/80) [facility] Start: 06-02-2020 PNEUMOCOCCAL: 65+ (2 - PPSV23 if available, else PCV20) PNEUMOCOCCAL: 65+ (2 - PPSV23 if available, else PCV20) [facility] Start: 06-02-2020 PNEUMOCOCCAL: 65+ (2 - PPSV23 or PCV20) PNEUMOCOCCAL: 65+ (2 - PPSV23 or PCV20) [facility] Start: 07-28-2019 PNEUMOCOCCAL: 65+ (2 - PPSV23 if available, else PCV20) PNEUMOCOCCAL: 65+ (2 - PPSV23 if available, else PCV20) [facility] Start: 2019 PNEUMOVAX AGE 65 AND OVER WITH 5YR LOOKBACK (#1) PNEUMOVAX AGE 65 AND OVER WITH 5YR LOOKBACK (#1) [facility] Start: 2014 RSV Vaccine (1 - 1-d ose 60+ series) RSV Vaccine (1 - 1-dose 60+ series) [facility] Start: 2014 RSV Vaccine (1 - Ris k 60-74 years 1-dose series) RSV Vaccine (1 - Risk 60-74 years 1-dose series) [facility] Start: 2004 SHINGRIX VACCINE (1 of 2) SHINGRIX VACCINE (1 of 2) [facility] Start: 1999 COLOGUARD (FIT-DNA) COLOGUARD (FIT-D NA) [facility] Start: [address] COLONOGRAPHY [facility] Start: 1999 FECAL OCCULT BLOOD FECAL OCCULT BLOO D [facility] Start: 1999 Screening for malign ant neoplasm of colon [facility] Start: 1999 SIGMOIDOSCOPY SIGMOIDOSCOPY [facility] End: 06-18-2025 ECG COMPLETE ECG COMPLETE ECG Routine Pre-operative examination 1 Occurrences starting 06/18/2024 until 06/18/2025 [facility] Work Phone: Comment on above: 1 Occurrences starti ng 06/18/2024 until 06/18/2025 ECG COMPLETE ECG COMPLETE ECG 06/18/2024 4:57 PM EST [facility] End: 06-06-2025 MR Knee - left WO contrast MRI KNEE WO IVCON LEFT Radiology Routine Acute pain of left knee 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 1 Occurrences starting 05/07/2024 until 06/06/2025 [facility] Work Phone: Comment on above: 1 Occurrences starti ng 05/07/2024 until 06/06/2025 [facility] Immunizations Immunization Date Immunization Notes Care Provider Terence chauhan 07-17-2024 zoster vaccine recombinant Kerri Strickland MD Work Phone: [facility] 05-08-2024 influenza (HD-IIV4) vaccine, age 65+ yr, high dose, quadrivalent, PF (FLUZONE HIGH-DOSE) Kerri Strickland MD Work Phone: [facility] 02-03-2023 pneumococcal polysaccharide vaccine, 23 valent Kerri Strickland MD Work Phone: [facility] 04-19-2022 influenza, high-dose , quadrivalent vaccine (FLUZONE HIGH DOSE QUADRIVALENT) Kerri Strickland MD Work Phone: [facility] 04-19-2022 influenza virus vacc ine, unspecified formulation Kerri Strickland MD Work Phone: [facility] 04-18-2021 influenza, high-dose , quadrivalent vaccine (FLUZONE HIGH DOSE QUADRIVALENT) Kerri Strickland MD Work Phone: [facility] 09-23-2020 COVID-19 vaccine, fu ll dose (MODERNA) Kerri Strickland MD Work Phone: [facility] 06-02-2019 influenza, high dose seasonal, preservative-free Kerri Strickland MD Work Phone: [facility] 06-02-2019 pneumococcal conjuga te vaccine, 13 valent Kerri Strickland MD Work Phone: [facility] 05-26-2018 influenza, injectabl e, quadrivalent, contains preservative Kerri Strickland MD Work Phone: [facility] 04-04-2016 influenza, injectabl e, quadrivalent, contains preservative Kerri Strickland MD Work Phone: [facility] Payers Date Payer Category Payer Unknown [id number] 2024 Self-pay 2022 Worker's Compensation [id number] 2019 Medicare MEDICARE MEDICAR E A AND B [id number] 2019-Present [phone] [place] [address] Medicare [id number] 2019 Medicare [id number] 2019 Medicare [id number] 2016 Blue Cross Blue Shield BLUE CARD PPO OOS [id number] 2016 Unknown [employer] BLUE CARD PPO OOS [id number] 2016-Present [phone] [address] [place] [address] PPO [id number] 2016 Unknown [id number] 2016 Unknown [id number] 1955 Unknown [id number] Unknown [id number] Unknown [id number] Unknown [id number] Unknown [id number] Social History Date Type Detail Facility Start: 04-04-2016 End: 09-27-2022 Tobacco smoking status NHIS Ex-smoker [facility] History of tobacco use Chews Tobacco [facility] Work Phone: Start: 10-19-2021 End: 10-25-2024 Alcohol intake Current drinker of alcohol (finding) [facility] Start: 1955 Sex Assigned At Not on file [facility] Start: 10-09-2021 End: 04-19-2022 Exposure to SARS-CoV-2 (event) Not sure [facility] History of tobacco use Current smoker [facility] Start: 04-04-2016 End: 09-27-2022 Tobacco use and exposure User of smokeless tobacco [facility] History of tobacco use Cigarette Smoker [facility] Start: 02-03-2023 End: 02-13-2024 History of Social function [facility] Work Phone: Start: 02-03-2023 End: 02-13-2024 Tobacco use panel [facility] Work Phone: Adult Depression Screening Assessment 0 [facility] Work Phone: Start: 09-27-2022 Alcohol Comment 2 beers per day [facility] How often to you hav e a drink containing alcohol? 4 or more times a week [facility] How many standard drinks containing alcohol do you have on a typical day? 1 or 2 [facility] How often do you hav e 6 or more drinks on 1 occasion? Never [facility] Medical Equipment Procedure Code Equipment Code Equipment Origin al Text Equipment Identifier Dates Test blood sugar(s) 1 times daily. Dx: Type 1 DM - Controlled E10.9 Insulin: No [id number], [id number] Start: 02-03-2023 Comment on above: Test blood [...] Type Note Facility 03-05-2025 Note HNO ID: [id number] Author: KERRI STRICKLAND MD Service: ? Author [...] mg 1 tab po bid. Follows with [facility]. Arthritis: Uses Mobic 15 mg [...] Mother Heart Father Age of 69, massive [place] Diabetes Father Heart Sister Heart Brother Diabetes [...] Completed Data reviewed Labs ordered Recording using [employer] software for draft documentation of the visit was discuss (more content not included)... [facility] 10-25-2024 Note HNO ID: [id number] Author: BRAYDEN JOSEPH MD Service: ? Author Type: Physician Type: Progress Notes Filed: 10/25/2024 22:29 Note Text: Brayden Joseph MD Department of Orthopaedics Orthopaedics [address] [facility] [address] Dept: [phone] Dept October 25, 2024 CHIEF COMPLAINT: Post [...] take the edge off. Patient works at [employer] and would like to return to work [...] Patient has no known allergies. Recording using Kelk[employer] software for draft documentation of the visit was discussed with the patient/authorized escrow representative; all questions welcomed and answered. Patient/authorized escrow representative agreed to proceed Brayden Joseph MD [facility] 10-25-2024 History of Presen t illness Narrative Brayden Joseph MD Department of Orthopaedics Orthopaedics [facility] [address] [facility] [address] Dept: [phone] Dept October 25, 2024 CHIEF COMPLAINT: Post [...] take the edge off. Patient works at [employer] and would like to return to work [...] Patient has no known allergies. Recording using [employer] software for draft documentation of the visit was discussed with the patient/authorized escrow representative; all questions welcomed and answered. Patient/authorized escrow representative agreed to proceed Brayden Joseph MD documented in this encounter [facility] 09-27-2024 Note HNO ID: [id number] Author: SOPHIA REBOLLEDO PA-C Service: ? Author Type: Physician Home Appliances Mechanic Type: Progress Notes Filed: 09/27/2024 14:59 Note Text: Sophia Rebolledo PA-C Department of Orthopaedics Orthopaedics [address] [place] [address] Dept: [phone] Dept September 27, 2024 CHIEF COMPLAINT: Post [...] allergies. This note was partially generated using [employer] voice recognition system, and there may be some incorrect words, spellings, and punctuation that were not noted in checking the note before saving. Sophia Rebolledo PA-C [facility] 09-27-2024 History of Presen t illness Narrative Sophia Rebolledo PA-C Department of Orthopaedics Orthopaedics [address] [facility] [address] Dept: [phone] Dept September 27, 2024 CHIEF COMPLAINT: Post [...] allergies. This note was partially generated using [employer] voice recognition system, and there may be [...] at incision sites. Patient has been taking [place] as needed for the pain and is asking for a refill. documented in this encounter [facility] 09-27-2024 Note HNO ID: [id number] Author: TRACY MATA MA Service: ? Author Type: Food And Beverage Assistant Manager Type: Progress Notes Filed: 09/27/2024 14:59 Note [...] at incision sites. Patient has been taking [place] as needed for the pain and is asking for a refill. 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 ORDER MANAGER: Leticia Szymanski APRN.ORDER MANAGER Performed by: ORDER MANAGER Indications and Patient Condition Indications for airway management: anesthesia Preoxygenated: yes anesthesia circuit Patient position: sniffing Method: asleep Cricoid Pressure: No Final Airway Details Final airway type: supraglottic airway Number of attempts at approach: 1 Final Supraglottic Airway: i-gel Size 5 Seal Adequate: yes Failed airway: no Unrecognized esophageal intubation: no Airway not difficult SIGNATURE: Leticia Szymanski APRN.ORDER MANAGER PATIENT NAME: Jonathan Duncan DATE: September 15, 2024 TIME: 8:04 AM CSN: [id number] [facility] 09-06-2024 Telephone encounter Note Prescription Refill Information [...] Cami Espinosa September 06, 2024 2:37 PM [facility] 09-06-2024 Miscellaneous Notes Prescription Refill Information [...] 2024 2:37 PM documented in this encounter [facility] 08-26-2024 Instructions Aspen Klein APRN.RICHY - 08/26/2024 1:02 PM EDT Images from the original note were not included. [facility] PATIENT PREOPERATIVE INSTRUCTIONS Kerri Strickland MD has scheduled you for your procedure at this surgery center: [facility]: [phone] -- [address] [facility] [address]. Please read below carefully for your personalized [...] office. If you are currently using a pzpw-raq-msev injectable or oral medication for diabetes or [...] Procedures: - YOU MUST HAVE A RESPONSIBLE CYLINDER MACHINE OPERATOR TAKE YOU HOME. A PRODUCT SUPPORT REPRESENTATIVE OR PIN DRAFTER CANNOT BE MADE A RESPONSIBLE CYLINDER MACHINE OPERATOR. - We recommend that a responsible person [...] Advance Directive, please fax a copy to [phone] or email to for it to be [...] Aspen Klein APRN.CNP documented in this encounter [facility] 08-26-2024 History and physical note Images from the original note were not included. 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 Pt recently [...] equal to 35 kg/m^2 STOP-Bang Score: 5 [id number] Score: Age: 65-74 Sex: male CHF history: No Hypertension history: Yes Stroke/TIA/thromboembolism history: No Vascular disease history: No Diabetes history: Yes [id number] Score: 3 ARISCAT Score: Age: 51-80 Preoperative [...] exists. CHIEF COMPLAINT: Pre-op exam HPI: Jonathan uDncan is a 69 year old seen for [...] fevers. Neurological: No history of TIA's, stroke, PACKAGE SEALER MACHINE tumor, impaired sensorium, hemiplegia, paraplegia or quadraplegia. [...] pain, CHF, congenital heart defect, DVT/PE, recent UT, PTCA, PVD, open heart surgery and valve [...] Mother Heart Father Age of 69, massive UT Diabetes Father Heart Sister Heart Brother Diabetes [...] 370 QTC Calculation (Bazett) 437 Calculated R Allred 44 Calculated T Allred 19 Impression ATRIAL FIBRILLATION ABNORMAL ECG Confirmed by MD MULLINS GREGORY () on 06/21/2024 4:39:59 PM No results found for this or any previous visit (from the past 65858 hours). Instructions Given to Patient: Instructions located in the after visit summary. Patient given verbal and written preop instructions and voices comprehension and compliance. SIGNATURE: Aspen Klein APRN.HOSE FINISHER PATIENT NAME: Jonathan Duncan DATE: August 26, 2024 TIME: 12:59 PM PAGER/CONTACT #: [facility] 08-26-2024 History and physical note Images from the original note were not included. 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 Pt recently [...] equal to 35 kg/m^2 STOP-Bang Score: 5 [id number] Score: Age: 65-74 Sex: male CHF history: No Hypertension history: Yes Stroke/TIA/thromboembolism history: No Vascular disease history: No Diabetes history: Yes [id number] Score: 3 ARISCAT Score: Age: 51-80 Preoperative [...] fevers. Neurological: No history of TIA's, stroke, PACKAGE SEALER MACHINE tumor, impaired sensorium, hemiplegia, paraplegia or quadraplegia. [...] pain, CHF, congenital heart defect, DVT/PE, recent UT, PTCA, PVD, open heart surgery and valve [...] Mother Heart Father Age of 69, massive [place] Diabetes Father Heart Sister Heart Brother Diabetes [...] 370 QTC Calculation (Bazett) 437 Calculated R Allred 44 Calculated T Allred 19 Impression ATRIAL FIBRILLATION ABNORMAL ECG Confirmed by MD MULLINS GREGORY () on 06/21/2024 4:39:59 PM No results found for this or any previous visit (from the past 64377 hours). Instructions Given to Patient: Instructions located in the after visit summary. Patient given verbal and written preop instructions and voices comprehension and compliance. SIGNATURE: Aspen Klein APRN.CNP PATIENT NAME: Jonathan Duncan DATE: August 26, 2024 TIME: 12:59 PM PAGER/CONTACT #: documented in this encounter [facility] 08-23-2024 Telephone encounter Note Surgery has been scheduled as requested. [facility] 08-23-2024 Miscellaneous Notes Surgery has been [...] office back stating that he seen his director of medical review and has been cleared for surgery. Phoned office and spoke with nurse. Patient was last seen by on 07/14/24, then ahd ECHO , stress test completed. EKG done on 06/18/24. They did not get a clearance from . They did complete the testing. is needing paperwork saying what type of surgery, when surgery is to get a clearance. FAx number # [phone]. Please review and advise further. PATIENT will be awaiting call back. Sarah Modi LPN documented in this encounter [facility] 08-23-2024 Telephone encounter Note Received fax back from Dr. Tran's office. The patient has been cleared for surgery. Copy of their office notes scanned into scanned documents. I called and spoke with the patients spouse. He will be scheduled on 09/15/2024. Surgical request completed. Post op appointments have been scheduled and mailed to the patient. [facility] 08-20-2024 History of Presen t illness [...] mg 1 tab po bid. Follows with [facility]. Flour Tester suggested doing a thyroid test, but pt [...] 81 mg once daily was d/c by Flour Tester. Tolerating well. Arthritis: Uses Mobic 15 mg [...] Mother Heart Father Age of 69, massive [place] Diabetes Father Heart Sister Heart Brother Diabetes [...] Past Histories independently gathered by the clinical it technical support specialist and the remaining scribed note accurately describes [...] Jazmyn Lui MA documented in this encounter [facility] 08-20-2024 Note HNO ID: [id number] Author: KERRI STRICKLAND MD Service: ? Author [...] po bid. Follows with [facility]. Flour Tester suggested doing a thyroid test, but pt [...] 81 mg once daily was d/c by Flour Tester. Tolerating well. Arthritis: Uses Mobic 15 mg [...] Mother Heart Father Age of 69, massive [place] Diabetes Father Heart Sister Heart Brother Diabetes [...] oz) BMI 34. (more content not included)... [facility] 08-16-2024 Telephone encounter Note Prescription Refill Information [...] and requesting a start term go to [facility] Requested Prescriptions Pending Prescriptions Disp Refills metFORMIN [...] Mariam Gastelum August 16, 2024 10:00 AM [facility] 08-16-2024 Miscellaneous Notes Prescription Refill Information [...] and requesting a start term go to [facility] Requested Prescriptions Pending Prescriptions Disp Refills metFORMIN [...] 2024 10:00 AM documented in this encounter [facility] 08-13-2024 Telephone encounter Note Surgical clearance form faxed to Dr. Tran's office. Patient will be contacted to reschedule once cardiology clearance is received. [facility] 08-05-2024 Telephone encounter Note Patient 's is calling office back stating that he seen his director of medical review and has been cleared for surgery. Phoned office and spoke with nurse. Patient was last seen by on 07/14/24, then ahd ECHO , stress test completed. EKG done on 06/18/24. They did not get a clearance from . They did complete the testing. is needing paperwork saying what type of surgery, when surgery is to get a clearance. FAx number # [phone]. Please review and advise further. PATIENT will be awaiting call back. Sarah Modi LPN [facility] 06-21-2024 Telephone encounter Note Case message sent to cancel surgery. Post op appointments have been cancelled. I called and spoke with the patients spouse and told her to contact the office back to reschedule once he has cardiology clearance. She verbalized understanding. [facility] 06-21-2024 Miscellaneous Notes Case message sent [...] Faxed EKG, problem list and medlist to [facility] for upcoming appt 07/14/24 at 10:am. Patient aware and agreeable of appt. Breonna Bess LPN documented in this encounter [facility] 06-19-2024 Telephone encounter Note Notifying surgeon's office pt's surgery will need to be rescheduled til after he has had cardiac optimization, for new onset afib found during [facility] appt. [facility] 06-18-2024 Telephone encounter Note Faxed EKG, problem list and medlist to [facility] for upcoming appt 07/14/24 at 10:am. Patient aware and agreeable of appt. Breonna Bess LPN [facility] 06-18-2024 Instructions Aspen Klein APRN.HOSE FINISHER - 06/18/2024 3:14 PM EST Images from the original note were not included. [facility] PATIENT PREOPERATIVE INSTRUCTIONS Brayden Joseph MD has scheduled you for your procedure at this surgery center: [facility]: [phone] -- [address] [facility] [address]. Please read below carefully for your personalized [...] office. If you are currently using a zele-peq-vdwl injectable or oral medication for diabetes or [...] Procedures: - YOU MUST HAVE A RESPONSIBLE CYLINDER MACHINE OPERATOR TAKE YOU HOME. A PRODUCT SUPPORT REPRESENTATIVE OR PIN DRAFTER CANNOT BE MADE A RESPONSIBLE CYLINDER MACHINE OPERATOR. 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 New onset a-fib (HCC) Assessment: found on pre-op EKG today, asymptomatic, currently taking daily ASA, cardiac optimization appt made with [facility] for patient. Informed pt to remain [...] equal to 35 kg/m^2 STOP-Bang Score: 5 [id number] Score: Age: 65-74 Sex: male CHF history: No Hypertension history: Yes Stroke/TIA/thromboembolism history: No Vascular disease history: No Diabetes history: Yes [id number] Score: 3 ARISCAT Score: Age: 51-80 Preoperative [...] fevers. Neurological: No history of TIA's, stroke, PACKAGE SEALER MACHINE tumor, impaired sensorium, hemiplegia, paraplegia or quadraplegia. [...] pain, CHF, congenital heart defect, DVT/PE, recent UT, PTCA, PVD, open heart surgery and valve [...] Mother Heart Father Age of 69, massive [place] Diabetes Father Heart Sister Heart Brother Diabetes [...] 370 QTC Calculation (Bazett) 437 Calculated R Allred 44 Calculated T Allred 19 Impression ATRIAL FIBRILLATION ABNORMAL ECG No results found for this or any previous visit (from the past 52243 hour(s)). Instructions Given to Patient: Instructions located in the after visit summary. Patient given verbal and written preop instructions and voices comprehension and compliance. 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 New onset a-fib (HCC) Assessment: found on pre-op EKG today, asymptomatic, currently taking daily ASA, cardiac optimization appt made with [facility] for patient. Informed pt to remain [...] equal to 35 kg/m^2 STOP-Bang Score: 5 [id number] Score: Age: 65-74 Sex: male CHF history: No Hypertension history: Yes Stroke/TIA/thromboembolism history: No Vascular disease history: No Diabetes history: Yes [id number] Score: 3 ARISCAT Score: Age: 51-80 Preoperative [...] fevers. Neurological: No history of TIA's, stroke, PACKAGE SEALER MACHINE tumor, impaired sensorium, hemiplegia, paraplegia or quadraplegia. [...] pain, CHF, congenital heart defect, DVT/PE, recent UT, PTCA, PVD, open heart surgery and valve [...] Mother Heart Father Age of 69, massive [place] Diabetes Father Heart Sister Heart Brother Diabetes [...] 370 QTC Calculation (Bazett) 437 Calculated R Allred 44 Calculated T Allred 19 Impression ATRIAL FIBRILLATION ABNORMAL ECG No results found for this or any previous visit (from the past 08421 hour(s)). Instructions Given to Patient: Instructions located in the after visit summary. Patient given verbal and written preop instructions and voices comprehension and compliance. SIGNATURE: Aspen Klein APRN.CNP PATIENT NAME: Jonathan Duncan DATE: June 18, 2024 TIME: 3:12 PM PAGER/CONTACT #: documented in this encounter [facility] 06-11-2024 Telephone encounter Note OK to refill as ordered Kerri Strickland MD [facility] 06-11-2024 Miscellaneous Notes OK to refill [...] by mouth two times a day. [facility] June 11, 2024 2:56 PM documented in this encounter [facility] 06-11-2024 Telephone encounter Note Prescription Refill [...] by mouth two times a day. [facility] June 11, 2024 2:56 PM [facility] 06-02-2024 Telephone encounter Note Surgery scheduled as requested. [facility] 06-02-2024 Miscellaneous Notes Surgery scheduled as requested. Patient scheduled for Left knee arthroscopic medial menisectomy and chondroplasty on 06/30/24. Surgical request completed. Post op appointments scheduled and mailed to the patient. documented in this encounter [facility] 06-01-2024 Telephone encounter Note Patient scheduled for Left knee arthroscopic medial menisectomy and chondroplasty on 06/30/24. Surgical request completed. Post op appointments scheduled and mailed to the patient. [facility] 05-31-2024 Note HNO ID: [id number] Author: BRAYDEN JOSEPH MD Service: ? Author Type: Physician Type: Progress Notes Filed: 06/22/2024 09:16 Note Text: Brayden Joseph MD Department of Orthopaedics Orthopaedics [address] [facility] [facility] [address] Dept: [phone] Dept May 31, 2024 CHIEF COMPLAINT: New [...] OSTEOARTHRITIS, MOST PRONOUNCED IN THE MEDIAL COMPARTMENT. Music Executive: CHANTELL Transcribe Date/Time: May 18 2024 1:05P Dictated by : CHANDA STRATTON DO This examination was interpreted and the report reviewed and electronically signed by: HARJINDER RODRÍGUEZ MD on May 18 2024 1:34PM EST Results-Findings * * *Final Report* * * DATE OF EXAM: May 18 2024 12:55PM [facility] [id number] - MRI KNEE WO IVCON LT [...] SYNOVIUM: Moderate joint (more content not included)... [facility] 05-31-2024 History of Presen t illness Narrative Brayden Joseph MD Department of Orthopaedics Orthopaedics [address] [facility] [address] Dept: [phone] Dept May 31, 2024 CHIEF COMPLAINT: New [...] OSTEOARTHRITIS, MOST PRONOUNCED IN THE MEDIAL COMPARTMENT. Music Executive: CHANTELL Transcribe Date/Time: May 18 2024 1:05P [...] Mother Heart Father Age of 69, massive [place] Diabetes Father Heart Sister Heart Brother Diabetes [...] physician via US mail. Kerri Strickland [address] [facility] [address] Kerri Strickland MD [address] [facility] [address] Brayden Joseph MD documented in this encounter [facility] 05-18-2024 Telephone encounter Note Patient notified. Verbalized understanding. [facility] 05-18-2024 Miscellaneous Notes Patient notified. Verbalized understanding. Please notify patient that his knee MRI does show a torn meniscus,so keep the aapt that he has with Dr Joseph.Kerri MD documented in this encounter [facility] 05-18-2024 Telephone encounter Note Please notify patient that his knee MRI does show a torn meniscus,so keep the aapt that he has with Dr Joseph.Kerri MD [facility] 05-18-2024 History of Presen t illness [...] PATIENT PRESENTS WITH AN IMPLANTABLE OR ATTACHED SOCIAL MEDIA DESIGNER: No RADIOLOGY DEPARTMENT: MR; Exam(s) Completed: Lower MSK: Knee, left PERIPHERAL IV DATA: Not applicable SIGNED BY: RT Damari(R) May 18, 2024 12:30 PM documented in this encounter [facility] 05-18-2024 Note HNO ID: [id number] Author: SANAM FERGUSON RT(R) Service: ? Author [...] PATIENT PRESENTS WITH AN IMPLANTABLE OR ATTACHED SOCIAL MEDIA DESIGNER: No RADIOLOGY DEPARTMENT: MR; Exam(s) Completed: Lower MSK: Knee, left PERIPHERAL IV DATA: Not applicable SIGNED BY: RT Damari(R) May 18, 2024 12:30 PM [facility] 05-07-2024 History of Presen t illness Narrative [...] Mother Heart Father Age of 69, massive [place] Diabetes Father Heart Sister Heart Brother Diabetes [...] Past Histories independently gathered by the clinical it technical support specialist and the remaining scribed note accurately describes [...] Joana Curry MA documented in this encounter [facility] 05-07-2024 Note HNO ID: [id number] Author: KERRI STRICKLAND MD Service: ? Author [...] Mother Heart Father Age of 69, massive [place] Diabetes Father Heart Sister Heart Brother Diabetes [...] Tdap) due on (more content not included)... [facility] 03-22-2024 History of Presen t illness Narrative [...] PATIENT PRESENTS WITH AN IMPLANTABLE OR ATTACHED SOCIAL MEDIA DESIGNER: No RADIOLOGY DEPARTMENT: General X-ray: Exam(s) Completed: Lower Extremity X-Ray(s): Knee, AP / Lat / Tunne / Merchant Left and Wt. Bearing PERIPHERAL IV DATA: Not applicable SIGNED BY: RT Cuauhtemoc(Mago) March 22, 2024 6:04 PM documented in this encounter [facility] 03-22-2024 Note HNO ID: [id number] Author: SEBASTIÁN LITTLE RT(R) Service: Radiology Author [...] PATIENT PRESENTS WITH AN IMPLANTABLE OR ATTACHED SOCIAL MEDIA DESIGNER: No RADIOLOGY DEPARTMENT: General X-ray: Exam(s) Completed: Lower Extremity X-Ray(s): Knee, AP / Lat / Tunne / Merchant Left and Wt. Bearing PERIPHERAL IV DATA: Not applicable SIGNED BY: RT Cuauhtemoc(Mago) March 22, 2024 6:04 PM [facility] 03-22-2024 Note HNO ID: [id number] Author: KYLER MELO MD Service: ? Author [...] orthopedics if not improving. Kyler Melo MD [facility] 03-22-2024 History of Presen t illness Narrative [...] Kyler Melo MD documented in this encounter [facility] 03-22-2024 Telephone encounter Note Triage Protocol [...] evening for evaluation. . Protocols used: Knee [id number] [facility] 03-22-2024 Miscellaneous Notes Triage Protocol Advised: [...] evening for evaluation. . Protocols used: Knee Iaiosl-[id number] documented in this encounter [facility] 02-13-2024 History of Presen t illness [...] [place] - Urology. Dr. Guillen - Ophthalmology [facility] in [place]. Dr. Egan - Podiatry Medical/Family history review [...] guys have used this and had a UT with use. Did not hear anything regarding [...] strength supplement. 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 Piper Juan. documented in this encounter [facility] 11-21-2023 Telephone encounter Note Prescription Refill [...] Curry MA November 21, 2023 3:51 PM [facility] 11-21-2023 Telephone encounter Note Patient has [...] 02/10/2024 Please advise. Thank you. Piper Juan. [facility] 07-31-2023 Miscellaneous Notes Spoke with patient's . Notified scripts sent to [facility]. Loretta Garrido RN The following approved [...] by mouth daily with breakfast. Adina Pennington APRN.HOSE FINISHER Patient has been identified by name and [...] calling to request scripts be sent to [facility]. Pended. Date of last office visit in primary care: 02/03/2023 Date of next office visit in primary care: 08/11/2023 Please advise. Thank you. Loretta Garrido RN. documented in this encounter [facility] 02-03-2023 History of Presen t illness [...] and Imdur 30 mg daily. Following with Concession Supervisor Dr. Egan for Plantar Fasciitis, right foot. [...] Mother Heart Father Age of 69, massive [place] Diabetes Father Heart Sister Heart Brother Diabetes [...] Past Histories independently gathered by the clinical it technical support specialist and the remaining scribed note accurately describes [...] Joana Curry Ma documented in this encounter [facility] 08-20-2022 Instructions Bobby Egan - 08/20/2022 [...] (or decreased sensation in your feet) a interior block wirer should always cut your toenails. Be Careful [...] Go to your health care provider or interior block wirer to treat these conditions. What is Plantar [...] time on their feet, such as nurses, addiction medicine physician/waiters, and mail carriers, often experience plantar fasciitis. [...] choose the one that fits the best. [place] with your athletic shoes to find a [...] Powerstep Original Full length. Can purchase at [employer] here in [place], [employer] in [place] or [place]. Also can find in [employer] in [facility]. Powersteps can also be purchased online, starting [...] fits well together documented in this encounter [facility] 08-20-2022 History of Presen t illness [...] Mother Heart Father Age of 69, massive [place] Diabetes Father Heart Sister Heart Brother Diabetes [...] [facility] [address] [facility] [address] Dept: [phone] Dept AMB ROOMING INTAKE FLOWSHEET DATA Pain [...] taken on 08/02/22. documented in this encounter [facility] 08-08-2022 Miscellaneous Notes Pt notified and [...] Kerri Strickland MD documented in this encounter [facility] 08-02-2022 History of Presen t illness [...] 2022 3:58 PM documented in this encounter [facility] 05-02-2022 Miscellaneous Notes OK to refill as ordered Kerri Strickland MD Patient asking pcp to send short supply of pended medication, to [facility], as he is waiting on Rx from . Last ov in pcp office- 04-19-22 documented in this encounter [facility] 04-15-2022 Instructions Adina Pennington APRN.CNP - 04/15/2022 3:09 PM EDT Follow up with Hugo Manzo CNP on Friday for suture removal. Keep wound clean and dry. Continue to take antibiotic until gone. Follow up on Friday or sooner as needed. documented in this encounter [facility] 04-15-2022 History of Presen t illness Narrative This is a 67 year old male who presents today with: Patient presents with: Acute Visit: removel of stitches HISTORY OF PRESENT ILLNESS: Jonathan Duncan is a 67 year old male. Patient presents with: Acute Visit: removel of stitches Here in the office for suture removal. 11 days ago got right hand pulled into wood sponge maker. Went [facility] ER. Sutures applied to right middle [...] Mother Heart Father Age of 69, massive [place] Diabetes Father Diabetes Paternal Aunt Heart Sister [...] APRN.RICHY This note was partially generated using [employer] voice recognition system. Note was reviewed for accuracy. There may be minor misspellings or grammar miscues with [employer] voice recognition. documented in this encounter [facility] 02-08-2022 Miscellaneous Notes Called and spoke with pt's , notified her of message below from PCP. Verbalized understanding. Jazmyn Lui Ma Please notify patient that his labs from two weeks ago look good; A1c is good at 7.0. Stay on the same medications and follow up in 6 months as planned Kerri Strickland MD documented in this encounter [facility] 01-25-2022 History of Presen t illness [...] pains, dizziness, or SOB. 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 Right [...] Mother Heart Father Age of 69, massive [place] Diabetes Father Diabetes Paternal Aunt Heart Sister [...] Kerri Strickland MD documented in this encounter [facility] 10-22-2021 Miscellaneous Notes Letter mailed to pt home of results. Joana Curry MA Please inform patient that his Hgb A1c improved to 6.3%. Cholesterol panel looks good. Complete blood count is normal. Kidney function is normal. Continue with current medications and follow up in 3 months with labs prior. Hugo Manzo APRN.RICHY documented in this encounter [facility] 10-19-2021 History of Presen t illness [...] Mother Heart Father Age of 69, massive [place] Diabetes Father Diabetes Paternal Aunt Heart Sister [...] Kerri Strickland MD documented in this encounter [facility] 06-05-2017 History of Past i llness Narrative Problem Noted Date Diagnosed Date Resolved Date Malignant neoplasm of prostate 06/05/2017 02/03/2023 Prostate cancer 05/07/2016 02/03/2023 documented as of this encounter (statuses as of 02/04/2023) [facility] History of Past illness Narrative* Problem Noted Date Diagnosed Date Resolved Date Malignant neoplasm of prostate 06/05/2017 02/03/2023 Prostate cancer 05/07/2016 02/03/2023 documented as of this encounter (statuses as of 07/31/2023) [facility] Diagnosis Type 2 diabetes mellitus without complication, without long-term current use of insulin (HCC)- Primary HTN (hypertension), benign Essential hypertension, benign Hyperlipidemia, unspecified hyperlipidemia type [facility] Diagnosis Type 2 diabetes mellitus without complication, without long-term current use of insulin (HCC)- Primary [facility] Diagnosis HTN (hypertension), benign- Primary Essential hypertension, benign Hyperlipidemia, unspecified hyperlipidemia type Type 2 diabetes mellitus without complication, without long-term current use of insulin (HCC) Malignant neoplasm of prostate (HCC) Malignant neoplasm of prostate [facility] Diagnosis Visit for suture removal- Primary Encounter for removal of sutures [facility] Plantar fasciitis- Primary Plantar fascial fibromatosis Foot pain, right Pain in limb Nail dystrophy Other specified disease of nail [facility] Diagnosis HTN (hypertension), benign- Primary Essential hypertension, benign Need for vaccination Need for prophylactic vaccination and inoculation against unspecified single disease Type 2 diabetes mellitus without complication, without long-term current use of insulin (HCC) [facility]* Diagnosis HTN (hypertension), benign Essential hypertension, benign Type 2 diabetes mellitus without complication, without long-term current use of insulin (HCC) Hyperlipidemia, unspecified hyperlipidemia type [facility]* Diagnosis Foot pain, right Pain in limb [facility] Diagnosis Encounter for Medicare annual wellness [...] and behavioral disorders [facility] Diagnosis Foot pain, right Pain in limb [facility] Diagnosis Acute pain of left knee- Primary Acute pain of left knee [facility] Diagnosis Acute pain of left knee [facility] Diagnosis Acute pain of left knee- Primary 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 [facility] Diagnosis Acute pain of left knee 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 [facility] Diagnosis Internal derangement of left knee- Primary Unspecified internal derangement of knee Left knee pain, unspecified chronicity Internal derangement of left knee Unspecified internal derangement of knee Left knee pain, unspecified chronicity [facility] Diagnosis Foot pain, right Pain in limb HTN (hypertension), benign Essential hypertension, benign Internal derangement of left knee Unspecified internal derangement of knee Left knee pain, unspecified chronicity [facility] Diagnosis Pre-operative examination- Primary Preoperative examination, unspecified Atrial fibrillation, unspecified type (HCC) HTN (hypertension), benign Essential hypertension, benign Hyperlipidemia, unspecified hyperlipidemia type Type 2 diabetes mellitus without complication, without long-term current use of insulin (HCC) Benign non-nodular prostatic hyperplasia without lower urinary tract symptoms 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) Assessment: pending [...] 148/82 04/18/2021 160/90 documented in this encounter [facility] note* Diagnosis Acute pain of left knee 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 Pre-operative examination- Primary Preoperative examination, unspecified Atrial fibrillation, unspecified type (HCC) HTN (hypertension), benign Essential hypertension, benign Hyperlipidemia, unspecified hyperlipidemia type Type 2 diabetes mellitus without complication, without long-term current use of insulin (HCC) Benign non-nodular prostatic hyperplasia without lower urinary tract symptoms 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) documented in this encounter [facility] note* Diagnosis Pre-operative examination- Primary Preoperative examination, unspecified Atrial fibrillation, unspecified type (HCC) HTN (hypertension), benign Essential hypertension, benign Hyperlipidemia, unspecified hyperlipidemia type Type 2 diabetes mellitus without complication, without long-term current use of insulin (HCC) Benign non-nodular prostatic hyperplasia without lower urinary tract symptoms 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) Type 2 diabetes mellitus without complication, without long-term current use of insulin (HCC) Hyperlipidemia, unspecified hyperlipidemia type HTN (hypertension), benign Essential hypertension, benign [facility] Diagnosis Pre-operative examination- Primary Preoperative examination, unspecified Atrial fibrillation, unspecified type (HCC) HTN (hypertension), benign Essential hypertension, benign Hyperlipidemia, unspecified hyperlipidemia type Type 2 diabetes mellitus without complication, without long-term current use of insulin (HCC) Benign non-nodular prostatic hyperplasia without lower urinary tract symptoms 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) Type 2 [...] erectile dysfunction type documented in this encounter [facility] note* Diagnosis Pre-operative examination- Primary Preoperative examination, unspecified Atrial fibrillation, unspecified type (HCC) HTN (hypertension), benign Essential hypertension, benign Hyperlipidemia, unspecified hyperlipidemia type Type 2 diabetes mellitus without complication, without long-term current use of insulin (HCC) Benign non-nodular prostatic hyperplasia without lower urinary tract symptoms 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) Derangement of knee, left- Primary Unspecified internal derangement of knee Left knee pain, unspecified chronicity Derangement of knee, left Unspecified internal derangement of knee Left knee pain, unspecified chronicity documented in this encounter [facility] note* Diagnosis Pre-operative examination- Primary Preoperative examination, unspecified Atrial fibrillation, unspecified type (HCC) HTN (hypertension), benign Essential hypertension, benign Hyperlipidemia, unspecified hyperlipidemia type Type 2 diabetes mellitus without complication, without long-term current use of insulin (HCC) Benign non-nodular prostatic hyperplasia without lower urinary tract symptoms 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 Assessment: non-obstructing, established with cardiology recently 2/2 new onset afib, received cardiac optimization below [facility] Pre-operative examination- Primary Preoperative examination, unspecified Atrial fibrillation, unspecified type (HCC) HTN (hypertension), benign Essential hypertension, benign Hyperlipidemia, unspecified hyperlipidemia type Type 2 diabetes mellitus without complication, without long-term current use of insulin (HCC) Benign non-nodular prostatic hyperplasia without lower urinary tract symptoms 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) Pre-operative examination- Primary Preoperative examination, unspecified 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) HTN (hypertension), [...] pain, unspecified chronicity documented in this encounter [facility] note* Diagnosis Pre-operative examination- Primary Preoperative examination, unspecified Atrial fibrillation, unspecified type (HCC) HTN (hypertension), benign Essential hypertension, benign Hyperlipidemia, unspecified hyperlipidemia type Type 2 diabetes mellitus without complication, without long-term current use of insulin (HCC) Benign non-nodular prostatic hyperplasia without lower urinary tract symptoms 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 Pre-operative examination- Primary Preoperative examination, unspecified 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 HTN (hypertension), benign [...] derangement of knee documented in this encounter [facility] note* Diagnosis Pre-operative examination- Primary Preoperative examination, unspecified Atrial fibrillation, unspecified type (HCC) HTN (hypertension), benign Essential hypertension, benign Hyperlipidemia, unspecified hyperlipidemia type Type 2 diabetes mellitus without complication, without long-term current use of insulin (HCC) Benign non-nodular prostatic hyperplasia without lower urinary tract symptoms 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 Pre-operative examination- Primary Preoperative examination, unspecified 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 HTN (hypertension), benign [...] osteoarthrosis, lower leg documented in this encounter [facility] for referral (narrative)* Diagnostic Procedure Only (Routine) - Closed Specialty Diagnoses / Procedures Referred By Contac t Referred To Contact XR IMAGING Diagnoses Foot pain, right Procedures XR FOOT GENERAL 3V AP/LAT/OBL RIGHT RADEX FOOT COMPLETE MINIMUM 3 VIEWS Kerri Strickland MD [address] [place] [address] [place] [address] Referral ID Status Reason Start Date Expiration Date V isits Requested Visits Authorized [id number] Closed Auto-Generate d Referral 08/02/2022 09/01/2023 1 1 [facility] for referral (narrative)* Diagnostic Procedure Only (Urgent) - Closed Specialty Diagnoses / Procedures Referred By Contac t Referred To Contact XR IMAGING Diagnoses Acute pain of left knee Procedures XR KNEE GENERAL 4V AP BOTH/PA BOTH/LAT/MERC LEFT RADIOLOGIC EXAM KNEE COMPLETE 4/MORE VIEWS Kyler Melo MD [address] [place] [address] [place] [address] Referral ID Status Reason Start Date Expiration Date V isits Requested Visits Authorized [id number] Closed Auto-Generate d Referral 03/22/2024 04/21/2025 1 1 [facility] for referral (narrative)* Diagnostic Procedure Only (Urgent) - Closed Specialty Diagnoses / Procedures Referred By Contac t Referred To Contact XR IMAGING Diagnoses Acute pain of left knee Procedures XR KNEE GENERAL 4V AP BOTH/PA BOTH/LAT/MERC LEFT RADIOLOGIC EXAM KNEE COMPLETE 4/MORE VIEWS Kyler Melo MD [address] [place] [address] [place] [address] Referral ID Status Reason Start Date Expiration Date V isits Requested Visits Authorized [id number] Closed Auto-Generate d Referral 03/22/2024 04/21/2025 1 1 [facility] for visit Narrative* Diagnostic Procedure Only (Routine) - Closed Specialty Diagnoses / Procedures Referred By Contac t Referred To Contact XR IMAGING Diagnoses Foot pain, right Procedures XR FOOT GENERAL 3V AP/LAT/OBL RIGHT RADEX FOOT COMPLETE MINIMUM 3 VIEWS Kerri Strickland MD [address] [place] [address] [place] [address] Referral ID Status Reason Start Date Expiration Date V isits Requested Visits Authorized [id number] Closed Auto-Generate d Referral 08/02/2022 09/01/2023 1 1 [facility] for visit Narrative* Diagnostic Procedure Only (Urgent) - Closed Specialty Diagnoses / Procedures Referred By Contac t Referred To Contact XR IMAGING Diagnoses Acute pain of left knee Procedures XR KNEE GENERAL 4V AP BOTH/PA BOTH/LAT/MERC LEFT RADIOLOGIC EXAM KNEE COMPLETE 4/MORE VIEWS Kyler Melo MD [address] [place] [address] [place] [address] Referral ID Status Reason Start Date Expiration Date V isits Requested Visits Authorized [id number] Closed Auto-Generate d Referral 03/22/2024 04/21/2025 1 1 [facility] Advance Directives No Advanced Directives Records FoundDocuments on File Type Date Recorded Patient Director Retirement Expl anation Advance Directive(s) 06/20/2017 12:30 PM Advance Directive(s) 05/19/2017 12:02 PM Advance Directive(s) 05/15/2017 11:11 AM Documents on File Type Date Recorded Patient Director Retirement Expl anation Advance Directive(s) 06/20/2017 12:30 PM Advance Directive(s) 05/19/2017 12:02 PM Documents on File Type Date Recorded Patient Director Retirement Expl anation Advance Directive(s) 06/20/2017 12:30 PM [...] W/O CONTRAST MATRL Kerri Strickland MD [address] [place] [address] [place] [address] Referral ID Status Reason Start Date Expiration Date Visits Requested Visits Authorized [id number] Authorized Auto-Generat ed Referral 06/06/2025 1 1 Specialty Diagnoses / Procedures Referred By Contac t Referred To Contact Orthopedics Diagnoses Acute pain of left knee 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 Procedures CONSULT TO ORTHOPAEDICS OFFICE/OUTPATIENT [facility] 60 MINUTES Kerri Strickland MD [address] [place] [place] [id number] Referral ID Status Reason Start Date Expiration Date Visits Requested Visits Authorized [id number] Authorized PCP Requested Referral 05/07/2025 1 1 Referral ID Status Reason Start Date Expiration Date V isits Requested Visits Authorized [id number] Closed Auto-Generate d Referral 05/07/2024 06/06/2025 1 1 Specialty Diagnoses / Procedures Referred By Contac t Referred To Contact Cardiology Diagnoses Pre-operative examination Atrial fibrillation, unspecified type (HCC) Procedures CONSULT TO CARDIOLOGY OFFICE/OUTPATIENT [facility] 60 MINUTES Aspen Klein, CATTLE BRANDER.HOSE FINISHER [address] [place] [id number] Referral ID Status Reason Start Date Expiration Date Visits Requested Visits Authorized [id number] Authorized PCP Requested Referral 06/18/2024 06/18/2025 1 1 Specialty Diagnoses / Procedures Referred By Contac t Referred [facility] Diagnoses Pre-operative examination Procedures ECG COMPLETE ECG ROUTINE ECG W/LEAST 12 LDS W/I&R Aspen Klein, CATTLE BRANDER.HOSE FINISHER [address] [place] [address] [facility] [address] [place] [address] Referral ID Status Reason Start Date Expiration Date Visits Requested Visits Authorized [id number] New Request Auto-Generat ed Referral 06/18/2024 06/18/2025 1 1 Additional Source Comments Source Comments (unrecognize d section and content) In the event this informatio n is protected by the Federal Confidentiality of Alcohol and Drug Abuse Patient Records regulations: The Federal rules restrict any use of the information to criminally investigate or prosecute any alcohol or drug abuse patient.[facility] the event this information is protected by the Federal Confidentiality of Alcohol and Drug Abuse Patient Records regulations: The Federal rules restrict any use of the information to criminally investigate or prosecute any alcohol or drug abuse patient.[facility] the event this information is protected by the Federal Confidentiality of Alcohol and Drug Abuse Patient Records regulations: The Federal rules restrict any use of the information to criminally investigate or prosecute any alcohol or drug abuse patient.[facility] HospitalIn the event this information is protected [...] or prosecute any alcohol or drug abuse patient.[facility] the event this information is protected by the Federal Confidentiality of Alcohol and Drug Abuse Patient Records regulations: The Federal rules restrict any use of the information to criminally investigate or prosecute any alcohol or drug abuse patient.[facility] the event this information is protected by the Federal Confidentiality of Alcohol and Drug Abuse Patient Records regulations: The Federal rules restrict any use of the information to criminally investigate or prosecute any alcohol or drug abuse patient.[facility] the event this information is protected by the Federal Confidentiality of Alcohol and Drug Abuse Patient Records regulations: The Federal rules restrict any use of the information to criminally investigate or prosecute any alcohol or drug abuse patient.[facility] the event this information is protected by the Federal Confidentiality of Alcohol and Drug Abuse Patient Records regulations: The Federal rules restrict any use of the information to criminally investigate or prosecute any alcohol or drug abuse patient.[facility] the event this information is protected by the Federal Confidentiality of Alcohol and Drug Abuse Patient Records regulations: The Federal rules restrict any use of the information to criminally investigate or prosecute any alcohol or drug abuse patient.[facility] Hospital[facility] the event this information is protected by the Federal Confidentiality of Alcohol and Drug Abuse Patient Records regulations: The Federal rules restrict any use of the information to criminally investigate or prosecute any alcohol or drug abuse patient.[facility] Hospital[facility] the event this information is protected by the Federal Confidentiality of Alcohol and Drug Abuse Patient Records regulations: The Federal rules restrict any use of the information to criminally investigate or prosecute any alcohol or drug abuse patient.[facility] HospitalIn the event this information is protected by the Federal Confidentiality of Alcohol and Drug Abuse Patient Records regulations: The Federal rules restrict any use of the information to criminally investigate or prosecute any alcohol or drug abuse patient.[facility] HospitalIn the event this information is protected by the Federal Confidentiality of Alcohol and Drug Abuse Patient Records regulations: The Federal rules restrict any use of the information to criminally investigate or prosecute any alcohol or drug abuse patient.[facility] HospitalIn the event this information is protected by the Federal Confidentiality of Alcohol and Drug Abuse Patient Records regulations: The Federal rules restrict any use of the information to criminally investigate or prosecute any alcohol or drug abuse patient.[facility] HospitalIn the event this information is protected by the Federal Confidentiality of Alcohol and Drug Abuse Patient Records regulations: The Federal rules restrict any use of the information to criminally investigate or prosecute any alcohol or drug abuse patient.[facility] HospitalIn the event this information is protected by the Federal Confidentiality of Alcohol and Drug Abuse Patient Records regulations: The Federal rules restrict any use of the information to criminally investigate or prosecute any alcohol or drug abuse patient.[facility] HospitalIn the event this information is protected by the Federal Confidentiality of Alcohol and Drug Abuse Patient Records regulations: The Federal rules restrict any use of the information to criminally investigate or prosecute any alcohol or drug abuse patient.[facility] HospitalIn the event this information is protected by the Federal Confidentiality of Alcohol and Drug Abuse Patient Records regulations: The Federal rules restrict any use of the information to criminally investigate or prosecute any alcohol or drug abuse patient.[facility] HospitalIn the event this information is protected by the Federal Confidentiality of Alcohol and Drug Abuse Patient Records regulations: The Federal rules restrict any use of the information to criminally investigate or prosecute any alcohol or drug abuse patient.[facility] HospitalIn the event this information is protected by the Federal Confidentiality of Alcohol and Drug Abuse Patient Records regulations: The Federal rules restrict any use of the information to criminally investigate or prosecute any alcohol or drug abuse patient.[facility] HospitalIn the event this information is protected by the Federal Confidentiality of Alcohol and Drug Abuse Patient Records regulations: The Federal rules restrict any use of the information to criminally investigate or prosecute any alcohol or drug abuse patient.[facility] HospitalIn the event this information is protected by the Federal Confidentiality of Alcohol and Drug Abuse Patient Records regulations: The Federal rules restrict any use of the information to criminally investigate or prosecute any alcohol or drug abuse patient.[facility] HospitalIn the event this information is protected by the Federal Confidentiality of Alcohol and Drug Abuse Patient Records regulations: The Federal rules restrict any use of the information to criminally investigate or prosecute any alcohol or drug abuse patient.[facility] HospitalIn the event this information is protected by the Federal Confidentiality of Alcohol and Drug Abuse Patient Records regulations: The Federal rules restrict any use of the information to criminally investigate or prosecute any alcohol or drug abuse patient.[facility] HospitalIn the event this information is protected by the Federal Confidentiality of Alcohol and Drug Abuse Patient Records regulations: The Federal rules restrict any use of the information to criminally investigate or prosecute any alcohol or drug abuse patient.[facility] HospitalIn the event this information is protected by the Federal Confidentiality of Alcohol and Drug Abuse Patient Records regulations: The Federal rules restrict any use of the information to criminally investigate or prosecute any alcohol or drug abuse patient.[facility] HospitalIn the event this information is protected by the Federal Confidentiality of Alcohol and Drug Abuse Patient Records regulations: The Federal rules restrict any use of the information to criminally investigate or prosecute any alcohol or drug abuse patient.[facility] HospitalIn the event this information is protected by the Federal Confidentiality of Alcohol and Drug Abuse Patient Records regulations: The Federal rules restrict any use of the information to criminally investigate or prosecute any alcohol or drug abuse patient.[facility] HospitalIn the event this information is protected by the Federal Confidentiality of Alcohol and Drug Abuse Patient Records regulations: The Federal rules restrict any use of the information to criminally investigate or prosecute any alcohol or drug abuse patient.[facility] HospitalIn the event this information is protected by the Federal Confidentiality of Alcohol and Drug Abuse Patient Records regulations: The Federal rules restrict any use of the information to criminally investigate or prosecute any alcohol or drug abuse patient.[facility] HospitalIn the event this information is protected by the Federal Confidentiality of Alcohol and Drug Abuse Patient Records regulations: The Federal rules restrict any use of the information to criminally investigate or prosecute any alcohol or drug abuse patient.[facility] HospitalIn the event this information is protected by the Federal Confidentiality of Alcohol and Drug Abuse Patient Records regulations: The Federal rules restrict any use of the information to criminally investigate or prosecute any alcohol or drug abuse patient.[facility] Reason for Visit (unrecogniz ed section and content) Reason Comments New Pain Specialty Diagnoses / Procedures Referred By Contac t Referred To Contact Orthopedics Diagnoses Acute pain of left knee 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 Procedures CONSULT TO ORTHOPAEDICS OFFICE/OUTPATIENT NEW [facility]IGH MDM 60 MINUTES Kerri Strickland MD [address] [place] [address] Referral ID Status Reason Start Date Expiration Date V isits Requested Visits Authorized [id number] Closed PCP Requested Referral 05/07/2024 05/07/2025 1 1 Reason Comments F/U 3 Month Reason Comments Results Reason Comments Acute Visit removel of stitches Reason Onset Date Comments Refill Request 05/02/2022 Specialty Diagnoses / Procedures Referred By Contac t Referred To Contact Podiatry Diagnoses Foot pain, right Procedures CONSULT TO PODIATRY OFFICE/OUTPATIENT NEW [facility]IGH MDM 60-74 MINUTES Kerri Strickland MD [address] [place] [address] Referral ID Status Reason Start Date Expiration Date V isits Requested Visits Authorized [id number] Closed PCP Requested Referral 08/02/2022 08/02/2023 1 [...] W/O CONTRAST MATRL Kerri Strickland MD [address] [place] [address] [place] [address] Referral ID Status Reason Start Date Expiration Date V isits Requested Visits Authorized [id number] Closed Auto-Generate d Referral 05/07/2024 06/06/2025 1 1 Reason Comments Schedule Surgery Reason Comments Surgery Cancelled Reason Comments Consult Reason Onset Date Comments Refill Request 08/16/2024 Reason Comments F/U 6 Month Reason Comments Surgery Cancelled wants to reschedule surgery- patient has been cleared by director of medical review Reason Comments Consult 09/15/24 surgery at [facility] left knee with Reason Onset Date Comments Refill Request 09/06/2024 Reason Comments Post Op 1 week 5 days post o p Left knee arthroscopic medial menisectomy, medial distal femoral chondroplasty Reason Comments Post Op 5 weeks 5 days post op Left knee arthroscopic medial menisectomy, medial distal femoral chondroplasty Care Teams (unrecognized sec tion and content) Workers' Compensation Claims Examiner Relationship Specialty Start Date End Date Kerri Strickland MD [address] [place], [place] [id number] PCP - General Family Practice 05/07/16 Workers' Compensation Claims Examiner Relationship Specialty Start Date End Date Kerri Strickland MD [address] [place], [place] [id number] PCP - General Family Practice 05/07/16 Workers' Compensation Claims Examiner Relationship Specialty Start Date End Date Kerri Strickland MD [address] [place] [address] PCP - General Family Practice 05/07/16 Workers' Compensation Claims Examiner Relationship Specialty Start Date End Date Kerri Strickland MD [address] [place] [address] PCP - General Family Practice 05/07/16 Workers' Compensation Claims Examiner Relationship Specialty Start Date End Date Kerri Strickland MD [address] [place] [address] PCP - General Family Medicine 05/07/16 Workers' Compensation Claims Examiner Relationship Specialty Start Date End Date Kerri Strickland MD [address] [place] [address] PCP - General Family Medicine 05/07/16 Workers' Compensation Claims Examiner Relationship Specialty Start Date End Date Kerri Strickland MD [address] [place] [address] PCP - General Family Medicine 05/07/16 Workers' Compensation Claims Examiner Relationship Specialty Start Date End Date Kerri Strickland MD [address] [place] [address] PCP - General Family Medicine 05/07/16 Workers' Compensation Claims Examiner Relationship Specialty Start Date End Date Kerri Strickland MD [address] [place] [address] PCP - General Family Medicine 05/07/16 Workers' Compensation Claims Examiner Relationship Specialty Start Date End Date Kerri Strickland MD [address] [place] [address] PCP - General Family Medicine 05/07/16 Workers' Compensation Claims Examiner Relationship Specialty Start Date End Date Kerri Strickland MD [address] [place] [address] PCP - General Family Medicine 05/07/16 Workers' Compensation Claims Examiner Relationship Specialty Start Date End Date Kerri Strickland MD [address] [place] [address] PCP - General Family Medicine 05/07/16 Workers' Compensation Claims Examiner Relationship Specialty Start Date End Date Kerri Strickland MD [address] [place] [address] PCP - General Family Medicine 05/07/16 Workers' Compensation Claims Examiner Relationship Specialty Start Date End Date Kerri Strickland MD [address] [place] [address] PCP - General Family Medicine 05/07/16 Workers' Compensation Claims Examiner Relationship Specialty Start Date End Date Kerri Strickland MD [address] [place] [address] PCP - General Family Medicine 05/07/16 Workers' Compensation Claims Examiner Relationship Specialty Start Date End Date Kerri Strickland MD [address] [place] [address] PCP - General Family Medicine 05/07/16 Workers' Compensation Claims Examiner Relationship Specialty Start Date End Date Kerri Strickland MD [address] [place] [address] PCP - General Family Medicine 05/07/16 Workers' Compensation Claims Examiner Relationship Specialty Start Date End Date Kerri Strickland MD [address] [place] [address] PCP - General Family Medicine 05/07/16 Workers' Compensation Claims Examiner Relationship Specialty Start Date End Date Kerri Strickland MD [address] [place] [address] PCP - General Family Medicine 05/07/16 Workers' Compensation Claims Examiner Relationship Specialty Start Date End Date Kerri Strickland MD [address] [place] [address] PCP - General Family Medicine 05/07/16 Adina Pennington APRN.HOSE FINISHER [address] [place] [address] Crusher And Binder Operator Family Medicine 05/23/24 Hugo Manzo APRN.HOSE FINISHER [address] [place] [address] Crusher And Binder Operator Family Medicine 06/01/24 Workers' Compensation Claims Examiner Relationship Specialty Start Date End Date Kerri Strickland MD [address] [place] [address] PCP - General Family Medicine 05/07/16 Adina Pennington APRN.HOSE FINISHER [address] [place] [address] Crusher And Binder Operator Family Medicine 05/23/24 Hugo Manzo APRN.HOSE FINISHER [address] [place] [address] Crusher And Binder Operator Family Medicine 06/01/24 Workers' Compensation Claims Examiner Relationship Specialty Start Date End Date Kerri Strickland MD [address] [place] [address] PCP - General Family Medicine 05/07/16 Adina Pennington APRN.HOSE FINISHER [address] [place] [address] Crusher And Binder Operator Family Medicine 05/23/24 Hugo Manzo APRN.HOSE FINISHER [address] [place] [address] Crusher And Binder Operator Family Medicine 06/01/24 Workers' Compensation Claims Examiner Relationship Specialty Start Date End Date Kerri Strickland MD [address] [place] [address] PCP - General Family Medicine 05/07/16 Adina Pennington APRN.HOSE FINISHER [address] [place] [address] Crusher And Binder Operator Family Medicine 05/23/24 Hugo Manzo APRN.HOSE FINISHER [address] [place] [address] [facility] 06/01/24 Workers' Compensation Claims Examiner Relationship Specialty Start Date End Date Kerri Strickland MD [address] [place] [address] PCP - General Family Medicine 05/07/16 Adina Pennington, CATTLE BRANDER.HOSE FINISHER [address] [place] [address] [facility] And [facility] 05/23/24 Workers' Compensation Claims Examiner Relationship Specialty Start Date End Date Kerri Strickland MD [address] [place] [address] PCP - General Family Medicine 05/07/16 Adina Pennington CATTLE BRANDER.HOSE FINISHER [address] [place] [address] Crusher And Binder Operator Family Medicine 05/23/24 Hugo Manzo APRN.HOSE FINISHER [address] [place] [address] [facility] 06/01/24 Workers' Compensation Claims Examiner Relationship Specialty Start Date End Date Kerri Strickland MD [address] [place] [address] PCP - General Family Medicine 05/07/16 Adina Pennington APRN.HOSE FINISHER [address] [place] [address] [facility] 05/23/24 Hugo Manzo APRN.HOSE FINISHER [address] [place] [address] [facility] 06/01/24 Workers' Compensation Claims Examiner Relationship Specialty Start Date End Date Kerri Strickland MD [address] [place] [address] PCP - General Family Medicine 05/07/16 Adina Pennington APRN.HOSE FINISHER [address] [place] [address] Crusher And Binder Operator Family Medicine 05/23/24 Hugo Manzo APRN.HOSE FINISHER [address] [place] [address] Crusher And Binder Operator Family Medicine 06/01/24 Workers' Compensation Claims Examiner Relationship Specialty Start Date End Date Kerri Strickland MD [address] [place] [address] PCP - General Family Medicine 05/07/16 Adina Pennington APRN.HOSE FINISHER [address] [place] [address] Crusher And Binder Operator Family Medicine 05/23/24 Hugo Manzo APRN.HOSE FINISHER [address] [place] [address] Crusher And Binder Operator Family Medicine 06/01/24 Workers' Compensation Claims Examiner Relationship Specialty Start Date End Date Kerri Strickland MD [address] [place] [address] PCP - General Family Medicine 05/07/16 Adina Pennington APRN.HOSE FINISHER [address] [place] [address] Crusher And Binder Operator Family Medicine 05/23/24 Hugo Manzo APRN.HOSE FINISHER [address] [place] [address] Crusher And Binder Operator Family Medicine 06/01/24 Workers' Compensation Claims Examiner Relationship Specialty Start Date End Date Kerri Strickland MD [address] [place] [address] PCP - General Family Medicine 05/07/16 Adina Pennington APRN.HOSE FINISHER [address] [place] [address] Crusher And Binder Operator Family Medicine 05/23/24 Hugo Manzo APRN.HOSE FINISHER [address] [place] [address] Crusher And Binder Operator Family Medicine 06/01/24 Workers' Compensation Claims Examiner Relationship Specialty Start Date End Date Kerri Strickland MD [address] [place] [address] PCP - General [facility] 05/07/16 Adina Pennington, ALEXANDREA.HOSE FINISHER [address] [facility] [place] [address] [facility] 05/23/24 Hugo Manzo APRN.HOSE FINISHER [address] [facility], [place] [address] [facility] 06/01/24 Workers' Compensation Claims Examiner Relationship Specialty Start Date End Date Kerri Stricklnad MD [address] [facility], [place] [id number] PCP - [facility] 05/07/16 Adina Pennington APRN.HOSE FINISHER [address] [facility], [place] [address] [facility] 05/23/24 Hugo Manzo, CATTLE BRANDER.HOSE FINISHER [address] [facility], [place] [address] [facility] 06/01/24 (unrecognized sect ion and content) No Status Records FoundNo Status Records FoundNo Status Records FoundNo Status Records Found INFORMATION SOURCE (unrecogn ized section and content) DATE CREATED AUTHOR 05/01/2022 [facility] DATE CREATED AUTHOR AUTHOR'S ORGANIZ ATION 09/18/2024 [facility] DATE CREATED AUTHOR AUTHOR'S ORGANIZ ATION 03/10/2025 [facility] DATE CREATED AUTHOR AUTHOR'S ORGANIZ ATION 04/18/[address] [facility] FOR RECORDS PERTAINING TO PATIENTS WHO ARE [...] BE BASED ON THE PRIMARY CLINICAL RECORDS. [facility] [employer] [facility]. provides no warranty or guarantee of the accuracy or completeness of information in this document.
== END | disposition home or self-care (01) ==
LOC: SL 19:51
PROVIDERS: PCP Nurse Practitioner Family; Referring Provider Nurse Practitioner Acute Care; Visit Provider Nurse Practitioner Acute Care
DX: G47.31 Primary central sleep apnea (principal)
CPT/HCPCS: 95811

== ENCOUNTER → 2025-06-03 | Outpatient (CLI) | payer MEDICARE, BC, SELFPAY ==
--- NOTE | 2025-06-03 19:52 | CT_ITS ---
PROCEDURE: LOW DOSE CT LUNG SCREENING 06/03/2025 REASON FOR EXAM: SMOKER TECHNIQUE: Procedure Code: [id number] Modality: CT Procedure: LOW DOSE CT LUNG SCREENING Coronal and Sagittal reconstruction series were provided. One or more dose reduction techniques were used (e.g., Automated exposure control, adjustment of the mA and/or kV according to patient size, use of iterative reconstruction technique). REFERENCE LINK: [employer] Lung-RADS RADIATION DOSE SUMMARY: CTDlvol: 3 mGy DLP: 99 mGycm COMPARISON: None FINDINGS: PULMONARY NODULES: (Only nodules >3mm are reported) Nodules described below are on series 2 unless otherwise specified. Pulmonary Nodules: 3 mm nodule on image 37. 3 mm nodule on image 160. 2 mm subpleural nodule on image 174. Hardware:Unremarkable Lymph Nodes:Unremarkable Heart and Vasculature:Coronary artery calcifications are noted.Atherosclerotic calcifications of the thoracic aorta. Thoracic aorta and pulmonary arteries have normal contours; noncontrast technique limits evaluation. Coronary Artery Calcifications: Present Lungs and Airways: Advanced emphysematous changes are present. Pleura:Scattered calcification of the pleura. Upper Abdomen:Unremarkable Bones:Degenerative changes of the thoracic spine. CT/Low Dose CT Lung Screening IMPRESSION: Prominent nodules of both lungs measuring up to 3 mm Coronary artery calcification (CAC) is is present Lung-RADS Category: 2 BENIGN (BASED ON IMAGING FEATURES OR INDOLENT BEHAVIOR). RECOMMEND 12-MONTH SCREENING LDCT. Reading Location: [id number]
--- OUTSIDE RECORDS SUMMARY | 2025-06-03 19:53 | XMS RPT_ITS | CCD ---
Author Organization [facility] Care Team Providers Care Metal Treater Name Role Phone Kerri Strickland MD Primary Care Provider PRISCILA MISTRY Attending Unava ilable KERRI STRICKLAND Primary Care Unavailable Kerri Strickland MD Primary Care Provider Kerri Strickland MD Primary Care Provider Kerri Strickland MD Primary Care Provider Tannhof WASTE MACHINE OPERATOR.Adina LOCKHART Unavailable Jovany WASTE MACHINE OPERATOR.Hugo LOCKHART Unavailable BRAYDEN JOSEPH Attending Unavailable BRAYDEN JOSEPH Admitting Unavailable KERIR STRICKLAND Primary Care Unavailable Tannhof WASTE MACHINE OPERATOR.Adina LOCKHART Unavailable Unavail able Tannhof WASTE MACHINE OPERATOR.Adina LOCKHART Unavailable KERRI STRICKLAND Referring Unavailable ELDERKERRI PEREIRA Primary Care Unavailable SOPHIA REBOLLEDO Attending Unavailable DIEGO, KERRI Crespo Primary Care Unavailable BRAYDEN JOSEPH Referring Unavailable ELDERBROCK, KERRI Crespo Referring Unavailable ELDERBROCK, KERRI Cherie Primary Care Unavailable ELDERBROCK, KERRI Crespo Attending Unavailable ELDERBROCK, KERRI Crespo Primary Care [...] to adverse reactions to drug (disorder) 2 [facility] Medications Current Medications Medication Drug Class(es) Dates [...] on above: [facility] capsule by [facility]. lisinopril 20 mg oral tablet (3 sources) Angiotensin Converting Enzyme Inhibitor Start : 07-24 End: 01-25 take 1 tablet by mouth once daily lisinopril (PRINIVIL) 20 mg tablet Indications: HTN (hypertension), benign Take 1 tablet by mouth once daily. 90 tablet 3 07/24/2021 01/25/2022 Discontinued Comment on above: Take 1 tablet by andrea th once daily. polyethylene glycol 3350 656378 mg / potassium chloride 2970 mg / sodium bicarbonate 6740 mg / sodium chloride 5860 mg / sodium sulfate 56919 mg powder for oral solution (1 source) [...] Coronary arteriosclerosis; Translations: [Atherosclerotic heart disease of [place] coronary artery with unspecified angina pectoris] Onset: [...] 02-03-2023 05-07-2016 Chronic Other aftercare (1 source) shelter (current) use of insulin; Translations: [shelter (current) use of insulin] Onset: 08-12-2024 Episodic [...] 20 mg/L (U) [Mass/Vol] 22.3 mg/L Normal [facility] Comment on above: Order Comment: Speci men Type: URINE SPECIMENOrdering Facility: [facility] Address: [address] [place] [address] Performed By: #### U ACR ####[facility] LABCLIA [id number] [place] [address] [place] Albumin/Creatinine (U) [Mass ratio] 22 mg/g Normal <30 [facility] Comment on above: Order Comment: Speci men Type: URINE SPECIMENOrdering Facility: [facility] Address: [address] [place] [address] Result Comment: Adul t Male and Female Nephrotic Criteria: <30 mg/g is considered normal to mildly increased 30-300 mg/g is considered moderately increased >300 mg/g is considered severely increased KDIGO. (2013). KDIGO 2012 Clinical Practice Guideline for the Evaluation and Management of Chronic Kidney Disease. Official Journal of the International Society of Nephrology, 3(1), 1-150. Performed By: #### U ACR ####[facility]CLIA [id number] [place] [address] [place] Creatinine (U) [Mass/Vol] 101.4 mg/dL Normal 20.0-300.0 [facility] Comment on above: Order Comment: Speci men Type: URINE SPECIMENOrdering Facility: [facility] Address: [address] [place] [address] Performed By: #### U ACR ####[facility]CLIA [id number] [place] [address] [place] CBC panel Auto (Bld)on 03-05 Erythrocyte distribution width (RBC) [Ratio] 13.5 % Normal 11.5-15.0 [facility] Comment on above: Order Comment: Speci men Type: BLOOD SPECIMENOrdering Facility: [facility] Address: [address] [place] [address] Performed By: #### 5 8410-2 ####[facility] LABIA [id number] [place] [address] [place] Hematocrit (Bld) [Volume fraction] 43.3 % Normal 39.0-51.0 [facility] Comment on above: Order Comment: Speci men Type: BLOOD SPECIMENOrdering Facility: [facility] Address: [address] [place] [address] Performed By: #### 5 8410-2 ####[facility] LABIA [id number] [address] [place] Hemoglobin (Bld) [Mass/Vol] 14.0 g/dL Normal 13.0-17.0 [facility] Comment on above: Order Comment: Speci men Type: BLOOD SPECIMENOrdering Facility: [facility] Address: [address] [place] [address] Performed By: #### 5 8410-2 ####[facility] LABIA [id number] [place] [id number] [place] MCH (RBC) [Entitic mass] 30.7 pg Normal 26.0-34.0 [facility] Comment on above: Order Comment: Speci men Type: BLOOD SPECIMENOrdering Facility: [facility] Address: [address] [place] [address] Performed By: #### 5 8410-2 ####[facility] LABIA [id number] [id number] [address] [place] MCHC (RBC) [Mass/Vol] 32.3 g/dL Normal 30.5-36.0 [facility] Comment on above: Order Comment: Speci men Type: BLOOD SPECIMENOrdering Facility: [facility] Address: [address] [place] [address] Performed By: #### 5 8410-2 ####[facility]CLIA [id number] [place] [address] [place] MCV (RBC) [Entitic vol] 95.0 fL Normal 80.0-100.0 [facility] Comment on above: Order Comment: Speci men Type: BLOOD SPECIMENOrdering Facility: [facility] Address: [address] [place] [address] Performed By: #### 5 8410-2 ####[facility]CLIA [id number] [place] [address] [place] Nucleated RBC (Bld) [#/Vol] 10*3/uL Normal <0.01 [facility] Comment on above: Order Comment: Speci men Type: BLOOD SPECIMENOrdering Facility: [facility] Address: [address] [place] [address] Performed By: #### 5 8410-2 ####[facility]CLIA [id number] [place] [address] [place] Platelet mean volume (Bld) [Entitic vol] 13.5 fL High 9.0-12.7 [facility] Comment on above: Order Comment: Speci men Type: BLOOD SPECIMENOrdering Facility: [facility] Address: [address] [place] [address] Performed By: #### 5 8410-2 ####[facility] LABCLIA [id number] [place] [id number] [place] Platelets (Bld) [#/Vol] 160 10*3/uL Normal 150-400 [facility] Comment on above: Order Comment: Speci men Type: BLOOD SPECIMENOrdering Facility: [facility] Address: [address] [place] [address] Performed By: #### 5 8410-2 ####[facility] LABIA [id number] [place] [address] [place] RBC (Bld) [#/Vol] 4.56 10*6/uL Normal 4.20-6.00 [facility] Comment on above: Order Comment: Speci men Type: BLOOD SPECIMENOrdering Facility: [facility] Address: [address] [place] [address] Performed By: #### 5 8410-2 ####[facility] LABIA [id number] [place] [address] [place] WBC (Bld) [#/Vol] 8.78 10*3/uL Normal 3.70-11.00 [facility] Comment on above: Order Comment: Speci men Type: BLOOD SPECIMENOrdering Facility: [facility] Address: [address] [place] [address] Performed By: #### 5 8410-2 ####[facility] LABIA [id number] [place] [address] [place] CNOVon 03-05-2025 CNOV Office Visit (FAMPWS ) JONATHAN DUNCAN ([id number]) 1955 M Date Time Provider Department 03/05/25 [...] mg 1 tab po bid. Follows with [facility]. Arthritis: Uses Mobic 15 mg [...] Mother Heart Father Age of 69, massive [place] Diabetes Father Heart Sister Heart Brother Diabetes [...] Completed Advanc (more content not included)... Normal [facility] Comprehensive metabolic 2000 panelon 03-05-2025 Albumin [Mass/Vol] 3.9 g/dL Normal 3.9-4.9 [facility] Comment on above: Order Comment: Speci men Type: BLOOD SPECIMENOrdering Facility: [facility] Address: [address] [place] [address] Performed By: #### 3 084-1, 12963-2, 38498-5 ####[facility] LABIA [id number] [place] [address] [place] ALP [Catalytic activity/Vol] 115 U/L High 38-113 [facility] Comment on above: Order Comment: Speci men Type: BLOOD SPECIMENOrdering Facility: [facility] Address: [address] [place] [address] Performed By: #### 3 084-1, 31305-6, 48883-3 ####[facility] LABIA [id number] [place] [address] [place] ALT [Catalytic activity/Vol] 24 U/L Normal 10-54 [facility] Comment on above: Order Comment: Speci men Type: BLOOD SPECIMENOrdering Facility: [facility] Address: [address] [place] [address] Performed By: #### 3 084-1, 09099-4, 48967-2 ####[facility] LABIA [id number] [address] [address] [place] Anion gap [Moles/Vol] 11 mmol/L Normal 8-15 [facility] Comment on above: Order Comment: Speci men Type: BLOOD SPECIMENOrdering Facility: [facility] Address: [address] [place] [address] Performed By: #### 3 084-1, 71364-5, 83581-5 ####[facility] LABCLIA [id number] [address] [address] [place] AST [Catalytic activity/Vol] 25 U/L Normal 14-40 [facility] Comment on above: Order Comment: Speci men Type: BLOOD SPECIMENOrdering Facility: [facility] Address: [address] [place] [address] Performed By: #### 3 084-1, 68449-1, 82515-4 ####[facility] LABCLIA [id number] [address] [address] [place] Bilirubin [Mass/Vol] 0.5 mg/dL Normal 0.2-1.3 [facility] Comment on above: Order Comment: Speci men Type: BLOOD SPECIMENOrdering Facility: [facility] Address: [address] [place] [address] Performed By: #### 3 084-1, 44352-1, 08704-5 ####[facility] LABIA [id number] [address] [address] [place] Calcium [Mass/Vol] 9.4 mg/dL Normal 8.5-10.2 [facility] Comment on above: Order Comment: Speci men Type: BLOOD SPECIMENOrdering Facility: [facility] Address: [address] [place], [place] [address] Performed By: #### 3 084-1, 67725-9, 39589-1 ####[facility] LABIA [id number] [address] [address] [place] Chloride [Moles/Vol] 102 mmol/L Normal 98-107 [facility] Comment on above: Order Comment: Speci men Type: BLOOD SPECIMENOrdering Facility: [facility] Address: [address] [place], [place] [address] Performed By: #### 3 084-1, 77961-1, 21137-6 ####[facility]CLIA [id number] [place] [address] [place] CO2 [Moles/Vol] 26 mmol/L Normal 22-30 [facility] Comment on above: Order Comment: Speci men Type: BLOOD SPECIMENOrdering Facility: [facility] Address: [address] [place] [address] Performed By: #### 3 084-1, 59030-7, 55606-4 ####[facility]CLIA [id number] [place] [address] [place] Creatinine [Mass/Vol] 0.79 mg/dL Normal 0.73-1.22 [facility] Comment on above: Order Comment: Speci men Type: BLOOD SPECIMENOrdering Facility: [facility] Address: [address] [place] [address] Performed By: #### 3 084-1, 46494-8, ####[facility] [id number] [place] [address] [place] eGFRcr SerPlBld CKD-EPI 2020 95 mL/min/1.73m??? Normal >=60 [facility] Comment on above: Order Comment: Speci men Type: BLOOD SPECIMENOrdering Facility: [facility] Address: [address] [place] [address] Result Comment: Zainab mated Glomerular Filtration Rate [...] actual GFR. Performed By: #### 3 084-1, 95563-8, 88380-6 ####[facility] LABCLIA [id number] [place] [id number] [place] Glucose [Mass/Vol] 131 mg/dL High 74-99 [facility] Comment on above: Order Comment: Speci men Type: BLOOD SPECIMENOrdering Facility: [facility] Address: [address] [place] [address] Result Comment: The [place] Diabetes Association (ADA) provides guidance for cutoff [...] Standards of Medical Care in Diabetes 2016, [place] Diabetes Association. Diabetes Care. 2016.39(Suppl 1). Performed By: #### 3 084-1, 05028-7, 27227-1 ####[facility] LABCLIA [id number] [place] [address] [place] Potassium [Moles/Vol] 4.1 mmol/L Normal 3.7-5.1 [facility] Comment on above: Order Comment: Prestoni men Type: BLOOD SPECIMENOrdering Facility: [facility] Address: [address] [place] [address] Performed By: #### 3 084-1, 95516-3, 39173-4 ####[facility] LABCLIA [id number] [place] [id number] [place] Protein [Mass/Vol] 6.6 g/dL Normal 6.3-8.0 [facility] Comment on above: Order Comment: Speci men Type: BLOOD SPECIMENOrdering Facility: [facility] Address: [address] [place] [address] Performed By: #### 3 084-1, 37794-2, 34094-6 ####[facility]CLIA [id number] [facility] [address] [address] [place] Sodium [Moles/Vol] 139 mmol/L Normal 136-144 [facility] Comment on above: Order Comment: Tiffanie men Type: BLOOD SPECIMENOrdering Facility: [facility] Address: [address] [place] [address] Performed By: #### 3 084-1, 09308-0, 68216-3 ####[facility] LABCLIA [id number] [place] [id number] [place] Urea nitrogen [Mass/Vol] 16 mg/dL Normal 9-24 [facility] Comment on above: Order Comment: Tiffanie men Type: BLOOD SPECIMENOrdering Facility: [facility] Address: [address] [place] [address] Performed By: #### 3 084-1, 45636-8, ####[facility]CLIA [id number] [place] [address] [place] HbA1c (Bld)on 03-05-2025 Average glucose Estimated from glycated hemoglobin (Bld) [Mass/Vol] 154 mg/dL Normal [facility] Comment on above: Order Comment: Tiffanie men Type: BLOOD SPECIMENOrdering Facility: [facility] Address: [address] [place] [address] Result Comment: eAG: (Estimated average glucose) is a calculated value from HgbA1c and is customer development representative of the average blood glucose level in the last 2-3 month period. Performed By: #### 5 5454-3 ####[facility] LABIA [id number] [place] [address] [place] HbA1c (Bld) [Mass fraction] 7.0 % High 4.3-5.6 [facility] Comment on above: Order Comment: Tiffanie ismael Type: BLOOD SPECIMENOrdering Facility: [facility] Address: [address] [place] [address] Result Comment: [place] Diabetes Association guidelines indicate that patients with HgbA1c in the range 5.7-6.4% are at increased risk for development of diabetes, and intervention by lifestyle modification may be beneficial. HgbA1c greater or equal to 6.5% is considered diagnostic of diabetes. Performed By: #### 5 5454-3 ####[facility] LABCLIA [id number] [place] [address] [facility] [place] Lipid 1996 panelon 5 Cholesterol [Mass/Vol] 107 mg/dL Normal <200 [facility] Comment on above: Order Comment: Prestoni men Type: BLOOD SPECIMENOrdering Facility: [facility] Address: [address] [place] [address] Result Comment: <200 mg/dL, Desirable 200-239 mg/dL, Borderline high >239 mg/dL, High Performed By: #### 3 084-1, 99488-6, 51781-1 ####[facility]CLIA [id number] [address] [place] Cholesterol in HDL [Mass/Vol] 29 mg/dL Low >39 [facility] Comment on above: Order Comment: Tiffanie guevara Type: BLOOD SPECIMENOrdering Facility: [facility] Address: [address] [place] [address] Result Comment: 40-5 9 mg/dL, Acceptable >59 mg/dL, High: Negative risk factor for coronary heart disease <40 mg/dL, Low: Positive risk factor for coronary heart disease Performed By: #### 3 084-1, 23264-7, 02186-6 ####[facility] LABCLIA [id number] [place] [id number] [facility] [place] Cholesterol in LDL [Mass/Vol] 65 mg/dL Normal <100 [facility] Comment on above: Order Comment: Tiffanie [facility] Type: BLOOD SPECIMENOrdering Facility: [facility] Address: [address] [place] [address] Result Comment: <100 mg/dL, Optimal 100-129 mg/dL, Near optimal/above optimal 130-159 mg/dL, Borderline high 160-189 mg/dL, High >189 mg/dL, Very high Secondary prevention optimal LDL Cholesterol levels are recommended to be <70 mg/dL LDL cholesterol is calculated using the Edouard-NIH equation. Performed By: #### 3 084-1, 92403-1, 38990-4 ####[facility] LABCLIA [id number] [address] [address] [place] Cholesterol in LDL/Cholesterol in HDL [Mass ratio] 2.24 {ratio} Normal <2.54 [facility] Comment on above: Order Comment: Speci men Type: BLOOD SPECIMENOrdering Facility: [facility] Address: [address] [place] [address] Result Comment: Refe rence: 1. National Cholesterol Education Program ATP III Guideline At-A-Glance Quick Desk Reference: National Heart, Lung, and Blood [place]. National Institutes of Health. 2001: NIH Publication No. 01-3305. 2. An International Atherosclerosis Society position paper: global recommendations for the management of dyslipidemia: executive summary, Atherosclerosis. 2014: 232(2):410-413. Performed By: #### 3 084-1, 43454-5, 86275-5 ####[facility] LABIA [id number] [place] [id number] [place] Cholesterol in VLDL [Mass/Vol] 9 mg/dL Normal <30 [facility] Comment on above: Order Comment: Tiffanie guevara Type: BLOOD SPECIMENOrdering Facility: [facility] Address: [address] [place] [address] Performed By: #### 3 084-1, 36391-1, 67202-3 ####[facility] LABIA [id number] [address] [address] [place] Cholesterol non HDL [Mass/Vol] 78 mg/dL Normal <130 [facility] Comment on above: Order Comment: Prestoni men Type: BLOOD SPECIMENOrdering Facility: [facility] Address: [address] [place] [address] Result Comment: <130 mg/dL, Optimal 130-159 mg/dL, Near optimal/above optimal 160-189 mg/dL, Borderline high 190-219 mg/dL, High >219 mg/dL, Very high Secondary prevention optimal non HDL Cholesterol levels are recommended to be <100 mg/dL Performed By: #### 3 084-1, 22072-6, 69437-3 ####[facility]CLIA [id number] [address] [place] [address] [place] Cholesterol.total/Ch olesterol in HDL [Mass ratio] 3.69 {ratio} Normal <5.10 [facility] Comment on above: Order Comment: Speci men Type: BLOOD SPECIMENOrdering Facility: [facility] Address: [address] [place] [address] Performed By: #### 3 084-1, 58641-8, 22599-2 ####[facility] LABIA [id number] [address] OF [facility] FASTING TIME 12 hrs Normal [facility] Comment on above: Order Comment: Speci men Type: BLOOD SPECIMENOrdering Facility: [facility] Address: [address] [place] [address] Performed By: #### 3 084-1, 50038-9, 34841-7 ####[facility] LABIA [id number] [address] [place] Triglyceride [Mass/Vol] 58 mg/dL Normal <150 [facility] Comment on above: Order Comment: Speci men Type: BLOOD SPECIMENOrdering Facility: [facility] Address: [address] [place] [address] Result Comment: <150 mg/dL, Normal 150-199 mg/dL, Borderline high 200-499 mg/dL, High >499 mg/dL, Very high Performed By: #### 3 084-1, 56598-9, 34677-7 ####[facility]CLIA [id number] [address] [address] [place] Urate SerPl-mCncon 5 Urate [Mass/Vol] 6.0 mg/dL Normal 4.0-8.1 [facility] Comment on above: Order Comment: Speci men Type: BLOOD SPECIMENOrdering Facility: [facility] Address: [address] [place] [address] Performed By: #### 3 084-1, 10502-6, 65248-1 ####[facility] LABCLIA [id number] TALA YODER [id number] [place] [address] OF [facility] CNOVon 10-25-2024 CNOV Office Visit (ORTHWS ) JONATHAN DUNCAN ([id number]) 1955 M Date Time Provider Department 10/25/24 12:45 PM BRAYDEN JOSEPH During your visit today, we recorded the following information about you: Brayden Joseph MD 10/25/2024 10:29 PM Signed Brayden Joesph MD Department of Orthopaedics Orthopaedics [address] [facility] [address] Dept: [phone] Dept October 25, 2024 CHIEF COMPLAINT: Post [...] take the edge off. Patient works at [employer] and would like to return to work [...] Patient has no known allergies. Recording using [employer] software for draft documentation of the visit was discussed with the patient/authorized customer development representative; all questions welcomed and answered. Patient/authorized customer development representative agreed to proceed Brayden Joseph MD Referring Provider: BRAYDEN JOSEPH [[id number]] Allergies As of Date: 10/25/2024 (No Known Allergies) Date Reviewed: 10/25/2024 Reviewed by: Tracy Mata MA - Fully Assessed Reason for Visit: Post Op [174] Cmt: 5 weeks 5 days post op Left knee arthroscopic medial menisectomy, medial distal femoral chondroplasty Primary Visit Diagnosis:Other tear of medial meniscus of left knee as current injury, subsequent encounter [O53.889I] Other Visit Diagnosis:Primary osteoarthritis of left knee [...] (HCC) [C61] (more content not included)... Normal [facility] CNOVon 09-27-2024 CNOV Office Visit (MARANDA ) JONATHAN DUNCAN ([id number]) 1955 M Date Time Provider Department 09/27/24 [...] at incision sites. Patient has been taking Viola as needed for the pain and is asking for a refill. Sophia Rebolledo PA-C 09/27/2024 2:59 PM Signed Sophia Rebolledo PA-C Department of Orthopaedics Orthopaedics [address] [place] [address] Dept: [phone] Dept September 27, 2024 CHIEF COMPLAINT: Post [...] allergies. This note was partially generated using [employer] voice recognition system, and there may be some incorrect words, spellings, and punctuation that were not noted in checking the note before saving. Sophia Rebolledo PA-C Referring Provider: BRAYDEN JOSEPH [[id number]] Allergies As of Date: 09/27/2024 (No Known [...] mg tablet (more content not included)... Normal [facility] ANES POSTPROC EVALon 025 ANES POSTPROC EVAL HNO ID: [id number] Author: OZZIE DEAL DO Service: Anesthesiology Author Type: Anesthesiologist Type: Anesthesia Postprocedure Evaluation Filed: 09/15/2024 13:55 Note Text: POST ANESTHESIA EVALUATION NOTE : 1955 Procedure Summary Date: 09/15/24 Room / Location: [place] [address] / [facility] Anesthesia Start: 731 Anesthesia Stop: 857 Procedure: [...] with this procedure. Documented by Leticia Szymanski APRN.BANK VAULT CUSTODIAN 09/15/2024 8:58 AM EDT SIGNATURE: Ozzie Deal DO PATIENT NAME: Jonathan Duncan DATE: September 15, 2024 TIME: 1:55 PM CSN: [id number] [facility] ANES PRE-OPon 09-15-2024 ANES PRE-OP HNO ID: [id number] Author: OZZIE DEAL DO Service: Anesthesiology Author [...] Problems CARDIO (+) Coronary artery disease involving [place] coronary artery of [place] heart with angina pectoris (+) HTN (hypertension), [...] Airway type: LMA NPO Status: adequate Beta Sheramn Monitoring Plan Monitoring plan: standard ASA. Post Procedure Analgesic Plan Postoperative analgesic plan: parenteral or oral opioids, multimodal analgesia and per surgical service. Informed Consent Anesthetic risks, benefits, alternatives, personnel and consent discussed: yes. Patient / Responsible Alliance Party agrees to proceed: yes Patient / Surrogate [...] September 15, 2024 TIME: 7:06 AM CSN: [id number] [facility] OPERATIVE NOon 09-15-2024 OPERATIVE NO HNO ID: [id number] Author: BRAYDEN JOSEPH MD Service: Orthopaedic Surgery Author Type: Physician Type: Operative Report Filed: 09/15/2024 09:06 Note Text: OPERATIVE/PROCEDURE REPORT LOG ID: [id number] Surgery/Procedure Date: 09/15/2024 Incision/Procedure Start Time: 8:07 AM Incision Close/Procedure End Time: 8:45 AM Surgeon(s)/Procedurali st(s) and Supervisor Mapping(s): Surgeons and Role: * Brayden Joseph MD - Primary Physician Supervisor Mapping: Sophia Rebolledo PA-C Procedure(s): left knee, arthroscopic, [...] Post-Op/Post-Procedure Diagnosis: (more content not included)... Normal [facility] HISTORY PHYSICALon HISTORY PHYSICAL HNO ID: [id number] Author: ASPEN KLEIN APRN.ENGAGEMENT ENGINEER Service: ? Author Type: Nurse Practitioner Type: H&P Filed: 08/31/2024 06:55 Note Text: [facility] HISTORY AND PHYSICAL EXAMINATION SERVICE DATE: 08/26/2024 SERVICE TIME: 6:53 AM PRIMARY CARE PHYSICIAN: Kerri Strickland MD Assessment Patient has the following medical conditions which may affect palomo-operative course: Coronary artery disease involving [place] coronary artery of [place] heart with angina pectoris (HCC) Assessment: non-obstructing, [...] on Eliquis, received cardiac optimization scanned into [employer], received AC instructions as well. Pt recently [...] equal to 35 kg/m2 STOP-Bang Score: 5 [id number] Score: Age: 65-74 Sex: male CHF history: No Hypertension history: Yes Stroke/TIA/thromboembo lism history: No Vascular disease history: No Diabetes history: Yes [id number] Score: 3 ARISCAT Score: Age: 51-80 Preoperative [...] meat in (more content not included)... Normal [facility] CNCOon 08-23-2024 CNCO Letter Text Normal [facility] CNOVon 08-20-2024 CNOV Office Visit (FAMPWS ) JONATHAN DUNCAN ([id number]) 1955 M Date Time Provider Department 08/20/24 [...] po bid. Follows with [facility]. Branch Store Manager suggested doing a thyroid test, but pt [...] 81 mg once daily was d/c by Branch Store Manager. Tolerating well. Arthritis: Uses Mobic 15 mg [...] Mother Heart Father Age of 69, massive [place] Diabetes Father Heart Sister Heart Brother Diabetes [...] Smoking status: (more content not included)... Normal [facility] Comprehensive metabolic 2000 panelon 08-20-2024 Albumin [Mass/Vol] 4.2 g/dL Normal 3.9-4.9 [facility] Comment on above: Order Comment: Speci men Type: BLOOD SPECIMENOrdering Facility: [facility] Address: [address] [place] [address] Performed By: #### 3 016-3, 85525-6 ####[facility]ORATORYCLIA [id number] [address] OF [place]#### 95823-4 ####[facility]ORATORYCLIA [id number] [place] [id number] [place] [address] STATES OF [facility] ALP [Catalytic activity/Vol] 108 U/L Normal 38-113 [facility] Comment on above: Order Comment: Speci men Type: BLOOD SPECIMENOrdering Facility: [facility] Address: [address] [place] [address] Performed By: #### 3 016-3, 79645-0 ####[facility]ORATORYCLIA [id number] [address] OF [place]#### 01689-8 ####[facility]ORATORYCLIA [id number] [address] OF [facility] [id number] [place] [address] [place] ALT With P-5'-P [Catalytic activity/Vol] 26 U/L Normal 10-54 [facility] Comment on above: Order Comment: Speci men Type: BLOOD SPECIMENOrdering Facility: [facility] Address: [address] [place] [address] Performed By: #### 3 016-3, 82754-8 ####[facility]ORATORYCLIA [id number] [address] STATES OF [place]#### 12048-7 ####[facility]ATORYCLIA [id number] [address] STATES OF [facility] [id number] [place] [address] STATES [place] Anion gap [Moles/Vol] 10 mmol/L Normal 8-15 [facility] Comment on above: Order Comment: Speci men Type: BLOOD SPECIMENOrdering Facility: [facility] Address: [address] [place] [address] Performed By: #### 3 016-3, 13440-9 ####[facility]ORATORYCLIA [id number] [address] STATES OF [place]#### 32463-3 ####[facility]ORATORYCLIA [id number] [address] STATES OF [facility] [id number] [address] STATES OF [place] AST With P-5'-P [Catalytic activity/Vol] 24 U/L Normal 14-40 [facility] Comment on above: Order Comment: Speci men Type: BLOOD SPECIMENOrdering Facility: [facility] Address: [address] [place] [address] Performed By: #### 3 016-3, 53531-1 ####[facility]ORATORYCLIA [id number] [address] STATES OF [place]#### 25066-2 ####[facility]ATORYCLIA [id number] [address] [id number] [place] [address] [place] Bilirubin [Mass/Vol] 0.5 mg/dL Normal 0.2-1.3 [facility] Comment on above: Order Comment: Speci men Type: BLOOD SPECIMENOrdering Facility: [facility] Address: [address] [place] [address] Performed By: #### 3 016-3, 67706-2 ####[facility]ORATORYCLIA [id number] [address] STATES OF [place]#### 42346-2 ####[facility]ATORYCLIA [id number] [address] [id number] [place] [address] [place] Calcium [Mass/Vol] 9.8 mg/dL Normal 8.5-10.2 [facility] Comment on above: Order Comment: Speci men Type: BLOOD SPECIMENOrdering Facility: [facility] Address: [address] [place] [address] Performed By: #### 3 016-3, 60029-7 ####[facility]ORATORYCLIA [id number] [address] STATES OF [place]#### 44172-2 ####[facility]ORATORYCLIA [id number] [address] STATES [facility] [id number] [place] [address] [place] Chloride [Moles/Vol] 100 mmol/L Normal 98-107 [facility] Comment on above: Order Comment: Speci men Type: BLOOD SPECIMENOrdering Facility: [facility] Address: [address] [place] [address] Performed By: #### 3 016-3, ####[facility]ORATORYCLIA [id number] [address]#### 79508-3 ####[facility]ORATORYCLIA [id number] [address] [id number] [place] [address] [place] CO2 [Moles/Vol] 27 mmol/L Normal 22-30 [facility] Comment on above: Order Comment: Speci men Type: BLOOD SPECIMENOrdering Facility: [facility] Address: [address] [place] [address] Performed By: #### 3 016-, ####[facility]ORATORYCLIA [id number] [address]#### 05232-5 ####[facility]ORATORYCLIA [id number] [address] [id number] [place] [address] [place] Creatinine [Mass/Vol] 0.80 mg/dL Normal 0.73-1.22 [facility] Comment on above: Order Comment: Speci men Type: BLOOD SPECIMENOrdering Facility: [facility] Address: [address] [place] [address] Performed By: #### 3 016-3, 18802-5 ####[facility]ORATORYCLIA [id number] [address]#### 16040-0 ####[facility]ORATORYCLIA [id number] [address] [id number] [address] STATES OF [place] Creatinine and Glomerular filtration rate.predicted panel (S/P/Bld) 95 mL/min/1.73m??? Normal >=60 [facility] Comment on above: Order Comment: Tiffanie guevara Type: BLOOD SPECIMENOrdering Facility: [facility] Address: [address] [place] [address] Result Comment: Zainab mated Glomerular Filtration Rate [...] actual GFR. Performed By: #### 3 016-3, 46704-3 ####[facility] LABORATORYCLIA [id number] [address]#### 16002-3 ####[facility]imediaBO[facility] LABORATORYCLIA [id number] [address] [id number] [address] OF [facility] Glucose [Mass/Vol] 161 mg/dL High 74-99 [facility] Comment on above: Order Comment: Tiffanie guevara Type: BLOOD SPECIMENOrdering Facility: [facility] Address: [address] [place] [address] Result Comment: The [place] Diabetes Association (ADA) provides guidance for cutoff [...] Standards of Medical Care in Diabetes 2016, [place] Diabetes Association. Diabetes Care. 2016.39(Suppl 1). Performed By: #### 3 016-3, 09289-8 ####[facility]ORATORYCLIA [id number] [place] [address] [place]#### 69063-8 ####[facility]ORATORYCLIA [id number] [place], [place] [address] [place] [address] STATES OF [facility]IC[facility] ULISESNORTHEASTERN VERMONT REGIONAL HOSPITALWLALIA [id number] [place] [address] [place] Potassium [Moles/Vol] 4.3 mmol/L Normal 3.7-5.1 [facility] Comment on above: Order Comment: Speci men Type: BLOOD SPECIMENOrdering Facility: [facility] Address: [address] [place] [address] Performed By: #### 3 016-3, 51335-9 ####[facility]ORATORYCLIA [id number] [place] [address] [place]#### 08104-1 ####[facility] LABORATORYCLIA [id number] [address] STATES OF [facility] [id number] [place] [address] [place] Protein [Mass/Vol] 6.7 g/dL Normal 6.3-8.0 [facility] Comment on above: Order Comment: Speci men Type: BLOOD SPECIMENOrdering Facility: [facility] Address: [address] [place] [address] Performed By: #### 3 016-3, 29860-6 ####[facility]ORATORYCLIA [id number] [place] [address] [place]#### 75161-1 ####[facility]ATORYCLIA [id number] [address] STATES OF [facility] [id number] [place] [address] [place] Sodium [Moles/Vol] 137 mmol/L Normal 136-144 [facility] Comment on above: Order Comment: Speci men Type: BLOOD SPECIMENOrdering Facility: [facility] Address: [address] [place] [address] Performed By: #### 3 016-3, 45038-8 ####[facility] LABORATORYCLIA [id number] [address] OF [place]#### 16969-2 ####[facility] LABORATORYCLIA [id number] [address] [id number] [place] [address] [place] Urea nitrogen [Mass/Vol] 17 mg/dL Normal 9-24 [facility] Comment on above: Order Comment: Speci men Type: BLOOD SPECIMENOrdering Facility: [facility] Address: [address] [place] [address] Performed By: #### 3 016-3, 09565-0 ####[facility]ORATORYCLIA [id number] [address] STATES OF [place]#### 71862-3 ####[facility] LABORATORYCLIA [id number] [address] [id number] [place] [address] [place] HbA1c (Bld)on 08-20-2024 Average glucose Estimated from glycated hemoglobin (Bld) [Mass/Vol] 166 mg/dL Normal [facility] Comment on above: Order Comment: Speci men Type: BLOOD SPECIMENOrdering Facility: [facility] Address: [address] [place] [address] Result Comment: eAG: (Estimated average glucose) is a calculated value from HgbA1c and is customer development representative of the average blood glucose level in the last 2-3 month period. Performed By: #### 5 5454-3 ####[facility] LABCLIA [id number] [place] [address] [place] HbA1c (Bld) [Mass fraction] 7.4 % High 4.3-5.6 [facility] Comment on above: Order Comment: Tiffanie guevara Type: BLOOD SPECIMENOrdering Facility: [facility] Address: [address] [place] [address] Result Comment: Amer [place] Diabetes Association guidelines indicate that patients with HgbA1c in the range 5.7-6.4% are at increased risk for development of diabetes, and intervention by lifestyle modification may be beneficial. HgbA1c greater or equal to 6.5% is considered diagnostic of diabetes. Performed By: #### 5 5454-3 ####[facility] LABCLIA [id number] [address] OF [place] Lipid 1996 panelon 5 Cholesterol [Mass/Vol] 117 mg/dL Normal <200 [facility] Comment on above: Order Comment: Tiffanie guevara Type: BLOOD SPECIMENOrdering Facility: [facility] Address: [address] [place] [address] Result Comment: <200 mg/dL, Desirable 200-239 mg/dL, Borderline high >239 mg/dL, High Performed By: #### 3 016-3, 31950-0 ####[facility]ORATORYCLIA [id number] [address] OF [facility]#### 66519-7 ####[facility]ORATORYCLIA [id number] [address] STATES OF [facility] [id number] [address] STATES OF [facility] Cholesterol in HDL [Mass/Vol] 33 mg/dL Low >39 [facility] Comment on above: Order Comment: Tiffanie ismael Type: BLOOD SPECIMENOrdering Facility: [facility] Address: [address] [place] [address] Result Comment: 40-5 9 mg/dL, Acceptable >59 mg/dL, High: Negative risk factor for coronary heart disease <40 mg/dL, Low: Positive risk factor for coronary heart disease Performed By: #### 3 016-3, 70427-0 ####[facility]ORATORYCLIA [id number] [address]#### 01343-0 ####[facility] LABORATORYCLIA [id number] [address]INTERMOUNTAIN MED[facility] [id number] [address] Cholesterol in LDL [Mass/Vol] 68 mg/dL Normal <100 [facility] Comment on above: Order Comment: Speci men Type: BLOOD SPECIMENOrdering Facility: [facility] Address: [address] [place] [address] Result Comment: <100 mg/dL, Optimal 100-129 mg/dL, Near optimal/above optimal 130-159 mg/dL, Borderline high 160-189 mg/dL, High >189 mg/dL, Very high Secondary prevention optimal LDL Cholesterol levels are recommended to be < 70 mg/dL Performed By: #### 3 016-3, 08962-6 ####[facility] LABORATORYCLIA [id number] [address]#### 39878-0 ####[facility] LABORATORYCLIA [id number] [address] [id number] [address] Cholesterol in LDL/Cholesterol in HDL [Mass ratio] 2.06 {ratio} Normal <2.54 [facility] Comment on above: Order Comment: Speci men Type: BLOOD SPECIMENOrdering Facility: [facility] Address: [address] [place] [address] Result Comment: Refsybil martinezce: 1. National Cholesterol Education Program ATP III Guideline At-A-Glance Quick Desk Reference: National Heart, Lung, and Blood [place]. National Institutes of Health. 2001: NIH Publication No. 01-3305. 2. An International Atherosclerosis Society position paper: global recommendations for the management of dyslipidemia: executive summary, Atherosclerosis. 2014: 232(2):410-413. Performed By: #### 3 016-3, 73060-1 ####[facility]ORATORYCLIA [id number] [place], [place] [address] [place] [address] [place]#### 09461-7 ####[facility]ORATORYCLIA [id number] [address] [id number] [address] STATES [place] Cholesterol in VLDL [Mass/Vol] 16 mg/dL Normal <30 [facility] Comment on above: Order Comment: Speci men Type: BLOOD SPECIMENOrdering Facility: [facility] Address: [address] [place] [address] Performed By: #### 3 016-3, 91117-3 ####[facility]ORATORYCLIA [id number] [address] OF [place]#### 61177-2 ####[facility]ORATORYCLIA [id number] [address] [id number] [place] [address] [place] Cholesterol non HDL [Mass/Vol] 84 mg/dL Normal <130 [facility] Comment on above: Order Comment: Speci men Type: BLOOD SPECIMENOrdering Facility: [facility] Address: [address] [place] [address] Result Comment: <130 mg/dL, Optimal 130-159 mg/dL, Near optimal/above optimal 160-189 mg/dL, Borderline high 190-219 mg/dL, High >219 mg/dL, Very high Secondary prevention optimal non HDL Cholesterol levels are recommended to be <100 mg/dL Performed By: #### 3 016-3, ####[facility]ORATORYCLIA [id number] [address] STATES OF [place]#### 71554-2 ####[facility]ORATORYCLIA [id number] [address] STATES OF [facility]OS[facility]ITALWLALI [id number] [address] Cholesterol.total/Ch olesterol in HDL [Mass ratio] 3.55 {ratio} Normal <5.10 [facility] Comment on above: Order Comment: Speci men Type: BLOOD SPECIMENOrdering Facility: [facility] Address: [address] [place] [address] Performed By: #### 3 016-3, 42434-9 ####[facility]ORATORYCLIA [id number] [address]#### 21443-3 ####[facility]ORATORYCLIA [id number] [id number] [place] [address] FASTING TIME 15 hrs Normal [facility] Comment on above: Order Comment: Speci men Type: BLOOD SPECIMENOrdering Facility: [facility] Address: [address] [place] [address] Performed By: #### 3 016-3, 62327-8 ####[facility]ORATORYCLIA [id number] [address] OF [facility]#### 48001-4 ####[facility]ORATORYCLIA [id number] [address] [id number] [address] Triglyceride [Mass/Vol] 79 mg/dL Normal <150 [facility] Comment on above: Order Comment: Speci men Type: BLOOD SPECIMENOrdering Facility: [facility] Address: [address] [place] [address] Result Comment: <150 mg/dL, Normal 150-199 mg/dL, Borderline high 200-499 mg/dL, High >499 mg/dL, Very high Performed By: #### 3 016-3, 59786-4 ####[facility]ORATORYCLIA [id number] [address]#### 68464-6 ####[facility] HOSPITALCLIA [id number] [address] [id number] [address] TSH SerPl-aCncon 08-20-2024 TSH Qn 2.090 m[IU]/L Normal 0.270-4.200 [facility] Comment on above: Order Comment: Speci men Type: BLOOD SPECIMENOrdering Facility: [facility] Address: [address] [place] [address] Performed By: #### 3 016-3, 32121-7 ####[facility] DAYTONA BEACHCLIA [id number] [address]#### 92602-2 ####[facility] HOSPITALCLIA [id number] [address] [id number] [address] Dawn 08-05-2024 [facility] Telephone (KOREYWSTR) JONATHAN DUNCAN ([id number]) 1955 M Date Time Provider Department 08/05/24 KERRI STRICKLANDTR During your visit today, we recorded the following information about you: Sarah Modi, LEVI 08/05/2024 3:43 PM Signed Patient 's is calling office back stating that he seen his drum sprayer and has been cleared for surgery. Phoned office and spoke with nurse. Patient was last seen by on 07/14/24, then ahd ECHO , stress test completed. EKG done on 06/18/24. They did not get a clearance from . They did complete the testing. is needing paperwork saying what type of surgery, when surgery is to get a clearance. FAx number # [phone]. Please review and advise further. PATIENT will [...] Date Reviewed: 06/21/2024 Reviewed by: Aspen Klein APRN.ENGAGEMENT ENGINEER - Fully Assessed Reason for Visit: Surgery Cancelled [4163] Cmt: wants to reschedule surgery- patient has been cleared by drum sprayer Primary Visit Diagnosis:Derangement of knee, left [M23.92] Other Visit Diagnosis:Left knee pain, unspecified chronicity [M25.562] Order(s):SURGICAL REQUEST - ELECTIVE (01/2020) [4488288] Order #: [id number]: 1 Prescriptions as of 08/23/2024 - apixaban [...] eyes [Z96.1] 08/25/2017 Coronary artery disease involving [place] briceño*06/21/2024 New onset a-fib (HCC) [I48.91] 06/21/2024 Encounter Status:Closed by JOSIE NICOLE on 08/23/24 Normal [facility] Echo Complete W/ Contraston 07-29-2024 Echo Complete W/ Contrast [facility] [address] [facility] [place] [address] Echo Complete W/ Contrast 07/29/24 0825 MR#: [id number] Acct: [id number] Name: JONATHAN DUNCAN Rep #: [id number] : 1955 69 From: Nya Tran MD Attending Dr: Dr. Nya Tran MD Status: REG CLI Ordering Dr: Nya Tran MD Date: 07/29/24 Location: [facility] Sex: M C Admitted: Reason For Study [...] MD Kerri Strickland Performed By: Gracie Brown [facility] 07/29/24 1406 Date Nya Tran MD CC: Dr. Nya Tran MD; Dr. Kerri Strickland MD Date Dictated: 07/29/24824 Date Transcribed: 07/29/241405 Regional Program Manager: Signed Normal [facility] Stress Reporton 07-29-2024 Stress Report [facility] [address] [place] [address] MR#: [id number] Acct: [id number] Name: JONATHAN DUNCAN Rep #: [id number] : 1955 69 From: Nya Tran MD [...] of 65%. This note was generated with [employer] software. It may contain incorrect words, spelling, and punctuation that were not noted in checking the note before signing. 07/29/241228 Date Nya Tran MD CC: Dr. Nya Tran MD; Dr. Kerri Strickland MD Date Dictated: 07/29/241226 Date Transcribed: 07/29/241226 Regional Program Manager: PEREZ Signed Normal [facility] 12 Lead EKG performed by [facility] on 07-14-2024 12 Lead EKG performed by [facility] [address] [place] [address] 12 Lead EKG performed by [facility] 07/14/24 0811 MR#: [id number] Acct: [id number] Name: Jonathan Duncan Rep #: [id number] : 1955 69 From: Nya Tran MD Attending Dr: Dr. Nya Tran MD Status: DEP AMB Ordering Dr: Nya Tran MD Date: 07/14/24 Location[facility] Sex: M UTD Admitted: BMS/12 Lead EKG performed by [facility] ECG Report Interpretation ----Atrial fibrillation -irregular conduction -Old anterior infarct. ABNORMAL Electronically signed on 07/15/2024 at 11:[address] Nya Tran [employer] Version 8610 07/15/24 1142 Date Nya Tran MD CC: Dr. Kerri Strickland MD Date Dictated: 07/14/24810 Date Transcribed: 07/14/24810 Regional Program Manager: PEREZ Signed Normal [facility] Cardiology Visit Reporton Cardiology Visit Report [facility] [address] [place], [place] [address] OFFICE VISIT Date of Service: 07/14/24 MR#: [id number] Acct: [id number] Name: Jonathan Duncan Rep #: [id number] : 1955 Provider: Dr. Nya Tran MD Age/Sex: 69/M [place] [facility] [place]: Signed HPI HPI History of Present [...] (standing) Intake Visit Reasons: ABN EKG/Cardiac Clearance Hook Puller Required: No Accompanied by: Is patient in [...] you fallen in the past year?: No [facility] Medical History (Updated 07/15/24 @ 10:01 by [...] oriented x3 (more content not included)... [facility] Telephone (Navendis) JONATHAN DUNCAN ([id number]) 1955 M Date Time Provider Department 06/18/24 ASPEN KLEIN During your visit today, we recorded the following information about you: Breonna Bess LPN 06/18/2024 4:08 PM Signed Faxed EKG, problem list and medlist to [facility] for upcoming appt 07/14/24 at 10:am. Patient aware and agreeable of appt. LEVI Trammell Jillian S, APRN.ENGAGEMENT ENGINEER 06/19/2024 5:39 PM Signed Notifying surgeon's office [...] office visit and cardiac testing. Scanned into AT Internet through Onbase scanning. Breonna Bess LPN Allergies As of Date: 06/18/2024 (No Known Allergies) Date Reviewed: 06/18/2024 Reviewed by: Aspen Klein APRN.ENGAGEMENT ENGINEER - Fully Assessed Reason for Visit: Surgery [...] Status:Closed by JOSIE NICOLE on 06/21/24 Normal [facility] RHT39ks 06-18-2024 ECG01 Ventricular Rate : 8 4 BPM Atrial Rate : 85 BPM QRS Duration : 94 ms Q-T Interval : 370 ms QTC Calculation(Bazett) : 437 ms Calculated R Quinby : 44 degrees Calculated T Quinby : 19 degrees ATRIAL FIBRILLATION ABNORMAL ECG Confirmed by MD MULLINS GREGORY () on 06/21/2024 4:39:59 PM NAME : JONATHAN DUNCAN PID : [id number] : 1955 Gender : Male Race : [...] BRAYDEN JOSEPH Acquired by : Tasha johnston [facility] HISTORY PHYSICALon HISTORY PHYSICAL HNO ID: [id number] Author: ASPEN KLEIN APRN.ENGAGEMENT ENGINEER Service: ? Author Type: Nurse Practitioner Type: [...] controlled on rx Coronary artery disease involving [place] coronary artery of [place] heart with angina pectoris (HCC) Assessment: pending [...] equal to 35 kg/m2 STOP-Bang Score: 5 [id number] Score: Age: 65-74 Sex: male CHF history: No Hypertension history: Yes Stroke/TIA/thromboembo lism history: No Vascular disease history: No Diabetes history: Yes [id number] Score: 3 ARISCAT Score: Age: 51-80 Preoperative [...] exam HPI: (more content not included)... Normal [facility] CNPEsther 06-01-2024 CNPN Telephone (MARANDA) JONATHAN DUNCAN ([id number]) 1955 Date Time Provider Department 06/01/24 BRAYDEN [...] chronicity [M25.562] Order(s):SURGICAL REQUEST - ELECTIVE (01/2020) [[id number]] Order #: [id number]: 1 Prescriptions as of 06/02/2024 - multivitamin [...] Encounter Status:Closed by TRACY MATA on 06/02/24 [facility] CN[facility] 05-31-2024 CNOV Office Visit (TAMWS ) JONATHAN DUNCAN ([id number]) 1955 M Date Time Provider Department 05/31/24 12:45 PM BRAYDEN JOSEPH During your visit today, we recorded the following information about you: Brayden Joseph MD 06/22/2024 9:16 AM Signed Brayden Joseph MD Department of Orthopaedics Orthopaedics [address] [place] [id number] Dept: [phone] Dept May 31, 2024 CHIEF COMPLAINT: New [...] OSTEOARTHRITIS, MOST PRONOUNCED IN THE MEDIAL COMPARTMENT. Regional Program Manager: CHANTELL Transcribe Date/Time: May 18 2024 1:05P [...] process. R (more content not included)... Normal [facility] JONATHAN DUNCAN ([id number]) 1955 M Date Time Provider Department 05/18/24 KERRI STRICKLAND [facility] During your visit today, we recorded the [...] both eyes [Z96.1] 08/25/2017 Encounter Status:Closed by IJLL GOOD on 05/18/24 Normal [facility] MR Knee - left WO contraston 05-18-2024 IMPRESSION: MEDIAL MENISCAL TEAR. MILD-MODERATE OSTEOARTHRITIS, MOST PRONOUNCED IN THE MEDIAL COMPARTMENT. Regional Program Manager: CHANTELL Transcribe Date/Time: May 18 2024 1:05P Dictated by : CHANDA STRATTON DO This examination was interpreted and the report reviewed and electronically signed by: HARJINDER RODRÍGUEZ MD on May 18 2024 1:34PM [facility] DIVISION OF RADIOLOGY * * *Final Report* * * DATE OF EXAM: May 18 2024 12:55PM [facility] 0212 - MRI KNEE WO IVCON LT [...] No additional findings. DIVISION OF RADIOLOGY Provider, [facility] - 05/18/2024 * * *Final Report* * * DATE OF EXAM: May 18 2024 12:55PM [facility] 0212 - MRI KNEE WO IVCON LT [...] OSTEOARTHRITIS, MOST PRONOUNCED IN THE MEDIAL COMPARTMENT. Regional Program Manager: CHANTELL Transcribe Date/Time: May 18 2024 1:05P Dictated by : CHANDA STRATTON DO This examination was interpreted and the report reviewed and electronically signed by: HARJINDER RODRÍGUEZ MD on May 18 2024 1:34PM EST [facility] Radiology Study observation (narrative) [facility] MR Knee - left WO contrastOr dered By: Ccf Provider on 05-18-2024 [facility] MRI KNEE WO IVCON LTon 05-18 MRI [...] OSTEOARTHRITIS, MOST PRONOUNCED IN THE MEDIAL COMPARTMENT. Regional Program Manager: PSCB Transcribe Date/Time: May 18 2024 1:05P Dictated by : CHANDA STRATTON, This examination was interpreted and the report reviewed and electronically signed by: HARJINDER RODRÍGUEZ MD on May 18 2024 1:34PM EST [id number] Normal [facility] CNOVon 05-07-2024 CNOV Office Visit (FAMPWS ) JONATHAN DUNCAN ([id number]) 1955 M Date Time Provider Department 05/07/24 4:20 PM [facility] visit today, we recorded the [...] Mother Heart Father Age of 69, massive [place] Diabetes Father Heart Sister Heart Brother Diabetes [...] on 09/25/2024 (more content not included)... Normal [facility] CNOVon 03-22-2024 CNOV Office Visit (UCTR ) JONATHAN DUNCAN ([id number]) 1955 M Date Time Provider Department 03/22/24 5:15 PM KYLER MELO [facility] During your visit today, we recorded the [...] orthopedics if not improving. Kyler Melo MD Allergies As of Date: 03/22/2024 (No Known Allergies) Date Reviewed: 03/22/2024 Reviewed by: Janay Davalos MA - Fully Assessed Reason for Visit: Knee Pain [132] Cmt: left knee pain, popping x 4 days Primary Visit Diagnosis:Acute pain of left knee [M25.562] Order(s):XR KNEE GENERAL 4V AP BOTH/PA BOTH/LAT/MERC LEFT [[id number]] Order #: [id number] FUTURE Prescriptions as of 03/22/2024 - Tadalafil [...] of 02/13/2024: (more content not included)... Normal [facility] XR KNEE 4V AP/PA BOTH+LAT/ME R [...] No joint effusion. IMPRESSION: Negative left knee. Regional Program Manager: PSCB Transcribe Date/Time: Mar 22 2024 6:47P Dictated by : NOBLE MAXWELL MD This examination was interpreted and the report reviewed and electronically signed by: NOBLE MAXWELL MD on Mar 22 2024 6:49PM EST [id number] Normal [facility] XR Knee - left 4 Viewson IMPRESSION: Negative left knee. Regional Program Manager: PSCB Transcribe Date/Time: Mar 22 2024 6:47P [...] No joint effusion. DIVISION OF RADIOLOGY Provider, [facility] - 03/22/2024 * * *Final Report* * [...] joint effusion. IMPRESSION IMPRESSION: Negative left knee. Regional Program Manager: PSCB Transcribe Date/Time: Mar 22 2024 6:47P Dictated by : NOBLE MAXWELL MD This examination was interpreted and the report reviewed and electronically signed by: NOBLE MAXWELL MD on Mar 22 2024 6:49PM EST [facility] Radiology Study observation (narrative) [facility] XR Knee - left 4 ViewsOrdere d By: Ccf Provider on 03-22-2024 [facility] XR Foot - right AP and Later al and obliqueon 08-07-2022 IMPRESSION: Calcaneal spurs. Otherwise, unremarkable radiograph Regional Program Manager: [facility] Transcribe Date/Time: Aug 07 2022 4:14P Dictated by : KERRI SAM MD This examination was interpreted and the report reviewed and electronically signed by: KERRI SAM MD on Aug 07 2022 4:16PM [facility] DIVISION OF RADIOLOGY * * *Final Report* [...] the Achilles tendon. DIVISION OF RADIOLOGY Provider, [facility] - 08/07/2022 * * *Final Report* * [...] IMPRESSION IMPRESSION: Calcaneal spurs. Otherwise, unremarkable radiograph Regional Program Manager: PSCB Transcribe Date/Time: Aug 07 2022 4:14P Dictated by : KERRI SAM MD This examination was interpreted and the report reviewed and electronically signed by: KERRI SAM MD on Aug 07 2022 4:16PM EST [facility] XR Foot - right AP and Later al and obliqueOrdered By: Ccf Provider on 08-07-2022 [facility] XR Foot - right AP and Later al and obliqueon 08-02-2022 Radiology Study observation (narrative) [facility] Vital Signs Date Time Vital Sign Value Performing Clinician Faci poonam 08-26-2024 12:41-0400 Body height 172.7 cm Pacc 1 Work Phone: [facility] 08-26-2024 12:41-0400 Body mass index (BMI) [Ratio] 34.21 kg/m2 Pacc 1 Work Phone: [facility] 08-26-2024 12:41-0400 Body temperature 98.71 [degF] Pacc 1 Work Phone: [facility] 08-26-2024 12:41-0400 Body weight 102.06 kg Pacc 1 Work Phone: [facility] 08-26-2024 12:41-0400 Diastolic blood pressure 68 mm[Hg] Pacc 1 Work Phone: [facility] 08-26-2024 12:41-0400 Heart rate 76 /min Pacc 1 Work Phone: [facility] 08-26-2024 12:41-0400 Respiratory rate 16 /min Pacc 1 Work Phone: [facility] 08-26-2024 12:41-0400 SaO2% (BldA) [Mass fraction] 97 % Pacc 1 Work Phone: [facility] 08-26-2024 12:41-0400 Systolic blood pressure 136 mm[Hg] Pacc 1 Work Phone: [facility] 08-20-2024 09:39-0500 Diastolic blood pressure 86 mm[Hg] Kerri Strickland MD Work Phone: [facility] 08-20-2024 09:39-0500 Systolic blood pressure 130 mm[Hg] Kerri Strickland MD Work Phone: [facility] 08-20-2024 09:24-0500 Body mass index (BMI) [Ratio] 34.26 kg/m2 Kerri Strickland MD Work Phone: [facility] 08-20-2024 09:24-0500 Body weight 102.2 kg Kerri Strickland MD Work Phone: [facility] 08-20-2024 09:24-0500 Heart rate 64 /min Kerri Strickland MD Work Phone: [facility] 08-20-2024 09:24-0500 Respiratory rate 18 /min Kerri Strickland MD Work Phone: [facility] 06-18-2024 15:32-0500 Diastolic blood pressure 82 mm[Hg] Pacc 1 Work Phone: [facility] 06-18-2024 15:32-0500 Systolic blood pressure 150 mm[Hg] Pacc 1 Work Phone: [facility] 06-18-2024 15:01-0500 Body height 172.7 cm Pacc 1 Work Phone: [facility] 06-18-2024 15:01-0500 Body mass index (BMI) [Ratio] 34.36 kg/m2 Pacc 1 Work Phone: [facility] 06-18-2024 15:01-0500 Body temperature 98.01 [degF] Pacc 1 Work Phone: [facility] 06-18-2024 15:01-0500 Body weight 102.51 kg Pacc 1 Work Phone: [facility] 06-18-2024 15:01-0500 Heart rate 98 /min Pacc 1 Work Phone: [facility] 06-18-2024 15:01-0500 Respiratory rate 16 /min Pacc 1 Work Phone: [facility] 06-18-2024 15:01-0500 SaO2% (BldA) [Mass fraction] 97 % Pacc 1 Work Phone: [facility] 05-07-2024 16:13-0500 Body mass index (BMI) [Ratio] 35.52 kg/m2 Kerri Strickland MD Work Phone: [facility] 05-07-2024 16:13-0500 Body weight 104.4 kg Kerri Strickland MD Work Phone: [facility] 05-07-2024 16:13-0500 Diastolic blood pressure 90 mm[Hg] Kerri Strickland MD Work Phone: [facility] 05-07-2024 16:13-0500 Heart rate 84 /min Kerri Strickland MD Work Phone: [facility] 05-07-2024 16:13-0500 Respiratory rate 18 /min Kerri Strickland MD Work Phone: [facility] 05-07-2024 16:13-0500 Systolic blood pressure 148 mm[Hg] Kerri Strickland MD Work Phone: [facility] 03-22-2024 17:26-0400 Body mass index (BMI) [Ratio] 35.69 kg/m2 Kyler Melo MD Work Phone: [facility] 03-22-2024 17:26-0400 Body temperature 97.59 [degF] Kyler Melo MD Work Phone: [facility] 03-22-2024 17:26-0400 Body weight 104.9 kg Kyler Melo MD Work Phone: [facility] 03-22-2024 17:26-0400 Diastolic blood pressure 82 mm[Hg] Kyler Melo MD Work Phone: [facility] 03-22-2024 17:26-0400 Heart rate 68 /min Kyler Melo MD Work Phone: [facility] 03-22-2024 17:26-0400 Respiratory rate 16 /min Kyler Melo MD Work Phone: [facility] 03-22-2024 17:26-0400 SaO2% (BldA) [Mass fraction] 97 % Kyler Melo MD Work Phone: [facility] 03-22-2024 17:26-0400 Systolic blood pressure 140 mm[Hg] Kyler Melo MD Work Phone: [facility] 02-13-2024 09:54-0400 Body height 171.5 cm Kerri Strickland MD Work Phone: [facility] 02-13-2024 09:54-0400 Body mass index (BMI) [Ratio] 35.18 kg/m2 Kerri Strickland MD Work Phone: [facility] 02-13-2024 09:54-0400 Body weight 103.4 kg Kerri Strickland MD Work Phone: [facility] 02-13-2024 09:54-0400 Diastolic blood pressure 74 mm[Hg] Kerri Strickland MD Work Phone: [facility] 02-13-2024 09:54-0400 Heart rate 58 /min Kerri Strickland MD Work Phone: [facility] 02-13-2024 09:54-0400 Respiratory rate 18 /min Kerri tSrickland MD Work Phone: [facility] 02-13-2024 09:54-0400 Systolic blood pressure 122 mm[Hg] Kerri Strickland MD Work Phone: [facility] 02-03-2023 18:23-0400 Body weight 100.15 kg Kerri Strickland MD Work Phone: [facility] 02-03-2023 18:23-0400 Diastolic blood pressure 78 mm[Hg] Kerri Strickland MD Work Phone: [facility] 02-03-2023 18:23-0400 Heart rate 78 /min Kerri Strickland MD Work Phone: [facility] 02-03-2023 18:23-0400 Respiratory rate 16 /min Kerri Strickland MD Work Phone: [facility] 02-03-2023 18:23-0400 Systolic blood pressure 124 mm[Hg] Kerri Strickland MD Work Phone: [facility] 04-15-2022 14:51-0400 Diastolic blood pressure 72 mm[Hg] Adina Tannhof WASTE MACHINE OPERATOR.ENGAGEMENT ENGINEER Work Phone: [facility] 04-15-2022 14:51-0400 Heart rate 87 /min Adina Tannhof WASTE MACHINE OPERATOR.ENGAGEMENT ENGINEER Work Phone: [facility] 04-15-2022 14:51-0400 Respiratory rate 16 /min Adina Tannhof WASTE MACHINE OPERATOR.ENGAGEMENT ENGINEER Work Phone: [facility] 04-15-2022 14:51-0400 SaO2% (BldA) [Mass fraction] 97 % Adina Tannhof WASTE MACHINE OPERATOR.ENGAGEMENT ENGINEER Work Phone: [facility] 04-15-2022 14:51-0400 Systolic blood pressure 124 mm[Hg] Adina Tannhof WASTE MACHINE OPERATOR.ENGAGEMENT ENGINEER Work Phone: [facility] 01-25-2022 15:28-0400 Body weight 97.98 kg Kerri Strickland MD Work Phone: [facility] 01-25-2022 15:28-0400 Diastolic blood pressure 80 mm[Hg] Kerri Strickland MD Work Phone: [facility] 01-25-2022 15:28-0400 Heart rate 70 /min Kerri Strickland MD Work Phone: [facility] 01-25-2022 15:28-0400 Respiratory rate 14 /min Kerri Strickland MD Work Phone: [facility] 01-25-2022 15:28-0400 Systolic blood pressure 138 mm[Hg] Kerri Strickland MD Work Phone: [facility] 10-19-2021 15:14-0400 Diastolic blood pressure 84 mm[Hg] Kerri Strickland MD Work Phone: [facility] 10-19-2021 15:140400 Systolic blood pressure 148 mm[Hg] Kerri Strickland MD Work Phone: [facility] 10-19-2021 15:110400 Body weight 99.97 kg Kerri Strickland MD Work Phone: [facility] 10-19-2021 15:110400 Heart rate 68 /min Kerri Strickland MD Work Phone: [facility] 10-19-2021 15:110400 Respiratory rate 16 /min Kerri Strickland MD Work Phone: [facility] Encounters Encounter Date Encounter Type Care Provider Facility Start: 04-18-2025 End: 04-18-2025 ambulatory Sen Guy Facility:[facility] Start: 03-05-2025 End: 03-05-2025 ambulatory KERRI STRICKLAND Facility:[facility] Start: 10-25-2024 End: 10-25-2024 Patient encounter procedure Brayden Joseph MD Work Phone: Orthopaedics Comment on above: Other tear of medial meniscus of left knee as current injury, subsequent encounter (Primary Dx); Primary osteoarthritis of left knee Start: 10-25-2024 End: 10-25-2024 ambulatory KERRI STRICKLAND Facility:[facility] Start: 09-27-2024 End: 09-27-2024 ambulatory SOPHIA REBOLLEDO Facility:[facility] Start: 09-27-2024 End: 09-27-2024 Patient encounter procedure Sophia Rebolledo PA-C Work Phone: Orthopaedics Comment on above: Internal derangement of left knee (Primary Dx) Start: 09-15-2024 End: 09-15-2024 ambulatory BRAYDEN JOSEPH Facility:[facility] Start: 09-06-2024 End: 09-06-2024 Refill Kerri Strickland MD Work Phone: [place] Comment on above: Refill Request Start: 08-26-2024 End: 08-26-2024 Admission to [facility] [place] [facility] Work Phone: Pre Anesthesia Start: 08-26-2024 End: 08-26-2024 Anesthesia consultation [place] [address] Work Phone: Pre Anesthesia Comment on above: Pre-operative examin ation (Primary Dx); Coronary artery disease involving [place] coronary artery of [place] heart with angina pectoris (HCC); HTN (hypertension), benign; Hyperlipidemia, unspecified hyperlipidemia type; New onset a-fib (HCC); Type 2 diabetes mellitus without complication, without long-term current use of insulin (HCC); Benign non-nodular prostatic hyperplasia without lower urinary tract symptoms; BMI 34.0-34.9,adult; History of prostate cancer; Former smoker Start: 08-26-2024 End: 08-26-2024 Preprocedural examination done [place] [address] Work Phone: [facility] Start: 08-26-2024 End: 08-26-2024 ambulatory KERRI STRICKLAND Facility:[facility] Start: 08-21-2024 End: 10-21-2024 Follow-up encounter Kerri Strickland MD Work Phone: [facility] Start: 08-20-2024 End: 08-20-2024 ambulatory KERRI STRICKLAND Facility:[facility] Start: 08-20-2024 End: 08-20-2024 Patient encounter procedure Kerri Strickland MD Work Phone: [facility] Comment on above: Type 2 diabetes [...] 08-16-2024 Refill Kerri Strickland MD Work Phone: [address] [place] [address] Comment on above: Refill Request Start: 08-12-2024 Encounter for preprocedural cardiovascular examination Nya Marc [facility] Start: 08-05-2024 End: 08-23-2024 Telephone encounter Kerri Strickland MD Work Phone: Endocrinology Comment on above: Surgery Cancelled (w ants to reschedule surgery- patient has been cleared by drum sprayer ) Start: 07-29-2024 ambulatory Nya Marc Facility:[facility] Start: 07-29-2024 End: 07-29-2024 ambulatory Nya Marc Facility:[facility] Start: 07-14-2024 End: 07-14-2024 ambulatory Nya Marc Facility:[facility] Start: 06-18-2024 End: 06-18-2024 Admission to [place] [id number] Work Phone: Pre Anesthesia Start: 06-18-2024 End: 06-18-2024 Anesthesia consultation [place] [address] Work Phone: Pre Anesthesia Comment on above: Pre-operative examin ation (Primary Dx); Atrial fibrillation, unspecified type (HCC); HTN (hypertension), benign; Hyperlipidemia, unspecified hyperlipidemia type; Type 2 diabetes mellitus without complication, without long-term current use of insulin (HCC); Benign non-nodular prostatic hyperplasia without lower urinary tract symptoms; Coronary artery disease involving [place] coronary artery of [place] heart with angina pectoris (HCC); New onset a-fib (HCC) Start: 06-18-2024 End: 06-18-2024 Preprocedural examination done [place] [address] Work Phone: [facility] Work Phone: Start: 06-18-2024 End: 06-18-2024 ambulatory KERRI STRICKLAND Facility:[facility] Start: 06-18-2024 Encounter for other preprocedural examination KERRI STRICKLAND [facility] Start: 06-18-2024 End: 06-21-2024 Telephone encounter Aspen Klein APRN.CNP Work Phone: Pre Anesthesia Comment on above: Surgery Cancelled Start: 06-11-2024 End: 06-11-2024 Refill Kerri Strickland MD Work Phone: [facility] Comment on above: Refill Request Start: 06-01-2024 End: 06-02-2024 Telephone encounter Brayden Joseph MD Work Phone: Orthopaedics Comment on above: Schedule Surgery Start: 05-31-2024 End: 05-31-2024 ambulatory KERRI GARNICADULUTH Facility:[facility] Start: 05-31-2024 End: 05-31-2024 Patient encounter procedure Brayden Joseph MD Work Phone: Orthopaedics Comment on above: Acute pain of left k nee; 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 Start: 05-18-2024 End: 05-18-2024 Telephone encounter Kerri Strickland MD Work Phone: [facility] Start: 05-18-2024 End: 05-18-2024 [facility] Start: 05-18-2024 End: 05-18-2024 Subsequent hospital visit by physician Mri Radio Replaced By [facility] (I-Stat/1.5t) Work Phone: Radiology Comment on above: Acute pain of left k nee [M25.562] Start: 05-07-2024 End: 05-07-[address] [facility] Facility:[facility] Start: 05-07-2024 End: 05-07-2024 Patient encounter procedure Kerri Strickland MD Work Phone: [facility] Comment on above: Acute pain of left k nee (Primary Dx); 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 Start: 03-22-2024 End: 03-22-2024 Subsequent hospital visit by physician Xr Replaced By [facility] Work Phone: Radiology Comment on above: Acute pain of left k nee [M25.562] Start: 03-22-2024 End: 03-22-2024 Office outpatient visit 15 minutes Kyler Melo MD Work Phone: [facility] Comment on above: Acute pain of left k nee (Primary Dx) Start: 03-22-2024 End: 10-07-2024 ambulatory Kerri Strickland MD Work Phone: [facility] Comment on above: Knee Injury Start: 02-13-2024 End: 02-13-2024 Patient encounter procedure Kerri Strickland MD Work Phone: [facility] Comment on above: Encounter [...] 11-21-2023 Refill Kerri prabhakar MD Work Phone: [facility] Comment on above: Refill Request Start: 07-31-2023 Refill Kerri prabhakar MD Work Phone: [facility] Comment on above: Refill Request Start: 02-03-2023 End: 02-03-2023 Patient encounter procedure Kerri Strickland MD Work Phone: [facility] Comment on above: HTN (hypertension), benign (Primary Dx); Need for vaccination; Type 2 diabetes mellitus without complication, without long-term current use of insulin (HCC) Start: 08-20-2022 End: 08-21-2022 Patient encounter procedure Bobby Egan Work Phone: Podiatry Comment on above: Plantar fasciitis (P rimary Dx); Foot pain, right; Nail dystrophy Start: 08-08-2022 Telephone encounter Kerri winston MD Work Phone: [facility] Comment on above: Results Start: 08-02-2022 End: 08-02-2022 Subsequent hospital visit by physician David Replaced By [facility] [place] Work Phone: Radiology Comment on above: Foot pain, right [M7 9.671] Start: 05-02-2022 Refill Kerri prabhakar MD Work Phone: [facility] Comment on above: Refill Request Start: 04-15-2022 End: 04-15-2022 Patient encounter procedure Adina Pennington WASTE MACHINE OPERATOR.ENGAGEMENT ENGINEER Work Phone: [facility] Comment on above: Visit for suture rem oval (Primary Dx) Start: 04-04-2022 End: 04-04-2022 Emergency department patient visit PRISCILA GAGNON [facility] Start: 02-08-2022 Telephone encounter Kerri winston MD Work Phone: [facility] [place] Comment on above: Results Start: 01-25-2022 End: 01-25-2022 Patient encounter procedure Kerri Strickland MD Work Phone: [facility] Comment on above: HTN (hypertension), benign (Primary Dx); Hyperlipidemia, unspecified hyperlipidemia type; Type 2 diabetes mellitus without complication, without long-term current use of insulin (HCC); Malignant neoplasm of prostate (HCC) Start: 10-22-2021 Telephone encounter Hugo Alondra vaughan WASTE MACHINE OPERATOR.ENGAGEMENT ENGINEER Work Phone: [facility] [place] Comment on above: Results Start: 10-19-2021 End: 10-19-2021 Patient encounter procedure Kerri Strickland MD Work Phone: [facility] Comment on above: Type [...] RSV Vaccine (1 - 1-dose 75+ series) [facility] Start: 09-28-2027 Colonoscopy COLONOSCOPY [facility] Start: 09-28-2027 COLORECTAL CANCER SCREENING COLORECTAL CANCER SCREENING [facility] Start: 09-28-2027 Screening for malign ant neoplasm of colon [facility] Start: 09-26-2025 Urine microalbumin profile [facility] Start: 08-20-2025 Annual PCP Team Jacquard Twine Polisher Operator clyde Disease Visit Annual PCP Team Chronic Disease Visit [facility] Start: 08-20-2025 Covid-19 Vaccine ( season) Covid-19 Vaccine () [facility] Comment on above: Postponed from 02/14 (Declined at this time) Start: 08-20-2025 Hepatitis B surface antibody level LDL Cholesterol [facility] Start: 08-19-2025 Glaucoma screening Dilated Retinal E xam [facility] Start: 05-07-2025 Annual PCP Team Jacquard Twine Polisher Operator clyde Disease Visit Annual PCP Team Chronic Disease Visit [facility] Start: 03-04-2025 End: 03-04-2025 Patient encounter procedure 03/04/2025 9:40 AM EDT Office Visit [facility] [address] [place] [id number] Kerri Strickland MD [address] [place] [id number] 6 mo f/u [facility] Comment on above: 6 mo f/u Start: 02-20-2025 End: 05-22-2025 CBC W Auto Differential panel - Blood COMPLETE BLOOD COUNT AND DIFFERENTIAL Lab Routine HTN (hypertension), benign Expected: 02/20/2025 (Approximate), Expires: 05/22/2025 [facility] Comment on above: Expected: 02/20/2025 (Approximate), Expires: 05/22/2025 Start: 02-20-2025 End: 05-22-2025 Comprehensive metabolic 2000 panel - Serum or Plasma COMPREHENSIVE METABOLIC PANEL Lab Routine Type 2 diabetes mellitus without complication, without long-term current use of insulin (HCC) HTN (hypertension), benign Hyperlipidemia, unspecified hyperlipidemia type Expected: 02/20/2025 (Approximate), Expires: 05/22/2025 [facility] Comment on above: Expected: 02/20/2025 (Approximate), Expires: 05/22/2025 Start: 02-20-2025 End: 05-22-2025 Hemoglobin A1c in Blood HEMOGLOBIN A1C Lab Routine Type 2 diabetes mellitus without complication, without long-term current use of insulin (HCC) Expected: 02/20/2025 (Approximate), Expires: 05/22/2025 [facility] Comment on above: Expected: 02/20/2025 (Approximate), Expires: 05/22/2025 Start: 02-20-2025 Hemoglobin A1c measurement HbA1C [facility] Start: 02-20-2025 End: 05-22-2025 Lipid 1996 panel - Serum or Plasma LIPID PANEL BASIC Lab Routine Type 2 diabetes mellitus without complication, without long-term current use of insulin (HCC) HTN (hypertension), benign Hyperlipidemia, unspecified hyperlipidemia type Expected: 02/20/2025 (Approximate), Expires: 05/22/2025 [facility] Comment on above: Expected: 02/20/2025 (Approximate), Expires: 05/22/2025 Start: 02-20-2025 End: 05-22-2025 Microalbumin/Creatinine [Mass Ratio] in Urine ALBUMIN/CREATININE RATIO, URINE Lab Routine Type 2 diabetes mellitus without complication, without long-term current use of insulin (HCC) Expected: 02/20/2025 (Approximate), Expires: 05/22/2025 [facility] Comment on above: Expected: 02/20/2025 (Approximate), Expires: 05/22/2025 Start: 02-12-2025 Annual PCP Team Jacquard Twine Polisher Operator clyde Disease Visit Annual PCP Team Chronic Disease Visit [facility] Start: 02-12-2025 Anxiety Screening Anxiety Screening [facility] Start: 02-12-2025 BP Controlled (<130/80) BP Controlle d (<130/80) [facility] Start: 02-12-2025 Covid-19 Vaccine () Covid-19 Vaccine () [facility] Comment on above: Postponed from 02/14 (Declined at this time) Start: 02-12-2025 Depression Screening Depression Scre ening [facility] Start: 02-12-2025 Hepatitis B screening Urine Al bumin:Creatinine Ratio [facility] Start: 02-12-2025 Hepatitis B surface antibody level LDL Cholesterol [facility] Start: 10-25-2024 End: 10-25-2024 Patient encounter procedure 10/25/2024 12:45 PM EDT Office Visit Orthopaedics [address] [place] [address] Brayden Joseph MD [address] [place] [address] Post op left knee arthroscopic medial menisectomy [facility] Comment on above: Post op left knee ar throscopic medial menisectomy Start: 09-27-2024 End: 09-27-2024 Patient encounter procedure 09/27/2024 2:30 PM EDT Office Visit Orthopaedics [address] [place] [address] Sophia Rebolledo PA-C [address] [place] [address] Post op left knee arthroscopic medial menisectomy [facility] Comment on above: Post op left knee ar throscopic medial menisectomy Start: 09-25-2024 Glaucoma screening Dilated Retinal E xam [facility] Start: 09-15-2024 End: 09-15-2024 Admission to same day surgery center 09/15/2024 7:30 AM EDT - 09/15/2024 8:56 AM EDT [facility] [address] [place] [address] Brayden Joseph MD [address] [place] [address] ARTHROSCOPY KNEE MENISCECTOMY MEDIAL OR LATERAL [facility] Comment on above: ARTHROSCOPY KNEE MEN ISCECTOMY MEDIAL OR LATERAL Start: 09-15-2024 End: 09-15-2024 Arthrs kne surg w/meniscectomy med/lat w/shvg ARTHROSCOPY KNEE MENISCECTOMY MEDIAL OR LATERAL Derangement of knee, left Left knee pain, unspecified chronicity 09/15/2024 7:30 AM EDT ME OR Start: 09-15-2024 Subsequent hospital visit by physician 09/15/2024 7:30 AM EDT Hospital Encounter [facility] [address] [place] [address] Brayden Joseph MD [address] [place] [address] Derangement of knee, left [M23.92], Left knee pain, unspecified chronicity [M25.562] [facility] Comment on above: Derangement of knee, left [M23.92], Left knee pain, unspecified chronicity [M25.562] Start: 08-20-2024 End: 11-19-2024 Thyrotropin [Units/volume] in Serum or Plasma [facility] Work Phone: Comment on above: Expected: 08/20/2024 , Expires: 11/19/2024 Start: 08-20-2024 End: 08-20-2024 Patient encounter procedure 08/20/2024 9:40 AM EST Office Visit [facility] [address] [place], [place] [phone] Kerri Strickland MD [address] [place] [address] 6 mo f/u [facility] Comment on above: 6 mo f/u Start: 08-13-2024 End: 11-12-2024 Comprehensive metabolic 2000 panel - Serum or Plasma COMPREHENSIVE METABOLIC PANEL Lab Routine HTN (hypertension), benign Hyperlipidemia, unspecified hyperlipidemia type Type 2 diabetes mellitus without complication, without long-term current use of insulin (HCC) Expected: 08/13/2024 (Approximate), Expires: 11/12/2024 [facility] Work Phone: Comment on above: Expected: 08/13/2024 (Approximate), Expires: 11/12/2024 Start: 08-13-2024 End: 11-12-2024 Hemoglobin A1c in Blood HEMOGLOBIN A1C Lab Routine Type 2 diabetes mellitus without complication, without long-term current use of insulin (HCC) Expected: 08/13/2024 (Approximate), Expires: 11/12/2024 [facility] Comment on above: Expected: 08/13/2024 (Approximate), Expires: 11/12/2024 Start: 08-13-2024 Hemoglobin A1c measurement HbA1C [facility] Start: 08-13-2024 End: 11-12-2024 Lipid 1996 panel - Serum or Plasma LIPID PANEL BASIC Lab Routine HTN (hypertension), benign Hyperlipidemia, unspecified hyperlipidemia type Type 2 diabetes mellitus without complication, without long-term current use of insulin (HCC) Expected: 08/13/2024 (Approximate), Expires: 11/12/2024 [facility] Comment on above: Expected: 08/13/2024 (Approximate), Expires: 11/12/2024 Start: 08-11-2024 Annual PCP Team Jacquard Twine Polisher Operator clyde Disease Visit Annual PCP Team Chronic Disease Visit [facility] Start: 08-11-2024 BP Controlled (<130/80) BP Controlle d (<130/80) [facility] Start: 08-09-2024 End: 08-09-2024 Patient encounter procedure 08/09/2024 2:45 PM EST Office Visit Orthopaedics [address] [place] [address] Brayden Joseph MD [address] [place] [address] Post op Left knee arthroscopy [facility] Comment on above: Post op Left knee ar throscopy Start: 07-12-2024 End: 07-12-2024 Patient encounter procedure 07/12/2024 2:30 PM EST Office Visit Orthopaedics [address] [place] [phone] Sophia Rebolledo PA-C [address] [place] [address] Post op Left knee arthroscopy [facility] Comment on above: Post op Left knee ar throscopy Start: 07-03-2024 Shingrix Vaccine (2 of 2) Shingrix Vaccine (2 of 2) [facility] Start: 06-30-2024 End: 06-30-2024 Admission to same day surgery center 06/30/2024 11:21 AM EST - 06/30/2024 12:56 PM EST Surgery [facility] [address] [place] [address] Brayden Joseph MD [address] [facility] [place] [address] ARTHROSCOPY KNEE MENISCECTOMY MEDIAL OR LATERAL [facility] Comment on above: ARTHROSCOPY KNEE MEN ISCECTOMY MEDIAL OR LATERAL Start: 06-30-2024 End: 06-30-2024 Arthrs kne surg w/meniscectomy med/lat w/shvg ARTHROSCOPY KNEE MENISCECTOMY MEDIAL OR LATERAL Internal derangement of left knee Left knee pain, unspecified chronicity 06/30/2024 11:21 AM EST ME OR Start: 06-30-2024 Subsequent hospital visit by physician 06/30/2024 11:21 AM EST Hospital Encounter [facility] [address] [place] [address] Brayden Joseph MD [address] [facility] [place] [address] Internal derangement of left knee [M23.92], Left knee pain, unspecified chronicity [M25.562] [facility] Comment on above: Internal derangement of left knee [M23.92], Left knee pain, unspecified chronicity [M25.562] Start: 06-18-2024 End: 06-18-2024 Anesthesia consultation 06/18/2024 3:20 PM EST PAT Pre Anest[facility] [address] [facility] [place] [address] 1, [facility] [place] [address] [place] [address] ARTHROSCOPY KNEE MENISCECTOMY MEDIAL OR LATERAL [5519] - Knee - Left Pre Anesthesia Comment on above: ARTHROSCOPY KNEE MEN ISCECTOMY MEDIAL OR LATERAL [5519] - Knee - Left Start: 06-16-2024 Advance Directive Discussion Advance Directive Discussion [facility] Start: 06-04-2024 PROSTATE CANCER SCREENING DISCUSSION PROSTATE CANCER SCREENING DISCUSSION [facility] Start: 05-31-2024 End: 05-31-2024 Patient encounter procedure 05/31/2024 12:45 PM EST Office Visit Orthopaedics [address] [place] [address] Brayden Joseph MD [address] [address] Acute pain of left knee [M25.562]; 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 [M23.92] [facility] Comment on above: Acute pain of left k nee [M25.562]; 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 [M23.92] Start: 05-18-2024 End: 05-18-2024 Patient encounter procedure 05/18/2024 12:00 PM EST Appointment Radiology [address] [place] [address] Acute pain of left knee [M25.562]; 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 [M23.92] Radiology Comment on above: Acute pain of left k nee [M25.562]; 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 [M23.92] Start: 02-23-2024 Hepatitis B surface antibody level LDL Cholesterol [facility] Start: 02-15-2024 Covid-19 Vaccine ( season) Covid-19 Vaccine ( season) [facility] Start: 02-15-2024 Influenza vaccination C [facility] Start: 02-10-2024 End: 02-10-2024 Patient encounter procedure 02/10/2024 10:40 AM EDT Office Visit [facility] [place] [address] [facility] [place] [place] [address] Kerri Strickland MD [address] [place] [address] 6 month follow up [facility] Comment on above: 6 month follow up Start: 02-04-2024 ANNUAL PCP TEAM RIPSAW GRADER CLYDE DISEASE VISIT ANNUAL PCP TEAM CHRONIC DISEASE VISIT [facility] Start: 02-04-2024 BP CONTROLLED (<130/80) BP CONTROLLE D (<130/80) [facility] Start: 01-31-2024 Hemoglobin A1c measurement HbA1C [facility] Start: 08-31-2023 Glaucoma screening Dilated Retinal E xam [facility] Start: 08-31-2023 Hepatitis C antibody , confirmatory test DILATED RETINAL EXAM [facility] Start: 08-23-2023 Hemoglobin A1c measurement HbA1C [facility] Start: 08-03-2023 Hepatitis B screening URINE AL BUMIN:CREATININE RATIO [facility] Start: 08-03-2023 Hepatitis B surface antibody level LDL CHOLESTEROL [facility] Start: 08-02-2023 ANNUAL PCP TEAM RIPSAW GRADER CLYDE DISEASE VISIT ANNUAL PCP TEAM CHRONIC DISEASE VISIT [facility] Start: 06-16-2023 Advance Directive Discussion Advance Directive Discussion [facility] Start: 06-16-2023 Behavioral Health Screening Behavioral Health Screening [facility] Start: 06-16-2023 Depression Assessment Depression Ass essment [facility] Start: 04-19-2023 ANNUAL PCP TEAM RIPSAW GRADER CLYDE DISEASE VISIT ANNUAL PCP TEAM CHRONIC DISEASE VISIT [facility] Start: 04-15-2023 ANNUAL PCP TEAM RIPSAW GRADER CLYDE DISEASE VISIT ANNUAL PCP TEAM CHRONIC DISEASE VISIT [facility] Start: 04-15-2023 BP CONTROLLED (<130/80) BP CONTROLLE D (<130/80) [facility] Start: 02-14-2023 Covid-19 Vaccine ( season) Covid-19 Vaccine ( season) [facility] Start: 02-14-2023 Influenza vaccination C [facility] Start: 02-03-2023 End: 04-05-2023 CBC panel - Blood by Automated count CBC Lab Routine HTN (hypertension), benign Type 2 diabetes mellitus without complication, without long-term current use of insulin (HCC) Expected: 02/03/2023 (Approximate), Expires: 04/05/2023 [facility] Work Phone: Comment on above: Expected: 02/03/2023 (Approximate), Expires: 04/05/2023 Start: 02-03-2023 End: 04-05-2023 Comprehensive metabolic 2000 panel - Serum or Plasma COMP METABOLIC PANEL Lab Routine HTN (hypertension), benign Type 2 diabetes mellitus without complication, without long-term current use of insulin (HCC) Expected: 02/03/2023 (Approximate), Expires: 04/05/2023 [facility] Work Phone: Comment on above: Expected: 02/03/2023 (Approximate), Expires: 04/05/2023 Start: 02-03-2023 End: 04-05-2023 Hemoglobin A1c in Blood HGB A1C Lab Routine Type 2 diabetes mellitus without complication, without long-term current use of insulin (HCC) Expected: 02/03/2023 (Approximate), Expires: 04/05/2023 [facility] Work Phone: Comment on above: Expected: 02/03/2023 (Approximate), Expires: 04/05/2023 Start: 02-03-2023 End: 04-05-2023 Lipid 1996 panel - Serum or Plasma LIPID PANEL BASIC Lab Routine Type 2 diabetes mellitus without complication, without long-term current use of insulin (HCC) Expected: 02/03/2023 (Approximate), Expires: 04/05/2023 [facility] Work Phone: Comment on above: Expected: 02/03/2023 (Approximate), Expires: 04/05/2023 Start: 01-31-2023 Hemoglobin A1c/Hemoglobin.total in Blood HBA1C [facility] Start: 01-25-2023 ANNUAL PCP TEAM RIPSAW GRADER CLYDE DISEASE VISIT ANNUAL PCP TEAM CHRONIC DISEASE VISIT [facility] Start: 10-19-2022 ANNUAL PCP TEAM RIPSAW GRADER CLYDE DISEASE VISIT ANNUAL PCP TEAM CHRONIC DISEASE VISIT [facility] Start: 10-19-2022 Hepatitis B surface antibody level LDL CHOLESTEROL [facility] Start: 07-28-2022 Hemoglobin A1c/Hemoglobin.total in Blood HBA1C [facility] Start: 05-15-2022 Colonoscopy COLONOSCOPY [facility] Start: 05-15-2022 COLORECTAL CANCER SCREENING COLORECTAL CANCER SCREENING [facility] Start: 04-21-2022 Hemoglobin A1c/Hemoglobin.total in Blood HBA1C [facility] Start: 04-18-2022 3 comp foot exam completed DIABETIC FOOT EXAM [facility] Start: 04-18-2022 Adult depression screening assessment DEPRESSION SCREENING [facility] Start: 04-18-2022 Diabetic foot examination Diabetic Foot Exam [facility] Start: 04-13-2022 Hepatitis B screening URINE AL BUMIN:CREATININE RATIO [facility] Start: 04-13-2022 Hepatitis B surface antibody level LDL CHOLESTEROL [facility] Start: 02-14-2022 Influenza vaccination INFLUENZA (#1) [facility] Start: 01-25-2022 End: 03-27-2022 Basic metabolic 2000 panel - Serum or Plasma [facility] Work Phone: Comment on above: Expected: 01/25/2022 , Expires: 03/27/2022 Start: 01-25-2022 End: 03-27-2022 [address] A[address] in Blood [facility] Work Phone: Comment on above: Expected: 01/25/2022 , Expires: 03/27/2022 Start: 01-22-2022 End: 03-24-2022 Comprehensive metabolic 2000 panel - Serum or Plasma COMP METABOLIC PANEL Lab Routine Type 2 diabetes mellitus without complication, without long-term current use of insulin (HCC) Expected: 01/22/2022 (Approximate), Expires: 03/24/2022 [facility] Work Phone: Comment on above: Expected: 01/22/2022 (Approximate), Expires: 03/24/2022 Start: 01-22-2022 End: 03-24-2022 Hemoglobin A1c/Hemoglobin.total in Blood HGB A1C Lab Routine Type 2 diabetes mellitus without complication, without long-term current use of insulin (HCC) Expected: 01/22/2022 (Approximate), Expires: 03/24/2022 [facility] Work Phone: Comment on above: Expected: 01/22/2022 (Approximate), Expires: 03/24/2022 Start: 10-19-2021 End: 12-19-2021 CBC panel - Blood by Automated count [facility] Work Phone: Comment on above: Expected: 10/19/2021 , Expires: 12/19/2021 Start: 10-19-2021 End: 12-19-2021 Comprehensive metabolic 2000 panel - Serum or Plasma [facility] Work Phone: Comment on above: Expected: 10/19/2021 (Approximate), Expires: 12/19/2021 Start: 10-19-2021 End: 12-19-2021 Hemoglobin A1c/Hemoglobin.total in Blood [facility] Work Phone: Comment on above: Expected: 10/19/2021 (Approximate), Expires: 12/19/2021 Start: 10-19-2021 End: 12-19-2021 LIPID PANEL, NONFASTING [facility] Work Phone: Comment on above: Expected: 10/19/2021 (Approximate), Expires: 12/19/2021 Start: 10-12-2021 Hemoglobin A1c/Hemoglobin.total in Blood HBA1C [facility] Start: 10-10-2021 COVID-19 VACCINE (4 - Booster for Moderna series) COVID-19 VACCINE (4 - Booster for Moderna series) [facility] Start: 08-19-2021 Hepatitis C antibody , confirmatory test DILATED RETINAL EXAM [facility] Start: 08-06-2021 COVID-19 VACCINE (4 - Booster for Moderna series) COVID-19 VACCINE (4 - Booster for Moderna series) [facility] Start: 08-06-2021 COVID-19 VACCINE (4 - Moderna series) COVID-19 VACCINE (4 - Moderna series) [facility] Start: 06-16-2021 DEPRESSION ASSESSMENT DEPRESSION ASS ESSMENT [facility] Start: 12-30-2020 BP CONTROLLED (<130/80) BP CONTROLLE D (<130/80) [facility] Start: 06-02-2020 PNEUMOCOCCAL: 65+ (2 - PPSV23 if available, else PCV20) PNEUMOCOCCAL: 65+ (2 - PPSV23 if available, else PCV20) [facility] Start: 06-02-2020 PNEUMOCOCCAL: 65+ (2 - PPSV23 or PCV20) PNEUMOCOCCAL: 65+ (2 - PPSV23 or PCV20) [facility] Start: 07-28-2019 PNEUMOCOCCAL: 65+ (2 - PPSV23 if available, else PCV20) PNEUMOCOCCAL: 65+ (2 - PPSV23 if available, else PCV20) [facility] Start: 2019 PNEUMOVAX AGE 65 AND OVER WITH 5YR LOOKBACK (#1) PNEUMOVAX AGE 65 AND OVER WITH 5YR LOOKBACK (#1) [facility] Start: 2014 RSV Vaccine (1 - 1-d ose 60+ series) RSV Vaccine (1 - 1-dose 60+ series) [facility] Start: 2014 RSV Vaccine (1 - Ris k 60-74 years 1-dose series) RSV Vaccine (1 - Risk 60-74 years 1-dose series) [facility] Start: 2004 SHINGRIX VACCINE (1 of 2) SHINGRIX VACCINE (1 of 2) [facility] Start: 1999 COLOGUARD (FIT-DNA) COLOGUARD (FIT-D NA) [facility] Start: [address] COLONOGRAPHY [facility] Start: 1999 FECAL OCCULT BLOOD FECAL OCCULT BLOO D [facility] Start: 1999 Screening for malign ant neoplasm of colon [facility] Start: 1999 SIGMOIDOSCOPY SIGMOIDOSCOPY [facility] End: 06-18-2025 ECG COMPLETE ECG COMPLETE ECG Routine Pre-operative examination 1 Occurrences starting 06/18/2024 until 06/18/2025 [facility] Work Phone: Comment on above: 1 Occurrences starti ng 06/18/2024 until 06/18/2025 ECG COMPLETE ECG COMPLETE ECG 06/18/2024 4:[address] [facility] End: 06-06-2025 MR Knee - left WO contrast MRI KNEE WO IVCON LEFT Radiology Routine Acute pain of left knee 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 1 Occurrences starting 05/07/2024 until 06/06/2025 [facility] Work Phone: Comment on above: 1 Occurrences starti ng 05/07/2024 until 06/06/2025 [facility] Immunizations Immunization Date Immunization Notes Care Provider Terence chauhan 07-17-2024 zoster vaccine recombinant Kerri Strickland MD Work Phone: [facility] 05-08-2024 influenza (HD-IIV4) vaccine, age 65+ yr, high dose, quadrivalent, PF (FLUZONE HIGH-DOSE) Kerri Strickland MD Work Phone: [facility] 02-03-2023 pneumococcal polysaccharide vaccine, 23 valent Kerri Strickland MD Work Phone: [facility] 04-19-2022 influenza, high-dose , quadrivalent vaccine (FLUZONE HIGH DOSE QUADRIVALENT) Kerri Strickland MD Work Phone: [facility] 04-19-2022 influenza virus vacc ine, unspecified formulation Kerri Strickland MD Work Phone: [facility] 04-18-2021 influenza, high-dose , quadrivalent vaccine (FLUZONE HIGH DOSE QUADRIVALENT) Kerri Strickland MD Work Phone: [facility] 09-23-2020 COVID-19 vaccine, fu ll dose (MODERNA) Kerri Strickland MD Work Phone: [facility] 06-02-2019 influenza, high dose seasonal, preservative-free Kerri Strickland MD Work Phone: [facility] 06-02-2019 pneumococcal conjuga te vaccine, 13 valent Kerri Strickland MD Work Phone: [facility] 05-26-2018 influenza, injectabl e, quadrivalent, contains preservative Kerri Strickland MD Work Phone: [facility] 04-04-2016 influenza, injectabl e, quadrivalent, contains preservative Kerri Strickland MD Work Phone: [facility] Payers Date Payer Category Payer Unknown [id number] 2024 Self-pay 2022 Worker's Compensation [id number] 2019 Medicare MEDICARE MEDICAR E A AND B [id number] 2019-Present [phone] [place] [address] Medicare [id number] 2019 Medicare [id number] 2019 Medicare [id number] 2016 [employer] Blue [employer] BLUE CARD PPO OOS [id number] 2016 Unknown [employer] BLUE CARD PPO OOS [id number] 2016-Present [phone] [address] [place] [address] PPO [id number] 2016 Unknown [id number] 2016 Unknown [id number] 1955 Unknown [id number] Unknown [id number] Unknown [id number] Unknown [id number] Unknown [id number] Social History Date Type Detail Facility Start: 04-04-2016 End: 09-27-2022 Tobacco smoking status NHIS Ex-smoker [facility] History of tobacco use Chews Tobacco [facility] Work Phone: Start: 10-19-2021 End: 10-25-2024 Alcohol intake Current drinker of alcohol (finding) [facility] Start: 1955 Sex Assigned At Not on file [place] Start: 10-09-2021 End: 04-19-2022 Exposure to SARS-CoV-2 (event) Not sure [facility] History of tobacco use Current smoker [facility] Start: 04-04-2016 End: 09-27-2022 Tobacco use and exposure User of smokeless tobacco [facility] History of tobacco use Cigarette Smoker [place] Start: 02-03-2023 End: 02-13-2024 History of Social function [facility] Work Phone: Start: 02-03-2023 End: 02-13-2024 Tobacco use panel [facility] Work Phone: Adult Depression Screening Assessment 0 [facility] Work Phone: Start: 09-27-2022 Alcohol Comment 2 beers per day [facility] How often to you hav e a drink containing alcohol? 4 or more times a week [facility] How many standard drinks containing alcohol do you have on a typical day? 1 or 2 [facility] How often do you hav e 6 or more drinks on 1 occasion? Never [facility] Medical Equipment Procedure Code Equipment Code Equipment Origin al Text Equipment Identifier Dates Test blood sugar(s) 1 times daily. Dx: Type 1 DM - Controlled E10.9 Insulin: No [id number], [id number] Start: 02-03-2023 Comment on above: Test blood [...] Type Note Facility 03-05-2025 Note HNO ID: [id number] Author: KERRI STRICKLAND MD Service: ? Author [...] mg 1 tab po bid. Follows with [facility]. Arthritis: Uses Mobic 15 mg [...] Mother Heart Father Age of 69, massive [place] Diabetes Father Heart Sister Heart Brother Diabetes [...] Completed Data reviewed Labs ordered Recording using [employer] software for draft documentation of the visit was discuss (more content not included)... [facility] 10-25-2024 Note HNO ID: [id number] Author: BRAYDEN JOSEPH MD Service: ? Author Type: Physician Type: Progress Notes Filed: 10/25/2024 22:29 Note Text: Brayden Joseph MD Department of Orthopaedics Orthopaedics [address] [facility] [address] Dept: [phone] Dept October 25, 2024 CHIEF COMPLAINT: Post [...] take the edge off. Patient works at [email or web address] and would like to return to work [...] Patient has no known allergies. Recording using [employer] software for draft documentation of the visit was discussed with the patient/authorized customer development representative; all questions welcomed and answered. Patient/authorized customer development representative agreed to proceed Brayden Joseph MD [facility] 10-25-2024 History of Presen t illness Narrative Brayden Joseph MD Department of Orthopaedics Orthopaedics [facility] [address] [facility] [address] Dept: [phone] Dept October 25, 2024 CHIEF COMPLAINT: Post [...] take the edge off. Patient works at [email or web address] and would like to return to work [...] Patient has no known allergies. Recording using [employer] software for draft documentation of the visit was discussed with the patient/authorized customer development representative; all questions welcomed and answered. Patient/authorized customer development representative agreed to proceed Brayden Joseph MD documented in this encounter [facility] 09-27-2024 Note HNO ID: [id number] Author: SOPHIA REBOLLEDO PA-C Service: ? Author Type: Physician Supervisor Mapping Type: Progress Notes Filed: 09/27/2024 14:59 Note Text: Sophia Rebolledo PA-C Department of Orthopaedics Orthopaedics [address] [place] [address] Dept: [phone] Dept September 27, 2024 CHIEF COMPLAINT: Post [...] allergies. This note was partially generated using [employer] voice recognition system, and there may be some incorrect words, spellings, and punctuation that were not noted in checking the note before saving. Sophia Rebolledo PA-C [facility] 09-27-2024 History of Presen t illness Narrative Sophia Rebolledo PA-C Department of Orthopaedics Orthopaedics [address] [facility] [address] Dept: [phone] Dept September 27, 2024 CHIEF COMPLAINT: Post [...] allergies. This note was partially generated using [employer] voice recognition system, and there may be [...] at incision sites. Patient has been taking Viola as needed for the pain and is asking for a refill. documented in this encounter [facility] 09-27-2024 Note HNO ID: [id number] Author: TRACY MATA MA Service: ? Author Type: Color Blender Type: Progress Notes Filed: 09/27/2024 14:59 Note [...] at incision sites. Patient has been taking Viola as needed for the pain and is asking for a refill. 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 Staffing BANK VAULT CUSTODIAN: Leticia Szymanski APRN.BANK VAULT CUSTODIAN Performed by: BANK VAULT CUSTODIAN Indications and Patient Condition Indications for airway management: anesthesia Preoxygenated: yes anesthesia circuit Patient position: sniffing Method: asleep Cricoid Pressure: No Final Airway Details Final airway type: supraglottic airway Number of attempts at approach: 1 Final Supraglottic Airway: i-gel Size 5 Seal Adequate: yes Failed airway: no Unrecognized esophageal intubation: no Airway not difficult SIGNATURE: Leticia Szymanski APRN.BANK VAULT CUSTODIAN PATIENT NAME: Jonathan Duncan DATE: September 15, 2024 TIME: 8:04 AM CSN: [id number] [facility] 09-06-2024 Telephone encounter Note Prescription Refill [...] Cami Espinosa September 06, 2024 2:37 PM [facility] 09-06-2024 Miscellaneous Notes Prescription Refill Information The [...] 2024 2:37 PM documented in this encounter [facility] 08-26-2024 Instructions Aspen Klein APRN.RICHY - 08/26/2024 1:02 PM EDT Images from the original note were not included. [facility] PATIENT PREOPERATIVE INSTRUCTIONS Kerri Strickland MD has scheduled you for your procedure at this surgery center: [facility]: [phone] -- [address] [facility] [address]. Please read below carefully for your personalized [...] office. If you are currently using a rxqr-xtp-kjlo injectable or oral medication for diabetes or [...] Procedures: - YOU MUST HAVE A RESPONSIBLE EMERGENCY RESPONSE TECHNICIAN TAKE YOU HOME. A EMAIL DESIGNER OR MARKETING OPERATIONS CONSULTANT CANNOT BE MADE A RESPONSIBLE EMERGENCY RESPONSE TECHNICIAN. - We recommend that a responsible [...] Advance Directive, please fax a copy to [phone] or email to for it to be [...] Aspen Klein APRN.CNP documented in this encounter [facility] 08-26-2024 History and physical note Images from the original note were not included. [facility] HISTORY AND PHYSICAL EXAMINATION SERVICE DATE: 08/26/2024 SERVICE TIME: 6:53 AM PRIMARY CARE PHYSICIAN: Kerri Strickland MD Assessment Patient has the following medical conditions which may affect palomo-operative course: Coronary artery disease involving [place] coronary artery of [place] heart with angina pectoris (HCC) Assessment: non-obstructing, [...] on Eliquis, received cardiac optimization scanned into [employer], received AC instructions as well. Pt recently [...] equal to 35 kg/m^2 STOP-Bang Score: 5 [id number] Score: Age: 65-74 Sex: male CHF history: No Hypertension history: Yes Stroke/TIA/thromboembolism history: No Vascular disease history: No Diabetes history: Yes [id number] Score: 3 ARISCAT Score: Age: 51-80 Preoperative [...] fevers. Neurological: No history of TIA's, stroke, FALSEWORK BUILDER tumor, impaired sensorium, hemiplegia, paraplegia or quadraplegia. [...] pain, CHF, congenital heart defect, DVT/PE, recent ME, PTCA, PVD, open heart surgery and valve [...] Mother Heart Father Age of 69, massive [place] Diabetes Father Heart Sister Heart Brother Diabetes [...] 370 QTC Calculation (Bazett) 437 Calculated R Quinby 44 Calculated T Quinby 19 Impression ATRIAL FIBRILLATION ABNORMAL ECG Confirmed by MD MULLINS GREGORY () on 06/21/2024 4:39:59 PM No results found for this or any previous visit (from the past 11460 hours). Instructions Given to Patient: Instructions located in the after visit summary. Patient given verbal and written preop instructions and voices comprehension and compliance. SIGNATURE: Aspen Klein APRN.ENGAGEMENT ENGINEER PATIENT NAME: Jonathan Duncan DATE: August 26, 2024 TIME: 12:59 PM PAGER/CONTACT #: [facility] 08-26-2024 History and physical note Images from the original note were not included. [facility] HISTORY AND PHYSICAL EXAMINATION SERVICE DATE: 08/26/2024 SERVICE TIME: 6:53 AM PRIMARY CARE PHYSICIAN: Kerri Strickland MD Assessment Patient has the following medical conditions which may affect palomo-operative course: Coronary artery disease involving [place] coronary artery of [place] heart with angina pectoris (HCC) Assessment: non-obstructing, [...] on Eliquis, received cardiac optimization scanned into [employer], received AC instructions as well. Pt recently [...] equal to 35 kg/m^2 STOP-Bang Score: 5 [id number] Score: Age: 65-74 Sex: male CHF history: No Hypertension history: Yes Stroke/TIA/thromboembolism history: No Vascular disease history: No Diabetes history: Yes [id number] Score: 3 ARISCAT Score: Age: 51-80 Preoperative [...] fevers. Neurological: No history of TIA's, stroke, FALSEWORK BUILDER tumor, impaired sensorium, hemiplegia, paraplegia or quadraplegia. [...] pain, CHF, congenital heart defect, DVT/PE, recent ME, PTCA, PVD, open heart surgery and valve [...] Mother Heart Father Age of 69, massive [place] Diabetes Father Heart Sister Heart Brother Diabetes [...] 370 QTC Calculation (Bazett) 437 Calculated R Quinby 44 Calculated T Quinby 19 Impression ATRIAL FIBRILLATION ABNORMAL ECG Confirmed by MD MULLINS GREGORY () on 06/21/2024 4:39:59 PM No results found for this or any previous visit (from the past 38009 hours). Instructions Given to Patient: Instructions located in the after visit summary. Patient given verbal and written preop instructions and voices comprehension and compliance. SIGNATURE: Aspen Klein APRN.CNP PATIENT NAME: Jonathan Duncan DATE: August 26, 2024 TIME: 12:59 PM PAGER/CONTACT #: documented in this encounter [facility] 08-23-2024 Telephone encounter Note Surgery has been scheduled as requested. 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 Phoned office and spoke with nurse. Patient was last seen by on 07/14/24, then ahd ECHO , stress test completed. EKG done on 06/18/24. They did not get a clearance from . They did complete the testing. is needing paperwork saying what type of surgery, when surgery is to get a clearance. FAx number # [phone]. Please review and advise further. PATIENT will be awaiting call back. Sarah Modi LPN documented in this encounter [facility] 08-23-2024 Telephone encounter Note Received fax back from Dr. Tran's office. The patient has been cleared for surgery. Copy of their office notes scanned into scanned documents. I called and spoke with the patients spouse. He will be scheduled on 09/15/2024. Surgical request completed. Post op appointments have been scheduled and mailed to the patient. [facility] 08-20-2024 History of Presen t illness Narrative [...] mg 1 tab po bid. Follows with [facility]. Branch Store Manager suggested doing a thyroid test, but pt [...] 81 mg once daily was d/c by Branch Store Manager. Tolerating well. Arthritis: Uses Mobic 15 mg [...] Mother Heart Father Age of 69, massive [place] Diabetes Father Heart Sister Heart Brother Diabetes [...] Past Histories independently gathered by the clinical senior office support assistant sosa and the remaining scribed note accurately describes [...] Jazmyn Lui MA documented in this encounter [facility] 08-20-2024 Note HNO ID: [id number] Author: KERRI STRICKLAND MD Service: ? Author [...] po bid. Follows with [place] [facility]. Branch Store Manager suggested doing a thyroid test, but pt [...] 81 mg once daily was d/c by Branch Store Manager. Tolerating well. Arthritis: Uses Mobic 15 mg [...] Mother Heart Father Age of 69, massive [place] Diabetes Father Heart Sister Heart Brother Diabetes [...] oz) BMI 34. (more content not included)... [facility] 08-16-2024 Telephone encounter Note Prescription Refill [...] and requesting a start term go to [facility] Requested Prescriptions Pending Prescriptions Disp Refills metFORMIN [...] Mariam Gastelum August 16, 2024 10:00 AM [facility] 08-16-2024 Miscellaneous Notes Prescription Refill Information The [...] and requesting a start term go to [facility] Requested Prescriptions Pending Prescriptions Disp Refills metFORMIN [...] 2024 10:00 AM documented in this encounter [facility] 08-13-2024 Telephone encounter Note Surgical clearance form faxed to Dr. Tran's office. Patient will be contacted to reschedule once cardiology clearance is received. 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 Phoned office and spoke with nurse. Patient was last seen by on 07/14/24, then ahd ECHO , stress test completed. EKG done on 06/18/24. They did not get a clearance from . They did complete the testing. is needing paperwork saying what type of surgery, when surgery is to get a clearance. FAx number # [phone]. Please review and advise further. PATIENT will be awaiting call back. Sarah Modi LPN [facility] 06-21-2024 Telephone encounter Note Case message sent to cancel surgery. Post op appointments have been cancelled. I called and spoke with the patients spouse and told her to contact the office back to reschedule once he has cardiology clearance. She verbalized understanding. [facility] 06-21-2024 Miscellaneous Notes Case message sent to [...] Faxed EKG, problem list and medlist to [facility] for upcoming appt 07/14/24 at 10:am. Patient aware and agreeable of appt. Breonna Bess LPN documented in this encounter [facility] 06-19-2024 Telephone encounter Note Notifying surgeon's office pt's surgery will need to be rescheduled til after he has had cardiac optimization, for new onset afib found during [facility] appt. [facility] 06-18-2024 Telephone encounter Note Faxed EKG, problem list and medlist to [facility] for upcoming appt 07/14/24 at 10:am. Patient aware and agreeable of appt. Breonna Bess LPN [facility] 06-18-2024 Instructions Aspen Klein APRN.ENGAGEMENT ENGINEER - 06/18/2024 3:14 PM EST Images from the original note were not included. [facility] PATIENT PREOPERATIVE INSTRUCTIONS Brayden Joseph MD has scheduled you for your procedure at this surgery center: [facility]: [phone] -- [address] [facility] [address]. Please read below carefully for your personalized [...] office. If you are currently using a kxgx-hfq-hndw injectable or oral medication for diabetes or [...] Procedures: - YOU MUST HAVE A RESPONSIBLE EMERGENCY RESPONSE TECHNICIAN TAKE YOU HOME. A EMAIL DESIGNER OR MARKETING OPERATIONS CONSULTANT CANNOT BE MADE A RESPONSIBLE EMERGENCY RESPONSE TECHNICIAN. - We recommend that a responsible [...] Advance Directive, please fax a copy to [phone] or email to for it to be [...] Aspen Klein APRN.RICHY documented in this encounter [facility] 06-18-2024 History and physical note Images from [...] controlled on rx Coronary artery disease involving [place] coronary artery of [place] heart with angina pectoris (HCC) Assessment: pending cardiac optimization due to abnormal EKG,non-obstructing per 2014 heart cath SUMMARY: Normal LV systolic function with moderate 1-vessel distal coronary disease. New onset a-fib (HCC) Assessment: found on pre-op EKG today, asymptomatic, currently taking daily ASA, cardiac optimization appt made with [facility] for patient. Informed pt to remain on [...] equal to 35 kg/m^2 STOP-Bang Score: 5 [id number] Score: Age: 65-74 Sex: male CHF history: No Hypertension history: Yes Stroke/TIA/thromboembolism history: No Vascular disease history: No Diabetes history: Yes [id number] Score: 3 ARISCAT Score: Age: 51-80 Preoperative [...] fevers. Neurological: No history of TIA's, stroke, FALSEWORK BUILDER tumor, impaired sensorium, hemiplegia, paraplegia or quadraplegia. [...] pain, CHF, congenital heart defect, DVT/PE, recent ME, PTCA, PVD, open heart surgery and valve [...] Mother Heart Father Age of 69, massive [place] Diabetes Father Heart Sister Heart Brother Diabetes [...] 370 QTC Calculation (Bazett) 437 Calculated R Quinby 44 Calculated T Quinby 19 Impression ATRIAL FIBRILLATION ABNORMAL ECG No results found for this or any previous visit (from the past 16370 hour(s)). Instructions Given to Patient: Instructions located in the after visit summary. Patient given verbal and written preop instructions and voices comprehension and compliance. SIGNATURE: Aspen Klein APRN.CNP PATIENT NAME: Jonathan Duncan DATE: June 18, 2024 TIME: 3:12 PM PAGER/CONTACT #: [facility] 06-18-2024 History and physical note Images from [...] controlled on rx Coronary artery disease involving [place] coronary artery of [place] heart with angina pectoris (HCC) Assessment: pending cardiac optimization due to abnormal EKG,non-obstructing per 2014 heart cath SUMMARY: Normal LV systolic function with moderate 1-vessel distal coronary disease. New onset a-fib (HCC) Assessment: found on pre-op EKG today, asymptomatic, currently taking daily ASA, cardiac optimization appt made with [facility] for patient. Informed pt to remain on [...] equal to 35 kg/m^2 STOP-Bang Score: 5 [id number] Score: Age: 65-74 Sex: male CHF history: No Hypertension history: Yes Stroke/TIA/thromboembolism history: No Vascular disease history: No Diabetes history: Yes [id number] Score: 3 ARISCAT Score: Age: 51-80 Preoperative [...] fevers. Neurological: No history of TIA's, stroke, FALSEWORK BUILDER tumor, impaired sensorium, hemiplegia, paraplegia or quadraplegia. [...] pain, CHF, congenital heart defect, DVT/PE, recent ME, PTCA, PVD, open heart surgery and valve [...] Mother Heart Father Age of 69, massive [place] Diabetes Father Heart Sister Heart Brother Diabetes [...] 370 QTC Calculation (Bazett) 437 Calculated R Quinby 44 Calculated T Quinby 19 Impression ATRIAL FIBRILLATION ABNORMAL ECG No results found for this or any previous visit (from the past 30351 hour(s)). Instructions Given to Patient: Instructions located in the after visit summary. Patient given verbal and written preop instructions and voices comprehension and compliance. SIGNATURE: Aspen Klein APRN.CNP PATIENT NAME: Jonathan Duncan DATE: June 18, 2024 TIME: 3:12 PM PAGER/CONTACT #: documented in this encounter [facility] 06-11-2024 Telephone encounter Note OK to refill as ordered Kerri Strickland MD [facility] 06-11-2024 Miscellaneous Notes OK to refill as [...] by mouth two times a day. [facility] June 11, 2024 2:56 PM documented in this encounter [facility] 06-11-2024 Telephone encounter Note Prescription Refill Information [...] by mouth two times a day. [facility] June 11, 2024 2:56 PM [facility] 06-02-2024 Telephone encounter Note Surgery scheduled as requested. [facility] 06-02-2024 Miscellaneous Notes Surgery scheduled as requested. Patient scheduled for Left knee arthroscopic medial menisectomy and chondroplasty on 06/30/24. Surgical request completed. Post op appointments scheduled and mailed to the patient. documented in this encounter [facility] 06-01-2024 Telephone encounter Note Patient scheduled for Left knee arthroscopic medial menisectomy and chondroplasty on 06/30/24. Surgical request completed. Post op appointments scheduled and mailed to the patient. [facility] 05-31-2024 Note HNO ID: [id number] Author: BRAYDEN JOSEPH MD Service: ? Author Type: Physician Type: Progress Notes Filed: 06/22/2024 09:16 Note Text: Brayden Joesph MD Department of Orthopaedics Orthopaedics [address] [facility] [address] Dept: [phone] Dept May 31, 2024 CHIEF COMPLAINT: New [...] OSTEOARTHRITIS, MOST PRONOUNCED IN THE MEDIAL COMPARTMENT. Regional Program Manager: CHANTELL Transcribe Date/Time: May 18 2024 1:05P Dictated by : CHANDA STRATTON DO This examination was interpreted and the report reviewed and electronically signed by: HARIJNDER RODRÍGUEZ MD on May 18 2024 1:34PM EST Results-Findings * * *Final Report* * * DATE OF EXAM: May 18 2024 12:55PM [facility] 0212 - MRI KNEE WO IVCON LT [...] SYNOVIUM: Moderate joint (more content not included)... [facility] 05-31-2024 History of Presen t illness Narrative Brayden Joseph MD Department of Orthopaedics Orthopaedics [address] [facility] [address] Dept: [phone] Dept May 31, 2024 CHIEF COMPLAINT: New [...] OSTEOARTHRITIS, MOST PRONOUNCED IN THE MEDIAL COMPARTMENT. Regional Program Manager: CHANTELL Transcribe Date/Time: May 18 2024 1:05P [...] Mother Heart Father Age of 69, massive [place] Diabetes Father Heart Sister Heart Brother Diabetes [...] physician via [place] mail. Kerri Strickland [address] [facility] [address] Kerri Strickland MD [address] [facility] [address] Brayden Joseph MD documented in this encounter [facility] 05-18-2024 Telephone encounter Note Patient notified. Verbalized understanding. [facility] 05-18-2024 Miscellaneous Notes Patient notified. Verbalized understanding. Please notify patient that his knee MRI does show a torn meniscus,so keep the aapt that he has with Dr Joseph.Kerri MD documented in this encounter [facility] 05-18-2024 Telephone encounter Note Please notify patient that his knee MRI does show a torn meniscus,so keep the aapt that he has with Dr Joseph.Kerri MD [facility] 05-18-2024 History of Presen t illness Narrative [...] PATIENT PRESENTS WITH AN IMPLANTABLE OR ATTACHED SR TECHNICAL SALES CONSULTANT: No RADIOLOGY DEPARTMENT: MR; Exam(s) Completed: Lower MSK: Knee, left PERIPHERAL IV DATA: Not applicable SIGNED BY: RT Damari(R) May 18, 2024 12:30 PM documented in this encounter [facility] 05-18-2024 Note HNO ID: [id number] Author: SANAM FERGUSON RT(R) Service: ? Author Type: Technologist Type: Progress Notes Filed: 05/18/2024 12:31 Note Text: Radiology Service Progress Note PATIENT NAME: Jonathan Ducnan DATE OF SERVICE: May 18, 2024 TIME: [...] PATIENT PRESENTS WITH AN IMPLANTABLE OR ATTACHED SR TECHNICAL SALES CONSULTANT: No RADIOLOGY DEPARTMENT: MR; Exam(s) Completed: Lower MSK: Knee, left PERIPHERAL IV DATA: Not applicable SIGNED BY: RT Damari(R) May 18, 2024 12:30 PM [facility] 05-07-2024 History of Presen t illness [...] Mother Heart Father Age of 69, massive [place] Diabetes Father Heart Sister Heart Brother Diabetes [...] Past Histories independently gathered by the clinical senior office support assistant sosa and the remaining scribed note accurately describes [...] Joana Curry MA documented in this encounter [facility] 05-07-2024 Note HNO ID: [id number] Author: KERRI STRICKLAND MD Service: ? Author [...] Mother Heart Father Age of 69, massive [place] Diabetes Father Heart Sister Heart Brother Diabetes [...] Tdap) due on (more content not included)... [facility] 03-22-2024 History of Presen t illness [...] PATIENT PRESENTS WITH AN IMPLANTABLE OR ATTACHED SR TECHNICAL SALES CONSULTANT: No RADIOLOGY DEPARTMENT: General X-ray: Exam(s) Completed: Lower Extremity X-Ray(s): Knee, AP / Lat / Tunne / Merchant Left and Wt. Bearing PERIPHERAL IV DATA: Not applicable SIGNED BY: RT Cuauhtemoc(Mago) March 22, 2024 6:04 PM documented in this encounter [facility] 03-22-2024 Note HNO ID: [id number] Author: SEBASTIÁN LITTLE RT(R) Service: Radiology Author [...] PATIENT PRESENTS WITH AN IMPLANTABLE OR ATTACHED SR TECHNICAL SALES CONSULTANT: No RADIOLOGY DEPARTMENT: General X-ray: Exam(s) Completed: Lower Extremity X-Ray(s): Knee, AP / Lat / Tunne / Merchant Left and Wt. Bearing PERIPHERAL IV DATA: Not applicable SIGNED BY: RT Cuauhtemoc(Mago) March 22, 2024 6:04 PM [facility] 03-22-2024 Note HNO ID: [id number] Author: KYLER MELO MD Service: ? Author [...] orthopedics if not improving. Kyler Melo MD [facility] 03-22-2024 History of Presen t illness [...] Kyler Melo MD documented in this encounter [facility] 03-22-2024 Telephone encounter Note Triage Protocol Advised: [...] evening for evaluation. . Protocols used: Knee Zioivn-[id number]-TR [facility] 03-22-2024 Miscellaneous Notes Triage Protocol Advised: See [...] evening for evaluation. . Protocols used: Knee Xpjqlr-TSAVX-BT documented in this encounter [facility] 02-13-2024 History of Presen t illness Narrative [...] [place] - Urology. Dr. Guillen - Ophthalmology [facility] in [place]. Dr. Egan - Podiatry Medical/Family history review [...] guys have used this and had a ME with use. Did not hear anything regarding [...] strength supplement. 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 Piper Juan. documented in this encounter [facility] 11-21-2023 Telephone encounter Note Prescription Refill Information [...] Curry MA November 21, 2023 3:51 PM [facility] 11-21-2023 Telephone encounter Note Patient has [...] 02/10/2024 Please advise. Thank you. Piper Juan. [facility] 07-31-2023 Miscellaneous Notes Spoke with patient's . Notified scripts sent to [facility]. Loretta Garrido RN The following approved [...] by mouth daily with breakfast. Adina Pennington APRN.ENGAGEMENT ENGINEER Patient has been identified by name and [...] calling to request scripts be sent to [facility]. Pended. Date of last office visit in primary care: 02/03/2023 Date of next office visit in primary care: 08/11/2023 Please advise. Thank you. Loretta Garrido RN. documented in this encounter [facility] 02-03-2023 History of Presen t illness Narrative [...] and Imdur 30 mg daily. Following with Rn Recruitment Dr. Egan for Plantar Fasciitis, right foot. [...] Mother Heart Father Age of 69, massive [place] Diabetes Father Heart Sister Heart Brother Diabetes [...] Past Histories independently gathered by the clinical senior office support assistant sosa and the remaining scribed note accurately describes [...] Joana Curry Ma documented in this encounter [facility] 08-20-2022 Instructions Bobby Egan - 08/20/2022 3:48 [...] (or decreased sensation in your feet) a radar repairer should always cut your toenails. Be Careful [...] Go to your health care provider or radar repairer to treat these conditions. What is Plantar [...] time on their feet, such as nurses, acquisition consultant/waiters, and mail carriers, often experience plantar fasciitis. [...] choose the one that fits the best. [place] with your athletic shoes to find a [...] Powerstep Original Full length. Can purchase at [employer] here in [place], [employer] in [place] or [place]. Also can find in [employer] in [facility]. Powersteps can also be purchased online, [...] fits well together documented in this encounter [facility] 08-20-2022 History of Presen t illness Narrative [...] Mother Heart Father Age of 69, massive [place] Diabetes Father Heart Sister Heart Brother Diabetes [...] Cox DPM Podiatry [address] [facility] [address] Dept: [phone] Dept AMB ROOMING INTAKE FLOWSHEET DATA Pain [...] taken on 08/02/22. documented in this encounter [facility] 08-08-2022 Miscellaneous Notes Pt notified and voiced [...] Kerri Strickland MD documented in this encounter [facility] 08-02-2022 History of Presen t illness Narrative [...] 2022 3:58 PM documented in this encounter [facility] 05-02-2022 Miscellaneous Notes OK to refill as ordered Kerri Strickland MD Patient asking pcp to send short supply of pended medication, to [facility], as he is waiting on Rx from . Last ov in pcp office- 04-19-22 documented in this encounter [facility] 04-15-2022 Instructions Adina Pennington APRN.CNP - 04/15/2022 3:09 PM EDT Follow up with Hugo Manzo CNP on Friday for suture removal. Keep wound clean and dry. Continue to take antibiotic until gone. Follow up on Friday or sooner as needed. documented in this encounter [facility] 04-15-2022 History of Presen t illness Narrative This is a 67 year old male who presents today with: Patient presents with: Acute Visit: removel of stitches HISTORY OF PRESENT ILLNESS: Jonathan Duncan is a 67 year old male. Patient presents with: Acute Visit: removel of stitches Here in the office for suture removal. 11 days ago got right hand pulled into wood container coordinator. Went [facility]. Sutures applied to right middle and [...] Mother Heart Father Age of 69, massive [place] Diabetes Father Diabetes Paternal Aunt Heart Sister [...] APRN.RICHY This note was partially generated using [employer] voice recognition system. Note was reviewed for accuracy. There may be minor misspellings or grammar miscues with [employer] voice recognition. documented in this encounter [facility] 02-08-2022 Miscellaneous Notes Called and spoke with pt's , notified her of message below from PCP. Verbalized understanding. Jazmyn Lui Ma Please notify patient that his labs from two weeks ago look good; A1c is good at 7.0. Stay on the same medications and follow up in 6 months as planned Kerri Strickland MD documented in this encounter [facility] 01-25-2022 History of Presen t illness Narrative [...] pains, dizziness, or SOB. 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 Right [...] Mother Heart Father Age of 69, massive [place] Diabetes Father Diabetes Paternal Aunt Heart Sister [...] Kerri Strickland MD documented in this encounter [facility] 10-22-2021 Miscellaneous Notes Letter mailed to pt home of results. Joana Curry MA Please inform patient that his Hgb A1c improved to 6.3%. Cholesterol panel looks good. Complete blood count is normal. Kidney function is normal. Continue with current medications and follow up in 3 months with labs prior. uHgo Manzo APRN.RICHY documented in this encounter [facility] 10-19-2021 History of Presen t illness Narrative [...] Mother Heart Father Age of 69, massive [place] Diabetes Father Diabetes Paternal Aunt Heart Sister [...] Kerri Strickland MD documented in this encounter [facility] 06-05-2017 History of Past i llness Narrative Problem Noted Date Diagnosed Date Resolved Date Malignant neoplasm of prostate 06/05/2017 02/03/2023 Prostate cancer 05/07/2016 02/03/2023 documented as of this encounter (statuses as of 02/04/2023) [facility] History of Past illness Narrative* Problem Noted Date Diagnosed Date Resolved Date Malignant neoplasm of prostate 06/05/2017 02/03/2023 Prostate cancer 05/07/2016 02/03/2023 documented as of this encounter (statuses as of 07/31/2023) [facility] Diagnosis Type 2 diabetes mellitus without complication, without long-term current use of insulin (HCC)- Primary HTN (hypertension), benign Essential hypertension, benign Hyperlipidemia, unspecified hyperlipidemia type [facility] Diagnosis Type 2 diabetes mellitus without complication, without long-term current use of insulin (HCC)- Primary [facility] Diagnosis HTN (hypertension), benign- Primary Essential hypertension, benign Hyperlipidemia, unspecified hyperlipidemia type Type 2 diabetes mellitus without complication, without long-term current use of insulin (HCC) Malignant neoplasm of prostate (HCC) Malignant neoplasm of prostate [facility] Diagnosis Visit for suture removal- Primary Encounter for removal of sutures [facility] Diagnosis Plantar fasciitis- Primary Plantar fascial fibromatosis Foot pain, right Pain in limb Nail dystrophy Other specified disease of nail [facility] Diagnosis HTN (hypertension), benign- Primary Essential hypertension, benign Need for vaccination Need for prophylactic vaccination and inoculation against unspecified single disease Type 2 diabetes mellitus without complication, without long-term current use of insulin (HCC) [facility] Diagnosis HTN (hypertension), benign Essential hypertension, benign Type 2 diabetes mellitus without complication, without long-term current use of insulin (HCC) Hyperlipidemia, unspecified hyperlipidemia type [facility] Diagnosis Foot pain, right Pain in limb [facility] Diagnosis Encounter for Medicare annual wellness [...] and behavioral disorders [facility] Diagnosis Foot pain, right Pain in limb [facility] Diagnosis Acute pain of left knee- Primary Acute pain of left knee [facility] Diagnosis Acute pain of left knee [facility] Diagnosis Acute pain of left knee- Primary 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 [facility] Diagnosis Acute pain of left knee 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 [facility] Diagnosis Internal derangement of left knee- Primary Unspecified internal derangement of knee Left knee pain, unspecified chronicity Internal derangement of left knee Unspecified internal derangement of knee Left knee pain, unspecified chronicity [facility] Diagnosis Foot pain, right Pain in limb HTN (hypertension), benign Essential hypertension, benign Internal derangement of left knee Unspecified internal derangement of knee Left knee pain, unspecified chronicity [facility] Diagnosis Pre-operative examination- Primary Preoperative examination, unspecified Atrial fibrillation, unspecified type (HCC) HTN (hypertension), benign Essential hypertension, benign Hyperlipidemia, unspecified hyperlipidemia type Type 2 diabetes mellitus without complication, without long-term current use of insulin (HCC) Benign non-nodular prostatic hyperplasia without lower urinary tract symptoms Coronary artery disease involving [place] coronary artery of [place] heart with angina pectoris (HCC) * Assessment & Plan Note - Aspen Klein APRN.CNP - 06/21/2024 11:52 AM EST Associated Problem(s): New onset a-fib (HCC) Assessment: found on pre-op EKG today, asymptomatic, currently taking daily ASA, cardiac optimization appt made with [facility] for patient. Informed pt to remain on ASA therapy until cardiology appt * Assessment & Plan Note - Aspen Klein APRN.CNP - 06/21/2024 11:49 AM EST Associated Problem(s): Coronary artery disease involving [place] coronary artery of [place] heart with angina pectoris (HCC) Assessment: pending [...] 148/82 04/18/2021 160/90 documented in this encounter [facility] note* Diagnosis Acute pain of [...] urinary tract symptoms Coronary artery disease involving [place] coronary artery of [place] heart with angina pectoris (HCC) documented in this encounter [facility] note* Diagnosis Pre-operative examination- Primary Preoperative examination, unspecified Atrial fibrillation, unspecified type (HCC) HTN (hypertension), benign Essential hypertension, benign Hyperlipidemia, unspecified hyperlipidemia type Type 2 diabetes mellitus without complication, without long-term current use of insulin (HCC) Benign non-nodular prostatic hyperplasia without lower urinary tract symptoms Coronary artery disease involving [place] coronary artery of [place] heart with angina pectoris (HCC) Type 2 diabetes mellitus without complication, without long-term current use of insulin (HCC) Hyperlipidemia, unspecified hyperlipidemia type HTN (hypertension), benign Essential hypertension, benign [facility] Diagnosis Pre-operative examination- Primary Preoperative examination, unspecified Atrial fibrillation, unspecified type (HCC) HTN (hypertension), benign Essential hypertension, benign Hyperlipidemia, unspecified hyperlipidemia type Type 2 diabetes mellitus without complication, without long-term current use of insulin (HCC) Benign non-nodular prostatic hyperplasia without lower urinary tract symptoms Coronary artery disease involving [place] coronary artery of [place] heart with angina pectoris (HCC) Type 2 [...] erectile dysfunction type documented in this encounter [facility] note* Diagnosis Pre-operative examination- Primary Preoperative examination, unspecified Atrial fibrillation, unspecified type (HCC) HTN (hypertension), benign Essential hypertension, benign Hyperlipidemia, unspecified hyperlipidemia type Type 2 diabetes mellitus without complication, without long-term current use of insulin (HCC) Benign non-nodular prostatic hyperplasia without lower urinary tract symptoms Coronary artery disease involving [place] coronary artery of [place] heart with angina pectoris (HCC) Derangement of knee, left- Primary Unspecified internal derangement of knee Left knee pain, unspecified chronicity Derangement of knee, left Unspecified internal derangement of knee Left knee pain, unspecified chronicity documented in this encounter [facility] note* Diagnosis Pre-operative examination- Primary Preoperative examination, unspecified Atrial fibrillation, unspecified type (HCC) HTN (hypertension), benign Essential hypertension, benign Hyperlipidemia, unspecified hyperlipidemia type Type 2 diabetes mellitus without complication, without long-term current use of insulin (HCC) Benign non-nodular prostatic hyperplasia without lower urinary tract symptoms Coronary artery disease involving [place] coronary artery of [place] heart with angina pectoris (HCC) Pre-operative examination- Primary Preoperative examination, unspecified Coronary artery disease involving [place] coronary artery of [place] heart with angina pectoris (HCC) HTN (hypertension), [...] on Eliquis, received cardiac optimization scanned into [employer], received AC instructions as well. Pt recently [...] EDT Associated Problem(s): Coronary artery disease involving [place] coronary artery of [place] heart with angina pectoris (HCC) Images from the original note were not included. Assessment: non-obstructing, established with cardiology recently 2/2 new onset afib, received cardiac optimization below [facility] Diagnosis Pre-operative examination- Primary Preoperative examination, unspecified Atrial fibrillation, unspecified type (HCC) HTN (hypertension), benign Essential hypertension, benign Hyperlipidemia, unspecified hyperlipidemia type Type 2 diabetes mellitus without complication, without long-term current use of insulin (HCC) Benign non-nodular prostatic hyperplasia without lower urinary tract symptoms Coronary artery disease involving [place] coronary artery of [place] heart with angina pectoris (HCC) Pre-operative examination- Primary Preoperative examination, unspecified Coronary artery disease involving [place] coronary artery of [place] heart with angina pectoris (HCC) HTN (hypertension), [...] pain, unspecified chronicity documented in this encounter [facility] note* Diagnosis Pre-operative examination- Primary Preoperative examination, unspecified Atrial fibrillation, unspecified type (HCC) HTN (hypertension), benign Essential hypertension, benign Hyperlipidemia, unspecified hyperlipidemia type Type 2 diabetes mellitus without complication, without long-term current use of insulin (HCC) Benign non-nodular prostatic hyperplasia without lower urinary tract symptoms Coronary artery disease involving [place] coronary artery of [place] heart with angina pectoris Pre-operative examination- Primary Preoperative examination, unspecified Coronary artery disease involving [place] coronary artery of [place] heart with angina pectoris HTN (hypertension), benign [...] derangement of knee documented in this encounter [facility] note* Diagnosis Pre-operative examination- Primary Preoperative examination, unspecified Atrial fibrillation, unspecified type (HCC) HTN (hypertension), benign Essential hypertension, benign Hyperlipidemia, unspecified hyperlipidemia type Type 2 diabetes mellitus without complication, without long-term current use of insulin (HCC) Benign non-nodular prostatic hyperplasia without lower urinary tract symptoms Coronary artery disease involving [place] coronary artery of [place] heart with angina pectoris Pre-operative examination- Primary Preoperative examination, unspecified Coronary artery disease involving [place] coronary artery of [place] heart with angina pectoris HTN (hypertension), benign [...] osteoarthrosis, lower leg documented in this encounter [facility] for referral (narrative)* Diagnostic Procedure Only (Routine) - Closed Specialty Diagnoses / Procedures Referred By Contac t Referred To Contact XR IMAGING Diagnoses Foot pain, right Procedures XR FOOT GENERAL 3V AP/LAT/OBL RIGHT RADEX FOOT COMPLETE MINIMUM 3 VIEWS Kerri Strickland MD [address] [place] [address] [place] [address] Referral ID Status Reason Start Date Expiration Date V isits Requested Visits Authorized [id number] Closed Auto-Generate d Referral 08/02/2022 09/01/2023 1 1 [facility] for referral (narrative)* Diagnostic Procedure Only (Urgent) - Closed Specialty Diagnoses / Procedures Referred By Contac t Referred To Contact XR IMAGING Diagnoses Acute pain of left knee Procedures XR KNEE GENERAL 4V AP BOTH/PA BOTH/LAT/MERC LEFT RADIOLOGIC EXAM KNEE COMPLETE 4/MORE VIEWS Kyler Melo MD [address] [place] [address] [place] [address] Referral ID Status Reason Start Date Expiration Date V isits Requested Visits Authorized [id number] Closed Auto-Generate d Referral 03/22/2024 04/21/2025 1 1 [facility] for referral (narrative)* Diagnostic Procedure Only (Urgent) - Closed Specialty Diagnoses / Procedures Referred By Contac t Referred To Contact XR IMAGING Diagnoses Acute pain of left knee Procedures XR KNEE GENERAL 4V AP BOTH/PA BOTH/LAT/MERC LEFT RADIOLOGIC EXAM KNEE COMPLETE 4/MORE VIEWS Kyler Melo MD [address] [place] [address] [place] [address] Referral ID Status Reason Start Date Expiration Date V isits Requested Visits Authorized [id number] Closed Auto-Generate d Referral 03/22/2024 04/21/2025 1 1 [facility] for visit Narrative* Diagnostic Procedure Only (Routine) - Closed Specialty Diagnoses / Procedures Referred By Contac t Referred To Contact XR IMAGING Diagnoses Foot pain, right Procedures XR FOOT GENERAL 3V AP/LAT/OBL RIGHT RADEX FOOT COMPLETE MINIMUM 3 VIEWS Kerri Strickland MD [address] [place] [address] [place] [address] Referral ID Status Reason Start Date Expiration Date V isits Requested Visits Authorized [id number] Closed Auto-Generate d Referral 08/02/2022 09/01/2023 1 1 [facility] for visit Narrative* Diagnostic Procedure Only (Urgent) - Closed Specialty Diagnoses / Procedures Referred By Contac t Referred To Contact XR IMAGING Diagnoses Acute pain of left knee Procedures XR KNEE GENERAL 4V AP BOTH/PA BOTH/LAT/MERC LEFT RADIOLOGIC EXAM KNEE COMPLETE 4/MORE VIEWS Kyler Melo MD [address] [place] [address] [place] [address] Referral ID Status Reason Start Date Expiration Date V isits Requested Visits Authorized [id number] Closed Auto-Generate d Referral 03/22/2024 04/21/2025 1 1 [facility] Advance Directives No Advanced Directives Records FoundDocuments on File Type Date Recorded Patient 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 Advance Directive(s) 06/20/2017 12:30 PM Advance Directive(s) 05/19/2017 12:02 PM Advance Directive(s) 05/15/2017 11:11 AM Documents on File Type Date Recorded Patient 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 Advance Directive(s) 06/20/2017 12:30 PM Advance Directive(s) 05/19/2017 12:02 PM Documents on File Type Date Recorded Patient Sole 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 Advance Directive(s) 06/20/2017 12:30 PM [...] W/O CONTRAST MATRL Kerri Strickland MD [address] [place] [address] [place] [address] Referral ID Status Reason Start Date Expiration Date Visits Requested Visits Authorized [id number] Authorized Auto-Generat ed Referral 06/06/2025 1 1 Specialty Diagnoses / Procedures Referred By Contac t Referred To Contact Orthopedics Diagnoses Acute pain of left knee 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 Procedures CONSULT TO ORTHOPAEDICS OFFICE/OUTPATIENT [facility] 60 MINUTES Kerri Strickland MD [address] [phone] Referral ID Status Reason Start Date Expiration Date Visits Requested Visits Authorized [id number] Authorized PCP Requested Referral 05/07/2025 1 1 Referral ID Status Reason Start Date Expiration Date V isits Requested Visits Authorized [id number] Closed Auto-Generate d Referral 05/07/2024 06/06/2025 1 1 Specialty Diagnoses / Procedures Referred By Contac t Referred To Contact Cardiology Diagnoses Pre-operative examination Atrial fibrillation, unspecified type (HCC) Procedures CONSULT TO CARDIOLOGY OFFICE/OUTPATIENT [facility] 60 MINUTES Aspen Klein, WASTE MACHINE OPERATOR.ENGAGEMENT ENGINEER [address] [id number] Referral ID Status Reason Start Date Expiration Date Visits Requested Visits Authorized [id number] Authorized PCP Requested Referral 06/18/2024 06/18/2025 1 1 Specialty Diagnoses / Procedures Referred By Contac t Referred To [facility] Diagnoses Pre-operative examination Procedures ECG COMPLETE ECG ROUTINE ECG W/LEAST 12 LDS W/I&R Aspen Klein, WASTE MACHINE OPERATOR.ENGAGEMENT ENGINEER [address] [place] [address] [facility] [address] [place] [address] Referral ID Status Reason Start Date Expiration Date Visits Requested Visits Authorized [id number] New Request Auto-Generat ed Referral 06/18/2024 06/18/2025 1 1 Additional Source Comments Source Comments (unrecognize d section and content) In the event this informatio n is protected by the Federal Confidentiality of Alcohol and Drug Abuse Patient Records regulations: The Federal rules restrict any use of the information to criminally investigate or prosecute any alcohol or drug abuse patient.[facility] the event this information is protected by the Federal Confidentiality of Alcohol and Drug Abuse Patient Records regulations: The Federal rules restrict any use of the information to criminally investigate or prosecute any alcohol or drug abuse patient.[facility] the event this information is protected by the Federal Confidentiality of Alcohol and Drug Abuse Patient Records regulations: The Federal rules restrict any use of the information to criminally investigate or prosecute any alcohol or drug abuse patient.[facility] the event this information is protected by [...] or prosecute any alcohol or drug abuse patient.[facility] the event this information is protected by the Federal Confidentiality of Alcohol and Drug Abuse Patient Records regulations: The Federal rules restrict any use of the information to criminally investigate or prosecute any alcohol or drug abuse patient.[facility] the event this information is protected by the Federal Confidentiality of Alcohol and Drug Abuse Patient Records regulations: The Federal rules restrict any use of the information to criminally investigate or prosecute any alcohol or drug abuse patient.[facility] the event this information is protected by the Federal Confidentiality of Alcohol and Drug Abuse Patient Records regulations: The Federal rules restrict any use of the information to criminally investigate or prosecute any alcohol or drug abuse patient.[facility] the event this information is protected by the Federal Confidentiality of Alcohol and Drug Abuse Patient Records regulations: The Federal rules restrict any use of the information to criminally investigate or prosecute any alcohol or drug abuse patient.[facility] the event this information is protected by the Federal Confidentiality of Alcohol and Drug Abuse Patient Records regulations: The Federal rules restrict any use of the information to criminally investigate or prosecute any alcohol or drug abuse patient.[facility] the event this information is protected by the Federal Confidentiality of Alcohol and Drug Abuse Patient Records regulations: The Federal rules restrict any use of the information to criminally investigate or prosecute any alcohol or drug abuse patient.[facility] the event this information is protected by the Federal Confidentiality of Alcohol and Drug Abuse Patient Records regulations: The Federal rules restrict any use of the information to criminally investigate or prosecute any alcohol or drug abuse patient.[facility] HealthIn the event this information is protected by the Federal Confidentiality of Alcohol and Drug Abuse Patient Records regulations: The Federal rules restrict any use of the information to criminally investigate or prosecute any alcohol or drug abuse patient.[facility] HealthIn the event this information is protected by the Federal Confidentiality of Alcohol and Drug Abuse Patient Records regulations: The Federal rules restrict any use of the information to criminally investigate or prosecute any alcohol or drug abuse patient.[facility] HealthIn the event this information is protected by the Federal Confidentiality of Alcohol and Drug Abuse Patient Records regulations: The Federal rules restrict any use of the information to criminally investigate or prosecute any alcohol or drug abuse patient.[facility] HealthIn the event this information is protected by the Federal Confidentiality of Alcohol and Drug Abuse Patient Records regulations: The Federal rules restrict any use of the information to criminally investigate or prosecute any alcohol or drug abuse patient.[facility] HealthIn the event this information is protected by the Federal Confidentiality of Alcohol and Drug Abuse Patient Records regulations: The Federal rules restrict any use of the information to criminally investigate or prosecute any alcohol or drug abuse patient.[facility] HealthIn the event this information is protected by the Federal Confidentiality of Alcohol and Drug Abuse Patient Records regulations: The Federal rules restrict any use of the information to criminally investigate or prosecute any alcohol or drug abuse patient.[facility] HealthIn the event this information is protected by the Federal Confidentiality of Alcohol and Drug Abuse Patient Records regulations: The Federal rules restrict any use of the information to criminally investigate or prosecute any alcohol or drug abuse patient.[facility] HealthIn the event this information is protected by the Federal Confidentiality of Alcohol and Drug Abuse Patient Records regulations: The Federal rules restrict any use of the information to criminally investigate or prosecute any alcohol or drug abuse patient.[facility] HealthIn the event this information is protected by the Federal Confidentiality of Alcohol and Drug Abuse Patient Records regulations: The Federal rules restrict any use of the information to criminally investigate or prosecute any alcohol or drug abuse patient.[facility] HealthIn the event this information is protected by the Federal Confidentiality of Alcohol and Drug Abuse Patient Records regulations: The Federal rules restrict any use of the information to criminally investigate or prosecute any alcohol or drug abuse patient.[facility] HealthIn the event this information is protected by the Federal Confidentiality of Alcohol and Drug Abuse Patient Records regulations: The Federal rules restrict any use of the information to criminally investigate or prosecute any alcohol or drug abuse patient.[facility] HealthIn the event this information is protected by the Federal Confidentiality of Alcohol and Drug Abuse Patient Records regulations: The Federal rules restrict any use of the information to criminally investigate or prosecute any alcohol or drug abuse patient.[facility] HealthIn the event this information is protected by the Federal Confidentiality of Alcohol and Drug Abuse Patient Records regulations: The Federal rules restrict any use of the information to criminally investigate or prosecute any alcohol or drug abuse patient.[facility] HealthIn the event this information is protected by the Federal Confidentiality of Alcohol and Drug Abuse Patient Records regulations: The Federal rules restrict any use of the information to criminally investigate or prosecute any alcohol or drug abuse patient.[facility] HealthIn the event this information is protected by the Federal Confidentiality of Alcohol and Drug Abuse Patient Records regulations: The Federal rules restrict any use of the information to criminally investigate or prosecute any alcohol or drug abuse patient.[facility] HealthIn the event this information is protected by the Federal Confidentiality of Alcohol and Drug Abuse Patient Records regulations: The Federal rules restrict any use of the information to criminally investigate or prosecute any alcohol or drug abuse patient.[facility] HealthIn the event this information is protected by the Federal Confidentiality of Alcohol and Drug Abuse Patient Records regulations: The Federal rules restrict any use of the information to criminally investigate or prosecute any alcohol or drug abuse patient.[facility] HealthIn the event this information is protected by the Federal Confidentiality of Alcohol and Drug Abuse Patient Records regulations: The Federal rules restrict any use of the information to criminally investigate or prosecute any alcohol or drug abuse patient.[facility] HealthIn the event this information is protected by the Federal Confidentiality of Alcohol and Drug Abuse Patient Records regulations: The Federal rules restrict any use of the information to criminally investigate or prosecute any alcohol or drug abuse patient.[facility] HealthIn the event this information is protected by the Federal Confidentiality of Alcohol and Drug Abuse Patient Records regulations: The Federal rules restrict any use of the information to criminally investigate or prosecute any alcohol or drug abuse patient.[facility] HealthIn the event this information is protected by the Federal Confidentiality of Alcohol and Drug Abuse Patient Records regulations: The Federal rules restrict any use of the information to criminally investigate or prosecute any alcohol or drug abuse patient.[facility] Reason for Visit (unrecogniz ed section and content) Reason Comments New Pain Specialty Diagnoses / Procedures Referred By Contac t Referred To Contact Orthopedics Diagnoses Acute pain of left knee 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 Procedures CONSULT TO ORTHOPAEDICS OFFICE/OUTPATIENT NEW HIGH MDM 60 MINUTES Kerri Strickland MD [address] [place] [address] Referral ID Status Reason Start Date Expiration Date V isits Requested Visits Authorized [id number] Closed PCP Requested Referral 05/07/2024 05/07/2025 1 1 Reason Comments F/U 3 Month Reason Comments Results Reason Comments Acute Visit removel of stitches Reason Onset Date Comments Refill Request 05/02/2022 Specialty Diagnoses / Procedures Referred By Contac t Referred To Contact Podiatry Diagnoses Foot pain, right Procedures CONSULT TO PODIATRY OFFICE/OUTPATIENT NEW HIGH MDM 60-74 MINUTES Kerri Strickland MD [address] [place] [address] Referral ID Status Reason Start Date Expiration Date V isits Requested Visits Authorized [id number] Closed PCP Requested Referral 08/02/2022 08/02/2023 1 [...] W/O CONTRAST MATRL Kerri Strickland MD [address] [place] [address] [place] [address] Referral ID Status Reason Start Date Expiration Date V isits Requested Visits Authorized [id number] Closed Auto-Generate d Referral 05/07/2024 06/06/2025 1 1 Reason Comments Schedule Surgery Reason Comments Surgery Cancelled Reason Comments Consult Reason Onset Date Comments Refill Request 08/16/2024 Reason Comments F/U 6 Month Reason Comments Surgery Cancelled wants to reschedule surgery- patient has been cleared by drum sprayer Reason Comments Consult 09/15/24 surgery at [facility] left knee with Reason Onset Date Comments Refill Request 09/06/2024 Reason Comments Post Op 1 week 5 days post o p Left knee arthroscopic medial menisectomy, medial distal femoral chondroplasty Reason Comments Post Op 5 weeks 5 days post op Left knee arthroscopic medial menisectomy, medial distal femoral chondroplasty Care Teams (unrecognized sec tion and content) Metal Treater Relationship Specialty Start Date End Date Kerri Strickland MD [address] [place], [place] [id number] PCP - General Family Practice 05/07/16 Metal Treater Relationship Specialty Start Date End Date Kerri Strickland MD [address] [place], [place] [id number] PCP - General Family Practice 05/07/16 Metal Treater Relationship Specialty Start Date End Date Kerri Strickland MD [address] [facility] [place] [address] PCP - General Family Practice 05/07/16 Metal Treater Relationship Specialty Start Date End Date Kerri Strickland MD [address] [facility] [place] [address] PCP - General Family Practice 05/07/16 Metal Treater Relationship Specialty Start Date End Date Kerri Strickland MD [address] [facility] [place] [address] PCP - General Family Medicine 05/07/16 Metal Treater Relationship Specialty Start Date End Date Kerri Strickland MD [address] [place] [address] PCP - General Family Medicine 05/07/16 Metal Treater Relationship Specialty Start Date End Date Kerri Strickland MD [address] [place] [address] PCP - General Family Medicine 05/07/16 Metal Treater Relationship Specialty Start Date End Date Kerri Strickland MD [address] [place] [address] PCP - General Family Medicine 05/07/16 Metal Treater Relationship Specialty Start Date End Date Kerri Strickland MD [address] [place] [address] PCP - General Family Medicine 05/07/16 Metal Treater Relationship Specialty Start Date End Date Kerri Strickland MD [address] [facility] [place] [address] PCP - General Family Medicine 05/07/16 Metal Treater Relationship Specialty Start Date End Date Kerri Strickland MD [address] [place] [address] PCP - General Family Medicine 05/07/16 Metal Treater Relationship Specialty Start Date End Date Kerri Strickland MD [address] [facility] [place] [address] PCP - General Family Medicine 05/07/16 Metal Treater Relationship Specialty Start Date End Date Kerri Strickland MD [address] [place] [address] PCP - General Family Medicine 05/07/16 Metal Treater Relationship Specialty Start Date End Date Kerri Strickland MD [address] [place] [address] PCP - General Family Medicine 05/07/16 Metal Treater Relationship Specialty Start Date End Date Kerri Strickland MD [address] [place] [address] PCP - General Family Medicine 05/07/16 Metal Treater Relationship Specialty Start Date End Date Kerri Strickland MD [address] [place] [address] PCP - General Family Medicine 05/07/16 Metal Treater Relationship Specialty Start Date End Date Kerri Strickland MD [address] [facility] [place] [address] PCP - General Family Medicine 05/07/16 Metal Treater Relationship Specialty Start Date End Date Kerri Strickland MD [address] [facility] [place] [address] PCP - General Family Medicine 05/07/16 Metal Treater Relationship Specialty Start Date End Date Kerri Strickland MD [address] [place] [address] PCP - General Family Medicine 05/07/16 Metal Treater Relationship Specialty Start Date End Date Kerri Strickland MD [address] [place] [address] PCP - General Family Medicine 05/07/16 Adina Pennington APRN.ENGAGEMENT ENGINEER [address] [place] [address] Airfield Engineer Officer Family Medicine 05/23/24 Hugo Manzo APRN.ENGAGEMENT ENGINEER [address] [place] [address] Airfield Engineer Officer Family Medicine 06/01/24 Metal Treater Relationship Specialty Start Date End Date Kerri Strickland MD [address] [place] [address] PCP - General Family Medicine 05/07/16 Adina Pennington APRN.ENGAGEMENT ENGINEER [address] [place] [address] Airfield Engineer Officer Family Medicine 05/23/24 Hugo Manzo APRN.ENGAGEMENT ENGINEER [address] [place] [address] Airfield Engineer Officer Family Medicine 06/01/24 Metal Treater Relationship Specialty Start Date End Date Kerri Strickland MD [address] [place] [address] PCP - General Family Medicine 05/07/16 Adina Pennington APRN.ENGAGEMENT ENGINEER [address] [place] [address] Airfield Engineer Officer Family Medicine 05/23/24 Hugo Manzo APRN.ENGAGEMENT ENGINEER [address] [place] [address] Airfield Engineer Officer Family Medicine 06/01/24 Metal Treater Relationship Specialty Start Date End Date Kerri Strickland MD [address] [place] [address] PCP - General Family Medicine 05/07/16 Adina Pennington APRN.ENGAGEMENT ENGINEER [address] [place] [address] Airfield Engineer Officer Family Medicine 05/23/24 Hugo Manzo APRN.ENGAGEMENT ENGINEER [address] [place] [address] [facility] 06/[facility]24 Metal Treater Relationship Specialty Start Date End Date Kerri Strickland MD [address] [place] [address] PCP - General Family Medicine 05/07/16 Adina Pennington, WASTE MACHINE OPERATOR.ENGAGEMENT ENGINEER [address] [place] [address] [facility]field [facility] 05/23/24 Metal Treater Relationship Specialty Start Date End Date Kerri Strickland MD [address] [place] [address] PCP - General Family Medicine 05/07/16 Adina Pennington WASTE MACHINE OPERATOR.ENGAGEMENT ENGINEER [address] [place] [address] Airfield Engineer Officer Family Medicine 05/23/24 Hugo Manzo APRN.ENGAGEMENT ENGINEER [address] [facility] [place] [address] Airfield Engineer [facility] 06/01/24 Metal Treater Relationship Specialty Start Date End Date Kerri Strickland MD [address] [facility] [place] [address] PCP - General Family Medicine 05/07/16 Adina Pennington APRN.ENGAGEMENT ENGINEER [address] [facility] [place] [address] Airfield Engineer [facility] 05/23/24 Hugo Manzo APRN.ENGAGEMENT ENGINEER [address] [facility] [place] [address] [facility] 06/01/24 Metal Treater Relationship Specialty Start Date End Date Kerri Strickland MD [address] [facility] [place] [address] PCP - General Family Medicine 05/07/16 Adina Pennington APRN.ENGAGEMENT ENGINEER [address] [facility] [place] [address] Airfield Engineer Officer Family Medicine 05/23/24 Hugo Manzo APRN.ENGAGEMENT ENGINEER [address] [facility] [place] [address] Airfield Engineer Officer Family Medicine 06/01/24 Metal Treater Relationship Specialty Start Date End Date Kerri Strickland MD [address] [facility] [place] [address] PCP - General Family Medicine 05/07/16 Adina Pennington APRN.ENGAGEMENT ENGINEER [address] [facility] [place] [address] Airfield Engineer Officer Family Medicine 05/23/24 Hugo Manzo APRN.ENGAGEMENT ENGINEER [address] [facility] [place] [address] Airfield Engineer Officer Family Medicine 06/01/24 Metal Treater Relationship Specialty Start Date End Date Kerri Strickland MD [address] [facility] [place] [address] PCP - General Family Medicine 05/07/16 Adina Pennington APRN.ENGAGEMENT ENGINEER [address] [facility] [place] [address] Airfield Engineer Officer Family Medicine 05/23/24 Hugo Manzo APRN.ENGAGEMENT ENGINEER [address] [facility] [place] [address] Airfield Engineer Officer Family Medicine 06/01/24 Metal Treater Relationship Specialty Start Date End Date Kerri Strickland MD [address] [facility] [place] [address] PCP - General Family Medicine 05/07/16 dAina Pennington APRN.ENGAGEMENT ENGINEER [address] [facility] [place] [address] Airfield Engineer Officer Family Medicine 05/23/24 Hugo Manzo APRN.ENGAGEMENT ENGINEER [address] [facility] [place] [address] Airfield Engineer Officer Family Medicine 06/01/24 Metal Treater Relationship Specialty Start Date End Date Kerri Strickland MD [address] [facility] [place] [address] PCP - General [facility] 05/07/16 Adina Pennington, ALEXANDREA.ENGAGEMENT ENGINEER [address] [facility] [place] [address] [facility] 05/23/24 Hugo Manzo APRN.ENGAGEMENT ENGINEER [address] [facility] [place] [address] [facility] 06/01/24 Metal Treater Relationship Specialty Start Date End Date Kerri Strickland MD [address] [facility], [place] [address] PCP - [facility] 05/07/16 Adina Pennington APRN.ENGAGEMENT ENGINEER [address] [facility], [place] [address] [facility] 05/23/24 Hugo Manzo, WASTE MACHINE OPERATOR.ENGAGEMENT ENGINEER [address] [facility], [place] [address] [facility] 06/01/24 (unrecognized sect ion and content) No Status Records FoundNo Status Records FoundNo Status Records FoundNo Status Records Found INFORMATION SOURCE (unrecogn ized section and content) DATE CREATED AUTHOR 05/01/2022 [facility] DATE CREATED AUTHOR AUTHOR'S ORGANIZ ATION 09/18/2024 [facility] DATE CREATED AUTHOR AUTHOR'S ORGANIZ ATION 03/10/2025 [facility] DATE CREATED AUTHOR AUTHOR'S ORGANIZ ATION 04/18/2025 [facility] FOR RECORDS PERTAINING TO PATIENTS WHO ARE [...] BE BASED ON THE PRIMARY CLINICAL RECORDS. [facility] [employer] [facility]. provides no warranty or guarantee of the accuracy or completeness of information in this document.
== END | disposition home or self-care (01) ==
PROVIDERS: PCP Nurse Practitioner Family; Referring Provider Nurse Practitioner Acute Care; Visit Provider Nurse Practitioner Acute Care
DX: Z12.2 Encounter for screening for malignant neoplasm of respiratory organs (principal); F17.210 Nicotine dependence, cigarettes, uncomplicated
CPT/HCPCS: 71271